=== PATIENT | male | born 1940 | race Caucasian/White ===

== ENCOUNTER 2016-10-09 11:42 | Emergency (ER) | payer MEDICARE, MEDICAID ==
[~2016-10-09] VITALS: Ht 182.9 cm; Wt 90.7 kg
--- NOTE | 2016-10-09 11:54 | ED Neurological Problem ---
General Stated Complaint: CONFUSED, WEAK Source: EMS Exam Limitations: no limitations History of Present Illness Time seen by provider: 11:50 Initial Comments To ER per EMS from [facility] with staff reports of increased confusion, weakness, incontinence. FSBS on arrival 64 so EMS gave amp or oral glucose but without improvement in mental status. However, he takes oral morphine daily for chornic pain and is on Exelon patch for dementia per baseline. Timing/Duration: 24 hours Severity: moderate Associated Symptoms: confusion Allergies and Home Medications Allergies Coded Allergies: No Known Drug Allergies (Unverified , 10/09/16) Home Medications Levofloxacin 250 Mg Tablet, 250 MG PO DAILY, #6 Prescribed by: LILA DAN on 10/09/16 1252 Constitutional: see HPI Eyes: No Symptoms Reported Ears, Nose, Mouth, Throat: no symptoms reported Respiratory: no symptoms reported Cardiovascular: no symptoms reported Genitourinary: no symptoms reported Musculoskeletal: no symptoms reported Skin: no symptoms reported Psychiatric/Neurological: See HPI Endocrine: No Symptoms Reported Hematologic/Lymphatic: No Symptoms Reported Past Qkpglns-Vutwrz-Ernodi Hx Patient Social History Recent Foreign Travel: No Contact w/Someone Who Travel: No Physical Exam Vital Signs Vital Sign - Last 12Hours 10/09/16 11:45 Temp 97.9 Pulse 66 Resp 18 B/P (MAP) 127/70 Pulse Ox 97 Capillary Refill : General Appearance: WD/WN, no apparent distress HEENT: PERRL/EOMI, normal ENT inspection Neck: non-tender, full range of motion Respiratory: no respiratory distress, no accessory muscle use Gastrointestinal: normal bowel sounds, non tender, soft Neurologic/Psychiatric: alert, normal mood/affect, other (oriented to person and place, not time or situation) Crainal Nerves: normal hearing, normal speech, PERRL Skin: normal color, warm/dry Progress/Results/Core Measures Results/Orders Lab Results Laboratory Tests Test 10/09/16 11:46 10/09/16 11:48 Range/Units Urine Color YELLOW Urine Clarity SLIGHTLY CLOUDY Urine pH 6 5-9 Urine Specific [place] 1.015 L 1.016-1.022 Urine Protein NEGATIVE NEGATIVE Urine Glucose (UA) NEGATIVE NEGATIVE Urine Ketones NEGATIVE NEGATIVE Urine Nitrite NEGATIVE NEGATIVE Urine Bilirubin NEGATIVE NEGATIVE Urine Urobilinogen 4 H NORMAL MG/DL Urine Leukocyte Esterase 1+ H NEGATIVE Urine RBC (Auto) NEGATIVE NEGATIVE Urine RBC NONE /HPF Urine WBC RARE /HPF Urine Squamous Epithelial Cells NONE /HPF Urine Crystals NONE /LPF Urine Bacteria NEGATIVE /HPF Urine Casts PRESENT /LPF Urine Hyaline Casts 0-2 H /LPF Urine Mucus NEGATIVE /LPF Urine Culture Indicated NO White Blood Count 5.9 4.3-11.0 10^3/uL Red Blood Count 4.32 L 4.35-5.85 10^6/uL Hemoglobin 12.2 L 13.3-17.7 G/DL Hematocrit 38 L 40-54 % Mean Corpuscular Volume 87 80-99 FL Mean Corpuscular Hemoglobin 28 25-34 PG Mean Corpuscular Hemoglobin Concent 32 32-36 G/DL Red Cell Distribution Width 13.4 10.0-14.5 % Platelet Count 261 130-400 10^3/uL Mean Platelet Volume 8.5 7.4-10.4 FL Neutrophils (%) (Auto) 45 42-75 % Lymphocytes (%) (Auto) 42 12-44 % Monocytes (%) (Auto) 10 0-12 % Eosinophils (%) (Auto) 3 0-10 % Basophils (%) (Auto) 0 0-10 % Neutrophils # (Auto) 2.7 1.8-7.8 X 10^3 Lymphocytes # (Auto) 2.5 1.0-4.0 X 10^3 Monocytes # (Auto) 0.6 0.0-1.0 X 10^3 Eosinophils # (Auto) 0.2 0.0-0.3 10^3/uL Basophils # (Auto) 0.0 0.0-0.1 10^3/uL Sodium Level 141 135-145 MMOL/L Potassium Level 3.9 3.6-5.0 MMOL/L Chloride Level 101 98-107 MMOL/L Carbon Dioxide Level 29 21-32 MMOL/L Anion Gap 11 5-14 MMOL/L Blood Urea Nitrogen 26 H 7-18 MG/DL Creatinine 1.44 H 0.60-1.30 MG/DL Estimat Glomerular Filtration Rate 48 BUN/Creatinine Ratio 18 Glucose Level 80 70-105 MG/DL Calcium Level 9.5 8.5-10.1 MG/DL Total Bilirubin 0.5 0.1-1.0 MG/DL Aspartate Amino Transf (AST/SGOT) 22 5-34 U/L Alanine Aminotransferase (ALT/SGPT) 11 0-55 U/L Alkaline Phosphatase 41 40-136 U/L Troponin I < 0.30 <0.30 NG/ML Total Protein 7.1 6.4-8.2 GM/DL Albumin 3.8 3.2-4.5 GM/DL Valproic Acid (Depakene) Level 44.9 L 50.0-100.0 UG/ML My Orders Orders - LILA DAN APRN Cbc With Automated Diff (10/09/16 11:46) Comprehensive Metabolic Panel (10/09/16 11:46) Troponin I (10/09/16 11:46) Ekg Tracing (10/09/16 11:46) Ua Culture If Indicated (10/09/16 11:46) Chest Pa/Lat (2 View) (10/09/16 11:46) Ct Head Wo (10/09/16 11:46) Valproic Acid (10/09/16 11:55) General/Regular (10/09/16 Lunch) Vital Signs/I&O Vital Sign - Last 12Hours 10/09/16 11:45 Temp 97.9 Pulse 66 Resp 18 B/P (MAP) 127/70 Pulse Ox 97 Diagnostic Imaging Diagonstic Imaging: Xray Plain Films/CT/US/NM/MRI: chest Comments NAME: ABBY CHO [employer] REC#: [id number] PT STATUS: REG ER : 1940 PHYSICIAN: LILA DAN APRN ADMIT DATE: 10/09/16/ER Draft Date of Exam:10/09/16 CHEST PA/LAT (2 VIEW) EXAM: CHEST PA/LAT (2 VIEW) INDICATION: Confusion. COMPARISON: None. FINDINGS: Normal heart size and pulmonary vascularity. Mild atelectasis or infiltrate in the right lung base medially. No pleural effusion or pneumothorax. No acute osseous findings. Surgical clips in the left upper quadrant. Suture anchor in the right shoulder. IMPRESSION: Mild atelectasis or infiltrate in the medial right lung base. Dictated on workstation # [id number] Dict: 10/09/16 1241 Trans: 10/09/16 1246 [id number] Interpreted by: JOURDAN MCNAMARA MD Electronically signed by: NAME: ABBY CHO [employer] REC#: [id number] PT STATUS: REG ER : 1940 PHYSICIAN: LILA DAN APRN ADMIT DATE: 10/09/16/ER Draft Date of Exam:10/09/16 CT HEAD WO PROCEDURE: CT head without contrast. TECHNIQUE: Multiple contiguous axial images were obtained through the brain without the use of intravenous contrast. INDICATION: Altered mental status. COMPARISON: None. FINDINGS: Moderate to advanced generalized cerebral and cerebellar parenchymal volume loss. Intracranial vascular calcifications. No intracranial hemorrhage, mass effect, hydrocephalus or extra-axial fluid collections. Moderate leukoaraiosis. Osseous structures are intact. The visualized paranasal sinuses and mastoids are clear. Orbits are unremarkable. IMPRESSION: No acute intracranial CT findings. Dictated on workstation # [id number] Dict: 10/09/16 1244 Trans: 10/09/16 1250 [facility] [id number] Interpreted by: JOURDAN MCNAMARA MD Electronically signed by: Departure Impression Impression: Primary Impression: Pneumonia Additional Impressions: Dementia Hypoglycemia Disposition: 01 HOME, SELF-CARE Condition: Stable Departure-Patient Inst. Decision time for Depature: 12:49 Patient Instructions: Community-Acquired Pneumonia in Adults, Dementia (DC) Add. Discharge Instructions: 1. Antibiotics as directed 2. Follow-up with his doctor later this week 3. Return if any concerns Scripts Levofloxacin (Levaquin) 250 Mg Tablet 250 MG PO DAILY, #6 TAB Prov: LILA DAN APRN 10/09/16 LILA DAN APRN Oct 09, 2016 11:54
[2016-10-09 12:03] LABS: BASOPHILS % (AUTO) 0 % (0-10); EOSINOPHILS # (AUTO) 0.2 10^3/uL (0.0-0.3); EOSINOPHILS % (AUTO) 3 % (0-10); LYMPHOCYTES # (AUTO) 2.5 X 10^3 (1.0-4.0); LYMPHOCYTES % (AUTO) 42 % (12-44); MEAN CORPUSCULAR HEMOGLOBIN 28 PG (25-34); MEAN CORPUSCULAR HGB CONC 32 G/DL (32-36); MEAN CORPUSCULAR VOLUME 87 FL (80-99); MEAN PLATELET VOLUME 8.5 FL (7.4-10.4); MONOCYTES # (AUTO) 0.6 X 10^3 (0.0-1.0); MONOCYTES % (AUTO) 10 % (0-12); NEUTROPHILS # (AUTO) 2.7 X 10^3 (1.8-7.8); NEUTROPHILS % (AUTO) 45 % (42-75); PLATELET COUNT 261 10^3/uL (130-400); RED BLOOD COUNT 4.32 10^6/uL (4.35-5.85); RED CELL DISTRIBUTION WIDTH 13.4 % (10.0-14.5); WHITE BLOOD COUNT 5.9 10^3/uL (4.3-11.0)
[2016-10-09 12:09] LABS: BILIRUBIN,URINE NEGATIVE (NEGATIVE); KETONES,URINE NEGATIVE (NEGATIVE); LEUKOCYTE ESTERASE ,URINE 1+ (NEGATIVE); NITRITE,URINE NEGATIVE (NEGATIVE); PH,URINE 6 (5-9); PROTEIN,URINE NEGATIVE (NEGATIVE); UROBILINOGEN,URINE 4 MG/DL (NORMAL)
[2016-10-09 12:19] LABS: ALANINE AMINOTRANSFERASE 11 U/L (0-55); ALBUMIN 3.8 GM/DL (3.2-4.5); ANION GAP 11 MMOL/L (5-14); ASPARTATE AMINO TRANSFERASE 22 U/L (5-34); BILIRUBIN,TOTAL 0.5 MG/DL (0.1-1.0); BLOOD UREA NITROGEN 26 MG/DL (7-18); BUN/CREATININE RATIO 18; CALCIUM 9.5 MG/DL (8.5-10.1); CARBON DIOXIDE 29 MMOL/L (21-32); CHLORIDE 101 MMOL/L (98-107); CREATININE SERUM 1.44 MG/DL (0.60-1.30); GFR ESTIMATED 48; GLUCOSE 80 MG/DL (70-105); POTASSIUM 3.9 MMOL/L (3.6-5.0); SODIUM 141 MMOL/L (135-145); TOTAL PROTEIN 7.1 GM/DL (6.4-8.2)
[2016-10-09 12:25] LABS: TROPONIN I < 0.30 NG/ML (<0.30); VALPROIC ACID 44.9 UG/ML (50.0-100.0)
[2016-10-09 12:29] LABS: HYALINE CASTS, URINE 0-2 /LPF; WBC,URINE RARE /HPF
--- NOTE | 2016-10-09 12:47 | Diagnostic Imaging Report ---
EXAM: CHEST PA/LAT (2 VIEW) INDICATION: Confusion. COMPARISON: None. FINDINGS: Normal heart size and pulmonary vascularity. Mild atelectasis or infiltrate in the right lung base medially. No pleural effusion or pneumothorax. No acute osseous findings. Surgical clips in the left upper quadrant. Suture anchor in the right shoulder. IMPRESSION: Mild atelectasis or infiltrate in the medial right lung base. Dictated by: Dictated on workstation # [id number]
--- NOTE | 2016-10-09 12:50 | Diagnostic Imaging Report ---
PROCEDURE: CT head without contrast. TECHNIQUE: Multiple contiguous axial images were obtained through the brain without the use of intravenous contrast. INDICATION: Altered mental status. COMPARISON: None. FINDINGS: Moderate to advanced generalized cerebral and cerebellar parenchymal volume loss. Intracranial vascular calcifications. No intracranial hemorrhage, mass effect, hydrocephalus or extra-axial fluid collections. Moderate leukoaraiosis. Osseous structures are intact. The visualized paranasal sinuses and mastoids are clear. Orbits are unremarkable. IMPRESSION: No acute intracranial CT findings. Dictated by: Dictated on workstation # [id number]
[2016-10-09] MEDS ORDERED: LEVO250T11 PO (12:52)
[2016-10-09] MEDS: LEVOFLOXACIN 500 MG TAB (LEVAQUIN) PO ONE (13:13)
[2016-10-09 13:31] VITALS: BP 127/70
--- OUTSIDE RECORDS SUMMARY | 2016-10-11 09:23 | XMS REPORT | Continuity of Care Document ---
Author Author [facility] Organization [facility] Address Unknown Phone Unavailable Care Team Providers Care Surgical Pathologist Name Role Phone Arash MUELLER MD PCP Insurance Providers Payer Name Policy Number Subscriber Name Relationship Wps Medicare [id number] Marquis Mora 18 Self / Same As Patient [facility] [id number] Marquis Mora 18 Self / Same As Patient Advance Directives Directive Response Recorded Date/Time Advance Directives Yes 06/11/14 10:42pm Health Care Power of Olive Knocker No 06/11/14 10:42pm Organ Donor No 06/11/14 10:42pm Resuscitation Status Full Code 06/11/14 10:42pm Problems Medical Problems Problem Onset Date Status Bronchitis Unknown Active Medications Medication Dose Route Sig Days/Qty Instructions Order Date Discontinued Date Status Acetaminophen/Hydrocodone Bitart 04/12/08 04/24/09 Discontinued [cefdinir] 04/12/08 01/03/09 Discontinued Gabapentin 04/12/08 01/03/09 Discontinued Lubiprostone 04/12/08 01/03/09 Discontinued Furosemide 04/12/08 01/03/09 Discontinued Simvastatin 04/12/08 01/03/09 Discontinued Orphenadrine Citrate 04/12/08 01/03/09 Discontinued Metolazone 04/12/08 01/03/09 Discontinued Metformin HCl 500 Mg PO DAILY 01/03/09 08/10/11 Discontinued Niacin 500 Mg PO DAILY PT TAKES IT IN THE MORNING 01/21/09 01/22/11 Discontinued Clopidogrel Bisulfate 01/21/09 04/24/09 Discontinued Atenolol 01/21/09 10/19/09 Discontinued Methotrexate 01/21/09 10/19/09 Discontinued Lisinopril 01/21/09 10/19/09 Discontinued Acetaminophen/Hydrocodone Bitart 20 - 650 Mg PO EVERY 6 HOURS 10/19/09 Discontinued [Plavix] 04/24/09 10/19/09 Discontinued Fentanyl 100 Mcg TD Q72 HRS 04/24/09 04/15/10 Discontinued Clopidogrel Bisulfate 75 Mg PO DAILY 10/19/09 06/11/14 Discontinued Acetaminophen/Hydrocodone Bitart 2 Ea PO Q6HR PRN 10/19/09 01/14/10 Discontinued Aspirin 325 Mg PO DAILY 10/19/09 01/22/11 Discontinued Acetaminophen/Hydrocodone Bitart 1 - 2 Ea PO Q6HR PRN 80 Qty 11/22/09 01/14/10 Discontinued Sucralfate 1 Gm PO THREE TIMES A DAY 12/01/09 06/11/14 Discontinued Acetaminophen/Hydrocodone Bitart ([place]) 1 - 2 Each PO Q6HR PRN 10 Qty 12/01/09 01/14/10 Discontinued Oxycodone Hcl 30 Mg PO TWICE A DAY 30 Days 12/23/09 01/14/10 Discontinued Clopidogrel Bisulfate 1 Each PO 01/14/10 01/14/10 Discontinued Aspirin 81 Mg PO DAILY 01/14/10 01/14/10 Discontinued Morphine Sulfate 30 Mg PO THREE TIMES A DAY PRN PAIN 01/21/10 Discontinued Oxycodone Hcl/Acetaminophen 1 Each EVERY 4HRS 01/21/10 09/20/10 Discontinued Oxycodone Hcl/Acetaminophen 1 - 2 Each PO EVERY 4HRS PRN 30 Qty 09/20/10 Discontinued Ondansetron 4 Mg PO EVERY 6 HOURS PRN 10 Qty 02/18/11 06/09/11 Discontinued Aspirin 81 Mg PO DAILY 06/09/11 06/11/14 Discontinued Fenofibrate (Lofibra) 134 Mg PO DAILY 06/09/11 06/09/11 Discontinued Lisinopril 2.5 Mg PO DAILY 06/09/11 06/11/14 Discontinued Lisinopril 5 Mg PO 06/09/11 06/09/11 Discontinued Metoprolol Succinate 25 Mg PO DAILY 06/09/11 06/11/14 Discontinued [place]-3/Dha/Epa/Fish Oil 1,000 Mg PO TWICE A DAY 06/09/11 06/11/14 Discontinued Fenofibrate 145 Mg PO BEDTIME 06/09/11 06/11/14 Discontinued Morphine Sulfate 30 Mg PO THREE TIMES A DAY 10 Qty 07/05/11 07/05/11 Discontinued Morphine Sulfate 30 Mg PO THREE TIMES A DAY 10 Days 07/05/11 08/10/11 Discontinued Pioglitazone Hcl/Metformin Hcl 1 Each PO DAILY 08/10/11 06/11/14 Discontinued Hydrocodone Bit/Acetaminophen 1 Each PO DAILY PRN 08/10/11 08/30/11 Discontinued Pioglitazone HCl 1 Tab PO DAILY 30 Qty 08/30/11 06/11/14 Discontinued Pregabalin 300 Mg PO THREE TIMES A DAY 08/30/11 06/11/14 Discontinued Amoxicillin/Clavulanate Potassium 1 Tab PO TWICE A DAY 7 Days 08/31/11 06/11/14 Discontinued Furosemide (Lasix) 90 Qty 06/11/14 Active Lisinopril (Zestril) 90 Qty 06/11/14 Active Clopidogrel Bisulfate 90 Qty 06/11/14 Active Pioglitazone Hcl 90 Qty 06/11/14 Active Metoprolol Succinate 90 Qty 06/11/14 Active Fenofibrate Nanocrystallized 90 Qty 06/11/14 Active Pregabalin 60 Qty 06/11/14 Active Morphine Sulfate 60 Qty 06/11/14 Active Metformin Hcl 180 Qty 06/11/14 Active Citalopram Hydrobromide 90 Qty 06/11/14 Active Lubiprostone 60 Qty 06/11/14 Active Azithromycin (Zpak) 1 Tab PO DAILY 4 Qty 06/12/14 Active Social History Social History Problem Response Recorded Date/Time Alcohol Use Denies Use 06/11/2014 10:42pm Recreational Drug Use No 06/11/2014 10:42pm Recent Foreign Travel No 06/11/2014 10:42pm Recent Infectious Disease Exposure No 06/11/2014 10:42pm Sexually Transmitted Disease No 06/11/2014 10:42pm Smoking Status Former Smoker 06/11/2014 10:42pm Query Response Start Date Stop Date Smoking Status Former Smoker 06/02/2004 Hospital Discharge Instructions No hospital discharge instructions. Plan of Care No plan of care. Functional Status No functional status results. Allergies, Adverse Reactions, Alerts Allergen Type Severity Reaction Status Last Updated No Known Drug Allergies Active 04/12/08 Immunizations No immunization records. Vital Signs Acute Vital Signs Vital Response Date/Time Temperature (Fahrenheit) 101.8 degrees F (97.6 - 99.5) Temperature (Calculated Celsius) 38.59981 degrees C (36.4 - 37.5) Pulse Rate (adult) 82 bpm (60 - 90) Respiratory Rate 20 bpm (12 - 24) O2 Sat by Pulse Oximetry 95 % (88 - 100) Blood Pressure 137/82 mm Hg Pain Pain Intensity 0 Height (Feet) 6 feet Height (Inches) 0 inches Height (Calculated Centimeters) 182.104814 cm Weight (Pounds) 220 pounds Weight (Calculated Kilograms) 99.297406 kilograms Calculated BMI 29.83 Results Laboratory Results Test Name Result Units Flags Reference Collection Date/Time Result Date/ Time Comments White Blood Count 8.6 10^3/uL 4.3-11.0 06/11/2014 10:46pm 06/11/2014 10 :59pm Red Blood Count 4.79 10^6/uL 4.35-5.85 06/11/2014 10:46pm 06/11/2014 10 :59pm Hemoglobin 13.7 G/DL 13.3-17.7 06/11/2014 10:46pm 06/11/2014 10:59pm Hematocrit 40 % 40-54 06/11/2014 10:pm 06/11/2014 10:59pm Mean Corpuscular Volume 84 FL 80-99 06/11/2014 10:46pm 06/11/2014 10: 59pm Mean Corpuscular Hemoglobin 29 PG 25-34 06/11/2014 10:46pm 06/11/2014 10:59pm Mean Corpuscular Hemoglobin Concent 34 G/DL 32-36 06/11/2014 10:46pm 10:59pm Red Cell Distribution Width 13.1 % 10.0-14.5 06/11/2014 10:46pm 2014 10:59pm Platelet Count 315 10^3/uL 130-400 06/11/2014 10:46pm 06/11/2014 10: 59pm Mean Platelet Volume 8.2 FL 7.4-10.4 06/11/2014 10:46pm 06/11/2014 10: 59pm Neutrophils (%) (Auto) 72 % 42-75 06/11/2014 10:46pm 06/11/2014 10: 59pm Lymphocytes (%) (Auto) 18 % 12-44 06/11/2014 10:46pm 06/11/2014 10: 59pm Monocytes (%) (Auto) 9 % 0-12 06/11/2014 10:46pm 06/11/2014 10:59pm Eosinophils (%) (Auto) 1 % 0-10 06/11/2014 10:46pm 06/11/2014 10:59pm Basophils (%) (Auto) 0 % 0-10 06/11/2014 10:46pm 06/11/2014 10:59pm Neutrophils # (Auto) 6.2 X 10^3 1.8-7.8 06/11/2014 10:46pm 06/11/2014 10:59pm Lymphocytes # (Auto) 1.6 X 10^3 1.0-4.0 06/11/2014 10:46pm 06/11/2014 10:59pm Monocytes # (Auto) 0.8 X 10^3 0.0-1.0 06/11/2014 10:46pm 06/11/2014 10: 59pm Eosinophils # (Auto) 0.1 10^3/uL 0.0-0.3 06/11/2014 10:46pm 06/11/2014 10:59pm Basophils # (Auto) 0.0 10^3/uL 0.0-0.1 06/11/2014 10:46pm 06/11/2014 10 :59pm Urine Color MARGIE * 06/11/2014 11:52pm 06/12/2014 12:16am Urine Clarity CLEAR 06/11/2014 11:52pm 06/12/2014 12:16am Urine pH 5 5-9 06/11/2014 11:52pm 06/12/2014 12:16am Urine Specific [place] 1.025 * 1.016-1.022 06/11/2014 11:52pm 2014 12:16am Urine Protein 1+ * NEGATIVE 06/11/2014 11:52pm 06/12/2014 12:16am Urine Glucose (UA) 3+ * NEGATIVE 06/11/2014 11:52pm 06/12/2014 12:16am Urine RBC (Auto) 2+ * NEGATIVE 06/11/2014 11:52pm 06/12/2014 12:16am Urine Ketones NEGATIVE NEGATIVE 06/11/2014 11:52pm 06/12/2014 12: 16am Urine Nitrite NEGATIVE NEGATIVE 06/11/2014 11:52pm 06/12/2014 12: 16am Urine Bilirubin NEGATIVE NEGATIVE 06/11/2014 11:52pm 06/12/2014 12: 16am Urine Urobilinogen 4 MG/DL * NORMAL 06/11/2014 11:52pm 06/12/2014 12: 16am Urine Leukocyte Esterase NEGATIVE NEGATIVE 06/11/2014 11:52pm 2014 12:16am Urine RBC 0-2 /HPF 06/11/2014 11:52pm 06/12/2014 12:16am Urine WBC NONE /HPF 06/11/2014 11:52pm 06/12/2014 12:16am Urine Bacteria NEGATIVE /HPF 06/11/2014 11:52pm 06/12/2014 12:16am Urine Squamous Epithelial Cells NONE /HPF 06/11/2014 11:52pm 2014 12:16am Urine Crystals NONE /LPF 06/11/2014 11:52pm 06/12/2014 12:16am Urine Casts NONE /LPF 06/11/2014 11:52pm 06/12/2014 12:16am Urine Mucus LARGE /LPF * 06/11/2014 11:52pm 06/12/2014 12:16am Urine Culture Indicated NO 06/11/2014 11:52pm 06/12/2014 12:16am Sodium Level 135 MMOL/L 135-145 06/11/2014 10:46pm 06/11/2014 11:18pm Potassium Level 4.2 MMOL/L 3.6-5.0 06/11/2014 10:46pm 06/11/2014 11: 18pm Chloride Level 102 MMOL/L 98-107 06/11/2014 10:46pm 06/11/2014 11:18pm Carbon Dioxide Level 22 MMOL/L 21-32 06/11/2014 10:46pm 06/11/2014 11: 18pm Blood Urea Nitrogen 22 MG/DL H 7-18 06/11/2014 10:4606/11/2014 11: 18pm Creatinine 1.23 MG/DL 0.60-1.30 06/11/2014 10:46pm 06/11/2014 11:18pm BUN/Creatinine Ratio 18 06/11/2014 10:4606/11/2014 11:18pm Estimat Glomerular Filtration Rate 58 06/11/2014 10:46pm 2014 11:18pm GFR INTERPRETIVE DATA UNITS FOR ESTIMATED GFR (eGFR): mL/min/1.73 M2 REFERENCE RANGE FOR ESTIMATED GFR (eGFR) eGFR NORMAL eGFR >60 MODERATELY DECREASED eGFR 30-59 SEVERLY DECREASED eGFR 15-29 KIDNEY FAILURE <15 (OR DIALYSIS) Glucose Level 132 MG/DL H 70-105 06/11/2014 10:46pm 06/11/2014 11:18pm Calcium Level 10.1 MG/DL 8.5-10.1 06/11/2014 10:4606/11/2014 11: 18pm Total Bilirubin 0.8 MG/DL 0.1-1.0 06/11/2014 10:06/11/2014 11: 18pm Alkaline Phosphatase 51 U/L 40-136 06/11/2014 10:06/11/2014 11: 18pm Aspartate Amino Transf (AST/SGOT) 19 U/L 5-34 06/11/2014 10:2014 11:18pm Alanine Aminotransferase (ALT/SGPT) 12 U/L 0-55 06/11/2014 10: 11:18pm Total Protein 8.3 G/DL H 6.4-8.2 06/11/2014 10:06/11/2014 11:18pm Albumin 4.2 G/DL 3.2-4.5 06/11/2014 10:06/11/2014 11:18pm Procedures No known history of procedures. Encounters Encounter Location Date/Time Departed Emergency Room [facility] 06/11/14 10:34pm Recent Diagnosis
--- OUTSIDE RECORDS SUMMARY | 2016-10-11 09:23 | XMS REPORT | Continuity of Care Document ---
Author Author [facility] Organization [facility] Address Unknown Phone Unavailable Care Team Providers Care Material Stockkeeper Yard Name Role Phone Arash MUELLER MD PCP Insurance Providers Payer Name Policy Number Subscriber Name Relationship s Medicare [id number] Marquis Mora 18 Self / Same As Patient [facility] [id number] Marquis Mora 18 Self / Same As Patient Advance Directives Directive Response Recorded Date/Time Advance Directives Yes 02/23/16 10:30am Health Care Power of Marketing Professor Yes 02/23/16 10:30am Organ Donor No 02/23/16 10:30am Resuscitation Status DNR-Pt Request 02/23/16 10:30am Chief Complaint and Reason for Visit Chief Complaint SYNCOPE Reason for Visit Impacted cerumen of right ear Lightheadedness Rib fractures Spleen laceration Problems Active Problems Medical Problem Onset Date Status Bronchitis Unknown Acute Fall on same level Unknown Acute Impacted cerumen of right ear Unknown Acute Lightheadedness Unknown Acute Rib fractures Unknown Acute Spleen laceration Unknown Acute Medications Current Home Medications Medication Dose Units Route Directions Days/Qty Instructions Start Date Lubiprostone 24 Mcg 24 Mcg Oral Twice A Day 06/11/14 Morphine Sulfate 60 Mg 60 Mg Oral Twice A Day 02/24/16 Morphine Sulfate 15 Mg 15 Mg Oral Every 6 Hours as needed for Pain 02/24/16 Past Home Medications Medication Directions Ordered Status Acetaminophen/Hydrocodone Bitart 1 Ea Tablet, 04/12/08 Discontinued [Cefdinir] , 04/12/08 Discontinued Gabapentin 300 Mg Cap, 04/12/08 Discontinued Lubiprostone 24 Mcg Cap, 04/12/08 Discontinued Furosemide 40 Mg Tablet, 04/12/08 Discontinued Simvastatin 40 Mg Tablet, 04/12/08 Discontinued Orphenadrine Citrate 60 Mg/2 Ml Amp, 04/12/08 Discontinued Metolazone 5 Mg Tab, 04/12/08 Discontinued Metformin Hcl 500 Mg Tab, 500 Mg Oral Daily 01/03/09 Discontinued Niacin 500 Mg Tablet.sa, 500 Mg Oral Daily 01/21/09 Discontinued Clopidogrel Bisulfate 75 Mg Tablet, 01/21/09 Discontinued Atenolol 25 Mg Tablet, 01/21/09 Discontinued Methotrexate 2.5 Mg Tab, 01/21/09 Discontinued Lisinopril 5 Mg Tablet, 01/21/09 Discontinued Acetaminophen/Hydrocodone Bitart 1 Ea Tab, 20 - 650 Mg Oral Every 6 Hours 12/24 Discontinued [Plavix] , 04/24/09 Discontinued Fentanyl 1 Ea Patch, 100 Mcg Transderm Q72 Hrs 04/24/09 Discontinued Clopidogrel Bisulfate 75 Mg Tablet, 75 Mg Oral Daily 10/19/09 Discontinued Acetaminophen/Hydrocodone Bitart 1 Ea Tab, 2 Ea Oral Q6hr Prn 10/19/09 Discontinued Aspirin 325 Mg Tabec, 325 Mg Oral Daily 10/19/09 Discontinued Acetaminophen/Hydrocodone Bitart 1 Ea Tab, 1 - 2 Ea Oral Q6hr Prn 11/22/09 Discontinued Sucralfate 1 G Tablet, 1 Gm Oral Three Times A Day 12/01/09 Discontinued Acetaminophen/Hydrocodone Bitart ([place]) 1 Each Tablet, 1 - 2 Each Oral Q6hr Prn 12/01/09 Discontinued Oxycodone Hcl 30 Mg Tab.sr.12h, 30 Mg Oral Twice A Day 12/23/09 Discontinued Clopidogrel Bisulfate 75 Mg Tablet, 1 Each Oral 01/14/10 Discontinued Aspirin 81 Mg Tabec, 81 Mg Oral Daily 01/14/10 Discontinued Morphine Sulfate 15 Mg Tablet, 30 Mg Oral Three Times A Day as needed Discontinued Oxycodone Hcl/Acetaminophen 1 Each Tablet, 1 Each Every 4HRS 01/21/10 Discontinued Oxycodone Hcl/Acetaminophen 1 Each Tablet, 1 - 2 Each Oral Every 4HRS as needed 04/15/10 Discontinued Ondansetron 4 Mg Tab.rapdis, 4 Mg Oral Every 6 Hours as needed 02/18/11 Discontinued Aspirin 81 Mg Tabec, 81 Mg Oral Daily 06/09/11 Discontinued Fenofibrate (Lofibra) 134 Mg Capsule, 134 Mg Oral Daily 06/09/11 Discontinued Lisinopril 2.5 Mg Tablet, 2.5 Mg Oral Daily 06/09/11 Discontinued Lisinopril 5 Mg Tablet, 5 Mg Oral 06/09/11 Discontinued Metoprolol Succinate 25 Mg Tab.sr.24h, 25 Mg Oral Daily 06/09/11 Discontinued [place]-3/Dha/Epa/Fish Oil 1 Each Capsule.dr, 1000 Mg Oral Twice A Day Discontinued Fenofibrate 145 Mg Tablet, 145 Mg Oral Bedtime 06/09/11 Discontinued Morphine Sulfate 15 Mg Tablet, 30 Mg Oral Three Times A Day 07/05/11 Discontinued Morphine Sulfate 15 Mg Tablet, 30 Mg Oral Three Times A Day 07/05/11 Discontinued Pioglitazone Hcl/Metformin Hcl 1 Each Tbmp.24hr, 1 Each Oral Daily 08/10/11 Discontinued Hydrocodone Bit/Acetaminophen 1 Each Tablet, 1 Each Oral Daily as needed 08/02 Discontinued Pioglitazone Hcl 30 Mg Tablet, 1 Tab Oral Daily 08/30/11 Discontinued Pregabalin 300 Mg Capsule, 300 Mg Oral Three Times A Day 08/30/11 Discontinued Amoxicillin/Clavulanate Potassium 1 Tab Tablet, 1 Tab Oral Twice A Day Discontinued Furosemide (Lasix) 20 Mg Tablet, 06/11/14 Discontinued Lisinopril (Zestril) 2.5 Mg Tablet, 06/11/14 Discontinued Clopidogrel Bisulfate 75 Mg Tablet, 06/11/14 Discontinued Pioglitazone Hcl 30 Mg Tab, 06/11/14 Discontinued Metoprolol Succinate 25 Mg Tab.sr.24h, 06/11/14 Discontinued Fenofibrate Nanocrystallized 145 Mg Tablet, 06/11/14 Discontinued Pregabalin 150 Mg Capsule, 06/11/14 Discontinued Morphine Sulfate 60 Mg Tablet.sa, 06/11/14 Discontinued Metformin Hcl 500 Mg Tablet, 06/11/14 Discontinued Citalopram Hydrobromide 10 Mg Tablet, 06/11/14 Discontinued Azithromycin (Zpak) 250 Mg Tab, 1 Tab Oral Daily 06/12/14 Discontinued Social History Social History Problem Response Recorded Date/Time Alcohol Use Denies Use 01/27/2015 4:42pm Recreational Drug Use No 01/27/2015 4:42pm Recent Foreign Travel No 02/23/2016 10:30am Recent Infectious Disease Exposure No 02/23/2016 10:30am Hospitalization with Isolation Denies 02/27/2016 10:22am Sexually Transmitted Disease No 02/23/2016 10:30am Smoking Status Former Smoker 02/23/2016 10:30am Do you dip or chew tobacco? No 01/27/2015 4:42pm Recent Hopitalizations No 02/23/2016 10:30am Sexually Transmitted Disease No 02/23/2016 10:30am Hospitalization with Isolation Denies 02/27/2016 10:22am Hx Sexually Transmitted Disorders No 01/27/2011 9:35am Query Response Start Date Stop Date Smoking Status Former Smoker 06/02/2004 Hospital Discharge Instructions No hospital discharge instructions. Plan of Care Discharge Date 02/27/16 10:16am Disposition 61 MEDICARE SWING BED Instructions/Education Provided Constipation, Adult (DC) Prescriptions See Medication Section Functional Status Query Response Date Recorded Patient Orientation Person Place February 26, 2016 12:07pm Patient Orientation Person Place Time Eyes Open February 27, 2016 10:22am Comprehension Ability Understands Concepts February 27, 2016 8:00am Allergies, Adverse Reactions, Alerts No known allergies. Immunizations No immunization records. Vital Signs Acute Vital Signs Vital Response Date/Time Temperature (Fahrenheit) 99.0 degrees F (97.6 - 99.5) 02/27/2016 8:00am Temperature (Calculated Celsius) 37.86858 degrees C (36.4 - 37.5) 02/27/2016 8:00am Temperature Source Tympanic 02/27/2016 8:00am Pulse Rate (adult) 86 bpm (60 - 90) 02/27/2016 8:00am Respiratory Rate 20 bpm (12 - 24) 02/27/2016 8:00am O2 Sat by Pulse Oximetry 97 % (88 - 100) 02/27/2016 8:00am Blood Pressure 131/77 mm Hg 02/27/2016 8:00am Blood Pressure Mean 95 mm Hg 02/27/2016 8:00am Pain Numeric Pain Scale 10-Worst Possible Pain 02/27/2016 8:00am Pain Numeric Pain Scale 0-No Pain 02/27/2016 8:00am Height (Feet) 6 feet 02/23/2016 10:30am Height (Inches) 0.00 inches 02/23/2016 10:30am Height (Calculated Centimeters) 182.097591 cm 02/23/2016 10:30am Weight (Pounds) 225 pounds 02/27/2016 6:00am Weight (Ounces) 4.8 oz 02/27/2016 6:00am Weight (Calculated Grams) 392517.362 gm 02/27/2016 6:00am Weight (Calculated Kilograms) 102.414525 kilograms 02/27/2016 6:00am Calculated BMI 31.6 02/23/2016 10:30am Capillary Refill Capillary Refill Less Than 3 Seconds 02/27/2016 8:00am Results Pending Laboratory Results Test Name Collection Date/Time Procedures Procedure Status Date Provider(s) Tracing only of electrocardiogram Completed 02/23/16 YEFRI HA MD Color Doppler echocardiography Active 02/24/16 PELON HARVEY MD Encounters Encounter Location Arrival/Admit Date Discharge/Depart Date Attending Provider Discharged Inpatient [facility] 02/23/16 10:50am 10:16am REINALDO MONTGOMERY DO Discharged Recurring [facility] 01/13/16 12:40pm 4:00pm AMY CANDELARIO APRN Recent Diagnosis Impacted cerumen of right ear Lightheadedness Rib fractures Spleen laceration
--- OUTSIDE RECORDS SUMMARY | 2016-10-11 09:24 | XMS REPORT | Continuity of Care Document ---
Author Author [facility] Organization [facility] Address Unknown Phone Unavailable Care Team Providers Care Funeral Location Manager Name Role Phone Arash MUELLER MD PCP Insurance Providers Payer Name Policy Number Subscriber Name Relationship s Medicare [id number] Marquis Mora 18 Self / Same As Patient [facility] [id number] Marquis Mora 18 Self / Same As Patient Advance Directives Directive Response Recorded Date/Time Advance Directives Yes 03/08/16 11:00pm Health Care Power of Outsole Cutter Machine Yes 03/08/16 11:00pm Organ Donor No 03/08/16 11:00pm Resuscitation Status DNR-Order Obtained 03/08/16 11:00pm Chief Complaint and Reason for Visit Chief Complaint L RIB FX 8-12, SPLEEN LAC,L PNEUMONIA Reason for Visit Gait instability Lightheadedness Problems Active Problems Medical Problem Onset Date Status Bronchitis Unknown Acute Fall on same level Unknown Acute Gait instability Unknown Acute Impacted cerumen of right ear Unknown Acute Lightheadedness Unknown Acute RESPIRATORY FAILURE, UNSP, UNSP W HYPOXIA OR HYPERCAPNIA Unknown Acute Rib fractures Unknown Acute Spleen laceration Unknown Acute Medications Current Home Medications Medication Dose Units Route Directions Days/Qty Instructions Start Date Pregabalin 225 Mg 225 Mg Oral Twice A Day 03/08/16 Citalopram Hydrobromide 10 Mg 10 Mg Oral Daily 03/08/16 Fenofibrate Nanocrystallized 145 Mg 145 Mg Oral Daily 03/08/16 Lubiprostone 24 Mcg 24 Mcg Oral Daily LAST FILLED 12/02/15 #85 Polyethylene Glycol 3350 17 Gm 17 Gm Oral Daily as needed for Constipation 03/09/16 Liraglutide 0.6 Mg/0.1 Ml 1.2 Mg Sub-Q Daily 03/09/16 Morphine Sulfate 60 Mg 60 Mg Oral Twice A Day 03/09/16 Morphine Sulfate 15 Mg 15 Mg Oral Every 6 Hours as needed for Pain 03/09/16 Past Home Medications Medication Directions Ordered Status [...] Times A Day 12/01/09 Discontinued Acetaminophen/Hydrocodone Bitart ([place]) 1 Each Tablet, 1 - 2 Each [...] Tab.sr.24h, 25 Mg Oral Daily 06/09/11 Discontinued [place]-3/Dha/Epa/Fish Oil 1 Each Capsule.dr, 1000 Mg Oral [...] Citalopram Hydrobromide 10 Mg Tablet, 06/11/14 Discontinued Lubiprostone 24 Mcg Capsule, 24 Mcg Oral Twice A Day 06/11/14 Discontinued Azithromycin (Zpak) 250 Mg Tab, 1 Tab Oral Daily 06/12/14 Discontinued Morphine Sulfate 60 Mg Tablet.er, 60 Mg Oral Twice A Day 02/24/16 Discontinued Morphine Sulfate 15 Mg Tablet, 15 Mg Oral Every 6 Hours as needed for Pain Discontinued Morphine Sulfate 60 Mg Tablet.er, 60 Mg Oral Twice A Day 03/02/16 Discontinued Morphine Sulfate 15 Mg Tablet, 15 Mg Oral Every 6 Hours as needed for Pain Discontinued Sucralfate 1 Gm Tablet, 1 Gm Oral Twice A Day 03/08/16 Discontinued Metformin Hcl 500 Mg Tablet, 500 Mg Oral Twice A Day 03/08/16 Discontinued Social History Social History Problem Response Recorded Date/Time Alcohol Use Denies Use 01/27/2015 4:42pm Recreational Drug Use No 01/27/2015 4:42pm Recent Foreign Travel No 03/08/2016 8:00pm Recent Infectious Disease Exposure No 03/08/2016 8:00pm Sexually Transmitted Disease No 03/08/2016 11:00pm Smoking Status Former Smoker 03/08/2016 11:00pm Do you dip or chew tobacco? No 01/27/2015 4:42pm Type Used Cigarettes 03/09/2016 6:48pm Recent Hopitalizations No 03/08/2016 11:00pm Sexually Transmitted Disease No 03/08/2016 11:00pm Hx Sexually Transmitted Disorders No 01/27/2011 9:35am Query Response Start Date Stop Date Smoking Status Former Smoker 06/02/2004 Hospital Discharge Instructions Patient Instructions Physician Instructions Patient Problems: Recent splenic laceration as a result of a fall at home Gait instability Constipation Anemia secondary to splenic laceration Goal: Nutrition for vigor and yazidi of hemoglobin Physical therapy and occupational therapy to restore ability to perform activities of daily living ligament breanaMilvia Fernández or: Certification (SNF) I certify that SNF services are required to be given on an inpatient basis because of the above named patient's need for half-way care on a continuing basis for the conditions(s) for which he/she was receiving inpatient hospital services prior to his/her transfer to the SNF. Retirement Facility Order: Nursing Services, Equal Opportunity Officer-Evaluate & Treat, Physical Therapy-Evaluate & Treat Discharge Diet: No Restrictions Daily Activity as Tolerated: Yes Tonia Cuadra Mar 09, 2016 13:05 Plan of Care Discharge Date 03/09/16 5:07pm Disposition 01 HOME, SELF-CARE Instructions/Education Provided Rib Fracture (DC) Community-Acquired Pneumonia in Adults Prescriptions See Medication Section Additional Instructions/Education ORDERS: NASAL CANNULA 2L PT/OT EVALUATE AND TREAT Care Plan and Goals See Discharge Instructions Section Functional Status Query Response Date Recorded Patient Orientation Person Place Time March 09, 2016 6:47pm Patient Orientation Person Place Time Situation March 09, 2016 6:47pm Comprehension Ability Understands Concepts March 09, 2016 8:00am Allergies, Adverse Reactions, Alerts No known allergies. Immunizations No immunization records. Vital Signs Acute Vital Signs Vital Response Date/Time Temperature (Fahrenheit) 99.6 degrees F (97.6 - 99.5) 03/09/2016 4:00pm Temperature (Calculated Celsius) 37.63447 degrees C (36.4 - 37.5) 03/09/2016 4:00pm Temperature Source Tympanic 03/09/2016 4:00pm Pulse Rate (adult) 74 bpm (60 - 90) 03/09/2016 4:00pm Respiratory Rate 16 bpm (12 - 24) 03/09/2016 4:00pm O2 Sat by Pulse Oximetry 97 % (88 - 100) 03/09/2016 4:00pm Blood Pressure 108/62 mm Hg 03/09/2016 4:00pm Blood Pressure Mean 77 mm Hg 03/09/2016 4:00pm Pain Numeric Pain Scale 0-No Pain 03/09/2016 4:00pm Pain Numeric Pain Scale 7 03/09/2016 4:00pm Height (Feet) 6 feet 03/08/2016 8:00pm Height (Inches) 0.00 inches 03/08/2016 8:00pm Height (Calculated Centimeters) 182.733645 cm 03/08/2016 8:00pm Weight (Pounds) 220 pounds 03/08/2016 8:00pm Weight (Ounces) 0.0 oz 03/08/2016 8:00pm Weight (Calculated Grams) 95628.32 gm 03/08/2016 8:00pm Weight (Calculated Kilograms) 99.505747 kilograms 03/08/2016 8:00pm Calculated BMI 29.8 03/08/2016 8:00pm Capillary Refill Capillary Refill Less Than 3 Seconds 03/09/2016 8:00am Results Laboratory Results Test Name Result Units Flags Reference Collection Date/Time Result Date/ Time Comments White Blood Count 8.2 10^3/uL 4.3-11.0 02/27/2016 4:3002/27/2016 5: 17am Red Blood Count 2.81 10^6/uL L 4.35-5.85 02/27/2016 4:3002/27/2016 5: 17am Hemoglobin 7.8 G/DL L 13.3-17.7 02/27/2016 4:3002/27/2016 5:17am Hematocrit 24 % L 40-54 02/27/2016 4:3002/27/2016 5:17am Mean Corpuscular Volume 85 FL 80-99 02/27/2016 4:02/27/2016 5: 17am Mean Corpuscular Hemoglobin 28 PG 25-34 02/27/2016 4:02/27/2016 5: 17am Mean Corpuscular Hemoglobin Concent 33 G/DL 32-36 02/27/2016 4:30 5:17am Red Cell Distribution Width 13.3 % 10.0-14.5 02/27/2016 4:302016 5:17am Platelet Count 267 10^3/uL 130-400 02/27/2016 4:3002/27/2016 5:17am Mean Platelet Volume 8.6 FL 7.4-10.4 02/27/2016 4:3002/27/2016 5: 17am Neutrophils (%) (Auto) 76 % H 42-75 02/27/2016 4:3002/27/2016 5:17am Lymphocytes (%) (Auto) 13 % 12-44 02/27/2016 4:30am 02/27/2016 5:17am Monocytes (%) (Auto) 9 % 0-12 02/27/2016 4:30am 02/27/2016 5:17am Eosinophils (%) (Auto) 2 % 0-10 02/27/2016 4:30am 02/27/2016 5:17am Basophils (%) (Auto) 0 % 0-10 02/27/2016 4:3002/27/2016 5:17am Neutrophils # (Auto) 6.2 X 10^3 1.8-7.8 02/27/2016 4:3002/27/2016 5: 17am Lymphocytes # (Auto) 1.1 X 10^3 1.0-4.0 02/27/2016 4:3002/27/2016 5: 17am Monocytes # (Auto) 0.7 X 10^3 0.0-1.0 02/27/2016 4:3002/27/2016 5: 17am Eosinophils # (Auto) 0.1 10^3/uL 0.0-0.3 02/27/2016 4:30am 02/27/2016 5 :17am Basophils # (Auto) 0.0 10^3/uL 0.0-0.1 02/27/2016 4:30am 02/27/2016 5: 17am Smear Scan YES 02/26/2016 3:25am 02/26/2016 4:14am VERIFIED BY SCAN OF SMEAR. Neutrophils % (Manual) 87 % 02/25/2016 3:55am 02/25/2016 4:26am Band Neutrophils 0 % 02/25/2016 3:55am 02/25/2016 4:26am Lymphocytes % (Manual) 6 % 02/25/2016 3:55am 02/25/2016 4:26am Monocytes % (Manual) 7 % 02/25/2016 3:55am 02/25/2016 4:26am Eosinophils % (Manual) 0 % 02/25/2016 3:55am 02/25/2016 4:26am Basophils % (Manual) 0 % 02/25/2016 3:55am 02/25/2016 4:26am Hypochromasia SLIGHT 02/25/2016 3:55am 02/25/2016 4:26am Poikilocytosis SLIGHT 02/25/2016 3:55am 02/25/2016 4:26am Urine Color YELLOW 02/25/2016 10:30pm 02/25/2016 11:07pm Urine Clarity CLEAR 02/25/2016 10:30pm 02/25/2016 11:07pm Urine pH 6.5 5-9 02/25/2016 10:30pm 02/25/2016 11:07pm Urine Specific [place] 1.015 * 1.016-1.022 02/25/2016 10:30pm 2016 11:07pm Urine Protein 1+ * NEGATIVE 02/25/2016 10:30pm 02/25/2016 11:07pm Urine Glucose (UA) 4+ * NEGATIVE 02/25/2016 10:30pm 02/25/2016 11:07pm Urine RBC (Auto) 1+ * NEGATIVE 02/25/2016 10:30pm 02/25/2016 11:07pm Urine Ketones NEGATIVE NEGATIVE 02/25/2016 10:30pm 02/25/2016 11: 07pm Urine Nitrite NEGATIVE NEGATIVE 02/25/2016 10:30pm 02/25/2016 11: 07pm Urine Bilirubin NEGATIVE NEGATIVE 02/25/2016 10:30pm 02/25/2016 11: 07pm Urine Urobilinogen NORMAL MG/DL NORMAL 02/25/2016 10:30pm 02/25/2016 11 :07pm Urine Leukocyte Esterase NEGATIVE NEGATIVE 02/25/2016 10:30pm 2016 11:07pm Urine RBC 0-2 /HPF 02/25/2016 10:30pm 02/25/2016 11:07pm Urine WBC 0-2 /HPF 02/25/2016 10:30pm 02/25/2016 11:07pm Urine Bacteria NONE /HPF 02/25/2016 10:30pm 02/25/2016 11:07pm Urine Squamous Epithelial Cells RARE /HPF 02/25/2016 10:30pm 2016 11:07pm Urine Crystals NONE /LPF 02/25/2016 10:30pm 02/25/2016 11:07pm Urine Casts NONE /LPF 02/25/2016 10:30pm 02/25/2016 11:07pm Urine Mucus NEGATIVE /LPF 02/25/2016 10:30pm 02/25/2016 11:07pm Urine Culture Indicated NO 02/25/2016 10:30pm 02/25/2016 11:07pm Sodium Level 134 MMOL/L L 135-145 02/27/2016 4:3002/27/2016 5:37am Potassium Level 3.2 MMOL/L L 3.6-5.0 02/27/2016 4:30am 02/27/2016 5:37am Chloride Level 105 MMOL/L 98-107 02/27/2016 4:3002/27/2016 5:37am Carbon Dioxide Level 20 MMOL/L L 21-32 02/27/2016 4:30am 02/27/2016 5: 37am Anion Gap 9 MMOL/L 5-14 02/27/2016 4:3002/27/2016 5:37am Blood Urea Nitrogen 19 MG/DL H 7-18 02/27/2016 4:30am 02/27/2016 5:37am Creatinine 0.71 MG/DL 0.60-1.30 02/27/2016 4:30am 02/27/2016 5:37am BUN/Creatinine Ratio 27 02/27/2016 4:30am 02/27/2016 5:37am Estimat Glomerular Filtration Rate > 60 02/27/2016 4:30am 2016 5:37am GFR INTERPRETIVE DATA UNITS FOR ESTIMATED GFR (eGFR): mL/min/1.73 M2 REFERENCE RANGE FOR ESTIMATED GFR (eGFR) eGFR NORMAL eGFR >60 MODERATELY DECREASED eGFR 30-59 SEVERLY DECREASED eGFR 15-29 KIDNEY FAILURE <15 (OR DIALYSIS) Glucose Level 128 MG/DL H 70-105 02/27/2016 4:30am 02/27/2016 5:37am Glucometer 210 MG/DL H 70-110 02/27/2016 12:07am 02/27/2016 12:14am Calcium Level 8.2 MG/DL L 8.5-10.1 02/27/2016 4:3002/27/2016 5:37am Phosphorus Level 2.2 MG/DL L 2.3-4.7 02/27/2016 4:30am 02/27/2016 5:37am Magnesium Level 1.9 MG/DL 1.8-2.4 02/27/2016 4:30am 02/27/2016 5:37am Total Bilirubin 0.4 MG/DL 0.1-1.0 02/23/2016 3:20am 02/23/2016 3:45am Alkaline Phosphatase 74 U/L 40-136 02/23/2016 3:20am 02/23/2016 3:45am Aspartate Amino Transf (AST/SGOT) 21 U/L 5-34 02/23/2016 3:20am 2016 3:45am Alanine Aminotransferase (ALT/SGPT) 20 U/L 0-55 02/23/2016 3:20am 02/22 3:45am Troponin I < 0.30 NG/ML <0.30 02/23/2016 3:20am 02/23/2016 3:49am Total Protein 7.1 G/DL 6.4-8.2 02/23/2016 3:20am 02/23/2016 3:45am Albumin 4.0 G/DL 3.2-4.5 02/23/2016 3:20am 02/23/2016 3:45am Arterial Blood pH 7.42 7.37-7.43 02/23/2016 9:45pm 02/23/2016 10: 05pm Arterial Blood Partial Pressure CO2 41 MMHG 35-45 02/23/2016 9:45pm 10/2016 10:05pm Arterial Blood Partial Pressure O2 69 MMHG L 79-93 02/23/2016 9:45pm 10/2016 10:05pm Arterial Blood HCO3 25 MMOL/L 23-27 02/23/2016 9:45pm 02/23/2016 10: 05pm Arterial Blood Total CO2 26.5 MMOL/L 21.0-31.0 02/23/2016 9:45pm 2016 10:05pm Arterial Blood Base Excess 1.0 MMOL/L -2.5-2.5 02/23/2016 9:45pm 2016 10:05pm Arterial Blood Oxygen Saturation 95 % 94-100 02/23/2016 9:45pm 2016 10:05pm Blood Gas Puncture Site RT RADIAL 02/23/2016 9:45pm 02/23/2016 10: 05pm Alexander Test YES-POS 02/23/2016 9:45pm 02/23/2016 10:05pm Blood Gas Inspired Oxygen ROOM AIR 02/23/2016 9:45pm 02/23/2016 10: 05pm Blood Gas Ventilator Setting NO 02/23/2016 9:45pm 02/23/2016 10: 05pm Blood Gas Patient Temperature 100.3 02/23/2016 9:45pm 02/23/2016 10 :05pm Pending Laboratory Results Test Name Collection Date/Time Procedures Procedure Status Date Provider(s) OCCLUSION OF SPLENIC ARTERY WITH INTRALUM DEV, PERC APPROACH Completed LUNA BOURNE MD FLUOROSCOPY OF SPLENIC ARTERIES USING LOW OSMOLAR CONTRAST Completed LUNA BOURNE MD FLUOROSCOPY OF HEPATIC ARTERY USING LOW OSMOLAR CONTRAST Completed 02/23/16 LUNA BOURNE MD FLUOROSCOPY OF PELVIC ARTERIES USING LOW OSMOLAR CONTRAST Completed 02/23/16 LUNA BOURNE MD Tracing only of electrocardiogram Completed 02/23/16 YEFRI HA MD Color Doppler echocardiography Active 02/24/16 PELON HARVEY MD Encounters Encounter Location Arrival/Admit Date Discharge/Depart Date Attending Provider Discharged Inpatient (obs) [facility] 03/08/16 7:15pm 5:07pm TONIA CUADRA MD Discharged Inpatient [facility] 02/27/16 10:44am 5:00pm KARLA DEWEY DO Discharged Inpatient [facility] 02/23/16 10:50am 10:16am REINALDO MONTGOMERY DO Recent Diagnosis Gait instability Lightheadedness
--- OUTSIDE RECORDS SUMMARY | 2016-10-11 09:24 | XMS REPORT | Continuity of Care Document ---
Author Author [facility] Organization [facility] Address Unknown Phone Unavailable Care Team Providers Care Station Gateman Name Role Phone Arash MUELLER MD PCP Insurance Providers Payer Name Policy Number Subscriber Name Relationship Wps Medicare [id number] Marquis Mora 18 Self / Same As Patient [facility] [id number] Marquis Mora 18 Self / Same As Patient Advance Directives Directive Response Recorded Date/Time Advance Directives Yes 02/27/16 11:22am Health Care Power of [place] Yes 02/27/16 11:22am Organ Donor No 02/27/16 11:22am Resuscitation Status Full Code 02/27/16 11:22am Chief Complaint and Reason for Visit Chief Complaint SWB Reason for Visit Rib fractures Spleen laceration Problems Active Problems [...] Mg 60 Mg Oral Twice A Day 60 03/02/16 Morphine Sulfate 15 Mg 15 Mg Oral Every 6 Hours as needed for Pain 60 03/02/16 Past Home Medications Medication Directions Ordered Status [...] Times A Day 12/01/09 Discontinued Acetaminophen/Hydrocodone Bitart ([place]) 1 Each Tablet, 1 - 2 Each [...] Tab.sr.24h, 25 Mg Oral Daily 06/09/11 Discontinued [place]-3/Dha/Epa/Fish Oil 1 Each Capsule.dr, 1000 Mg Oral [...] 6 Hours as needed for Pain Discontinued Social History Social History Problem Response Recorded Date/Time Alcohol Use Denies Use 01/27/2015 4:42pm Recreational Drug Use No 01/27/2015 4:42pm Sexually Transmitted Disease No 02/23/2016 10:30am Do you dip or chew tobacco? No 01/27/2015 4:42pm Recent Hopitalizations No 02/23/2016 10:30am Sexually Transmitted Disease No 02/23/2016 10:30am Hx Sexually Transmitted Disorders No 01/27/2011 9:35am Hospital Discharge Instructions Patient Instructions Physician Instructions Patient Instructions/FollowUp: Dr Munroe in 1 week Patient Problems: Falls Spleneic laceration Chronic pain [place], [place] DISCHARGE ORDERS Height (Feet): 6 Height (Inches): 0.00 Weight (Pounds): 225 Weight (Ounces): 4.8 Reason Pt Homebound weakness, fall risk I Have Seen Pt [id number]: Yes Date of Face to Face: Mar 02, 2016 Discharged To: Home Diagnosis/Conditions HH Order: med administration Fall prevention *I certify that based on my findings, the following services are medically necessary Home Health Services: Services: Nursing Services, Healthcare Applications Analyst-Evaluate & Treat, Physical Therapy-Evaluate & Treat, Speech Language-Evaluate & Treat My clinical findings support the need for the above services; see Diagnosis. Dicharge Diet: No Restrictions Daily Activity as Tolerated: Yes New, Converted, or Re-newed RX: RX on Chart I certify that this patient is under my care and that I, a nurse practitioner or a physician; a language assistant working with me, had a face to face encounter that - meets the physician face to face encounter requirements with this patient as dated. Care Plan Patient Instructions:: Dr Munroe in 1 week Patient Problems: FallsSpleneic lacerationChronic pain Plan of Care Discharge Date 03/02/16 5:00pm Disposition 06 HOME HEALTH SERVICE Instructions/Education Provided Preventing Falls Forms Provided PDI Medical Prescriptions See Medication Section Referrals (Unspecified) - Series Order Reason(s) for Referral: RESPIRATORY FAILURE, UNSP, UNSP W HYPOXIA OR HYPERCAPNIA (Unspecified) - Today Reason(s) for Referral: Gait instability Care Plan and Goals See Discharge Instructions Section Functional Status Query Response Date Recorded Patient Orientation Person Place Time Situation March 01, 2016 10:59am Patient Orientation Person Place Time Situation March 02, 2016 6:34pm Comprehension Ability Understands Concepts March 02, 2016 8:00am Allergies, Adverse Reactions, Alerts No known allergies. Immunizations No immunization records. Vital Signs Acute Vital Signs Vital Response Date/Time Temperature (Fahrenheit) 98.0 degrees F (97.6 - 99.5) 03/02/2016 5:00pm Temperature (Calculated Celsius) 36.51830 degrees C (36.4 - 37.5) 03/02/2016 8:00am Temperature Source Tympanic 03/02/2016 8:00am Pulse Rate (adult) 89 bpm (60 - 90) 03/02/2016 5:00pm Respiratory Rate 22 bpm (12 - 24) 03/02/2016 5:00pm O2 Sat by Pulse Oximetry 95 % (88 - 100) 03/02/2016 5:00pm Blood Pressure 158/88 mm Hg 03/02/2016 5:00pm Blood Pressure Mean 76 mm Hg 03/02/2016 8:00am Pain Numeric Pain Scale 0-No Pain 03/02/2016 4:00pm Height (Feet) 6 feet 02/23/2016 10:30am Height (Inches) 0.00 inches 02/23/2016 10:30am Height (Calculated Centimeters) 182.164960 cm 02/23/2016 10:30am Weight (Pounds) 225 pounds 02/27/2016 6:00am Weight (Ounces) 4.8 oz 02/27/2016 6:00am Weight (Calculated Grams) 652176.362 gm 02/27/2016 6:00am Weight (Calculated Kilograms) 102.652428 kilograms 02/27/2016 6:00am Calculated BMI 31.6 02/23/2016 10:30am Capillary Refill Capillary Refill Less Than 3 Seconds 02/27/2016 8:00am Results Pending Laboratory Results Test Name Collection Date/Time Procedures Procedure Status Date Provider(s) Tracing only of electrocardiogram Completed 02/23/16 YEFRI HA MD Color Doppler echocardiography Active 02/24/16 PELON HARVEY MD Encounters Encounter Location Arrival/Admit Date Discharge/Depart Date Attending Provider Discharged Inpatient [facility] 02/27/16 10:44am 5:00pm DEWEY, KARLA DO Discharged Inpatient [facility] 02/23/16 10:50am 10:16am REINALDO MONTGOMERY DO Discharged Recurring [facility] 01/13/16 12:40pm 4:00pm AMY CANDELARIO APRN Recent Diagnosis Rib fractures Spleen laceration
--- OUTSIDE RECORDS SUMMARY | 2016-10-11 09:25 | XMS REPORT | Continuity of Care Document ---
Author Author [facility] Organization [facility] Address Unknown Phone Unavailable Care Team Providers Care Education Nurse Name Role Phone Arash MUELLER MD PCP Insurance Providers Payer Name Policy Number Subscriber Name Relationship s Medicare [id number] Marquis Mora 18 Self / Same As Patient [facility] [id number] Marquis Mora 18 Self / Same As Patient Advance Directives Directive Response Recorded Date/Time Advance Directives Yes 04/01/16 3:27pm Health Care Power of Lens Edge Grinder Machine Yes 04/01/16 3:27pm Organ Donor No 04/01/16 3:27pm Resuscitation Status DNR-Pt Request 04/01/16 3:27pm Chief Complaint and Reason for Visit Chief Complaint Trauma-Non Activation Reason for Visit Feeling like committing suicide Recurrent falls Problems Active Problems Medical Problem Onset Date Status Bronchitis Unknown Acute Fall on same level Unknown Acute Feeling like committing suicide Unknown Acute Gait instability Unknown Acute Impacted cerumen of right ear Unknown Acute Lightheadedness Unknown Acute RESPIRATORY FAILURE, UNSP, UNSP W HYPOXIA OR HYPERCAPNIA Unknown Acute Recurrent falls Unknown Acute Rib fractures Unknown Acute Spleen [...] Times A Day 12/01/09 Discontinued Acetaminophen/Hydrocodone Bitart ([place]) 1 Each Tablet, 1 - 2 Each [...] Tab.sr.24h, 25 Mg Oral Daily 06/09/11 Discontinued [place]-3/Dha/Epa/Fish Oil 1 Each Capsule.dr, 1000 Mg [...] No 01/27/2015 4:42pm Recent Foreign Travel No 04/01/2016 3:22pm Recent Infectious Disease Exposure No 04/01/2016 3:22pm Sexually Transmitted Disease No 04/01/2016 3:27pm Smoking Status Former Smoker 04/01/2016 3:27pm Do you dip or chew tobacco? No 01/27/2015 4:42pm Type Used Cigarettes 04/01/2016 3:27pm Recent Hopitalizations [facility] 03/201604/01/2016 3:27pm Sexually Transmitted Disease No 04/01/2016 3:27pm Hx Sexually Transmitted Disorders No 01/27/2011 9:35am Query Response Start Date Stop Date Smoking Status Former Smoker 06/02/2004 Hospital Discharge Instructions No hospital discharge instructions. Plan of Care Discharge Date 04/01/16 7:00pm Disposition 65 XFER TO PSYCH HOSP/UNIT Condition at Discharge Stable Prescriptions See Medication Section Referrals Arash MUELLER MD - Primary Care Physician Functional Status No functional status results. Allergies, Adverse Reactions, Alerts No known allergies. Immunizations No immunization records. Vital Signs Acute Vital Signs Vital Response Date/Time Temperature (Fahrenheit) 98.3 degrees F (97.6 - 99.5) 04/01/2016 3:22pm Temperature (Calculated Celsius) 36.95230 degrees C (36.4 - 37.5) 04/01/2016 3:22pm Temperature Source Temporal 04/01/2016 3:22pm Pulse Rate (adult) 76 bpm (60 - 90) 04/01/2016 3:22pm Respiratory Rate 18 bpm (12 - 24) 04/01/2016 3:22pm O2 Sat by Pulse Oximetry 94 % (88 - 100) 04/01/2016 3:22pm Blood Pressure 108/69 mm Hg 04/01/2016 3:22pm Blood Pressure Mean 82 mm Hg 04/01/2016 3:22pm Pain Numeric Pain Scale 0-No Pain 04/01/2016 3:22pm Height (Feet) 6 feet 04/01/2016 3:22pm Height (Inches) 0.00 inches 04/01/2016 3:22pm Height (Calculated Centimeters) 182.619575 cm 04/01/2016 3:22pm Weight (Pounds) 220 pounds 04/01/2016 3:22pm Weight (Ounces) 0.0 oz 04/01/2016 3:22pm Weight (Calculated Grams) 04268.322 gm 04/01/2016 3:22pm Weight (Calculated Kilograms) 99.169110 kilograms 04/01/2016 3:22pm Calculated BMI 29.8 04/01/2016 3:22pm Capillary Refill Capillary Refill Less Than 3 Seconds 04/01/2016 3:22pm Results Laboratory Results Test Name Result Units Flags Reference Collection Date/Time Result Date/ Time Comments White Blood Count 7.4 10^3/uL 4.3-11.0 03/02/2016 4:30am 03/02/2016 4: 51am Red Blood Count 3.08 10^6/uL L 4.35-5.85 03/02/2016 4:30am 03/02/2016 4: 51am Hemoglobin 8.3 G/DL L 13.3-17.7 03/02/2016 4:03/02/2016 4:51am Hematocrit 27 % L 40-54 03/02/2016 4:03/02/2016 4:51am Mean Corpuscular Volume 86 FL 80-99 03/02/2016 4:03/02/2016 4: 51am Mean Corpuscular Hemoglobin 27 PG 25-34 03/02/2016 4:03/02/2016 4: 51am Mean Corpuscular Hemoglobin Concent 31 G/DL L 32-36 03/02/2016 4: 4:51am Red Cell Distribution Width 14.5 % 10.0-14.5 03/02/2016 4:2016 4:51am Platelet Count 440 10^3/uL H 130-400 03/02/2016 4:03/02/2016 4:51am Mean Platelet Volume 8.2 FL 7.4-10.4 03/02/2016 4:03/02/2016 4: 51am Neutrophils (%) (Auto) 72 % 42-75 03/02/2016 4:03/02/2016 4:51am Lymphocytes (%) (Auto) 15 % 12-44 03/02/2016 4:03/02/2016 4:51am Monocytes (%) (Auto) 9 % 0-12 03/02/2016 4:03/02/2016 4:51am Eosinophils (%) (Auto) 4 % 0-10 03/02/2016 4:03/02/2016 4:51am Basophils (%) (Auto) 1 % 0-10 03/02/2016 4:03/02/2016 4:51am Neutrophils # (Auto) 5.3 X 10^3 1.8-7.8 03/02/2016 4:03/02/2016 4: 51am Lymphocytes # (Auto) 1.1 X 10^3 1.0-4.0 03/02/2016 4:03/02/2016 4: 51am Monocytes # (Auto) 0.7 X 10^3 0.0-1.0 03/02/2016 4:03/02/2016 4: 51am Eosinophils # (Auto) 0.3 10^3/uL 0.0-0.3 03/02/2016 4:30am 03/02/2016 4 :51am Basophils # (Auto) 0.0 10^3/uL 0.0-0.1 03/02/2016 4:30am 03/02/2016 4: 51am Sodium Level 136 MMOL/L 135-145 03/02/2016 4:30am 03/02/2016 5:11am Potassium Level 3.5 MMOL/L L 3.6-5.0 03/02/2016 4:30am 03/02/2016 5:11am Chloride Level 105 MMOL/L 98-107 03/02/2016 4:30am 03/02/2016 5:11am Carbon Dioxide Level 22 MMOL/L 21-32 03/02/2016 4:30am 03/02/2016 5: 11am Anion Gap 9 MMOL/L 5-14 03/02/2016 4:30am 03/02/2016 5:11am Blood Urea Nitrogen 16 MG/DL 7-18 03/02/2016 4:30am 03/02/2016 5:11am Creatinine 0.79 MG/DL 0.60-1.30 03/02/2016 4:30am 03/02/2016 5:11am BUN/Creatinine Ratio 20 03/02/2016 4:30am 03/02/2016 5:11am Estimat Glomerular Filtration Rate > 60 03/02/2016 4:30am 2016 5:11am GFR INTERPRETIVE DATA UNITS FOR ESTIMATED GFR (eGFR): mL/min/1.73 M2 REFERENCE RANGE FOR ESTIMATED GFR (eGFR) eGFR NORMAL eGFR >60 MODERATELY DECREASED eGFR 30-59 SEVERLY DECREASED eGFR 15-29 KIDNEY FAILURE <15 (OR DIALYSIS) Glucose Level 121 MG/DL H 70-105 03/02/2016 4:3003/02/2016 5:11am Glucometer 119 MG/DL H 70-110 03/02/2016 2:24pm 03/02/2016 2:32pm Calcium Level 8.4 MG/DL L 8.5-10.1 03/02/2016 4:30am 03/02/2016 5:11am Total Bilirubin 0.7 MG/DL 0.1-1.0 03/02/2016 4:30am 03/02/2016 5:11am Alkaline Phosphatase 91 U/L 40-136 03/02/2016 4:30am 03/02/2016 5:11am Aspartate Amino Transf (AST/SGOT) 90 U/L H 5-34 03/02/2016 4:30am 2016 5:11am Alanine Aminotransferase (ALT/SGPT) 122 U/L H 0-55 03/02/2016 4:30am 5:11am Total Protein 6.0 G/DL L 6.4-8.2 03/02/2016 4:30am 03/02/2016 5:11am Albumin 3.0 G/DL L 3.2-4.5 03/02/2016 4:30am 03/02/2016 5:11am Iron Level 16 ug/dL L 40-180 03/01/2016 4:45am 03/01/2016 3:35pm Test performed at [facility], CLIA# [id number] [address] [place] [address] Pending Laboratory Results Test Name Collection Date/Time Procedures Procedure Status Date Provider(s) Tracing only of electrocardiogram Active 04/01/16 LILA DAN APRN Encounters Encounter Location Arrival/Admit Date Discharge/Depart Date Attending Provider Departed Emergency Room [facility] 04/01/16 3:13pm 04/01 7:00pm LILA DAN APRN Discharged Inpatient (obs) [facility] 03/08/16 7:15pm 1:04pm TONIA CUADRA MD Discharged Inpatient [facility] 02/27/16 10:44am 5:00pm KARLA DEWEY DO Recent Diagnosis
--- OUTSIDE RECORDS SUMMARY | 2016-10-11 09:25 | XMS REPORT | Continuity of Care Document ---
Author Author [facility] Organization [facility] Address Unknown Phone Unavailable Care Team Providers Care Health Advocate Name Role Phone Arash MUELLER MD PCP Insurance Providers Payer Name Policy Number Subscriber Name Relationship Wps Medicare [id number] Marquis Mora 18 Self / Same As Patient [facility] [id number] Marquis Mora 18 Self / Same As Patient Advance Directives Directive Response Recorded Date/Time Advance Directives Yes 01/27/15 4:42pm Health Care Power of Environmental Geologist No 01/27/15 4:42pm Organ Donor No 01/27/15 4:42pm Resuscitation Status Full Code 01/27/15 4:42pm Chief Complaint and Reason for Visit Chief Complaint General Problems/Pain Reason for Visit Impacted cerumen of right ear Problems Active Problems Medical Problem Onset Date Status Bronchitis Unknown Acute Impacted cerumen of right ear Unknown Acute Medications Current Home Medications Medication Dose Units Route Directions Days/Qty Instructions Start Date Furosemide (Lasix) 20 Mg 90 06/11/14 Lisinopril (Zestril) 2.5 Mg 90 06/11/14 Clopidogrel Bisulfate 75 Mg 90 06/11/14 Pioglitazone Hcl 30 Mg 90 06/11/14 Metoprolol Succinate 25 Mg 90 06/11/14 Fenofibrate Nanocrystallized 145 Mg 90 06/11/14 Pregabalin 150 Mg 60 06/11/14 Morphine Sulfate 60 Mg 60 06/11/14 Metformin Hcl 500 Mg 180 06/11/14 Citalopram Hydrobromide 10 Mg 90 06/11/14 Lubiprostone 24 Mcg 60 06/11/14 Azithromycin (Zpak) 250 Mg 1 Tab Oral Daily 4 06/12/14 Past Home Medications Medication Directions Ordered Status [...] Times A Day 12/01/09 Discontinued Acetaminophen/Hydrocodone Bitart ([place]) 1 Each Tablet, 1 - 2 Each Oral Q6hr Prn 12/01/09 Discontinued Oxycodone Hcl 30 Mg Tab.sr.12h, 30 Mg Oral Twice A Day 12/23/09 Discontinued Clopidogrel Bisulfate 75 Mg Tablet, 1 Each Oral 12/01/10 Discontinued Aspirin 81 Mg Tabec, 81 Mg [...] Tab.sr.24h, 25 Mg Oral Daily 06/09/11 Discontinued [place]-3/Dha/Epa/Fish Oil 1 Each Capsule.dr, 1000 Mg Oral [...] 1 Tab Oral Twice A Day Discontinued Social History Social History Problem Response Recorded Date/Time Alcohol Use Denies Use 01/27/2015 4:42pm Recreational Drug Use No 01/27/2015 4:42pm Recent Foreign Travel No 01/27/2015 4:39pm Recent Infectious Disease Exposure No 01/27/2015 4:39pm Hospitalization with Isolation Denies 01/27/2015 4:39pm Sexually Transmitted Disease No 01/27/2015 4:42pm Smoking Status Former Smoker 01/27/2015 4:42pm Do you dip or chew tobacco? No 01/27/2015 4:42pm Query Response Start Date Stop Date Smoking Status Former Smoker 06/02/2004 Hospital Discharge Instructions No hospital discharge instructions. Plan of Care Discharge Date 01/27/15 6:30pm Disposition 01 HOME, SELF-CARE Condition at Discharge Improved Instructions/Education Provided Cerumen Impaction (ED) Prescriptions See Medication Section Referrals Arash MUELLER MD - Primary Care Physician Additional Instructions/Education All discharge instructions reviewed with patient and/or family. Voiced understanding. D proximal or Cerumenex [id number] for impacted earwax. Continue usual medications. Follow-up with family physician for a recheck if needed. Return to the emergency department for worsened symptoms or concerns. Functional Status No functional status results. Allergies, Adverse Reactions, Alerts No known allergies. Immunizations Name Given Type Date of Pneumonia Vaccine 06/07/11 Historical Vital Signs Acute Vital Signs Vital Response Date/Time Temperature (Fahrenheit) 97.1 degrees F (97.6 - 99.5) 01/27/2015 4:39pm Temperature (Calculated Celsius) 36.25638 degrees C (36.4 - 37.5) 01/27/2015 4:39pm Pulse Rate (adult) 70 bpm (60 - 90) 01/27/2015 4:39pm Respiratory Rate 16 bpm (12 - 24) 01/27/2015 4:39pm O2 Sat by Pulse Oximetry 98 % (88 - 100) 01/27/2015 4:39pm Blood Pressure 149/83 mm Hg 01/27/2015 4:39pm Blood Pressure Mean 105 mm Hg 01/27/2015 4:39pm Pain Pain Intensity 0 01/27/2015 4:39pm Height (Feet) 6 feet 01/27/2015 4:39pm Height (Inches) 0 inches 01/27/2015 4:39pm Height (Calculated Centimeters) 182.841989 cm 01/27/2015 4:39pm Weight (Pounds) 200 pounds 01/27/2015 4:39pm Weight (Calculated Kilograms) 90.080641 kilograms 01/27/2015 4:39pm Calculated BMI 27.12 01/27/2015 4:39pm Results No known relevant diagnostic tests, laboratory data and/or discharge summary. Procedures No known history of procedures. Encounters Encounter Location Arrival/Admit Date Discharge/Depart Date Attending Provider Departed Emergency Room [facility] 01/27/15 4:20pm 01/27 6:30pm CHIDI RENEE Recent Diagnosis
--- OUTSIDE RECORDS SUMMARY | 2016-10-11 09:25 | XMS REPORT | Continuity of Care Document ---
Author Author [facility] Organization [facility] Address Unknown Phone Unavailable Care Team Providers Care Brazer Induction Name Role Phone Arash MUELLER MD PCP Insurance Providers Payer Name Policy Number Subscriber Name Relationship Wps Medicare [id number] Marquis Mora 18 Self / Same As Patient [facility] [id number] Marquis Mora 18 Self / Same As Patient Advance Directives Directive Response Recorded Date/Time Advance Directives Yes 01/27/15 4:42pm Health Care Power of Housing Manager No 01/27/15 4:42pm Organ Donor No 01/27/15 4:42pm Problems Active Problems Medical Problem Onset Date [...] Times A Day 12/01/09 Discontinued Acetaminophen/Hydrocodone Bitart ([place]) 1 Each Tablet, 1 - 2 Each [...] Tab.sr.24h, 25 Mg Oral Daily 06/09/11 Discontinued [place]-3/Dha/Epa/Fish Oil 1 Each Capsule.dr, 1000 Mg Oral [...] No 01/27/2015 4:42pm Recent Foreign Travel No 01/13/2016 12:39pm Sexually Transmitted Disease No 01/27/2015 4:42pm Do you dip or chew tobacco? No 01/27/2015 4:42pm Sexually Transmitted Disease No 01/27/2015 4:42pm Hx Sexually Transmitted Disorders No 01/27/2011 9:35am Hospital Discharge Instructions No hospital discharge instructions. Plan of Care Prescriptions See Medication Section Functional Status No functional status results. Allergies, Adverse Reactions, Alerts No known allergies. Immunizations No immunization records. Vital Signs No known vital signs results. Results No known relevant diagnostic tests, laboratory data and/or discharge summary. Procedures No known history of procedures. Encounters Encounter Location Arrival/Admit Date Discharge/Depart Date Attending Provider Discharged Recurring [facility] 02/03/16 1:13pm 4:00pm AMY CANDELARIO APRN
== END 2016-10-09 13:31 | disposition home or self-care (01) ==
LOC: ER 11:44
DX: J18.9 Pneumonia, unspecified organism (principal); F03.90 Unspecified dementia, unspecified severity, without behavioral disturbance, psychotic disturbance, mood disturbance, and anxiety; E16.2 Hypoglycemia, unspecified
CPT/HCPCS: 36415; 70450; 71020; 80053; 80164; 81000; 82962; 84484; 85025

== ENCOUNTER 2016-10-26 17:38 | Inpatient (IN) | payer MEDICARE, MEDICAID ==
[~2016-10-26] VITALS: Ht 182.9 cm; Wt 86.5 kg
[~2016-10-26 17:38] MED LIST: AGM875T PO; ASP81TEC PO; ASPI325T32 PO; ATEN25TA; AZIT-21 PO; CITA10TA; CITA10TA7 PO; CLOP75TA; CLOP75TA PO; CLOP75TA28; FENO134C PO; FENO145T2 PO; FENO145T20; FENO145T20 PO; FNT100TD TD; FRSM40T; FURO20TA4; GBPN300C; HYDR-2890 PO; HYDR-32; HYDR-3720 PO; LEVO250T11 PO; LIRA0.6P3 SQ; LISI-556; LISI2.5T PO; LISI2.5T56; LISI5TAB PO; LUBI24CA PO; LUBI24CA6 PO; METF500T4; METF500T4 PO; METO25TA; MORP15TA PO; MORP60TA; MORP60TA52 PO; MTF500T PO; MTL5T; MTP25TSR PO; MTX2.5T; NF-LUBIP24; NIA500ERT PO; OMEG-12 PO; ONDA4TAB11 PO; ORPH30AM2; OXYC-12; OXYC-12 PO; OXYC30TA76 PO; PGLT30T PO; PIOG1TBM PO; PIOG30TA25; PLAVIX; POLY17PO6 PO; PREG150C; PREG225C PO; PREG300C PO; SIMV40TA2; SIMV40TA4 PO; SUCR1TAB PO; cefdinir
--- OUTSIDE RECORDS SUMMARY | 2016-10-26 17:44 | XMS REPORT ---
Author Author MIKE ROGERS [facility] Address [address] [place] [address] Care Team Providers Care Fire Safety Inspector Name Role Phone MIKE ROGERS Unavailable PROBLEMS Type Condition ICD9-CM Code [id number] Code Onset Dates Condition Status SNOMED Code Problem Type 2 diabetes mellitus without complication, without long-term current use of insulin E11.9 Active 346962711 Problem Reactive depression F32.9 Active 84337904 Problem Neuropathy G62.9 Active 193922540 Problem Vascular dementia without behavioral disturbance F01.50 Active 095288280 Problem Other chronic pain G89.29 Active 91150185 Problem Neuropathic pain M79.2 Active 593238617 Problem Coronary artery disease involving [place] coronary artery of [place] heart without angina pectoris I25.10 Active 6595546059481 Problem PVD (peripheral vascular disease) I73.9 Active 781962536 Problem Essential hypertension I10 Active 00977223 ALLERGIES Unknown Allergies SOCIAL HISTORY No smoking Hx information available PLAN OF CARE VITAL SIGNS MEDICATIONS Unknown Medications RESULTS No Results PROCEDURES No Known procedures IMMUNIZATIONS No Known Immunizations
--- OUTSIDE RECORDS SUMMARY | 2016-10-26 17:45 | XMS REPORT ---
Author Author FROILAN CORTEZ [facility] Address [address] [place] [address] Care Team Providers Care Customer Solutions Teammate Name Role Phone FROILAN CORTEZ Unavailable PROBLEMS Type Condition ICD9-CM Code CKA39-PP Code Onset Dates Condition Status SNOMED Code Problem Type 2 diabetes mellitus without complication, without long-term current use of insulin E11.9 Active 572885614 Problem Reactive depression F32.9 Active 18226859 Problem Neuropathy G62.9 Active 767932515 Problem Vascular dementia without behavioral disturbance F01.50 Active 249562054 Problem Other chronic pain G89.29 Active 28773569 Problem Neuropathic pain M79.2 Active 174127944 Problem Coronary artery disease involving [place] coronary artery of [place] heart without angina pectoris I25.10 Active 2055139786311 Problem PVD (peripheral vascular disease) I73.9 Active 989105290 Problem Essential hypertension I10 Active 12559934 ALLERGIES Unknown Allergies SOCIAL HISTORY No smoking Hx information available PLAN OF CARE VITAL SIGNS MEDICATIONS Medication Instructions Dosage Frequency Start Date End Date Duration Status MS Contin 15 MG Orally every 6 hours as needed 1 tablet Feb, 07 days Active MS Contin 60 mg Orally 2 times a day 1 tablet 12h Feb, 07 days Active RESULTS No Results PROCEDURES No Known procedures IMMUNIZATIONS No Known Immunizations
--- OUTSIDE RECORDS SUMMARY | 2016-10-26 17:45 | XMS REPORT ---
Author Author MIKE ROGERS [facility] Address [address] [place] [address] Care Team Providers Care Sponge Maker Name Role Phone MIKE ROGERS Unavailable PROBLEMS Type Condition ICD9-CM Code WJL40-AW Code Onset Dates Condition Status SNOMED Code Problem Type 2 diabetes mellitus without complication, without long-term current use of insulin E11.9 Active 231501572 Problem Reactive depression F32.9 Active 96865689 Problem Neuropathy G62.9 Active 826858119 Problem Vascular dementia without behavioral disturbance F01.50 Active 238251986 Problem Other chronic pain G89.29 Active 20655409 Problem Neuropathic pain M79.2 Active 383915263 Problem Coronary artery disease involving [place] coronary artery of [place] heart without angina pectoris I25.10 Active 7607934278921 Problem PVD (peripheral vascular disease) I73.9 Active 527201520 Problem Essential hypertension I10 Active 96443499 ALLERGIES Unknown Allergies SOCIAL HISTORY No smoking Hx information available PLAN OF CARE VITAL SIGNS MEDICATIONS Medication Instructions Dosage Frequency Start Date End Date Duration Status Lyrica 225 MG Orally 2 times a day 1 capsule 12h Mar, 28 days Active RESULTS No Results PROCEDURES No Known procedures IMMUNIZATIONS No Known Immunizations
[2016-10-26 18:46] LABS: BASOPHILS % (AUTO) 0 % (0-10); EOSINOPHILS % (AUTO) 0 % (0-10); LYMPHOCYTES # (AUTO) 1.1 X 10^3 (1.0-4.0); LYMPHOCYTES % (AUTO) 11 % (12-44); MEAN CORPUSCULAR HEMOGLOBIN 28 PG (25-34); MEAN CORPUSCULAR HGB CONC 33 G/DL (32-36); MEAN CORPUSCULAR VOLUME 85 FL (80-99); MEAN PLATELET VOLUME 8.3 FL (7.4-10.4); MONOCYTES # (AUTO) 1.2 X 10^3 (0.0-1.0); MONOCYTES % (AUTO) 12 % (0-12); NEUTROPHILS # (AUTO) 7.7 X 10^3 (1.8-7.8); NEUTROPHILS % (AUTO) 77 % (42-75); PLATELET COUNT 449 10^3/uL (130-400); RED BLOOD COUNT 3.86 10^6/uL (4.35-5.85); RED CELL DISTRIBUTION WIDTH 12.8 % (10.0-14.5)
[2016-10-26 18:49] LABS: KETONES,URINE 2+ (NEGATIVE); LEUKOCYTE ESTERASE ,URINE 1+ (NEGATIVE); NITRITE,URINE NEGATIVE (NEGATIVE); PH,URINE 5 (5-9); PROTEIN,URINE 2+ (NEGATIVE); UROBILINOGEN,URINE 4 MG/DL (NORMAL)
--- NOTE | 2016-10-26 18:50 | ED General ---
General Chief Complaint: Altered Mental Status Stated Complaint: FALL Nursing Triage Note: PT TO RM 3 BY [facility] WITH CC OF A FALL, POSSIBLE SEIZURE, ABRASIONS ON FACE. Nursing Sepsis Screen: No Definite Risk Source of Information: Patient, EMS, Family, Usp Records Exam Limitations: Other (Clinical condition, dementia) History of Present Illness Time Seen by Provider: 18:03 Initial Comments This 76-year-old gentleman presents to the emergency room via [facility] from [facility] where he was found face down on the bathroom floor by staff around 16:45. He reportedly has had frequent falls recently. His last known well time per staff was around 14:00. He had some questionable seizure- like activity yesterday and Keppra has been ordered to start in the near future. Labs were also ordered including CBC, CMP, urine, and a Depakote level. However, he came to the emergency room because of the apparent fall. The seizure-like activity as described as a few minutes of acute decreased responsiveness. There is no convulsive activity. EMS reports some questionable right-sided weakness and some questionable left-sided facial droop. Vital signs were stable. Fingerstick blood sugar was 199. Patient was on antibiotics about 2 weeks ago for pneumonia. His granddaughter accompanies him and states he is on morphine and his dose was recently decreased because of his recent problems. Patient was also noted to have a temperature of 100.4 yesterday and a temperature of 101.0 today. His granddaughter reports he is supposed to ambulate with a walker but is noncompliant. alf paperwork notes that he is a DNR. Patient denies any pain anywhere. He does have some pain on the right knee with movement where he has an abrasion. He also has an abrasion on the right shoulder. He also appears to have some erythema and swelling at the bilateral brows. Neck is nontender and he has no pain with movement of the head. There was no known loss of consciousness. Allergies and Home Medications Allergies Coded Allergies: No Known Drug Allergies (Unverified , 10/09/16) Home Medications Citalopram Hydrobromide 10 Mg Tablet, 10 MG PO DAILY, (Reported) Fenofibrate Nanocrystallized 145 Mg Tablet, 145 MG PO DAILY, (Reported) Levofloxacin 250 Mg Tablet, 250 MG PO DAILY, #6 Prescribed by: LILA DAN on 10/09/16 1252 Liraglutide 0.6 Mg/0.1 Ml Pen.injctr, 1.2 MG SQ DAILY, (Reported) Lubiprostone 24 Mcg Capsule, 24 MCG PO DAILY, (Reported) LAST FILLED 12/02/15 #85 Morphine Sulfate 60 Mg Tablet.er, 60 MG PO BID, (Reported) Morphine Sulfate 15 Mg Tablet, 15 MG PO Q6H PRN for PAIN, (Reported) Polyethylene Glycol 3350 17 Gm Powd.pack, 17 GM PO DAILY PRN for CONSTIPATION, ( Reported) Pregabalin 225 Mg Capsule, 225 MG PO BID, (Reported) Constitutional: see HPI, fever, weakness EENTM: see HPI Respiratory: see HPI Cardiovascular: no symptoms reported Gastrointestinal: no symptoms reported Genitourinary: no symptoms reported Musculoskeletal: see HPI Skin: see HPI Psychiatric/Neurological: See HPI Hematologic/Lymphatic: No Symptoms Reported Past Uaclerg-Tmrtlt-Nwosxk Hx Patient Social History Alcohol Use: Denies Use Recreational Drug Use: No Smoking Status: Former Smoker Type Used: Cigarettes Former Smoker, Quit: Feb 14, 2003 Recent Foreign Travel: No Contact w/Someone Who Travel: No Recent Infectious Disease Expo: No Recent Hopitalizations: No Immunizations Up To Date Date of Pneumonia Vaccine: Jun 07, 2011 Date of Influenza Vaccine: Nov 15, 2015 Seasonal Allergies Seasonal Allergies: No Surgeries History of Surgeries: Yes Surgeries: Coronary Stent, Gallbladder, Orthopedic, Vascular Surgery Respiratory History of Respiratory Disorde: Yes Respiratory Disorders: Pneumonia Cardiovascular History of Cardiac Disorders: Yes (Heart failure) Cardiac Disorders: Coronary Artery Disease, Hypertension, Peripheral Vascular Neurological History of Neurological Disord: Yes Neurological Disorders: Dementia, Seizure Disorder Reproductive System Hx Reproductive Disorders: No Sexually Transmitted Disease: No Genitourinary History of Genitourinary Disor: Yes Genitourinary Disorders: Prostate Problems, UTI-Chronic Gastrointestinal History of Gastrointestinal Di: No Musculoskeletal History of Musculoskeletal Dis: Yes Musculoskeletal Disorders: Arthritis Endocrine History of Endocrine Disorders: Yes Endocrine Disorders: Diabetes, Non-Insulin dep HEENT History of HEENT Disorders: No Cancer History of Cancer: No Did You Recieve Any Treatments: No Psychosocial History of Psychiatric Problem: Yes Behavioral Health Disorders: Sleep Difficulties, Depression Integumentary History of Skin or Integumenta: No Blood Transfusions History of Blood Disorders: No Adverse Reaction to a Blood Tr: No Family Medical History Significant Family History: No Pertinent Family Hx, Cancer, Diabetes Family Medial History: Colon cancer G8 BROTHER, Onset:55 FHx: brain tumor G8 SISTER Physical Exam Vital Signs Vital Sign - Last 12Hours 10/26/16 10/26/16 17:45 18:45 Temp 98.8 Pulse 93 Resp 18 B/P (MAP) 130/71 Pulse Ox 97 O2 Delivery Room Air O2 Flow Rate 2.00 Capillary Refill : Less Than 3 Seconds General Appearance: No Apparent Distress, WD/WN HEENT: PERRL/EOMI, TMs Normal, Other (Mild erythema and edema of the brows bilaterally. Oropharynx dry.) Neck: Full Range of Motion, Normal Inspection, Non Tender, Supple Respiratory: No Accessory Muscle Use, No Respiratory Distress, Crackles, Decreased Breath Sounds, Wheezing, Other (Decreased respiratory effort) Cardiovascular: Regular Rate, Rhythm, No Edema, No Murmur Gastrointestinal: Normal Bowel Sounds, Non Tender, Soft Back: Normal Inspection Extremity: Normal Capillary Refill, Normal Inspection, No Pedal Edema, Other ( Abrasion to the right knee. Mild pain with palpation of the right knee and range of motion. Abrasion to the right shoulder) Neurologic/Psychiatric: Alert (But appears somnolent), repairing calibrator II-XII Norm as Tested, Other (Oriented to place and age. Disoriented to month which is unusual according to family. Generalized weakness, right side possibly slightly weaker than left. Depressed mood) Skin: Normal Color, Warm/Dry, Other (Abrasions to the right shoulder and right knee) Progress/Results/Core Measures Results/Orders Lab Results Laboratory Tests Test 10/26/16 18:00 10/26/16 18:05 10/26/16 18:45 Range/Units Urine Color MARGIE H Urine Clarity CLEAR Urine pH 5 5-9 Urine Specific [place] 1.020 1.016-1.022 Urine Protein 2+ H NEGATIVE Urine Glucose (UA) 3+ H NEGATIVE Urine Ketones 2+ H NEGATIVE Urine Nitrite NEGATIVE NEGATIVE Urine Bilirubin 1+ H NEGATIVE Urine Urobilinogen 4 H NORMAL MG/DL Urine Leukocyte Esterase 1+ H NEGATIVE Urine RBC (Auto) 2+ H NEGATIVE Urine RBC 5-10 H /HPF Urine WBC 2-5 /HPF Urine Crystals PRESENT H /LPF Urine Calcium Oxalate Crystals FEW H /LPF Urine Bacteria NEGATIVE /HPF Urine Casts NONE /LPF Urine Mucus LARGE H /LPF Urine Culture Indicated NO White Blood Count 10.0 4.3-11.0 10^3/uL Red Blood Count 3.86 L 4.35-5.85 10^6/uL Hemoglobin 10.8 L 13.3-17.7 G/DL Hematocrit 33 L 40-54 % Mean Corpuscular Volume 85 80-99 FL Mean Corpuscular Hemoglobin 28 25-34 PG Mean Corpuscular Hemoglobin Concent 33 32-36 G/DL Red Cell Distribution Width 12.8 10.0-14.5 % Platelet Count 449 H 130-400 10^3/uL Mean Platelet Volume 8.3 7.4-10.4 FL Neutrophils (%) (Auto) 77 H 42-75 % Lymphocytes (%) (Auto) 11 L 12-44 % Monocytes (%) (Auto) 12 0-12 % Eosinophils (%) (Auto) 0 0-10 % Basophils (%) (Auto) 0 0-10 % Neutrophils # (Auto) 7.7 1.8-7.8 X 10^3 Lymphocytes # (Auto) 1.1 1.0-4.0 X 10^3 Monocytes # (Auto) 1.2 H 0.0-1.0 X 10^3 Eosinophils # (Auto) 0.0 0.0-0.3 10^3/uL Basophils # (Auto) 0.0 0.0-0.1 10^3/uL Sodium Level 136 135-145 MMOL/L Potassium Level 4.2 3.6-5.0 MMOL/L Chloride Level 98 98-107 MMOL/L Carbon Dioxide Level 25 21-32 MMOL/L Anion Gap 13 5-14 MMOL/L Blood Urea Nitrogen 32 H 7-18 MG/DL Creatinine 1.25 0.60-1.30 MG/DL Estimat Glomerular Filtration Rate 56 BUN/Creatinine Ratio 26 Glucose Level 223 H 70-105 MG/DL Calcium Level 10.0 8.5-10.1 MG/DL Magnesium Level 2.0 1.8-2.4 MG/DL Total Bilirubin 0.6 0.1-1.0 MG/DL Aspartate Amino Transf (AST/SGOT) 56 H 5-34 U/L Alanine Aminotransferase (ALT/SGPT) 37 0-55 U/L Alkaline Phosphatase 54 40-136 U/L Troponin I < 0.30 <0.30 NG/ML C-Reactive Protein High Sensitivity 15.05 H 0.00-0.50 MG/DL B-Type Natriuretic Peptide 78.6 <100.0 PG/ML Total Protein 7.6 6.4-8.2 GM/DL Albumin 3.5 3.2-4.5 GM/DL TSH [place] Testing 0.47 0.35-4.94 UIU/ML Valproic Acid (Depakene) Level 42.5 L 50.0-100.0 UG/ML My Orders Orders - YEFRI HA MD BNP (10/26/16 18:32) Cbc With Automated Diff (10/26/16 18:32) Comprehensive Metabolic Panel (10/26/16 18:32) Hs C Reactive Protein (10/26/16 18:32) Magnesium (10/26/16 18:32) Thyroid Analyzer (10/26/16 18:32) Ua Culture If Indicated (10/26/16 18:32) Saline Lock/Iv-Start (10/26/16 18:32) O2 (10/26/16 18:32) Monitor-Rhythm Ecg Trace Only (10/26/16 18:32) Chest 1 View, Ap/Pa Only (10/26/16 18:32) Ct Head/Cervical Spine Wo (10/26/16 18:32) Knee, Right, 3 Views (10/26/16 18:32) Troponin I (10/26/16 18:35) Ekg Tracing (10/26/16 18:35) Valproic Acid (10/26/16 18:51) Blood Culture (10/26/16 19:38) Levofloxacin 750 Mg/150 Ml Iv (Levaquin (10/26/16 19:45) Medications Given in ED Current Medications Medications Dose Ordered Sig/Joellen Route Start Time Stop Time Status Last Admin Dose Admin Levofloxacin/ Dextrose 150 ml @ 100 mls/hr ONCE ONCE IV 10/26/16 19:45 10/26/16 21:14 DC 10/26/16 20:13 100 MLS/HR Vital Signs/I&O Vital Sign - Last 12Hours 10/26/16 10/26/16 10/26/16 10/26/16 17:45 18:45 20:27 20:45 Temp 98.8 98.2 Pulse 93 67 79 Resp 18 20 20 B/P (MAP) 130/71 130/72 Pulse Ox 97 97 100 100 O2 Delivery Room Air Nasal Cannula Nasal Cannula O2 Flow Rate 2.00 2.00 10/26/16 10/26/16 10/27/16 22:05 23:40 00:13 Temp 97.4 Pulse 79 72 Resp 18 B/P (MAP) 129/65 Pulse Ox 100 99 O2 Delivery Nasal Cannula Nasal Cannula O2 Flow Rate 2.00 2.00 Blood Pressure Mean: 90 Progress Note : Time: 19:42 Progress Note Source of infection was identified with presence of pneumonia in the right lower lung on chest x-ray as well as possible urinary tract infection on urinalysis. Case was reviewed with Dr. Sahu. She prefers to admit the patient under observation status to start antibiotic therapy and observe his progress. Patient does not meet sepsis criteria at this time as his fever seems to have resolved.. Blood cultures will be drawn and Levaquin will be initiated in the emergency room. ECG Initial ECG Impression Date: Oct 26, 2016 Initial ECG Impression Time: 19:05 Initial ECG Rate: 77 Initial ECG Rhythm: Normal Sinus Comment Sinus rhythm with chronic left bundle branch block. No acute ST elevation or depression. Similar to prior. Diagnostic Imaging Diagonstic Imaging: Xray Plain Films/CT/US/NM/MRI: knee Comments X-ray of the right knee viewed by me and report reviewed. See report below: NAME: MARQUIS MORA [facility] REC#: [id number] PT STATUS: REG ER : 1940 PHYSICIAN: YEFRI HA MD ADMIT DATE: 10/26/16/ER Signed Date of Exam: 10/26/16 KNEE, RIGHT, 3 VIEWS INDICATION: Fall. FINDINGS: Alignment of the right knee appears normal. There are tricompartmental osteoarthritic changes with the most significant joint space loss within the medial and patellofemoral compartments. There is no significant joint effusion evident. No acute fracture is evident. There are advanced vascular calcifications noted. IMPRESSION: 1. Tricompartmental right knee osteoarthritis, most significantly affecting the medial and patellofemoral compartments. No joint effusion, malalignment, or acute fracture demonstrated. Advanced vascular calcifications are noted. Dictated by: Dictated on workstation # [id number] Dict: 10/26/161901 Trans: 10/26/161911 Interpreted by: HUNTER LANG MD Electronically signed by: HUNTER LANG MD 10/26/161911 Diagonstic Imaging: Xray Plain Films/CT/US/NM/MRI: chest Comments Chest x-ray viewed by me and report reviewed. See report below: PT STATUS: REG ER : 1940 PHYSICIAN: YEFRI HA MD ADMIT DATE: 10/26/16/ER Signed Date of Exam: 10/26/16 CHEST 1 VIEW, AP/PA ONLY INDICATION: Fall. FINDINGS: There are chronic interstitial changes demonstrated within the lungs. There are more focal superimposed opacities demonstrated at the medial right lung base when compared to prior study from April 01, 2016. There is no large effusion. There is no evidence of pneumothorax. Heart size and mediastinal contours appear unchanged. There are degenerative features demonstrated within the shoulders and spine but no acute osseous abnormality evident. IMPRESSION: 1. Chronic interstitial lung disease with new opacities demonstrated at the medial right lung base which suggests superimposed atelectasis or infiltrate. There is no large effusion. There is enlargement of the cardiac silhouette but no findings to suggest failure. No acute osseous abnormalities are evident. Dictated by: Dictated on workstation # [id number] Dict: 10/26/161904 Trans: 10/26/161911 Interpreted by: HUNTER LANG MD Electronically signed by: HUNTER LANG MD 10/26/161911 Diagonstic Imaging: CT Plain Films/CT/US/NM/MRI: c-spine, head Comments CT head and C-spine viewed by me and report reviewed. See report below: NAME: MARQUIS MORA [facility] REC#: [id number] PT STATUS: REG ER : 1940 PHYSICIAN: YEFRI HA MD ADMIT DATE: 10/26/16/ER Signed Date of Exam: 10/26/16 CT HEAD/CERVICAL SPINE WO PROCEDURE: CT head and CT cervical spine without contrast. TECHNIQUE: Multiple contiguous axial images were obtained through the brain and cervical spine without the use of intravenous contrast. Sagittal and coronal reformations through the cervical spine were then performed. INDICATION: 76-year-old male injured in fall, presents with headache and neck pain. COMPARISON: 10/09/16. CT head without contrast: FINDINGS: Midline structures are not displaced. Senescent changes of the brain with involutional changes and generalized atrophy are seen. There is a frontal and temporal lobe predominance to the generalized atrophy. There is extensive background chronic microvascular ischemic change. Rivera-white differentiation is well maintained and there is no sulcal effacement. There are no abnormal extra-axial fluid collections or hemorrhage. Basilar cisterns appear normal. Sinuses, orbits and mastoid air cells are also normal. Bone windows show no calvarial changes. IMPRESSION: Senescent brain with involutional changes with generalized atrophy with a frontal and temporal lobe predominance. There is also extensive background chronic microvascular ischemic change but no acute findings identified by nonenhanced CT criteria. CT cervical spine with reconstructions: FINDINGS: Axial images and sagittal and coronal reconstructions of the cervical spine demonstrate moderate cervical spondylosis, age-appropriate. Cervical vertebral bodies appear well aligned, vertebral body heights appear well maintained. There is disc degeneration with disc bulging and endplate osteophytes at multiple levels. There are also age-appropriate mild multilevel hypertrophic facet changes. There is otherwise no evidence of acute fracture or subluxation seen. The prevertebral soft tissue as well as a relationship of the dens to the lateral mass of C1 is normal. Atlantoaxial DJD is seen. Visualized lung apices are clear. The superior mediastinum is unremarkable. Parapharyngeal and paraspinous soft tissues are grossly normal. IMPRESSION: Age-appropriate cervical spondylosis but no evidence of acute fracture or subluxation seen. Dictated by: Dictated on workstation # [id number] Dict: 10/26/161902 Trans: 10/26/161922 Interpreted by: VAZQUEZ BENSON MD Electronically signed by: VAZQUEZ BENSON MD 10/26/161922 Departure Communication (Admissions) Time/Spoke to Admitting Phy: 19:[address] Sahu Impression Impression: Primary Impression: Right lower lobe pneumonia Qualified Codes: J18.1 - Lobar pneumonia, unspecified organism Additional Impressions: Urinary tract infection Qualified Codes: N39.0 - Urinary tract infection, site not specified Frequent falls Multiple abrasions Altered mental status Qualified Codes: R41.82 - Altered mental status, unspecified Generalized weakness Renal insufficiency Disposition: 09 ADMITTED INPATIENT Condition: Improved Admissions Decision to Admit Reason: Admit from ER (General) Decision to Admit/Date: Oct 26, 2016 Time/Decision to Admit Time: 19:40 Departure-Patient Inst. Referrals: MIKE ROGERS MD (PCP/Family) Primary Care Physician YEFRI HA MD Oct 26, 2016 18:50
[2016-10-26 18:58] LABS: BILIRUBIN,URINE 1+ (NEGATIVE); CALCIUM OXALATE CRYSTALS,UR FEW /LPF
[2016-10-26 18:59] LABS: ALANINE AMINOTRANSFERASE 37 U/L (0-55); ALBUMIN 3.5 GM/DL (3.2-4.5); ANION GAP 13 MMOL/L (5-14); ASPARTATE AMINO TRANSFERASE 56 U/L (5-34); BILIRUBIN,TOTAL 0.6 MG/DL (0.1-1.0); BLOOD UREA NITROGEN 32 MG/DL (7-18); BUN/CREATININE RATIO 26; CARBON DIOXIDE 25 MMOL/L (21-32); CHLORIDE 98 MMOL/L (98-107); CREATININE SERUM 1.25 MG/DL (0.60-1.30); GFR ESTIMATED 56; GLUCOSE 223 MG/DL (70-105); POTASSIUM 4.2 MMOL/L (3.6-5.0); SODIUM 136 MMOL/L (135-145); TOTAL PROTEIN 7.6 GM/DL (6.4-8.2); hs C REACTIVE PROTEIN 15.05 MG/DL (0.00-0.50)
--- NOTE | 2016-10-26 19:11 | Diagnostic Imaging Report ---
INDICATION: Fall. FINDINGS: Alignment of the right knee appears normal. There are tricompartmental osteoarthritic changes with the most significant joint space loss within the medial and patellofemoral compartments. There is no significant joint effusion evident. No acute fracture is evident. There are advanced vascular calcifications noted. IMPRESSION: 1. Tricompartmental right knee osteoarthritis, most significantly affecting the medial and patellofemoral compartments. No joint effusion, malalignment, or acute fracture demonstrated. Advanced vascular calcifications are noted. Dictated by: Dictated on workstation # [id number]
--- NOTE | 2016-10-26 19:11 | Diagnostic Imaging Report ---
INDICATION: Fall. FINDINGS: There are chronic interstitial changes demonstrated within the lungs. There are more focal superimposed opacities demonstrated at the medial right lung base when compared to prior study from April 01, 2016. There is no large effusion. There is no evidence of pneumothorax. Heart size and mediastinal contours appear unchanged. There are degenerative features demonstrated within the shoulders and spine but no acute osseous abnormality evident. IMPRESSION: 1. Chronic interstitial lung disease with new opacities demonstrated at the medial right lung base which suggests superimposed atelectasis or infiltrate. There is no large effusion. There is enlargement of the cardiac silhouette but no findings to suggest failure. No acute osseous abnormalities are evident. Dictated by: Dictated on workstation # [id number]
--- NOTE | 2016-10-26 19:13 | Diagnostic Imaging Report ---
PROCEDURE: CT head and CT cervical spine without contrast. TECHNIQUE: Multiple contiguous axial images were obtained through the brain and cervical spine without the use of intravenous contrast. Sagittal and coronal reformations through the cervical spine were then performed. INDICATION: 76-year-old male injured in fall, presents with headache and neck pain. COMPARISON: 10/09/16. CT head without contrast: FINDINGS: Midline structures are not displaced. Senescent changes of the brain with involutional changes and generalized atrophy are seen. There is a frontal and temporal lobe predominance to the generalized atrophy. There is extensive background chronic microvascular ischemic change. Rivera-white differentiation is well maintained and there is no sulcal effacement. There are no abnormal extra-axial fluid collections or hemorrhage. Basilar cisterns appear normal. Sinuses, orbits and mastoid air cells are also normal. Bone windows show no calvarial changes. IMPRESSION: Senescent brain with involutional changes with generalized atrophy with a frontal and temporal lobe predominance. There is also extensive background chronic microvascular ischemic change but no acute findings identified by nonenhanced CT criteria. CT cervical spine with reconstructions: FINDINGS: Axial images and sagittal and coronal reconstructions of the cervical spine demonstrate moderate cervical spondylosis, age-appropriate. Cervical vertebral bodies appear well aligned, vertebral body heights appear well maintained. There is disc degeneration with disc bulging and endplate osteophytes at multiple levels. There are also age-appropriate mild multilevel hypertrophic facet changes. There is otherwise no evidence of acute fracture or subluxation seen. The prevertebral soft tissue as well as a relationship of the dens to the lateral mass of C1 is normal. Atlantoaxial DJD is seen. Visualized lung apices are clear. The superior mediastinum is unremarkable. Parapharyngeal and paraspinous soft tissues are grossly normal. IMPRESSION: Age-appropriate cervical spondylosis but no evidence of acute fracture or subluxation seen. Dictated by: Dictated on workstation # [id number]
[2016-10-26 19:19] LABS: TROPONIN I < 0.30 NG/ML (<0.30)
[2016-10-26] MEDS ORDERED: LEVOFLOXACIN 750 MG/150 ML IV 150 ML IV ONE (19:45)
[2016-10-26 20:45] VITALS: BP 130/72
[2016-10-26] MEDS ORDERED: NS IV 1000 ML 1,000 ML ONE (21:11)
[2016-10-26] MEDS ORDERED: CEFEPIME INJECTION 2,000 MG in NS (IVPB) 50 ML IV SCH (22:00)
[2016-10-26] MEDS ORDERED: NS IV 1000 ML 1,000 ML IV SCH (22:00)
[2016-10-26] MEDS: CEFEPIME INJECTION 2,000 MG in NS (IVPB) 50 ML IV SCH (22:23)
[2016-10-26 23:40] VITALS: BP 130/71
[2016-10-27 00:13] VITALS: BP 129/65
[2016-10-27] MEDS ORDERED: RT-ALBUTEROL/IPRATROPIUM 3 ML (DUONEB) VIAL INH PRN (01:00)
[2016-10-27 04:09] VITALS: BP 142/65
[2016-10-27 06:33] LABS: BASOPHILS % (AUTO) 0 % (0-10); EOSINOPHILS % (AUTO) 0 % (0-10); LYMPHOCYTES # (AUTO) 1.4 X 10^3 (1.0-4.0); LYMPHOCYTES % (AUTO) 21 % (12-44); MEAN CORPUSCULAR HEMOGLOBIN 28 PG (25-34); MEAN CORPUSCULAR HGB CONC 32 G/DL (32-36); MEAN CORPUSCULAR VOLUME 86 FL (80-99); MONOCYTES # (AUTO) 0.8 X 10^3 (0.0-1.0); MONOCYTES % (AUTO) 11 % (0-12); NEUTROPHILS # (AUTO) 4.7 X 10^3 (1.8-7.8); NEUTROPHILS % (AUTO) 68 % (42-75); PLATELET COUNT 409 10^3/uL (130-400); RED BLOOD COUNT 3.79 10^6/uL (4.35-5.85)
[2016-10-27 07:03] LABS: ANION GAP 9 MMOL/L (5-14); BLOOD UREA NITROGEN 26 MG/DL (7-18); BUN/CREATININE RATIO 31; CALCIUM 9.6 MG/DL (8.5-10.1); CARBON DIOXIDE 28 MMOL/L (21-32); CHLORIDE 100 MMOL/L (98-107); CREATININE SERUM 0.85 MG/DL (0.60-1.30); GFR ESTIMATED > 60; GLUCOSE 108 MG/DL (70-105); POTASSIUM 3.9 MMOL/L (3.6-5.0); SODIUM 137 MMOL/L (135-145)
[2016-10-27] MEDS: RT-ALBUTEROL/IPRATROPIUM 3 ML (DUONEB) VIAL INH SCH ×4 (07:23→22:22)
[2016-10-27 08:00] VITALS: BP 135/73
--- NOTE | 2016-10-27 09:18 | History & Physicial (CHS) ---
HPI History of Present Illness: Shortness of breath, increased falls The pt presented to ED yesterday via EMS after being found face down on the bathroom floor. Staff at [facility] where he lives reports that he has had frequent falls lately. He was found at ~1645 and prior to that was seen ambulating and well ~1400. There was some question of seizure-like activity and Keppra was ordered to start soon. He was actually brought to the ED because of the apparent fall. The report of his seizure like activity is described as a few minutes of decreased responsiveness. Patient was treated 2 weeks ago for PNA. His granddaughter was with him in the ED and reported that he had a temp of 101.0 earlier today. Also reports that he recently had his chronic pain medication - Morphine ER - decreased due to his increased falls. He was initially on 60 mg PO BID, but that was decreased to 30 mg PO BID and the patient did not feel that was a high enough dose to control his pain, so he is currently on 45 mg PO BID Morphine ER. While in the ED he was noted to have a right basilar patchy infiltrate. He was started on abx and admitted to the floor for further monitoring. This morning the patient reports that he has no complaints. He reports that he feels that his breathing feels better than yesterday. He does report that he can't really see without his glasses, and that someone is supposed to be bringing them to him today. Source: patient, family, old records Exam Limitations: other (dementia) Date seen by provider: Oct 27, 2016 Time Seen by Provider: 09:45 Attending Physician Rosa Sahu MD PCP Duran Hastings MD Consult Date of Admission Oct 26, 2016 at 20:12 Home Medications Home Medications Reviewed patient Home Medication Reconciliation Form Allergies Coded Allergies: No Known Drug Allergies (Unverified , 10/09/16) RPD-Vwlcey-Zzajsq Hx Patient Social History Marrital Status: single Living Status: Assisted Living Employed/Student: retired Alcohol Use: Denies Use Recreational Drug Use: No Smoking Status: Former Smoker Former smoker/When Quit: Jun 02, 2004 Type Used: Cigarettes Recent Foreign Travel: No Contact w/other who traveled: No Recent Hopitalizations: No Recent Infectious Disease Expo: No Physical Abuse Screen: No Sexual Abuse: No Immunizations Up To Date Tetanus Booster (TDap): Unknown Date of Pneumonia Vaccine: Jun 07, 2011 Date of Influenza Vaccine: Nov 15, 2015 Past Medical History Vision Problems - wears glasses Dentures Peripheral Neuropathy History of Heart Failure Myocardial Infarction x3 GERD COPD Osteoarthritis Type II Diabetes Hx of tobacco abuse Hx of splenic laceration - Feb 2016 Carotid artery stenosis - bilaterally (25 - 50%) Cardiac Catheterization Cardiac Stent Family Medical History Significant Family History: No Pertinent Family Hx, Cancer, Diabetes Family History: Colon cancer G8 BROTHER, Onset:55 FHx: brain tumor G8 SISTER Review of Systems (CHC) Constitutional: see HPI EENTM: blurred vision (waiting for someone to bring glasses), dental problems ( dentures), No ear pain, No eye pain, No epistaxis Respiratory: cough, dyspnea on exertion, short of breath, No wheezing Cardiovascular: No chest pain, No edema Gastrointestinal: no symptoms reported Genitourinary: no symptoms reported Musculoskeletal: other (chronic pain) Skin: no symptoms reported Psychiatric/Neurological: Depressed, Seizure, Other (dementia) Reviewed Test Results Reviewed Test Results Lab Laboratory Tests Test 10/26/16 18:00 10/26/16 18:05 10/26/16 18:45 10/27/16 06:15 Range/Units Urine Color MARGIE H Urine Clarity CLEAR Urine pH 5 5-9 Urine Specific [place] 1.020 1.016-1.022 Urine Protein 2+ H NEGATIVE Urine Glucose (UA) 3+ H NEGATIVE Urine Ketones 2+ H NEGATIVE Urine Nitrite NEGATIVE NEGATIVE Urine Bilirubin 1+ H NEGATIVE Urine Urobilinogen 4 H NORMAL MG/DL Urine Leukocyte Esterase 1+ H NEGATIVE Urine RBC (Auto) 2+ H NEGATIVE Urine RBC 5-10 H /HPF Urine WBC 2-5 /HPF Urine Crystals PRESENT H /LPF Urine Calcium Oxalate Crystals FEW H /LPF Urine Bacteria NEGATIVE /HPF Urine Casts NONE /LPF Urine Mucus LARGE H /LPF Urine Culture Indicated NO White Blood Count 10.0 4.3-11.0 10^3/uL Red Blood Count 3.86 L 4.35-5.85 10^6/uL Hemoglobin 10.8 L 13.3-17.7 G/DL Hematocrit 33 L 40-54 % Mean Corpuscular Volume 85 80-99 FL Mean Corpuscular Hemoglobin 28 25-34 PG Mean Corpuscular Hemoglobin Concent 33 32-36 G/DL Red Cell Distribution Width 12.8 10.0-14.5 % Platelet Count 449 H 130-400 10^3/uL Mean Platelet Volume 8.3 7.4-10.4 FL Neutrophils (%) (Auto) 77 H 42-75 % Lymphocytes (%) (Auto) 11 L 12-44 % Monocytes (%) (Auto) 12 0-12 % Eosinophils (%) (Auto) 0 0-10 % Basophils (%) (Auto) 0 0-10 % Neutrophils # (Auto) 7.7 1.8-7.8 X 10^3 Lymphocytes # (Auto) 1.1 1.0-4.0 X 10^3 Monocytes # (Auto) 1.2 H 0.0-1.0 X 10^3 Eosinophils # (Auto) 0.0 0.0-0.3 10^3/uL Basophils # (Auto) 0.0 0.0-0.1 10^3/uL Sodium Level 136 137 135-145 MMOL/L Potassium Level 4.2 3.9 3.6-5.0 MMOL/L Chloride Level 98 100 98-107 MMOL/L Carbon Dioxide Level 25 28 21-32 MMOL/L Anion Gap 13 9 5-14 MMOL/L Blood Urea Nitrogen 32 H 26 H 7-18 MG/DL Creatinine 1.25 0.85 0.60-1.30 MG/DL Estimat Glomerular Filtration Rate 56 > 60 BUN/Creatinine Ratio 26 31 Glucose Level 223 H 108 H 70-105 MG/DL Calcium Level 10.0 9.6 8.5-10.1 MG/DL Magnesium Level 2.0 1.8-2.4 MG/DL Total Bilirubin 0.6 0.1-1.0 MG/DL Aspartate Amino Transf (AST/SGOT) 56 H 5-34 U/L Alanine Aminotransferase (ALT/SGPT) 37 0-55 U/L Alkaline Phosphatase 54 40-136 U/L Troponin I < 0.30 <0.30 NG/ML C-Reactive Protein High Sensitivity 15.05 H 0.00-0.50 MG/DL B-Type Natriuretic Peptide 78.6 <100.0 PG/ML Total Protein 7.6 6.4-8.2 GM/DL Albumin 3.5 3.2-4.5 GM/DL TSH [place] Testing 0.47 0.35-4.94 UIU/ML Valproic Acid (Depakene) Level 42.5 L 50.0-100.0 UG/ML Test 10/27/16 06:25 Range/Units White Blood Count 7.0 4.3-11.0 10^3/uL Red Blood Count 3.79 L 4.35-5.85 10^6/uL Hemoglobin 10.5 L 13.3-17.7 G/DL Hematocrit 33 L 40-54 % Mean Corpuscular Volume 86 80-99 FL Mean Corpuscular Hemoglobin 28 25-34 PG Mean Corpuscular Hemoglobin Concent 32 32-36 G/DL Red Cell Distribution Width 13.0 10.0-14.5 % Platelet Count 409 H 130-400 10^3/uL Mean Platelet Volume 8.0 7.4-10.4 FL Neutrophils (%) (Auto) 68 42-75 % Lymphocytes (%) (Auto) 21 12-44 % Monocytes (%) (Auto) 11 0-12 % Eosinophils (%) (Auto) 0 0-10 % Basophils (%) (Auto) 0 0-10 % Neutrophils # (Auto) 4.7 1.8-7.8 X 10^3 Lymphocytes # (Auto) 1.4 1.0-4.0 X 10^3 Monocytes # (Auto) 0.8 0.0-1.0 X 10^3 Eosinophils # (Auto) 0.0 0.0-0.3 10^3/uL Basophils # (Auto) 0.0 0.0-0.1 10^3/uL Radiology CXR 10/27/16: IMPRESSION: Right basilar increased patchy infiltrate and small right effusion. Final radiology read is pending. Physical Exam-(CHC) Physical Exam Vital Signs VS - Last 72 Hours, by Label 10/26/16 10/26/16 10/26/16 10/26/16 17:45 18:45 20:27 20:45 Temp 98.8 98.2 Pulse 93 67 79 Resp 18 20 20 B/P (MAP) 130/71 130/72 Pulse Ox 97 97 100 100 O2 Delivery Room Air Nasal Cannula Nasal Cannula O2 Flow Rate 2.00 2.00 10/26/16 10/26/16 10/27/16 10/27/16 22:05 23:40 00:13 04:09 Temp 97.4 97.1 Pulse 79 72 77 Resp 18 16 B/P (MAP) 129/65 142/65 Pulse Ox 100 99 99 O2 Delivery Nasal Cannula Nasal Cannula Nasal Cannula O2 Flow Rate 2.00 2.00 2.00 10/27/16 10/27/16 10/27/16 07:26 08:00 08:00 Temp 97.2 Pulse 72 Resp 24 B/P (MAP) 135/73 Pulse Ox 98 99 99 O2 Delivery Nasal Cannula Nasal Cannula Nasal Cannula O2 Flow Rate 2.00 2.00 2.00 Capillary Refill : Less Than 3 Seconds General Appearance: WD/WN, no apparent distress HEENT: No scleral icterus (R), No scleral icterus (L) Neck: non-tender, full range of motion, supple, normal inspection Respiratory: chest non-tender, no accessory muscle use, decreased breath sounds (bilateral bases), No accessory muscle use Cardiovascular: normal peripheral pulses, regular rate, rhythm, no edema Gastrointestinal: normal bowel sounds, non tender, soft, no organomegaly Rectal: deferred Back: No CVA tenderness (R), No CVA tenderness (L), No vertebral tenderness Extremities: non-tender, no pedal edema, normal capillary refill Neurologic/Psychiatric: alert, normal mood/affect Skin: normal color, warm/dry Lymphatic: no adenopathy Assessment/Plan Assessment/Plan Admission Dx Right sided PNA Frequent Falls Questionable Seizures Type II Diabetes Coronary Artery Disease Plan Right sided PNA -cefepime and levaquin -nebulizers -will start steroid burst with plan for total of 5 days steroids -monitor respiratory status closely for decompensation Frequent Falls -pt to have glasses brought from home -will have PT work with pt for general strength building -if pt not able to ambulate safely, may need to consider placing in snf at [place] for further rehabilitation, will monitor and evaluate as discharge is closer Questionable Seizures -per report from staff at assisted living, 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 -per report from assisted living, patient was going to be started on keppra; will hold for now and recommend that pt have EEG and outpatient neurology review Type II Diabetes -heart healthy diabetic diet -non-insulin dependent, but expect sugars to rise with steroid burst -blood sugars AC and HS, will do low dose sliding scale insulin Coronary Artery Disease -hx of cardiac cath and stenting in the past, no current chest pain or palpitations -heart healthy diet Diet: Heart healthy diabetic diet Activity: To chair with assist, will have PT work with pt DVT Prophylaxis: Lovenox Condition: Stable Due to multiple comorbid conditions and severity of illness, patient requires inpatient hospitalization; anticipate pt to be here for 2-3 day for IV antibiotics Diagnosis/Problems: Clinical Quality Measures DVT/VTE Risk/Contraindication: Risk Factor Score Per Nursin RFS Level Per Nursing on Admit: 4+=Very High NOÉ LANDA DO Oct 27, 2016 09:18
[2016-10-27] MEDS: CEFEPIME INJECTION 2,000 MG in NS (IVPB) 50 ML IV SCH ×2 (09:40→21:18)
[2016-10-27] MEDS ORDERED: DULO30CA48 PO (09:46)
[2016-10-27] MEDS ORDERED: FENO160T12 PO (09:46)
[2016-10-27] MEDS ORDERED: RIVA1PAT TD (09:47)
--- NOTE | 2016-10-27 09:50 | Diagnostic Imaging Report ---
EXAMINATION: PA and lateral views of the chest. INDICATION: Fall. FINDINGS: There is right basilar patchy infiltrate, slightly increased from the 10/26/2016 comparison exam. The heart size is borderline enlarged. No pneumothorax. There is a small right pleural effusion. The mediastinum and jame appear unremarkable. IMPRESSION: Right basilar increased patchy infiltrate and small right effusion. Dictated by: Dictated on workstation # [id number]
[2016-10-27] MEDS ORDERED: FURO20TA4 PO (09:53)
[2016-10-27] MEDS ORDERED: MORP-33 PO (09:53)
[2016-10-27] MEDS ORDERED: DIVA125C10 PO (09:54)
[2016-10-27] MEDS ORDERED: LINA145C PO (09:54)
[2016-10-27] MEDS ORDERED: CITA20TA7 PO (09:55)
[2016-10-27] MEDS ORDERED: CYAN10006 PO (09:56)
[2016-10-27] MEDS ORDERED: CHOL2000 PO (09:56)
[2016-10-27] MEDS ORDERED: MELA3TAB PO (09:56)
[2016-10-27] MEDS ORDERED: MORP-34 PO (10:11)
[2016-10-27] MEDS: VITAMIN D3 1,000 UNITS (CHOLECALCIFEROL) TABLET PO SCH (11:22)
[2016-10-27] MEDS: CYANOCOBALAMIN 500 MCG TAB (VITAMIN B-12) PO SCH (11:22)
[2016-10-27] MEDS: ENOXAPARIN 40 MG/0.4 ML (LOVENOX) SYR SC SCH (11:24)
[2016-10-27 12:00] VITALS: BP 173/84
--- NOTE | 2016-10-27 12:03 | Physical Therapy Evaluation ---
PT Evaluation-General Medical Diagnosis Admission Date Oct 26, 2016 at 20:12 Medical Diagnosis: pneumonia/UTI/falls Onset Date: Oct 26, 2016 Therapy Diagnosis Therapy Diagnosis: debility Height/Weight Height (Feet): 6 Height (Inches): 0.00 Weight (Pounds): 190 Weight (Ounces): 12.8 Precautions Precautions/Isolations: Seizure, Fall Prevention, Standard Precautions Referral Physician: Young Reason for Referral: Evaluation/Treatment Medical History Pertinent Medical History: Arthritis, CAD, DM, Dementia, HTN, PA, Neuropathy, PVD Additional Medical History dementia Current History found in bathroom, face down, possible seizure like activity Reviewed History: Yes Social History Home: Assisted Living Prior/Core FIM Prior Level of Function Functional [place] Measure 0=Not Assessed/NA 4=Minimal Assistance 1=Total Assistance 5=Supervision or Setup 2=Maximal Assistance 6=Modified [place] 3=Moderate Assistance 7=Complete [place] Bed Mobility: 6 Transfers (B,C,W/C) (FIM): 6 Gait: 6 FWW use PT Evaluation-Current Subjective Patient agrees to PT. No c/o at this time. Pain Numeric Pain Scale: 3 Location: Right, Left Location Body Site: Thigh Pain Description: Ache Objective Patient Orientation: Person, Time, Situation Problem Solving: Fair ROM/Strength ROM Lower Extremities bilateral LE WNL Strenght Lower Extremities bilateral LE 4/5 grossly Integumentary/Posture Integumentary refer to nursing notes Bowel Incontinence: No Bladder Incontinence: No Posture slight kyphosis Neuromuscular (Tone, Coordination, Reflexes) grossly intact Sensory Vision: Wears Glasses Hearing: Impaired Sensation Right Lower Extremit: Impaired Sensation Left Lower Extremity: Impaired Transfers Functional [place] Measure 0=Not Assessed/NA 4=Minimal Assistance 1=Total Assistance 5=Supervision or Setup 2=Maximal Assistance 6=Modified [place] 3=Moderate Assistance 7=Complete [place] Transfers (B, C, W/C) (FIM): 5 Scootin Rollin Supine to/from Sit: 5 Sit to/from Stand: 5 Gait Mode of Locomotion: Walk Anticipated Mode of Locomotion: Walk Gait (FIM): 5 Distance (FIM): 3=150 ft Distance: 400' Gait Level of Assist: 5 Gait Assistive Device: FWW Comments/Gait Description slight shuffle gait sequence; functional with FWW Balance Sitting Static: Normal Sitting Dynamic: Normal Standing Static: Normal Standing Dynamic: Normal Assessment/Needs 76 y.o. male, will benefit from short term skilled PT to address functional mobility to safely return to [place] at maximum LOF. Rehab Potential: Good PT Penitentiary Goals Penitentiary Goals PT Glass Worker Goals Time Frame: Oct 29, 2016 Transfers (B,C,W/C) (FIM): 6 Gait (FIM): 6 Gait distance (FIM): 3=150 ft Gait Level of Assist: 6 Gait Assistive Device: FWW PT Plan Treatment/Plan Treatment Plan: Continue Plan of Care Treatment Plan: Education, Functional Activity Sandhya, Functional Strength, Gait , Safety, Therapeutic Exercise, Transfers Treatment Duration: Oct 29, 2016 Frequency: 3 times per week Estimated Hrs Per Day: .25 hour per day Patient and/or Family Agrees t: Yes Safety Risks/Education Patient Education: Safety Issues Teaching Recipient: Patient Teaching Methods: Discussion Response to Teaching: Verbalize Understanding Discharge Recommendations Therapy D/C Recommendations: Assisted Living Time/GCodes Time In: 1130 Time Out: 1150 Total Billed Treatment Time: 20 Total Billed Treatment 1 visit EVModC 20 min G Codes Necessary: Yes PT/OT Therapy GCodes Therapy Functional Limitation: Physical Therapy Test(s)/Tool used to determine: Level of Assistance Scale Functional Limitation-Current Charge Code: MOBCUR Modifier: CJ Functional Limitation-Goal Charge Code: MOBGOAL Modifier: ASHVIN RUSSELL PT Oct 27, 2016 12:03
[2016-10-27] MEDS: RIVASTIGMINE 4.6 MG PATCH (EXELON) TD SCH (12:12)
[2016-10-27] MEDS: DIVALPROX SPRINKLE 125 MG (DEPAKOTE) CAP PO SCH ×2 (12:12→20:58)
[2016-10-27] MEDS: DULoxetine 30 MG (CYMBALTA) CAP PO SCH ×2 (12:12→20:58)
[2016-10-27] MEDS: CATHETER FLUSH 10 ML SYR IV SCH ×2 (12:12→21:18)
[2016-10-27] MEDS: morphine ER 30 MG (MS CONTIN) TAB PO SCH ×2 (12:20→20:59)
[2016-10-27] MEDS: morphine ER 15 MG (MS CONTIN) TAB PO SCH ×2 (12:21→20:59)
[2016-10-27 16:28] VITALS: BP 136/77
[2016-10-27] MEDS: inSUlin ASPART (NovoLOG) 1 UNIT/0.01 ML (CHARGE PER UNIT) SC SCH ×2 (16:31→21:16)
[2016-10-27] MEDS ORDERED: ONDANSETRON 4 MG/2 ML (SDV) Z0FRAN IVP PRN (17:45)
[2016-10-27] MEDS ORDERED: LORazepam INJ 2 MG/ML (ATIVAN) VIAL IVP ONE (18:15)
[2016-10-27 20:00] VITALS: BP 127/75
[2016-10-27] MEDS ORDERED: LEVOFLOXACIN 750 MG/150 ML IV 150 ML IV SCH (20:00)
[2016-10-27] MEDS: LEVOFLOXACIN 750 MG TAB (LEVAQUIN) PO SCH (20:58)
[2016-10-27] MEDS: MELATONIN 3 MG TABLET PO SCH (20:58)
[2016-10-28 00:17] VITALS: BP 119/64
[2016-10-28] MEDS: inSUlin ASPART (NovoLOG) 1 UNIT/0.01 ML (CHARGE PER UNIT) SC SCH ×4 (05:55→20:52)
[2016-10-28] MEDS: CATHETER FLUSH 10 ML SYR IV SCH ×3 (05:56→21:02)
[2016-10-28 06:21] LABS: BASOPHILS % (AUTO) 0 % (0-10); EOSINOPHILS # (AUTO) 0.1 10^3/uL (0.0-0.3); EOSINOPHILS % (AUTO) 1 % (0-10); LYMPHOCYTES # (AUTO) 1.8 X 10^3 (1.0-4.0); LYMPHOCYTES % (AUTO) 26 % (12-44); MEAN CORPUSCULAR HEMOGLOBIN 28 PG (25-34); MEAN CORPUSCULAR HGB CONC 32 G/DL (32-36); MEAN CORPUSCULAR VOLUME 86 FL (80-99); MEAN PLATELET VOLUME 8.2 FL (7.4-10.4); MONOCYTES # (AUTO) 0.9 X 10^3 (0.0-1.0); MONOCYTES % (AUTO) 13 % (0-12); NEUTROPHILS # (AUTO) 4.1 X 10^3 (1.8-7.8); NEUTROPHILS % (AUTO) 60 % (42-75); PLATELET COUNT 419 10^3/uL (130-400); RED BLOOD COUNT 3.67 10^6/uL (4.35-5.85); RED CELL DISTRIBUTION WIDTH 13.1 % (10.0-14.5); WHITE BLOOD COUNT 6.8 10^3/uL (4.3-11.0)
[2016-10-28 06:39] LABS: ANION GAP 8 MMOL/L (5-14); BLOOD UREA NITROGEN 22 MG/DL (7-18); BUN/CREATININE RATIO 24; CALCIUM 9.6 MG/DL (8.5-10.1); CARBON DIOXIDE 26 MMOL/L (21-32); CHLORIDE 102 MMOL/L (98-107); CREATININE SERUM 0.92 MG/DL (0.60-1.30); GFR ESTIMATED > 60; GLUCOSE 93 MG/DL (70-105); MAGNESIUM 1.8 MG/DL (1.8-2.4); POTASSIUM 3.6 MMOL/L (3.6-5.0); SODIUM 136 MMOL/L (135-145); hs C REACTIVE PROTEIN 6.53 MG/DL (0.00-0.50)
[2016-10-28 06:50] LABS: VALPROIC ACID 26.6 UG/ML (50.0-100.0)
[2016-10-28] MEDS: RT-ALBUTEROL/IPRATROPIUM 3 ML (DUONEB) VIAL INH SCH ×4 (07:00→20:16)
[2016-10-28 08:30] VITALS: BP 128/81
[2016-10-28] MEDS ORDERED: NON-FORMULARY MEDICATION 1 EA EA (Linaclotide (Linzess) 145 MCG) PO SCH (09:00)
--- NOTE | 2016-10-28 09:17 | Progress Note (SOAP) ---
Subjective Subjective/Events-last exam this morning the patient has no specific complaints. He reports that he is generally feeling "okay". There've been no acute events overnight. The nursing staff is concerned about his ability to care for himself at an assisted living facility after discharge, due to his unsteady gait and his frequent falls. PT evaluated him yesterday and also noted that the patient would benefit from a short stay in a skilled facility for intensive physical therapy. Review of Systems Date Seen by Provider: Oct 28, 2016 Time Seen by Provider: 10:00 General: No Chills, No Night Sweats, No Malaise HEENT: No Head Aches, No Visual Changes, No Dysphasia Pulmonary: No Dyspnea, Cough, No Pleuritic Chest Pain Cardiovascular: No: Chest Pain, Palpitations, Edema Gastrointestinal: No: Nausea, Vomiting, Abdominal Pain Genitourinary: No Dysuria Musculoskeletal: No: neck pain, leg pain Neurological: No: Change in speech, Confusion Objective Exam Last Set of Vital Signs Vital Signs Date Time Temp Pulse Resp B/P (MAP) Pulse Ox O2 Delivery O2 Flow Rate FiO2 10/28/16 00:17 97.7 66 20 119/64 94 Nasal Cannula 2.00 Capillary Refill : Less Than 3 Seconds I&O Intake and Output 10/29/16 00:00 Intake Total 300 ml Balance 300 ml Intake Oral 300 ml # Voids 2 General: Alert, Oriented X3, Cooperative, No Acute Distress HEENT: Atraumatic, PERRLA, Mucous Memb Moist/[place] Neck: Supple, No Thyromegaly Lungs: Clear to Auscultation, Other (mildly decreased bilateral bases) Heart: Regular Rate, Normal S1, Normal S2 Abdomen: Normal Bowel Sounds, Soft, No Tenderness, No Hepatosplenomegaly Extremities: No Clubbing, No Cyanosis, No Edema, Normal Pulses Skin: No Rashes, No Breakdown, No Significant Lesion Neuro: Normal Speech, Normal Tone Psych/Mental Status: Mental Status NL, Mood NL Results/Procedures Lab Laboratory Tests 10/27/16 15:52: Glucometer 163H 10/27/16 20:33: Glucometer 240H 10/28/16 04:57: Glucometer 110 10/28/16 05:42: White Blood Count 6.8, Red Blood Count 3.67L, Hemoglobin 10.2L, Hematocrit 32L, Mean Corpuscular Volume 86, Mean Corpuscular Hemoglobin 28, Mean Corpuscular Hemoglobin Concent 32, Red Cell Distribution Width 13.1, Platelet Count 419H, Mean Platelet Volume 8.2, Neutrophils (%) (Auto) 60, Lymphocytes (%) (Auto) 26, Monocytes (%) (Auto) 13H, Eosinophils (%) (Auto) 1, Basophils (%) (Auto) 0, Neutrophils # (Auto) 4.1, Lymphocytes # (Auto) 1.8, Monocytes # (Auto) 0.9, Eosinophils # (Auto) 0.1, Basophils # (Auto) 0.0, Sodium Level 136, Potassium Level 3.6, Chloride Level 102, Carbon Dioxide Level 26, Anion Gap 8, Blood Urea Nitrogen 22H, Creatinine 0.92, Estimat Glomerular Filtration Rate > 60, BUN/ Creatinine Ratio 24, Glucose Level 93, Calcium Level 9.6, Magnesium Level 1.8, C -Reactive Protein High Sensitivity 6.53H, Valproic Acid (Depakene) Level 26.6L Microbiology 10/26/16 Blood Culture - Preliminary, Resulted No growth Radiology CXR 10/27/16: IMPRESSION: Right basilar increased patchy infiltrate and small right effusion. Final radiology read is pending. Assessment/Plan Assessment/Plan Admission Dx Right sided PNA Frequent Falls Questionable Seizures Type II Diabetes Coronary Artery Disease Plan Right sided PNA -cefepime and levaquin -nebulizers -will start steroid burst with plan for total of 5 days steroids -monitor respiratory status closely for decompensation Frequent Falls -pt to have glasses brought from home -will have PT work with pt for general strength building -if pt not able to ambulate safely, may need to consider placing in half-way at [place] for further rehabilitation, will monitor and evaluate as discharge is closer -PT has evaluated patient and recommends a short stay in a skilled facility for further PT, this was discussed with the patient today and child welfare social worker has been consulted to evaluate for possible placement at discharge Questionable Seizures -per report from staff at assisted living, 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 -per report from assisted living, patient was going to be started on keppra; will hold for now and recommend that pt have EEG and outpatient neurology review Type II Diabetes -heart healthy diabetic diet -non-insulin dependent, but expect sugars to rise with steroid burst -blood sugars AC and HS, will do low dose sliding scale insulin Coronary Artery Disease -hx of cardiac cath and stenting in the past, no current chest pain or palpitations -heart healthy diet Diet: Heart healthy diabetic diet Activity: To chair with assist, will have PT work with pt DVT Prophylaxis: Lovenox Condition: Stable Due to multiple comorbid conditions and severity of illness, patient requires inpatient hospitalization; anticipate pt will likely be ready for discharge in the next 24-48 hours and he would significantly benefit from a stay in a skilled facility for intensive physical therapy if at all possible Diagnosis/Problems: Clinical Quality Measures DVT/VTE Risk/Contraindication: Risk Factor Score Per Nursin RFS Level Per Nursing on Admit: 4+=Very High NOÉ LANDA DO Oct 28, 2016 09:17
[2016-10-28] MEDS: RIVASTIGMINE 4.6 MG PATCH (EXELON) TD SCH (09:25)
[2016-10-28] MEDS: VITAMIN D3 1,000 UNITS (CHOLECALCIFEROL) TABLET PO SCH (09:25)
[2016-10-28] MEDS: DIVALPROX SPRINKLE 125 MG (DEPAKOTE) CAP PO SCH ×3 (09:25→21:02)
[2016-10-28] MEDS: morphine ER 15 MG (MS CONTIN) TAB PO SCH ×2 (09:25→21:01)
[2016-10-28] MEDS: morphine ER 30 MG (MS CONTIN) TAB PO SCH ×2 (09:25→21:02)
[2016-10-28] MEDS: DULoxetine 30 MG (CYMBALTA) CAP PO SCH ×3 (09:26→21:02)
[2016-10-28] MEDS: CEFEPIME INJECTION 2,000 MG in NS (IVPB) 50 ML IV SCH ×2 (09:26→22:27)
[2016-10-28] MEDS: CYANOCOBALAMIN 500 MCG TAB (VITAMIN B-12) PO SCH (09:26)
--- NOTE | 2016-10-28 11:33 | Physical Therapy Daily Note ---
PT Daily Note-Current Subjective Patient is very agreeable to participate with PT. No c/o at this time. Pain Numeric Pain Scale: 0-No Pain Location: No Pain Reported Mental Status Patient Orientation: Person, Time, Situation Transfers Functional [place] Measure 0=Not Assessed/NA 4=Minimal Assistance 1=Total Assistance 5=Supervision or Setup 2=Maximal Assistance 6=Modified [place] 3=Moderate Assistance 7=Complete IndependenceIRFPAI Quality Coding Scale 6 Independent with activity with or without an assistive device 5 Patient requires set up or clean up by helper. Patient completes activity by themselves 4 Supervision or touching assist (CGA). [place] provide cues , steadying assist 3 The helper provides less than half the effort to complete the activity 2 The helper provides more than half the effort to complete the activity 1 Dependent. The helper does all the effort to complete an activity 7 Patient refused to complete or attempt activity 9 The patient did not perform the activity before the current illness or injury 88 Not attempted due to Medical conditions or safety concerns Transfers (B, C, W/C) (FIM): 5 Scootin Supine to/from Sit: 5 Sit to/from Stand: 5 Gait Training Gait (FIM): 5 Distance (FIM): 3=150 ft Distance: 400' Gait Level of Assist: 5 Gait Assistive Device: FWW NBOS; decreased gait sequence; functional with FWW Exercises Seated Therapy Exercises: Ankle pumps, Long arc quads, Hip flexion Seated Reps: 15 (2 sets to increase strength and improve functional mobility) Assessment Current Status: Good Progress PT Shelter Goals Shelter Goals PT Envelope Folder Goals Time Frame: Oct 29, 2016 Transfers (B,C,W/C) (FIM): 6 Gait (FIM): 6 Gait distance (FIM): 3=150 ft Gait Level of Assist: 6 Gait Assistive Device: FWW PT Plan Treatment/Plan Treatment Plan: Continue Plan of Care Treatment Plan: Education, Functional Activity Sandhya, Functional Strength, Gait , Safety, Therapeutic Exercise, Transfers Treatment Duration: Oct 29, 2016 Frequency: 3 times per week Estimated Hrs Per Day: .25 hour per day Patient and/or Family Agrees t: Yes Time/GCodes Time In: 1050 Time Out: 1114 Total Billed Treatment Time: 24 Total Billed Treatment 1 visit EX 10 min GT 14 min PT/OT Therapy GCodes Therapy Functional Limitation: Physical Therapy Test(s)/Tool used to determine: Level of Assistance Scale Functional Limitation-Current Charge Code: MOBCUR Modifier: CJ Functional Limitation-Goal Charge Code: MOBGOAL Modifier: ASHVIN RUSSELL PT Oct 28, 2016 11:33
[2016-10-28] MEDS: ENOXAPARIN 40 MG/0.4 ML (LOVENOX) SYR SC SCH (13:59)
[2016-10-28 16:25] VITALS: BP 116/74
[2016-10-28] MEDS: MELATONIN 3 MG TABLET PO SCH (21:02)
[2016-10-28] MEDS: FENOFIBRATE 134 MG (LOFIBRA) CAPSULE PO SCH (21:02)
[2016-10-28] MEDS: LEVOFLOXACIN 750 MG TAB (LEVAQUIN) PO SCH (21:02)
[2016-10-29 00:15] VITALS: BP 135/69
[2016-10-29] MEDS: inSUlin ASPART (NovoLOG) 1 UNIT/0.01 ML (CHARGE PER UNIT) SC SCH ×4 (05:35→20:55)
[2016-10-29] MEDS: CATHETER FLUSH 10 ML SYR IV SCH ×3 (06:08→21:15)
[2016-10-29] MEDS: RT-ALBUTEROL/IPRATROPIUM 3 ML (DUONEB) VIAL INH SCH ×4 (07:51→19:59)
[2016-10-29 08:00] VITALS: BP 110/69
[2016-10-29] MEDS: morphine ER 30 MG (MS CONTIN) TAB PO SCH ×2 (08:23→21:15)
[2016-10-29] MEDS: morphine ER 15 MG (MS CONTIN) TAB PO SCH ×2 (08:23→21:15)
[2016-10-29] MEDS: CYANOCOBALAMIN 500 MCG TAB (VITAMIN B-12) PO SCH (08:23)
[2016-10-29] MEDS: RIVASTIGMINE 4.6 MG PATCH (EXELON) TD SCH (08:23)
[2016-10-29] MEDS: DULoxetine 30 MG (CYMBALTA) CAP PO SCH ×3 (08:24→21:15)
[2016-10-29] MEDS: DIVALPROX SPRINKLE 125 MG (DEPAKOTE) CAP PO SCH (08:24)
[2016-10-29] MEDS: VITAMIN D3 1,000 UNITS (CHOLECALCIFEROL) TABLET PO SCH (08:24)
--- NOTE | 2016-10-29 09:14 | Discharge Summary ---
Diagnosis/Chief Complaint Date of Admission Oct 27, 2016 at 13:02 Date of Discharge 10/30/16 Admission Diagnosis Admission Diagnosis Right sided PNA Frequent Falls Questionable Seizures Type II Diabetes Coronary Artery Disease Discharge Diagnosis Pneumonia -Will discharge on levaquin to complete a total of 7 days abx, rx sent to pharmacy Frequent Falls -discharge to [facility] in [place], will have OT/PT rehab for strength building Seizure Disorder -DC depakote, start Keppra 500 mg PO BID Type II Diabetes -resume home meds CAD -heart healthy diet General Debility -PT/OT at [facility] Chief Complaint/HPI Chief Complaint/HPI Shortness of breath, increased falls The pt presented to ED yesterday via EMS after being found face down on the bathroom floor. Staff at [facility] where he lives reports that he has had frequent falls lately. He was found at ~1645 and prior to that was seen ambulating and well ~1400. There was some question of seizure-like activity and Keppra was ordered to start soon. He was actually brought to the ED because of the apparent fall. The report of his seizure like activity is described as a few minutes of decreased responsiveness. Patient was treated 2 weeks ago for PNA. His granddaughter was with him in the ED and reported that he had a temp of 101.0 earlier today. Also reports that he recently had his chronic pain medication - Morphine ER - decreased due to his increased falls. He was initially on 60 mg PO BID, but that was decreased to 30 mg PO BID and the patient did not feel that was a high enough dose to control his pain, so he is currently on 45 mg PO BID Morphine ER. While in the ED he was noted to have a right basilar patchy infiltrate. He was started on abx and admitted to the floor for further monitoring. This morning the patient reports that he has no complaints. He reports that he feels that his breathing feels better than yesterday. He does report that he can't really see without his glasses, and that someone is supposed to be bringing them to him today. Discharge Summary-Simple/Stand Consultations Discharge Physical Examination Allergies: Coded Allergies: No Known Drug Allergies (Unverified , 10/09/16) Vitals & I&Os Vital Sign - Last 12Hours Date Time Temp Pulse Resp B/P (MAP) Pulse Ox O2 Delivery O2 Flow Rate FiO2 10/29/16 08:33 Room Air 9/15/17 08:00 97.1 92 24 110/69 96 10/28/16 16:25 2.00 General Appearance: Alert, Oriented X3, Cooperative, No Acute Distress HEENT: Atraumatic, EOMI, Mucous Memb Moist/[place] Respiratory: Clear to Auscultation, Normal Air Movement Cardiovascular: Regular Rate, Normal S1, Normal S2 Abdominal: Normal Bowel Sounds, Soft, No Tenderness Extremities: No Clubbing, No Cyanosis Skin: No Rashes, No Significant Lesion Neuro: Normal Speech, Normal Tone Psych/Mental Status: Mood NL, Other (mildly demented) Hospital Course See final discharge diagnosis. Radiology Reviewed CXR 10/27/16: IMPRESSION: Right basilar increased patchy infiltrate and small right effusion. Final radiology read is pending. Discharge Instructions to patient/family Please see electronic discharge instructions given to patient. Discharge Medications Reviewed and agree with Discharge Medication list on patient's Discharge Instruction sheet Clinical Quality Measures DVT/VTE Risk/Contraindication: VTE Addressed: Yes VTE Present on Admission: No Risk Factor Score Per Nursin RFS Level Per Nursing on Admit: 4+=Very High NOÉ LANDA DO Oct 29, 2016 09:14
[2016-10-29] MEDS: CEFEPIME INJECTION 2,000 MG in NS (IVPB) 50 ML IV SCH ×2 (09:41→21:14)
--- NOTE | 2016-10-29 10:03 | Physical Therapy Daily Note ---
PT Daily Note-Current Subjective Patient is in bed and agrees to PT. No c/o at this time. Pain Numeric Pain Scale: 0-No Pain Location: No Pain Reported Mental Status Patient Orientation: Person, Place, Time, Situation Transfers Functional [place] Measure 0=Not Assessed/NA 4=Minimal Assistance 1=Total Assistance 5=Supervision or Setup 2=Maximal Assistance 6=Modified [place] 3=Moderate Assistance 7=Complete IndependenceIRFPAI Quality Coding Scale 6 Independent with activity with or without an assistive device 5 Patient requires set up or clean up by helper. Patient completes activity by themselves 4 Supervision or touching assist (CGA). [place] provide cues , steadying assist 3 The helper provides less than half the effort to complete the activity 2 The helper provides more than half the effort to complete the activity 1 Dependent. The helper does all the effort to complete an activity 7 Patient refused to complete or attempt activity 9 The patient did not perform the activity before the current illness or injury 88 Not attempted due to Medical conditions or safety concerns Transfers (B, C, W/C) (FIM): 4 Scootin Rollin Supine to/from Sit: 4 Sit to/from Stand: 5 Bed to/from Chair: 5 difficulty attaining sit from supine position in elevated position of HOB Gait Training Gait (FIM): 5 Distance (FIM): 3=150 ft Distance: 650' Gait Level of Assist: 5 Gait Assistive Device: FWW slow, NBOS, functional gait sequence Exercises Supine Ex: Ankle pumps, Quad Set, Heel Slides, Straight leg raise Supine Reps: 10 Seated Therapy Exercises: Long arc quads Seated Reps: 10 Assessment Patient tolerated treatment well. Exercises and ambulation to improve functional, safe mobility progressing well. Plan dismissal to [place] tomorrow per report. PT Short Term Goals Short Term Goals Time Frame: Oct 29, 2016 PT Storm Chaser Goals Storm Chaser Goals PT Longterm Goals Time Frame: Oct 29, 2016 Transfers (B,C,W/C) (FIM): 6 Gait (FIM): 6 Gait distance (FIM): 3=150 ft Gait Level of Assist: 6 Gait Assistive Device: FWW PT Plan Treatment/Plan Treatment Plan: Discontinue PT Treatment Plan: Education, Functional Activity Sandhya, Functional Strength, Gait , Safety, Therapeutic Exercise, Transfers Treatment Duration: Oct 29, 2016 Frequency: 3 times per week Estimated Hrs Per Day: .25 hour per day Patient and/or Family Agrees t: Yes Time/GCodes Time In: 910 Time Out: 935 Total Billed Treatment Time: 25 Total Billed Treatment 1 visit FA x 2 25 min PT/OT Therapy GCodes Therapy Functional Limitation: Physical Therapy Test(s)/Tool used to determine: Level of Assistance Scale Functional Limitation-Current Charge Code: MOBCUR Modifier: CJ Functional Limitation-Goal Charge Code: MOBGOAL Modifier: ASHVIN RUSSELL PT Oct 29, 2016 10:03
[2016-10-29] MEDS ORDERED: LEVO750T39 PO (11:20)
[2016-10-29] MEDS ORDERED: LEVE500T99 PO (11:20)
[2016-10-29] MEDS: ENOXAPARIN 40 MG/0.4 ML (LOVENOX) SYR SC SCH (12:36)
[2016-10-29] MEDS: LEVETIRACETAM 500 MG (KEPPRA) TAB PO SCH ×2 (14:01→21:15)
[2016-10-29 16:52] VITALS: BP 100/59
[2016-10-29] MEDS: FENOFIBRATE 134 MG (LOFIBRA) CAPSULE PO SCH (21:15)
[2016-10-29] MEDS: MELATONIN 3 MG TABLET PO SCH (21:15)
[2016-10-29] MEDS: LEVOFLOXACIN 750 MG TAB (LEVAQUIN) PO SCH (21:15)
[2016-10-30] VITALS: BP 123/60
[2016-10-30] MEDS: inSUlin ASPART (NovoLOG) 1 UNIT/0.01 ML (CHARGE PER UNIT) SC SCH (05:50)
[2016-10-30] MEDS: CATHETER FLUSH 10 ML SYR IV SCH (06:22)
[2016-10-30] MEDS: RT-ALBUTEROL/IPRATROPIUM 3 ML (DUONEB) VIAL INH SCH (07:52)
[2016-10-30 08:00] VITALS: BP 109/69
[2016-10-30] MEDS: DULoxetine 30 MG (CYMBALTA) CAP PO SCH (08:19)
[2016-10-30] MEDS: VITAMIN D3 1,000 UNITS (CHOLECALCIFEROL) TABLET PO SCH (08:19)
[2016-10-30] MEDS: LEVETIRACETAM 500 MG (KEPPRA) TAB PO SCH (08:19)
[2016-10-30] MEDS: morphine ER 15 MG (MS CONTIN) TAB PO SCH (08:20)
[2016-10-30] MEDS: morphine ER 30 MG (MS CONTIN) TAB PO SCH (08:20)
[2016-10-30] MEDS: CYANOCOBALAMIN 500 MCG TAB (VITAMIN B-12) PO SCH (08:20)
[2016-10-30] MEDS: RIVASTIGMINE 4.6 MG PATCH (EXELON) TD SCH (08:20)
[2016-10-30 10:20] VITALS: BP 109/69
== END 2016-10-30 10:20 | DRG 195 ==
LOC: EDUNIT# 17:38 → ER 17:39 → UNDOADMOB 20:12 → 4TH 20:12 → OBSVTOIN 10-27 13:02 → INTOOBSV 10-27 13:02 → UNDODISIN 10-30 10:20
PROVIDERS: ADMIT Family Medicine; ATTEND Family Medicine
DX: J18.9 Pneumonia, unspecified organism (principal); Z91.81 History of falling; G40.909 Epilepsy, unspecified, not intractable, without status epilepticus; E11.9 Type 2 diabetes mellitus without complications; I25.10 Atherosclerotic heart disease of native coronary artery without angina pectoris; Z95.5 Presence of coronary angioplasty implant and graft; Z66 Do not resuscitate; I10 Essential (primary) hypertension; Z87.891 Personal history of nicotine dependence; I73.9 Peripheral vascular disease, unspecified; F32.9 Major depressive disorder, single episode, unspecified; F03.90 Unspecified dementia, unspecified severity, without behavioral disturbance, psychotic disturbance, mood disturbance, and anxiety
CPT/HCPCS: 36415; 70450; 71010; 71020; 72125; 73562; 80048; 80053; 80164; 81000; 82962; 83735; 83880; 84443; 84484; 85025; 86141; 87040; 93005; 93041; 94640; 94760; 96365; G0378

== ENCOUNTER 2017-05-14 18:42 | Emergency (ER) | payer MEDICARE, MEDICAID ==
[~2017-05-14] VITALS: Ht 182.9 cm; Wt 90.7 kg
[~2017-05-14 18:42] MED LIST changes: +CHOL2000 PO; +CITA20TA7 PO; +CYAN10006 PO; +DIVA125C10 PO; +DULO30CA48 PO; +FENO160T12 PO; +FURO20TA4 PO; +LEVE500T99 PO; +LEVO750T39 PO; +LINA145C PO; +MELA3TAB PO; +MORP-33 PO; +MORP-34 PO; +RIVA1PAT TD
--- NOTE | 2017-05-14 20:30 | ED Abdominal Pain ---
General Chief Complaint: Abdominal/GI Problems Stated Complaint: ABD PAIN/CONSTIPATION Nursing Triage Note: PT TO ED 7 W/ C/O ABD PAIN/CONSTIPATION ONSET X7-8 DAYS. REPORTS "DRANK THAT SYRUP STUFF" BUT DENIES IMPROVEMENT. PT POOR HISTORIAN Sepsis Screen: No Definite Risk Source of Information: Patient Exam Limitations: No Limitations History of Present Illness Date Seen by Provider: May 14, 2017 Time Seen by Provider: 20:03 Initial Comments Here with report of constipation and no bowel movement for the last week. Has tried some [id number]-xcx-jqyczif the prescribed medications but that has not helped. He is a resident of a local assisted-living facility. Does take chronic narcotics. Denies nausea or vomiting. Is able to eat and drink. Timing/Duration: 1 Week, Getting Worse Severity/Quality: Moderate, Cramping Location: Generalized Abdomen Radiation: No Radiation Activities at Onset: None Modifying Factors: Improves With Resting Associated Symptoms: No Back Pain, No Chest Pain, No Fever/Chills, No Nausea/ Vomiting, No Shortness of Air, Swelling/Mass in Abdomen, No Weakness Allergies and Home Medications Allergies Coded Allergies: No Known Drug Allergies (Unverified , 10/09/16) Home Medications Cholecalciferol (Vitamin D3) 2,000 Unit Capsule, 2,000 UNIT PO DAILY, (Reported) Citalopram Hydrobromide 20 Mg Tablet, 20 MG PO DAILY, (Reported) Cyanocobalamin (Vitamin B-12) 1,000 Mcg Tablet, 1,000 MCG PO DAILY, (Reported) Duloxetine HCl 30 Mg Capsule.dr, 30 MG PO TID, (Reported) Fenofibrate 160 Mg Tablet, 160 MG PO DAILY, (Reported) Furosemide 20 Mg Tablet, 20 MG PO EVERY OTHER DAY, (Reported) Levetiracetam 500 Mg Tablet, 500 MG PO BID Prescribed by: NOÉ LANDA on 10/29/16 1120 Levofloxacin 750 Mg Tablet, 750 MG PO HS Prescribed by: NOÉ LANDA on 10/29/16 1120 Linaclotide 145 Mcg Capsule, 145 MCG PO DAILY, (Reported) Melatonin 3 Mg Tablet, 3 MG PO HS, (Reported) Morphine Sulfate 15 Mg Tablet.er, 15 MG PO BID, (Reported) Morphine Sulfate 30 Mg Tablet.er, 30 MG PO BID, (Reported) Rivastigmine 4.6 Mg Patch, 4.6 MG TD DAILY, (Reported) Patient Home Medication List Home Medication List Reviewed: Yes Review of Systems Constitutional: see HPI, No chills, No fever EENTM: No Symptoms Reported Respiratory: No Symptoms Reported Cardiovascular: Denies Chest Pain, Denies Edema Gastrointestinal: Abdominal Pain, Constipated, Denies Diarrhea, Denies Nausea, Denies Vomiting Genitourinary: No Symptoms Reported Musculoskeletal: no symptoms reported Skin: no symptoms reported Psychiatric/Neurological: No Symptoms Reported All Other Systems Reviewed Negative Unless Noted: Yes Past Tlfvizt-Oinccn-Nzcoyp Hx Patient Social History Alcohol Use: Denies Use Recreational Drug Use: No Smoking Status: Former Smoker Type Used: Cigarettes Former Smoker, Quit: Feb 14, 2003 Recent Foreign Travel: No Contact w/Someone Who Travel: No Recent Infectious Disease Expo: No Recent Hopitalizations: No Immunizations Up To Date Tetanus Booster (TDap): Unknown Date of Pneumonia Vaccine: Jun 07, 2011 Date of Influenza Vaccine: Nov 15, 2015 Seasonal Allergies Seasonal Allergies: No Surgeries History of Surgeries: Yes Surgeries: Coronary Stent, Gallbladder, Orthopedic, Vascular Surgery Respiratory History of Respiratory Disorde: Yes Respiratory Disorders: Pneumonia Cardiovascular History of Cardiac Disorders: Yes (Heart failure) Cardiac Disorders: Coronary Artery Disease, Hypertension, Peripheral Vascular Neurological History of Neurological Disord: Yes Neurological Disorders: Dementia, Seizure Disorder Reproductive System Hx Reproductive Disorders: No Sexually Transmitted Disease: No Genitourinary History of Genitourinary Disor: Yes Genitourinary Disorders: Prostate Problems, UTI-Chronic Gastrointestinal History of Gastrointestinal Di: No Musculoskeletal History of Musculoskeletal Dis: Yes Musculoskeletal Disorders: Arthritis Endocrine History of Endocrine Disorders: Yes Endocrine Disorders: Diabetes, Non-Insulin dep HEENT History of HEENT Disorders: No Cancer History of Cancer: No Did You Recieve Any Treatments: No Psychosocial History of Psychiatric Problem: Yes Behavioral Health Disorders: Sleep Difficulties, Depression Integumentary History of Skin or Integumenta: No Blood Transfusions History of Blood Disorders: No Adverse Reaction to a Blood Tr: No Reviewed Nursing Assessment Reviewed/Agree w Nursing PMH: Yes Family Medical History Significant Family History: No Pertinent Family Hx, Cancer, Diabetes Family Medial History: Colon cancer G8 BROTHER, Onset:55 FHx: brain tumor G8 SISTER Physical Exam Vital Signs VS - Last 72 Hours, by Label 05/14/17 18:54 Temp 97.6 Pulse 87 Resp 20 B/P (MAP) 138/92 (107) Pulse Ox 99 O2 Delivery Room Air Capillary Refill : Less Than 3 Seconds General Appearance: WD/WN, no apparent distress HEENT: PERRL/EOMI, pharynx normal Neck: full range of motion, supple Respiratory: lungs clear, normal breath sounds Cardiovascular: regular rate, rhythm, no murmur Gastrointestinal: normal bowel sounds, non tender, soft, no organomegaly, no pulsatile mass Extremities: non-tender, normal inspection Neurologic/Psychiatric: alert, oriented x 3 Skin: normal color, warm/dry Progress/Results/Core Measures Results/Orders My Orders Orders - GABE MAS MD Acute Abd Series (05/14/17 20:08) Methylnaltrexone Injection (Relistor Inj (05/14/17 20:45) Medications Given in ED Current Medications Medications Dose Ordered Sig/Joellen Route Start Time Stop Time Status Last Admin Dose Admin Methylnaltrexone [place] 12 mg ONCE ONCE SQ 05/14/17 20:45 05/14/17 20:46 DC 05/14/17 20:46 12 MG Vital Signs/I&O Vital Sign - Last 12Hours 05/14/17 18:54 Temp 97.6 Pulse 87 Resp 20 B/P (MAP) 138/92 (107) Pulse Ox 99 O2 Delivery Room Air Blood Pressure Mean: 107 Progress Note : Progress Note Seen and evaluated. Acute abdominal series ordered. Monitor patient. Noted moderate amount of stool. Relistor 12 milligrams subcutaneous ordered. Discharged home with return precautions. Patient and family verbalize understanding instructions and agreement with plan. Diagnostic Imaging Diagonstic Imaging: Xray Plain Films/CT/US/NM/MRI: chest Comments VIA [facility]. [place], [place] NAME: MARQUIS MORA [facility] REC#: [id number] PT STATUS: REG ER : 1940 PHYSICIAN: GABE MAS MD ADMIT DATE: 05/14/17/ER Draft Date of Exam:05/14/17 ACUTE ABD SERIES EXAM: Acute abdomen series. INDICATION: Abdominal distention. COMPARISON: CT abdomen and pelvis with IV contrast, 04/01/2016. FINDINGS: Normal heart size and pulmonary vascularity. Mild atelectasis or infiltrate in the right lung base. No pleural effusion or pneumothorax. No free intraperitoneal air. Nonspecific bowel gas pattern. Cholecystectomy. Vascular coil in the left upper quadrant. Suture anchor in the right humeral head. Right COURTNEY. No acute osseous findings. IMPRESSION: 1. No acute radiographic findings in the abdomen or pelvis. 2. Mild atelectasis or infiltrate in the right lung base. Dictated on workstation # [id number] Dict: 05/14/172040 Trans: 05/14/172042 [facility] [id number] Interpreted by: JOURDAN MCNAMARA MD Electronically signed by: Departure Impression Impression: Primary Impression: Constipation Qualified Codes: K59.00 - Constipation, unspecified Disposition: 01 HOME, SELF-CARE Condition: Improved Departure-Patient Inst. Decision time for Depature: 21:03 Referrals: MIKE ROGERS MD (PCP/Family) Primary Care Physician Patient Instructions: Constipation, Adult (DC) Scripts Polyethylene Glycol 3350 (Glycolax) 119 Gm Powder 17 GM PO DAILY for 30 Days, #[id number] GM Prov: GABE MAS MD 05/14/17 GABE MAS MD May 14, 2017 20:30
--- NOTE | 2017-05-14 20:44 | Diagnostic Imaging Report ---
EXAM: Acute abdomen series. INDICATION: Abdominal distention. COMPARISON: CT abdomen and pelvis with IV contrast, 04/01/2016. FINDINGS: Normal heart size and pulmonary vascularity. Mild atelectasis or infiltrate in the right lung base. No pleural effusion or pneumothorax. No free intraperitoneal air. Nonspecific bowel gas pattern. Cholecystectomy. Vascular coil in the left upper quadrant. Suture anchor in the right humeral head. Right COURTNEY. No acute osseous findings. IMPRESSION: 1. No acute radiographic findings in the abdomen or pelvis. 2. Mild atelectasis or infiltrate in the right lung base. Dictated by: Dictated on workstation # [id number]
[2017-05-14] MEDS ORDERED: METHYLNALTREXONE 12 MG/0.6 ML (RELISTOR) VIAL SQ ONE (20:45)
[2017-05-14] MEDS ORDERED: POLY119P12 PO (21:06)
[2017-05-14 21:10] VITALS: BP 0/0
--- OUTSIDE RECORDS SUMMARY | 2017-05-15 05:01 | XMS REPORT ---
Author Author FROILAN CORTEZ Organization [facility] Address [address] [place] [address] Care Team Providers Care Forms Designer Name Role Phone FROILAN CORTEZ Unavailable PROBLEMS Type Condition ICD9-CM Code FKE36-MW Code Onset Dates Condition Status SNOMED Code Problem Reactive depression F32.9 Active 03815021 Problem Neuropathy G62.9 Active 796283092 Problem Coronary artery disease involving [place] coronary artery of [place] heart without angina pectoris I25.10 Active 4061591796745 Problem Type 2 diabetes mellitus without complication, without long-term current use of insulin E11.9 Active 375567323 Problem Frequent falls R29.6 Active 625010627 Problem Vascular dementia without behavioral disturbance F01.50 Active 439839707 Problem Essential hypertension I10 Active 31645368 Problem Neuropathic pain M79.2 Active 607702677 Problem Other chronic pain G89.29 Active 41266000 Problem PVD (peripheral vascular disease) I73.9 Active 857454052 ALLERGIES No Information ENCOUNTERS Encounter Location Date Diagnosis [facility] [address] [facility] [id number] [address] Apr, Other chronic pain G89.29 [facility] [address] [id number] [id number] Mar, Other chronic pain G89.29 [facility] [address] [id number][place] [id number] Feb, Other chronic pain G89.29 [facility] [address] [place] [address] Feb, Other chronic pain G89.29 and Vascular dementia without behavioral disturbance F01.50 [facility] [address] [id number] [id number] Jan, Other chronic pain G89.29 [facility] [address] [id number], [place] [id number] Dec, Other chronic pain G89.29 [facility] [address], [place] [address] Nov, Weakness R53.1 and Frequent falls R29.6 [facility] [id number], [place] [id number] Nov, [facility] [address], [place] [address] Nov, [facility] [id number][place] [id number] Nov, Other chronic pain G89.29 [facility] [address] [id number] Oct, Pneumonia of upper lobe due to infectious organism, unspecified laterality J18.1 ; Vascular dementia without behavioral disturbance F01.50 ; Type 2 diabetes mellitus without complication, without long-term current use of insulin E11.9 and Essential hypertension I10 [facility] [address] [id number][place] [id number] Oct, Other chronic pain G89.29 [facility] [address] [id number], [place] [address] Oct, [facility] [address] [id number], [place] [address] Oct, [facility] [address] [address] Sep, Pneumonia of right lung due to infectious organism, unspecified part of lung J18.9 ; Type 2 diabetes mellitus without complication, without long -term current use of insulin E11.9 ; Vascular dementia without behavioral disturbance F01.50 and Other chronic pain G89.29 [facility] [address] [id number], [place] [id number] Sep, [facility] [address] [id number], [place] [id number] Aug, [facility] [id number], [place] [id number] Aug, [facility] [id number], [place] [id number] Jul, [facility] [address] [place] [address] Jul, Type 2 diabetes mellitus without complication, without long-term current use of insulin E11.9 [facility] [address], [place] [address] Jul, [facility] [id number], [place] [id number] June, [facility] [id number] [place] [id number] June, [facility] [address] [id number], [place] [address] May, [facility] [address] [place] [address] May, Encounter to establish care Z76.89 ; Neuropathic pain M79.2 ; Type 2 diabetes mellitus without complication, without long-term current use of insulin E11.9 ; Essential hypertension I10 ; Coronary artery disease involving [place] coronary artery of [place] heart without angina pectoris I25.10 and PVD ( peripheral vascular disease) I73.9 [facility] [address] [id number], [place] [id number] May, [facility] [address] [place] [id number] Apr, Neuropathic pain M79.2 and Reactive depression F32.9 [facility] [address] [id number], [place] [id number] Apr, [facility] [address]100[place], [place] [address] Apr, [facility] [address] [id number], [place] [address] Apr, [facility] [id number], [place] [id number] Apr, [facility] [address] [id number], [place] [address] Mar, [facility] [address], [place] [address] Mar, [facility] [address], [place] [address] Mar, [facility] [id number] [place] [address] Mar, [facility] [id number] [place] [address] Mar, [facility] [address] [place], [place] [id number] Mar, Acute blood loss anemia D62 and Type 2 diabetes mellitus without complication, without long-term current use of insulin E11.9 [facility] [address], [place] [address] Feb, [facility] [address], [place] [address] Feb, [facility] [address]65100[place], [place] [address] Feb, [facility] [address], [place] [address] Feb, [facility] [address], [place] [address] Feb, [facility] [address]100[place], [place] [address] May, [facility] [address], [place] [address] May, [facility] [address] [id number], [place] [address] Mar, [facility] [address], [place] [address] June, [facility] [address] [facility] [id number], [place] [address] June, [facility] [address] [facility] [id number], [place] [address] June, [facility] [address] [facility] [id number], [place] [address] May, IMMUNIZATIONS No Known Immunizations SOCIAL HISTORY Never Assessed REASON FOR VISIT Routine Visit PLAN OF CARE Activity Details Follow Up prn Reason: VITAL SIGNS MEDICATIONS Medication Instructions Dosage Frequency Start Date End Date Duration Status Fenofibrate 160 MG TAKE 1 TABLET BY MOUTH DAILY 30 Active Vitamin B-12 1000 MCG TAKE 1 TABLET BY MOUTH DAILY 30 Active Vitamin D 2000 UNIT TAKE 1 TABLET BY MOUTH DAILY 30 Active Divalproex Sodium 125 MG TAKE 2 CAPSULES BY MOUTH THREE TIMES DAILY 30 Active citalopram 20 mg by oral route Once a day take 1 tablet 24h Mar, Active Duloxetine HCl 30 MG TAKE 1 CAPSULE BY MOUTH THREE TIMES DAILY 30 Active Vitamin D3 2000 UNIT Orally Once a day 1 capsule 24h Active Cyanocobalamin 1000 MCG Orally Once a day 1 tablet 24h Active Furosemide 20 MG TAKE 1 TABLET BY MOUTH EVERY 2 DAYS 30 Active MS Contin 60 mg Orally every 12 hrs 1 tablet 12h Jul, 28 days Active Exelon 4.6 MG/24HR APPLY 1 PATCH TO SKIN ONE TIME DAILY -REMOVE OLD PATCH WHEN APPLYING NEW ONE 30 Active Linzess 145 MCG TAKE 1 CAPSULE BY MOUTH EVERY DAY 30 MINUTES PRIOR TO BREAKFAST ON EMPTY STOMACH-SWALLOW WHOLE 30 Active Lasix 20 mg Orally every 2 days 1 tablet Active Melatonin 3 MG TAKE 1 TABLET BY MOUTH DAILY 30 Active Citalopram Hydrobromide 20 MG TAKE 1 TABLET BY MOUTH DAILY 30 Active Depakote Sprinkles 125 MG Orally 3 times a day 2 capsules 8h Active Lactulose 20 GM/30ML Orally twice a day 30 ml 12h Active Cymbalta 30 MG Orally 3 times a day 1 capsule 8h Active RESULTS No Results PROCEDURES Procedure Date Ordered Result Body Site Stable Visit (10 minutes) August 03, 2016 INSTRUCTIONS MEDICATIONS ADMINISTERED No Known Medications MEDICAL (GENERAL) HISTORY Type Description Date Medical History Coronary Artery Disease Medical History Heart Attack Medical History Hypertension Medical History Peripheral Vascular Disease Medical History Neuropathy Medical History Chronic UTI Medical History Arthritis Medical History NIDDM Medical History Depression Medical History Vit B deficiency Medical History Mild cognitive impairment Medical History Dementia Medical History hyperlipidemia Medical History constipation Medical History History of falling Surgical History Coronary Stent Surgical History Galbladder Surgical History Peripheral Vascular stenting Surgical History right hip replacement after fx [place] [place] 03/2016 Hospitalization History [facility] 04/2016
--- OUTSIDE RECORDS SUMMARY | 2017-05-15 05:01 | XMS REPORT ---
Author Author MIKE ROGERS Organization [facility] Address [address] [place] [address] Care Team Providers Care Finish Mill Operator Name Role Phone MIKE ROGERS Unavailable PROBLEMS Type Condition ICD9-CM Code CUC12-EA Code Onset Dates Condition Status SNOMED Code Problem Type 2 diabetes mellitus without complication, without long-term current use of insulin E11.9 Active 201197700 Problem Reactive depression F32.9 Active 18617135 Problem Neuropathy G62.9 Active 559954748 Problem Vascular dementia without behavioral disturbance F01.50 Active 302317809 Problem Other chronic pain G89.29 Active 99534851 Problem Neuropathic pain M79.2 Active 841651452 Problem Coronary artery disease involving [place] coronary artery of [place] heart without angina pectoris I25.10 Active 1477484949438 Problem PVD (peripheral vascular disease) I73.9 Active 686232590 Problem Essential hypertension I10 Active 52568030 ALLERGIES No Information SOCIAL HISTORY Never Assessed PLAN OF CARE VITAL SIGNS MEDICATIONS No Known Medications RESULTS No Results PROCEDURES No Known procedures IMMUNIZATIONS No Known Immunizations MEDICAL (GENERAL) HISTORY Type Description Date Medical [...] right hip replacement after fx [place]ization [place] 03/2016 Hospitalization History [facility] 04/2016
--- OUTSIDE RECORDS SUMMARY | 2017-05-15 05:01 | XMS REPORT ---
Author Author FROILAN CORTEZ Organization [facility] Address [address] [place] [address] Care Team Providers Care Technical Sales Representative Name Role Phone FROILAN CORTEZ Unavailable PROBLEMS Type Condition ICD9-CM Code [id number] Code Onset Dates Condition Status SNOMED Code Problem Type 2 diabetes mellitus without complication, without long-term current use of insulin E11.9 Active 133290292 Problem Reactive depression F32.9 Active 95194723 Problem Neuropathy G62.9 Active 467771889 Problem Vascular dementia without behavioral disturbance F01.50 Active 510346614 Problem Other chronic pain G89.29 Active 01219676 Problem Neuropathic pain M79.2 Active 684023344 Problem Coronary artery disease involving [place] coronary artery of [place] heart without angina pectoris I25.10 Active 2628937337411 Problem PVD (peripheral vascular disease) I73.9 Active 561606414 Problem Essential hypertension I10 Active 70178469 ALLERGIES Substance Reaction Event Type Date Status No known Allergies Unknown Non Drug Allergy Feb, Active SOCIAL HISTORY No smoking Hx information available PLAN OF CARE VITAL SIGNS MEDICATIONS Medication Instructions Dosage Frequency Start Date End Date Duration Status Lyrica 225 MG Orally 2 times a day 1 capsule 12h Mar, Active MiraLax 17 gm/dose Orally Once a day as needed 17 grams mixed in 8 oz of water or juice Active citalopram 10 mg take 1 tablet (10 mg) by oral route once daily Mar Active MS Contin 60 mg Orally every 12 hrs 1 tablet 12h Mar, Active Liraglutide 18 MG/3ML Subcutaneous Once a day 1.2 ml 24h Active Amitiza 24 mcg Orally Once a day 1 capsule with food 24h Mar, Active Tricor 145 mg Orally Once a day take 1 tablet 24h June, Active RESULTS No Results PROCEDURES No Known procedures IMMUNIZATIONS No Known Immunizations
--- OUTSIDE RECORDS SUMMARY | 2017-05-15 05:01 | XMS REPORT ---
Author Author MIKE ROGERS Organization [facility] Address [address] [place] [address] Care Team Providers Care Route Sales Associate Name Role Phone MIKE ROGERS Unavailable PROBLEMS Type Condition ICD9-CM Code BAE82-CQ Code Onset Dates Condition Status SNOMED Code Problem Type 2 diabetes mellitus without complication, without long-term current use of insulin E11.9 Active 842032677 Problem Reactive depression F32.9 Active 93901973 Problem Neuropathy G62.9 Active 423654321 Problem Vascular dementia without behavioral disturbance F01.50 Active 723890637 Problem Other chronic pain G89.29 Active 47224312 Problem 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
--- OUTSIDE RECORDS SUMMARY | 2017-05-15 05:01 | XMS REPORT ---
Author Author FROILAN CORTEZ Organization [facility] Address [address] [place] [address] Care Team Providers Care Filling Machine Set Up Mechanic Name Role Phone FROILAN CORTEZ Unavailable PROBLEMS Type Condition ICD9-CM Code RSF40-EV Code Onset Dates Condition Status SNOMED Code Problem Reactive depression F32.9 Active 47095732 Problem Neuropathy G62.9 Active 302384107 Problem Coronary artery disease involving [place] coronary artery of [place] heart without angina pectoris I25.10 Active 2626975531637 Problem Type 2 diabetes mellitus without complication, without long-term current use of insulin E11.9 Active 452863988 Problem Frequent falls R29.6 Active 291441379 Problem Vascular dementia without behavioral disturbance F01.50 Active 198234141 Problem Essential hypertension I10 Active 93120245 Problem Neuropathic pain M79.2 Active 583365019 Problem Other chronic pain G89.29 Active 27555269 Problem PVD (peripheral vascular disease) I73.9 Active 148618764 ALLERGIES No Information SOCIAL HISTORY Never Assessed PLAN OF CARE VITAL SIGNS MEDICATIONS Medication Instructions Dosage Frequency Start Date End Date Duration Status MS Contin 60 mg Orally every 12 hrs 1 tablet 12h Jul, 28 days Active RESULTS No Results PROCEDURES [...] right hip replacement after fx Hospitalization [place] 03/2016 Hospitalization History [facility] 04/2016
--- OUTSIDE RECORDS SUMMARY | 2017-05-15 05:01 | XMS REPORT ---
Author Author MIKE ROGERS Organization [facility] Address [address] [place] [address] Care Team Providers Care Drier Unloader Name Role Phone MIKE ROGERS Unavailable PROBLEMS Type Condition ICD9-CM Code YNF31-WU Code Onset Dates Condition Status SNOMED Code Problem Type 2 diabetes mellitus without complication, without long-term current use of insulin E11.9 Active 236022919 Problem Reactive depression F32.9 Active 07955692 Problem Neuropathy G62.9 Active 237582753 Problem Vascular dementia without behavioral disturbance F01.50 Active 481462387 Problem Other chronic pain G89.29 Active 20636973 Problem Neuropathic pain M79.2 Active 720750753 Problem Coronary artery disease involving [place] coronary artery of [place] heart without angina pectoris I25.10 Active 3841342648290 Problem PVD (peripheral vascular disease) I73.9 Active 918154919 Problem Essential hypertension I10 Active 04264647 ALLERGIES No Information SOCIAL HISTORY Never Assessed [...] right hip replacement after fx Hospitalization [place] 03/2016 Hospitalization History [facility] 04/2016
--- OUTSIDE RECORDS SUMMARY | 2017-05-15 05:01 | XMS REPORT ---
Author Author FROILAN CORTEZ [facility] Address [address] [place] [address] Care Team Providers Care Bass Viol Repairer Name Role Phone FROILAN CORTEZ Unavailable PROBLEMS Type Condition ICD9-CM Code DCD27-CV Code Onset Dates Condition Status SNOMED Code Problem Type 2 diabetes mellitus without complication, without long-term current use of insulin E11.9 Active 793532444 Problem Reactive depression F32.9 Active 95343579 Problem Neuropathy G62.9 Active 036969261 Problem Vascular dementia without behavioral disturbance F01.50 Active 032164596 Problem Other chronic pain G89.29 Active 08660113 Problem Neuropathic pain M79.2 Active 645018383 Problem Coronary artery disease involving [place] coronary artery of [place] heart without angina pectoris I25.10 Active 5280267177392 Problem PVD (peripheral vascular disease) I73.9 Active 927857262 Problem Essential hypertension I10 Active 90384337 ALLERGIES Unknown Allergies SOCIAL HISTORY No smoking Hx information available PLAN OF CARE VITAL SIGNS MEDICATIONS Medication Instructions Dosage Frequency Start Date End Date Duration Status MS Contin 60 mg Orally every 12 hrs 1 tablet 12h Mar, 07 days Active RESULTS No Results PROCEDURES No Known procedures IMMUNIZATIONS No Known Immunizations
--- OUTSIDE RECORDS SUMMARY | 2017-05-15 05:01 | XMS REPORT ---
Author Author MIKE ROGERS Organization [facility] Address [address] [place] [address] Care Team Providers Care Water Meter Mechanic Name Role Phone MIKE ROGERS Unavailable PROBLEMS Type Condition ICD9-CM Code KGN44-CA Code Onset Dates Condition Status SNOMED Code Problem Type 2 diabetes mellitus without complication, without long-term current use of insulin E11.9 Active 318949062 Problem Reactive depression F32.9 Active 22187671 Problem Neuropathy G62.9 Active 940843967 Problem Vascular dementia without behavioral disturbance F01.50 Active 127309771 Problem Other chronic pain G89.29 Active 05775107 Problem Neuropathic pain M79.2 Active 584781481 Problem Coronary artery disease involving [place] coronary artery of [place] heart without angina pectoris I25.10 Active 8638896657740 Problem PVD (peripheral vascular disease) I73.9 Active 155217102 Problem Essential hypertension I10 Active 17430022 ALLERGIES No Information SOCIAL HISTORY Never Assessed [...] right hip replacement after fx Hospitalization [place] 03/2016 Hospitalization History [facility] 04/2016
--- OUTSIDE RECORDS SUMMARY | 2017-05-15 05:01 | XMS REPORT ---
Author Author MIKE ROGERS Organization [facility] Address [address] [place] [address] Care Team Providers Care Inspector Repairer Name Role Phone MKIE ROGERS Unavailable PROBLEMS Type Condition ICD9-CM Code PME93-DF Code Onset Dates Condition Status SNOMED Code Problem Type 2 diabetes mellitus without complication, without long-term current use of insulin E11.9 Active 221938869 Problem Reactive depression F32.9 Active 49000115 Problem Neuropathy G62.9 Active 937700223 Problem Vascular dementia without behavioral disturbance F01.50 Active 397361959 Problem Other chronic pain G89.29 Active 91402977 Problem 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
--- OUTSIDE RECORDS SUMMARY | 2017-05-15 05:02 | XMS REPORT ---
Author Author FROILAN CORTEZ Organization [facility] Address [address] [place] [address] Care Team Providers Care Judicial Registrar Name Role Phone FROILAN CORTEZ Unavailable PROBLEMS Type Condition ICD9-CM Code XOE88-BR Code Onset Dates Condition Status SNOMED Code Problem Reactive depression F32.9 Active 18770808 Problem Neuropathy G62.9 Active 370799892 Problem Coronary artery disease involving [place] coronary artery of [place] heart without angina pectoris I25.10 Active 8224576832027 Problem Type 2 diabetes mellitus without complication, without long-term current use of insulin E11.9 Active 344015467 Problem Frequent falls R29.6 Active 378801009 Problem Vascular dementia without behavioral disturbance F01.50 Active 071422330 Problem Essential hypertension I10 Active 77804440 Problem Neuropathic pain M79.2 Active 492676675 Problem Other chronic pain G89.29 Active 22053007 Problem PVD (peripheral vascular disease) I73.9 Active 495144764 ALLERGIES No Information SOCIAL HISTORY Never Assessed PLAN OF CARE VITAL SIGNS MEDICATIONS Medication Instructions Dosage Frequency Start Date End Date Duration Status MS Contin 60 mg Orally every 12 hrs 1 tablet 12h June, 28 days Active RESULTS No Results PROCEDURES [...] right hip replacement after fx Hospitalization [place] 03/2016 Hospitalization History [facility] 04/2016
--- OUTSIDE RECORDS SUMMARY | 2017-05-15 05:02 | XMS REPORT ---
Author Author MIKE ROGERS Organization [facility] Address [address] [place] [address] Care Team Providers Care Anchor Operator Name Role Phone MIKE ROGERS Unavailable PROBLEMS Type Condition ICD9-CM Code VYC81-FM Code Onset Dates Condition Status SNOMED Code Problem Type 2 diabetes mellitus without complication, without long-term current use of insulin E11.9 Active 710640533 Problem Reactive depression F32.9 Active 03976153 Problem Neuropathy G62.9 Active 481493989 Problem Vascular dementia without behavioral disturbance F01.50 Active 343989888 Problem Other chronic pain G89.29 Active 05747580 Problem Neuropathic pain M79.2 Active 445847123 Problem Coronary artery disease involving [place] coronary artery of [place] heart without angina pectoris I25.10 Active 1166825526443 Problem PVD (peripheral vascular disease) I73.9 Active 499596431 Problem Essential hypertension I10 Active 59415675 ALLERGIES No Information SOCIAL HISTORY Never Assessed PLAN OF CARE VITAL SIGNS MEDICATIONS Medication Instructions Dosage Frequency Start Date End Date Duration Status MS Contin 60 mg Orally every 12 hrs 1 tablet 12h 10 Apr, 2016 28 days Active RESULTS No Results PROCEDURES [...] right hip replacement after fx Hospitalization [place] 03/2016 Hospitalization History [facility] 04/2016
--- OUTSIDE RECORDS SUMMARY | 2017-05-15 05:02 | XMS REPORT ---
Author Author MIKE ROGERS Organization [facility] Address [address] [place] [address] Care Team Providers Care Hydro Plant Technician Name Role Phone MIKE ROGERS Unavailable PROBLEMS Type Condition ICD9-CM Code JIG11-TD Code Onset Dates Condition Status SNOMED Code Problem Type 2 diabetes mellitus without complication, without long-term current use of insulin E11.9 Active 304456606 Problem Reactive depression F32.9 Active 48143397 Problem Neuropathy G62.9 Active 037563247 Problem Vascular dementia without behavioral disturbance F01.50 Active 304514542 Problem Other chronic pain G89.29 Active 02867070 Problem Neuropathic pain M79.2 Active 671562375 Problem Coronary artery disease involving [place] coronary artery of [place] heart without angina pectoris I25.10 Active 7934281911906 Problem PVD (peripheral vascular disease) I73.9 Active 719008957 Problem Essential hypertension I10 Active 41583977 ALLERGIES No Information SOCIAL HISTORY Never Assessed PLAN OF CARE VITAL SIGNS MEDICATIONS Medication Instructions Dosage Frequency Start Date End Date Duration Status MS Contin 60 mg Orally every 12 hrs 1 tablet 12h 10 Mar, 2016 14 days Active RESULTS No Results PROCEDURES No [...] right hip replacement after fx [facility] [place] 03/2016 Hospitalization History [facility] 04/2016
--- OUTSIDE RECORDS SUMMARY | 2017-05-15 05:02 | XMS REPORT ---
Author Author MIKE ROGERS [facility] Address [address] [place] [address] Care Team Providers Care Telecommunication Systems Designer Name Role Phone MIKE ROGERS Unavailable PROBLEMS Type Condition ICD9-CM Code ADN69-XO Code Onset Dates Condition Status SNOMED Code Problem Type 2 diabetes mellitus without complication, without long-term current use of insulin E11.9 Active 240839184 Problem Reactive depression F32.9 Active 13562457 Problem Neuropathy G62.9 Active 700637703 Problem Vascular dementia without behavioral disturbance F01.50 Active 839527063 Problem Other chronic pain G89.29 Active 04025592 Problem Neuropathic pain M79.2 Active 393907238 Problem Coronary artery disease involving [place] coronary artery of [place] heart without angina pectoris I25.10 Active 4318505533099 Problem PVD (peripheral vascular disease) I73.9 Active 885798330 Problem Essential hypertension I10 Active 23418702 ALLERGIES No Information SOCIAL HISTORY Never Assessed PLAN OF CARE VITAL SIGNS MEDICATIONS Medication Instructions Dosage Frequency Start Date End Date Duration Status MS Contin 60 mg Orally every 12 hrs 1 tablet 12h Apr, 28 days Active citalopram 20 mg by oral route Once a day take 1 tablet 24h Mar, Active Amitiza 24 mcg Orally twice a day 1 capsule with food 12h Mar, Active Depakote Sprinkles 125 MG Orally 3 times a day 2 capsules 8h Active Cymbalta 30 MG Orally 3 times a day 1 capsule 8h Active Fenofibrate 160 MG Orally Once a day 1 tablet with a meal 24h Active Lactulose 20 GM/30ML Orally twice a day 30 ml 12h Active Vitamin D3 2000 UNIT Orally Once a day 1 capsule 24h Active Cyanocobalamin 1000 MCG Orally Once a day 1 tablet 24h Active Exelon 4.6 MG/24HR Transdermal Once a day 1 patch to skin 24h Active Lasix 20 mg Orally every 2 days 1 tablet Active Melatonin 3 MG Orally Once a day 1 tablet at bedtime 24h Active RESULTS No Results PROCEDURES No Known [...] right hip replacement after fx Hospitalization [facility] [place] 03/2016 Hospitalization History [facility] 04/2016
--- OUTSIDE RECORDS SUMMARY | 2017-05-15 05:02 | XMS REPORT ---
Author Author MIKE ROGERS Organization [facility] Address [address] [place] [address] Care Team Providers Care Escrow Secretary Name Role Phone MIKE ROGERS Unavailable PROBLEMS Type Condition ICD9-CM Code TCS51-HE Code Onset Dates Condition Status SNOMED Code Problem Type 2 diabetes mellitus without complication, without long-term current use of insulin E11.9 Active 415724143 Problem Reactive depression F32.9 Active 23451083 Problem Neuropathy G62.9 Active 815824508 Problem Vascular dementia without behavioral disturbance F01.50 Active 285253978 Problem Other chronic pain G89.29 Active 79117743 Problem Neuropathic pain M79.2 Active 696860739 Problem Coronary artery disease involving [place] coronary artery of [place] heart without angina pectoris I25.10 Active 8947064171978 Problem PVD (peripheral vascular disease) I73.9 Active 493775818 Problem Essential hypertension I10 Active 96435245 ALLERGIES No Information SOCIAL HISTORY Never Assessed PLAN OF CARE VITAL SIGNS MEDICATIONS Medication Instructions Dosage Frequency Start Date End Date Duration Status Linzess 145 MCG Orally Once a day 1 capsule 24h Apr, 30 day(s) Active RESULTS No Results PROCEDURES No Known [...] right hip replacement after fx [facility] [place] 03/2016 Hospitalization History [place] [facility] 04/2016
--- OUTSIDE RECORDS SUMMARY | 2017-05-15 05:03 | XMS REPORT ---
Author Author FROILAN CORTEZ Organization [facility] Address [address] [place] [address] Care Team Providers Care Practice Performance Manager Name Role Phone FROILAN CORTEZ Unavailable PROBLEMS Type Condition ICD9-CM Code LQD43-AL Code Onset Dates Condition Status SNOMED Code Problem Reactive depression F32.9 Active 16408898 Problem Neuropathy G62.9 Active 681203530 Problem Coronary artery disease involving [place] coronary artery of [place] heart without angina pectoris I25.10 Active 0022906984322 Problem Type 2 diabetes mellitus without complication, without long-term current use of insulin E11.9 Active 195413054 Problem Frequent falls R29.6 Active 326912938 Problem Vascular dementia without behavioral disturbance F01.50 Active 229854082 Problem Essential hypertension I10 Active 70897833 Problem Neuropathic pain M79.2 Active 184160325 Problem Other chronic pain G89.29 Active 91722621 Problem PVD (peripheral vascular disease) I73.9 Active 796924149 ALLERGIES No Information ENCOUNTERS Encounter Location Date Diagnosis [facility] [address] [facility] [id number] [address] Apr, Other chronic pain G89.29 [facility] [address] [id number] [id number] Mar, Other chronic pain G89.29 [facility] [address] [id number] [id number] Feb, Other chronic pain G89.29 [employer] [facility] [address] [place] [address] Feb, Other chronic pain G89.29 and Vascular dementia without behavioral disturbance F01.50 [facility] [address] [id number] [id number] Jan, Other chronic pain G89.29 [facility] [address] [id number] [id number] Dec, Other chronic pain G89.29 [facility] [address], [place] [address] Nov, Weakness R53.1 and Frequent falls R29.6 [facility] [id number] [id number] Nov, [facility] [address], [place] [address] Nov, [facility] [id number] [id number] Nov, Other chronic pain G89.29 [employer] [address] [place] [id number] Oct, Pneumonia of upper lobe due to infectious organism, unspecified laterality J18.1 ; Vascular dementia without behavioral disturbance F01.50 ; Type 2 diabetes mellitus without complication, without long-term current use of insulin E11.9 and Essential hypertension I10 [facility] [address] [id number] [id number] Oct, Other chronic pain G89.29 [facility] [address] [id number] [address] Oct, [facility] [address] [id number] [address] Oct, [facility] [employer] [address] [facility] [address] [place] [address] Sep, Pneumonia of right lung due to infectious organism, unspecified part of lung J18.9 ; Type 2 diabetes mellitus without complication, without long -term current use of insulin E11.9 ; Vascular dementia without behavioral disturbance F01.50 and Other chronic pain G89.29 [facility] [address] [id number] [id number] Sep, [facility] [address] [id number] [id number] Aug, [facility] [id number] [id number] Aug, [facility] [id number], [place] [id number] Jul, [employer] [address] [place] [address] Jul, Type 2 diabetes mellitus without complication, without long-term current use of insulin E11.9 [facility] [address], [place] [address] Jul, [facility] [id number] [id number] June, [facility] [id number] [place] [id number] June, [facility] [address] [id number] [address] May, [employer] [address] [place] [address] May, Encounter to establish care Z76.89 ; Neuropathic pain M79.2 ; Type 2 diabetes mellitus without complication, without long-term current use of insulin E11.9 ; Essential hypertension I10 ; Coronary artery disease involving [place] coronary artery of [place] heart without angina pectoris I25.10 and PVD ( peripheral vascular disease) I73.9 [facility] [address] [id number] [id number] May, [facility] [employer] [address] [place] [id number] Apr, Neuropathic pain M79.2 and Reactive depression F32.9 [facility] [address] [id number] [id number] Apr, [facility] [address], [place] [address] Apr, [facility] [address] [id number] [address] Apr, [facility] [id number], [place] [id number] Apr, [facility] [address] [id number] [address] Mar, [facility] [address], [place] [address] Mar, [facility] [address], [place] [address] Mar, [facility] [address] [place] [address] Mar, [facility] [address] [place] [address] Mar, [facility] [address] [place], [place] [id number] Mar, Acute blood loss anemia D62 and Type 2 diabetes mellitus without complication, without long-term current use of insulin E11.9 [facility] [address], [place] [address] Feb, [facility] [address], [place] [address] Feb, [facility] [address], [place] [address] Feb, [facility] [address], [place] [address] Feb, [facility] [address], [place] [address] Feb, [facility] [address], [place] [address] May, [facility] [address], [place] [address] May, [facility] [address] [id number], [place] [address] Mar, [facility] [address], [place] [address] June, [facility] [address] [facility] [id number] [place] [address] June, [facility] [address] [facility] [id number], [place] [address] June, [facility] [address] [facility] [id number] [place] [address] May, IMMUNIZATIONS No Known Immunizations SOCIAL HISTORY Never Assessed REASON FOR VISIT Controlled Med Refill PLAN OF CARE VITAL SIGNS MEDICATIONS Medication Instructions Dosage Frequency Start Date End Date Duration Status MS Contin 60 mg Orally every 12 hrs 1 tablet 12h Jul, 28 days Active RESULTS No Results PROCEDURES No Known procedures INSTRUCTIONS MEDICATIONS ADMINISTERED No Known Medications MEDICAL [...] right hip replacement after fx Hospitalization History [place] 03/2016 Hospitalization History [facility] 04/2016
--- OUTSIDE RECORDS SUMMARY | 2017-05-15 05:03 | XMS REPORT ---
Author Author MIKE ROGERS Organization [facility] Address [address] [place] [address] Care Team Providers Care Meter Calibrator Name Role Phone MIKE ROGERS Unavailable PROBLEMS Type Condition ICD9-CM Code JQU75-II Code Onset Dates Condition Status SNOMED Code Problem Type 2 diabetes mellitus without complication, without long-term current use of insulin E11.9 Active 594925607 Problem Reactive depression F32.9 Active 74357077 Problem Neuropathy G62.9 Active 320236287 Problem Vascular dementia without behavioral disturbance F01.50 Active 354977415 Problem Other chronic pain G89.29 Active 43831710 Problem Neuropathic pain M79.2 Active 042822391 Problem Coronary artery disease involving [place] coronary artery of [place] heart without angina pectoris I25.10 Active 6716488853221 Problem PVD (peripheral vascular disease) I73.9 Active 666779744 Problem Essential hypertension I10 Active 99236082 ALLERGIES No Information SOCIAL HISTORY Never Assessed [...] right hip replacement after fx Hospitalization History [place] 03/2016 Hospitalization History [facility] 04/2016
== END 2017-05-14 21:10 | disposition home or self-care (01) ==
LOC: EDUNIT# 18:42 → ER 18:44
DX: K59.00 Constipation, unspecified (principal); F32.9 Major depressive disorder, single episode, unspecified; G47.9 Sleep disorder, unspecified; E11.9 Type 2 diabetes mellitus without complications; G40.909 Epilepsy, unspecified, not intractable, without status epilepticus; F03.90 Unspecified dementia, unspecified severity, without behavioral disturbance, psychotic disturbance, mood disturbance, and anxiety; I25.10 Atherosclerotic heart disease of native coronary artery without angina pectoris; I50.9 Heart failure, unspecified; Z87.01 Personal history of pneumonia (recurrent); Z95.5 Presence of coronary angioplasty implant and graft; Z87.891 Personal history of nicotine dependence
CPT/HCPCS: 74022; 96372

== ENCOUNTER 2017-08-29 12:32 | Emergency (ER) | payer MEDICARE, MEDICAID ==
[~2017-08-29] VITALS: Ht 182.9 cm; Wt 86.2 kg
[~2017-08-29 12:32] MED LIST changes: -CITA20TA7 PO; +CITA20TA9 PO; -FENO145T20 PO; +FENO145T37 PO; -METF500T4 PO; +METF500T5 PO; +POLY119P12 PO
[2017-08-29] MEDS ORDERED: LIDOCAINE 4% INJ (XYLOCAINE) 5ML AMP ONE (12:33)
[2017-08-29] MEDS ORDERED: fentaNYL INJECTION 100 MCG/2 ML AMP ONE (12:38)
[2017-08-29] MEDS ORDERED: MIDAZOLAM 5 MG/5 ML (VERSED) VIAL ONE (12:38)
--- NOTE | 2017-08-29 12:46 | ED EENT ---
History of Present Illness General Chief Complaint: Oral/Throat Problems Stated Complaint: ASPIRATED Source: patient, EMS Exam Limitations: no limitations History of Present Illness Date Seen by Provider: Aug 29, 2017 Time Seen by Provider: 12:45 Initial Comments arrives to ER per EMS from [place] was with reports of aspiration/choking. He was eating a salad and either choked on bread or some meat from the salad. He was diaphoretic and cyanotic on arrival per EMS report. He arrives on nonrebreather but with persistent inspiratory stridor. Timing/Duration: abrupt Severity: moderate Location: throat Allergies and Home Medications Allergies Coded Allergies: No Known Drug Allergies (Unverified , 10/09/16) Home Medications Cholecalciferol (Vitamin D3) 2,000 Unit Capsule, 2,000 UNIT PO DAILY, (Reported) Citalopram Hydrobromide 20 Mg Tablet, 20 MG PO DAILY, (Reported) Cyanocobalamin (Vitamin B-12) 1,000 Mcg Tablet, 1,000 MCG PO DAILY, (Reported) Duloxetine HCl 30 Mg Capsule.dr, 30 MG PO TID, (Reported) Fenofibrate 160 Mg Tablet, 160 MG PO DAILY, (Reported) Furosemide 20 Mg Tablet, 20 MG PO EVERY OTHER DAY, (Reported) Levetiracetam 500 Mg Tablet, 500 MG PO BID Prescribed by: NOÉ LANDA on 10/29/16 1120 Levofloxacin 750 Mg Tablet, 750 MG PO HS Prescribed by: NOÉ LANDA on 10/29/16 1120 Linaclotide 145 Mcg Capsule, 145 MCG PO DAILY, (Reported) Melatonin 3 Mg Tablet, 3 MG PO HS, (Reported) Morphine Sulfate 15 Mg Tablet.er, 15 MG PO BID, (Reported) Morphine Sulfate 30 Mg Tablet.er, 30 MG PO BID, (Reported) Polyethylene Glycol 3350 119 Gm Powder, 17 GM PO DAILY Prescribed by: GABE MAS on 05/14/172105 Rivastigmine 4.6 Mg Patch, 4.6 MG TD DAILY, (Reported) Patient Home Medication List Home Medication List Reviewed: Yes Review of Systems Constitutional: see HPI Eyes: No Symptoms Reported Ears: No Symptoms Reported Nose: no symptoms reported Mouth: no symptoms reported Throat: see HPI Respiratory: no symptoms reported Cardiovascular: no symptoms reported Musculoskeletal: no symptoms reported Past Oezjymk-Irtzqz-Bdojkk Hx Patient Social History Alcohol Use: Denies Use Recreational Drug Use: No Type Used: Cigarettes Former Smoker, Quit: Feb 14, 2003 Recent Hopitalizations: No Immunizations Up To Date Tetanus Booster (TDap): Unknown Date of Pneumonia Vaccine: Jun 07, 2011 Date of Influenza Vaccine: Nov 15, 2015 Seasonal Allergies Seasonal Allergies: No Past Medical History Surgeries: Yes Coronary Stent, Gallbladder, Orthopedic, Vascular Surgery Respiratory: Yes Pneumonia Cardiac: Yes (Heart failure) Coronary Artery Disease, Hypertension, Peripheral Vascular Neurological: Yes Dementia, Seizure Disorder Reproductive Disorders: No Sexually Transmitted Disease: No Genitourinary: Yes Prostate Problems, UTI-Chronic Gastrointestinal: No Musculoskeletal: Yes Arthritis Endocrine: Yes Diabetes, Non-Insulin dep HEENT: No Cancer: No Did You Recieve Any Treatments: No Psychosocial: Yes Sleep Difficulties, Depression Integumentary: No Blood Disorders: No Adverse Reaction/Blood Tranf: No Family Medical History Colon cancer G8 BROTHER, Onset:55 FHx: brain tumor G8 SISTER No Pertinent Family Hx, Cancer, Diabetes Physical Exam Vital Signs Vital Signs - First Documented 08/29/17 08/29/17 12:32 12:39 Temp 98.0 Pulse 96 Resp 18 B/P (MAP) 159/85 (109) Pulse Ox 99 O2 Delivery Nasal Cannula O2 Flow Rate 2.00 Height, Weight, BMI Height: 6'0.00" Weight: 200lbs. 12.8oz. 90.805930xt; 25.9 BMI Method:Stated General Appearance: WD/WN, no apparent distress Eyes: bilateral eye normal inspection, bilateral eye PERRL, bilateral eye EOMI Ears: bilateral ear auricle normal, bilateral ear canal normal, bilateral ear TM normal Neck: non-tender, full range of motion Cardiovascular: regular rate, rhythm, no murmur Respiratory: no respiratory distress, no accessory muscle use, decreased breath sounds, other (inspiratory stridor.. I used tongue blades and was unable to visualize any foreign body in the oropharynx. Spoke with who happens to be in house. We'll set up for bronchoscopy in the ER.) Gastrointestinal: normal bowel sounds, non tender Neurologic/Psychiatric: alert, normal mood/affect, oriented x 3 Skin: normal color, warm/dry Progress/Results/Core Measures Results/Orders Lab Results My Orders Medications Given in ED Vital Signs/I&O Diagnostic Imaging Diagonstic Imaging: Xray Plain Films/CT/US/NM/MRI: chest Comments NAME: MARQUIS OMRA [facility] REC#: [id number] PT STATUS: REG ER : 1940 PHYSICIAN: LILA DAN APRN ADMIT DATE: 08/29/17/ER Draft Date of Exam:08/29/17 CHEST 1 VIEW, AP/PA ONLY INDICATION: Aspiration. COMPARISON: Comparison made with prior examination from 05/14/2017. FINDINGS: There is cardiomegaly. There are patchy bibasilar infiltrates, right greater than left. There is no pleural effusion or pneumothorax. Mediastinum is unremarkable. IMPRESSION: Patchy bibasilar infiltrates, right greater than left. Cardiomegaly. Dictated on workstation # [id number] Dict: 08/29/17 1321 Trans: 08/29/17 1325 [id number] Interpreted by: VICENTE MEREDITH MD Electronically signed by: Departure Communication (Admissions) 0399-Dr. Stallings has been here and on a bedside bronchoscopy area patient received 50 g of fentanyl and 3 mg of Versed. He tolerated the procedure well with no desaturation. He did cough up a chunk of something that appears to possibly be lettuce. He has no more stridor after this and feels better. No foreign bodies identified in the upper or lower airways. We will observe him until he is more alert. Dr. Stallings expects the postprocedural x-ray to show an increase in the question will infiltrate right lower lobe. He did receive 1 dose of Zosyn 3.375 g IV here and I'll discharge him to home on Augmentin. Impression Primary Impression: Aspiration into airway Additional Impression: Inspiratory stridor Disposition: HOME, SELF-CARE Condition: Improved Departure-Patient Inst. Decision time for Depature: 13:54 Referrals: MIKE ROGERS MD (PCP/Family) Primary Care Physician Patient Instructions: Aspiration Pneumonia Add. Discharge Instructions: 1. Antibiotics as directed 2. Return to ER for any worsening symptoms such as fevers, shortness of breath or any other trouble breathing.All discharge instructions reviewed with patient and/or family. Voiced understanding. LILA DAN APRN Aug 29, 2017 12:46
[2017-08-29 12:55] LABS: BASOPHILS # (AUTO) 0.1 10^3/uL (0.0-0.1); BASOPHILS % (AUTO) 1 % (0-10); EOSINOPHILS # (AUTO) 0.4 10^3/uL (0.0-0.3); EOSINOPHILS % (AUTO) 3 % (0-10); HEMATOCRIT 41 % (40-54); HEMOGLOBIN 13.6 G/DL (13.3-17.7); LYMPHOCYTES # (AUTO) 5.4 X 10^3 (1.0-4.0); LYMPHOCYTES % (AUTO) 48 % (12-44); MEAN CORPUSCULAR HEMOGLOBIN 28 PG (25-34); MEAN CORPUSCULAR HGB CONC 33 G/DL (32-36); MEAN CORPUSCULAR VOLUME 85 FL (80-99); MEAN PLATELET VOLUME 8.3 FL (7.4-10.4); MONOCYTES # (AUTO) 0.8 X 10^3 (0.0-1.0); MONOCYTES % (AUTO) 7 % (0-12); NEUTROPHILS # (AUTO) 4.7 X 10^3 (1.8-7.8); NEUTROPHILS % (AUTO) 41 % (42-75); PLATELET COUNT 428 10^3/uL (130-400); RED CELL DISTRIBUTION WIDTH 13.8 % (10.0-14.5); WHITE BLOOD COUNT 11.3 10^3/uL (4.3-11.0)
[2017-08-29] MEDS ORDERED: LIDOCAINE 4% INJ (XYLOCAINE) 5ML AMP INH ONE (13:00)
[2017-08-29 13:17] LABS: ALBUMIN 4.1 GM/DL (3.2-4.5); BILIRUBIN,TOTAL 0.3 MG/DL (0.1-1.0); CALCIUM 9.5 MG/DL (8.5-10.1); CREATININE SERUM 1.2 MG/DL (0.60-1.30); POTASSIUM 4.6 MMOL/L (3.6-5.0); TOTAL PROTEIN 8.3 GM/DL (6.4-8.2)
--- NOTE | 2017-08-29 13:25 | Diagnostic Imaging Report ---
INDICATION: Aspiration. COMPARISON: Comparison made with prior examination from 05/14/2017. FINDINGS: There is cardiomegaly. There are patchy bibasilar infiltrates, right greater than left. There is no pleural effusion or pneumothorax. Mediastinum is unremarkable. IMPRESSION: Patchy bibasilar infiltrates, right greater than left. Cardiomegaly. Dictated by: Dictated on workstation # [id number]
[2017-08-29] MEDS ORDERED: LIDOCAINE PF 1% 2 ML AMP ONE (13:30)
[2017-08-29] MEDS ORDERED: LIDOCAINE JELLY 2% (XYLOCAINE) 30 ML TUBE ONE (13:30)
[2017-08-29] MEDS ORDERED: PIPERACILLIN/TAZOBACTAM 3.375 GM in D5W 100 ML IVPB 100 ML IV ONE (13:45)
[2017-08-29] MEDS ORDERED: MIDAZOLAM 5 MG/5 ML (VERSED) VIAL IVP ONE (14:00)
[2017-08-29] MEDS ORDERED: fentaNYL INJECTION 100 MCG/2 ML AMP IVP ONE (14:00)
--- OUTSIDE RECORDS SUMMARY | 2017-08-29 14:14 | XMS REPORT ---
Author Author FROILAN CORTEZ [facility] Address [address] [place] [address] Care Team Providers Care Egg Trayer Name Role Phone FROILAN CORTEZ Unavailable PROBLEMS Type Condition ICD9-CM Code [id number] Code Onset Dates Condition Status SNOMED Code Problem Reactive depression F32.9 Active 43670215 Problem Neuropathy G62.9 Active 484241792 Problem Coronary artery disease involving [place] co[place] coronary artery of [place] heart without angina pectoris I25.10 Active 2801512123912 Problem Type 2 diabetes mellitus without complication, without long-term current use of insulin E11.9 Active 145097910 Problem Frequent falls R29.6 Active 863354012 Problem Vascular dementia without behavioral disturbance F01.50 Active 946054219 Problem Essential hypertension I10 Active 14470121 Problem Neuropathic pain M79.2 Active 227731525 Problem Other chronic pain G89.29 Active 43162177 Problem PVD (peripheral vascular disease) I73.9 Active 946413133 ALLERGIES No Information ENCOUNTERS Encounter Location Date Diagnosis [facility] [address] [id number] [address] May, Other chronic pain G89.29 [facility] [address] [place] [address] May, Other chronic pain G89.29 ; Type 2 diabetes mellitus without complication, without long-term current use of insulin E11.9 and Vascular dementia without behavioral disturbance F01.50 [facility] [address] [id number] [address] Apr, Other chronic pain G89.29 [facility] [id number] [id number] Mar, Other chronic pain G89.29 [facility] [id number] [place] [id number] Feb, Other chronic pain G89.29 [facility] [address] [place] [address] Feb, Other chronic pain G89.29 and Vascular dementia without behavioral disturbance F01.50 [facility] [address] [id number] [id number] Jan, Other chronic pain G89.29 [facility] [id number] [id number] Dec, Other chronic pain G89.29 [facility] [address] [facility] [id number], [place] [address] Nov, Weakness R53.1 and Frequent falls R29.6 [facility] [id number] [id number] Nov, [facility] [address] [id number] [address] Nov, [facility] [address] [id number] [id number] Nov, Other chronic pain G89.29 [employer] [address] [place] [id number] Oct, Pneumonia of upper lobe due to infectious organism, unspecified laterality J18.1 ; Vascular dementia without behavioral disturbance F01.50 ; Type 2 diabetes mellitus without complication, without long-term current use of insulin E11.9 and Essential hypertension I10 [facility] [address] [id number] [id number] 15 Oct, 2016 Other chronic pain G89.29 [facility] [address] [facility] [id number] [id number] Oct, [facility] [address] [id number], [place] [address] Oct, [employer] [address] [place] [address] Sep, Pneumonia of right lung due to infectious organism, unspecified part of lung J18.9 ; Type 2 diabetes mellitus without complication, without long -term current use of insulin E11.9 ; Vascular dementia without behavioral disturbance F01.50 and Other chronic pain G89.29 [facility] [address] [id number] [id number] Sep, [facility] [address] [id number] [id number] Aug, [facility] [id number] [id number] Aug, [facility] [id number] [id number] Jul, [facility] [address] [place] [address] Jul, Type 2 diabetes mellitus without complication, without long-term current use of insulin E11.9 [facility] [address] [facility] [id number], [place] [address] Jul, [facility] [address] [id number] [id number] June, [facility] [address] [id number] [id number] June, [facility] [address] [facility] [id number], [place] [address] May, [employer] [address] [place] [address] May, Encounter to establish care Z76.89 ; Neuropathic pain M79.2 ; Type 2 diabetes mellitus without complication, without long-term current use of insulin E11.9 ; Essential hypertension I10 ; Coronary artery disease involving [place] co[place] coronary artery of conf[place] co[place] heart without angina pectoris I25.10 and PVD ( peripheral vascular disease) I73.9 [facility] [address] [id number] [id number] May, [email or web address] [address] [place] [id number] Apr, Neuropathic pain M79.2 and Reactive depression F32.9 [facility] [id number] [id number] Apr, [facility] [address] [id number], [place] [address] Apr, [facility] [address]00565100[place], [place] [address] Apr, [facility] [place] [address] [id number] [id number] Apr, [facility] [address]00565100[place], [place] [address] Mar, [facility] [address] [place] [address] Mar, [facility] [address] [place] [address] Mar, [facility] [address] [place] [address] Mar, [facility] [address]00565100[place], [place] [address] Mar, [facility] [address] [place] [id number] Mar, Acute blood loss anemia D62 and Type 2 diabetes mellitus without complication, without long-term current use of insulin E11.9 [facility] [address]00565100[place], [place] [address] Feb, [facility] [address], [place] [address] Feb, [facility] [address] [id number], [place] [address] Feb, [facility] [address]00565100[place], [place] [address] Feb, [facility] [address] [id number], [place] [address] Feb, [facility] [address] [id number], [place] [address] 14 May, 2014 [facility] [address] [facility] [id number], [place] [address] May, [facility] [address] [id number], [place] [address] Mar, [facility] [address] [id number], [place] [address] June, [facility] [address] [id number], [place] [address] June, [facility] [address]00565100[place], [place] [address] June, [facility] [address] [id number], [place] [address] May, IMMUNIZATIONS No Known Immunizations SOCIAL HISTORY Never Assessed REASON FOR VISIT NH Admit/Hosp follow up PLAN OF CARE Activity Details Follow Up prn Reason: VITAL SIGNS MEDICATIONS Medication Instructions Dosage Frequency Start Date End Date Duration Status MS Contin 30 mg Orally every 12 hrs 1 tablet 12h Oct, 28 days Active Duloxetine HCl 30 MG TAKE 1 CAPSULE BY MOUTH THREE TIMES DAILY 30 Active Cymbalta 30 MG Orally 3 times a day 1 capsule 8h Active Cyanocobalamin 1000 MCG Orally Once a day 1 tablet 24h Active MS Contin 15 mg Orally every 12 hrs in addition to 30mg 1 tablet Oct, 28 days Active Divalproex Sodium 125 MG TAKE 2 CAPSULES BY MOUTH THREE TIMES DAILY 30 Active Fenofibrate 160 MG TAKE 1 TABLET BY MOUTH DAILY 30 Active Vitamin D 2000 UNIT TAKE 1 TABLET BY MOUTH DAILY 30 Active Citalopram Hydrobromide 20 MG TAKE 1 TABLET BY MOUTH DAILY 30 Active Depakote Sprinkles 125 MG Orally 3 times a day 2 capsules 8h Active Vitamin D3 2000 UNIT Orally Once a day 1 capsule 24h Active Lasix 20 mg Orally every 2 days 1 tablet Active Exelon 4.6 MG/24HR APPLY 1 PATCH TO SKIN ONE TIME DAILY -REMOVE OLD PATCH WHEN APPLYING NEW ONE 30 Active Vitamin B-12 1000 MCG TAKE 1 TABLET BY MOUTH DAILY 30 Active citalopram 20 mg by oral route Once a day take 1 tablet 24h Mar, Active Linzess 145 MCG TAKE 1 CAPSULE BY MOUTH EVERY DAY 30 MINUTES PRIOR TO BREAKFAST ON EMPTY STOMACH-SWALLOW WHOLE 30 Active Melatonin 3 MG TAKE 1 TABLET BY MOUTH DAILY 30 Active Furosemide 20 MG TAKE 1 TABLET BY MOUTH EVERY 2 DAYS 30 Active Lactulose 20 GM/30ML Orally every other day 30 ml Active RESULTS No Results PROCEDURES Procedure Date Ordered Result Body Site [facility] VISIT ESTABLISHED PATIENT Nov 04, 2016 INSTRUCTIONS MEDICATIONS ADMINISTERED No Known Medications [...] right hip replacement after fx [facility]ization History [facility] 03/2016 Hospitalization History [facility] 04/2016
--- OUTSIDE RECORDS SUMMARY | 2017-08-29 14:15 | XMS REPORT ---
Author Author FROILAN CORTEZ [facility] Address [address] [place] [address] Care Team Providers Care Cardiovascular Disease Specialist Name Role Phone FROILAN CORTEZ Unavailable PROBLEMS Type Condition ICD9-CM Code DNY38-BY Code Onset Dates Condition Status SNOMED Code Problem Reactive depression F32.9 Active 97336449 Problem Neuropathy G62.9 Active 549393040 Problem Coronary artery disease involving [place] coronary artery of [place] heart without angina pectoris I25.10 Active 7383521838466 Problem Type 2 diabetes mellitus without complication, without long-term current use of insulin E11.9 Active 948590486 Problem Frequent falls R29.6 Active 759391841 Problem Vascular dementia without behavioral disturbance F01.50 Active 694269323 Problem Essential hypertension I10 Active 71122425 Problem Neuropathic pain M79.2 Active 381436850 Problem Other chronic pain G89.29 Active 24412475 Problem PVD (peripheral vascular disease) I73.9 Active 177318142 ALLERGIES No Information ENCOUNTERS Encounter Location Date Diagnosis [address] [place] [address] [place] [address] 13 Jul, 2017 Other chronic pain G89.29 [address] [place] [id number] [place] [address] 12 Jul, 2017 [address] [place] [id number] [place] [address] June, Other chronic pain G89.29 [address] [place] [id number] [place] [address] May, Other chronic pain G89.29 [employer] [address] [place] [address] May, Other chronic pain G89.29 ; Type 2 diabetes mellitus without complication, without long-term current use of insulin E11.9 and Vascular dementia without behavioral disturbance F01.50 [facility] [address] [id number] [address] Apr, Other chronic pain G89.29 [facility] [address] [id number] [id number] Mar, Other chronic pain G89.29 [facility] [address] [id number] [id number] Feb, Other chronic pain G89.29 [facility] [address] [place] [address] Feb, Other chronic pain G89.29 and Vascular dementia without behavioral disturbance F01.50 [facility] [id number] [place] [id number] Jan, Other chronic pain G89.29 [facility] [id number] [place] [id number] Dec, Other chronic pain G89.29 [facility] [address] [place] [address] Nov, Weakness R53.1 and Frequent falls R29.6 [facility] [id number] [place] [id number] Nov, [facility] [address]65[address], [place] [address] Nov, [facility] [id number] [place] [address] [id number] Nov, Other chronic pain G89.29 [employer] [address] [place] [id number] Oct, Pneumonia of upper lobe due to infectious organism, unspecified laterality J18.1 ; Vascular dementia without behavioral disturbance F01.50 ; Type 2 diabetes mellitus without complication, without long-term current use of insulin E11.9 and Essential hypertension I10 [facility] [id number][place] [id number] 15 Oct, 2016 Other chronic pain G89.29 [place] [address] [facility] [id number], [place] [address] Oct, [facility] [address] [id number] [address] Oct, [employer] [facility] [address] [place] [address] Sep, Pneumonia of right lung due to infectious organism, unspecified part of lung J18.9 ; Type 2 diabetes mellitus without complication, without long -term current use of insulin E11.9 ; Vascular dementia without behavioral disturbance F01.50 and Other chronic pain G89.29 [facility] [address] [id number] [id number] Sep, [facility] [id number], [place] [id number] Aug, [facility] [id number], [place] [id number] Aug, [facility] [id number], [place] [id number] Jul, [employer] [address] [place] [address] Jul, Type 2 diabetes mellitus without complication, without long-term current use of insulin E11.9 [facility] [address] [facility] [id number], [place] [address] Jul, [facility] [address] [id number], [place] [id number] June, [facility] [address] [id number], [place] [id number] June, [facility] [address] [facility] [id number], [place] [address] May, [employer] [address] [place] [address] May, Encounter to establish care Z76.89 ; Neuropathic pain M79.2 ; Type 2 diabetes mellitus without complication, without long-term current use of insulin E11.9 ; Essential hypertension I10 ; Coronary artery disease involving [place] coronary artery of [place] heart without angina pectoris I25.10 and PVD ( peripheral vascular disease) I73.9 [facility] [id number] [place] [id number] May, Via [employer] [address] [place] [id number] Apr, Neuropathic pain M79.2 and Reactive depression F32.9 [facility] [address] [id number] Apr, [facility] [id number] [place] [address]- [address] Apr, [facility] [id number] [place] [address]21- 3936 Apr, [facility] [id number] [place] [address] [id number] Apr, [facility] [id number] [place] [address]- 8926 Mar, [facility] [id number] [place] [address]- [address] Mar, [facility] [id number] [place] [address] 516136- 3096 Mar, [facility] [address] [place] [address] [id number]- 2173 Mar, [facility] [id number] [place] [address] 674949- [address] Mar, [facility] [employer] [address] [place] [id number] Mar, Acute blood loss anemia D62 and Type 2 diabetes mellitus without complication, without long-term current use of insulin E11.9 [facility] [address] [place] [address]- 0966 Feb, [facility] [id number] [place] [address]61- 4858 Feb, [facility] [address] [id number], [place] [address] Feb, [facility] [address] [id number], [place] [address]- [address] Feb, [facility] [address] [id number], [place] [address]- 27[address] Feb, [facility] [address]00565100[place], [place] [address] May, [facility] [address] [id number], [place] [address]- [address] May, [facility] [address]00565100[place], [place] [address]- [address] Mar, [facility] [address], [place] [address] June, [facility] [address]65100[place], [place] [address]- [address] June, [facility] [address] [id number], [place] [address]- [address] June, [facility] [address] [id number], [place] [address] May, IMMUNIZATIONS No Known Immunizations SOCIAL HISTORY Never Assessed REASON FOR VISIT Controlled Med Refill PLAN OF CARE VITAL SIGNS MEDICATIONS Medication Instructions Dosage Frequency Start Date End Date Duration Status MS Contin 30 mg Orally every 12 hrs 1 tablet 12h Mar, 28 days Active MS Contin 15 mg Orally every 12 hrs in addition to 30mg 1 tablet Mar, 28 days Active RESULTS No Results [...] right hip replacement after fx [facility]/2016 Hospitalization History [facility] 04/2016
--- OUTSIDE RECORDS SUMMARY | 2017-08-29 14:15 | XMS REPORT ---
Author Author FROILAN CORTEZ Organization [facility] Address [address] [place] [address] Care Team Providers Care Hotel Desk Clerk Name Role Phone FROILAN CORTEZ Unavailable PROBLEMS Type Condition ICD9-CM Code YWE61-ON Code Onset Dates Condition Status SNOMED Code Problem Reactive depression F32.9 Active 82114353 Problem Neuropathy G62.9 Active 565905388 Problem Coronary artery disease involving [place] coronary artery of [place] heart without angina pectoris I25.10 Active 6332364256067 Problem Type 2 diabetes mellitus without complication, without long-term current use of insulin E11.9 Active 239990953 Problem Frequent falls R29.6 Active 560452731 Problem Vascular dementia without behavioral disturbance F01.50 Active 510752787 Problem Essential hypertension I10 Active 82964785 Problem Neuropathic pain M79.2 Active 400506866 Problem Other chronic pain G89.29 Active 97591805 Problem PVD (peripheral vascular disease) I73.9 Active 605853941 ALLERGIES No Information ENCOUNTERS Encounter Location Date Diagnosis [facility] [address] [facility] [id number] [address] Apr, Other chronic pain G89.29 [facility] [address] [id number] [id number] Mar, Other chronic pain G89.29 [facility] [address] [id number] [place] [id number] Feb, Other chronic pain G89.29 [facility] [address] [place] [address] Feb, Other chronic pain G89.29 and Vascular dementia without behavioral disturbance F01.50 [facility] [address] [id number] [place] [address] Jan, Other chronic pain G89.29 [facility] [address] [id number] [place] [id number] Dec, Other chronic pain G89.29 [facility] [address] [address] Nov, Weakness R53.1 and Frequent falls R29.6 [facility] [id number] [place] [id number] Nov, [facility] [address] [address] Nov, [facility] [id number] [place] [address] Nov, Other chronic pain G89.29 [employer] [address] [place] [id number] Oct, Pneumonia of upper lobe due to infectious organism, unspecified laterality J18.1 ; Vascular dementia without behavioral disturbance F01.50 ; Type 2 diabetes mellitus without complication, without long-term current use of insulin E11.9 and Essential hypertension I10 [facility] [address] [id number] [place] [id number] Oct, Other chronic pain G89.29 [facility] [address] [id number] [address] Oct, [facility] [address] [id number] [address] Oct, [facility] [employer] [address] [place] [address] Sep, Pneumonia of right lung due to infectious organism, unspecified part of lung J18.9 ; Type 2 diabetes mellitus without complication, without long -term current use of insulin E11.9 ; Vascular dementia without behavioral disturbance F01.50 and Other chronic pain G89.29 [facility] [address] [id number] [place] [address] Sep, [facility] [address] [id number] [place] [id number] Aug, [facility] [id number] [place] [address] Aug, [facility] [id number] [place] [id number] Jul, [employer] [address] [place] [address] Jul, Type 2 diabetes mellitus without complication, without long-term current use of insulin E11.9 [facility] [address] [address] Jul, [facility] [id number] [place] [id number] June, [facility] [id number] [place] [id number] June, [facility] [address] [id number] [address] May, [employer] [address] [place] [address] May, Encounter to establish care Z76.89 ; Neuropathic pain M79.2 ; Type 2 diabetes mellitus without complication, without long-term current use of insulin E11.9 ; Essential hypertension I10 ; Coronary artery disease involving [place] coronary artery of [place] heart without angina pectoris I25.10 and PVD ( peripheral vascular disease) I73.9 [facility] [address] [id number] [place] [id number] May, [facility] [employer] [address] [place] [id number] Apr, Neuropathic pain M79.2 and Reactive depression F32.9 [facility] [address] [id number] [place] [id number] Apr, [facility] [address]65100[place] [address] Apr, [facility] [address] [id number] [address] Apr, [facility] [id number] [place] [id number] Apr, [facility] [address] [id number] [address] Mar, [facility] [address]100[place] [address] Mar, [facility] [address]65100[place] [address] Mar, [facility] [id number] [place] [address] Mar, [facility] [id number] [place] [address] Mar, Via [facility] [address] [place] [id number] Mar, Acute blood loss anemia D62 and Type 2 diabetes mellitus without complication, without long-term current use of insulin E11.9 [facility] [address]65100[place] [address] Feb, [facility] [address]100[place] [address] Feb, [facility] [address]65100[place] [address] Feb, [facility] [address]65100[place] [address] Feb, [facility] [address] [address] Feb, [facility] [address]100[place] [address] May, [facility] [address] [address] May, [facility] [address] [id number] [address] Mar, [facility] [address]65100[place] [address] June, [facility] [address] [facility] [place] [id number] [place] [address] June, [facility] [address] [facility] [place] [id number] [address] June, [facility] [address] [facility] [place] [id number] [place] [address] May, IMMUNIZATIONS No Known Immunizations SOCIAL HISTORY Never Assessed REASON FOR VISIT Controlled Med Refill PLAN OF CARE VITAL SIGNS MEDICATIONS Medication Instructions Dosage Frequency Start Date End Date Duration Status MS Contin 60 mg Orally every 12 hrs 1 tablet 12h Aug, 28 days Active RESULTS No Results PROCEDURES [...] right hip replacement after fx Hospitalization History [facility] 03/2016 Hospitalization History [facility] 04/2016
--- OUTSIDE RECORDS SUMMARY | 2017-08-29 14:15 | XMS REPORT ---
Author Author FROILAN CORTEZ [facility] Address [address] [place] [address] Care Team Providers Care Industrial Paramedic Name Role Phone FROILAN CORTEZ Unavailable PROBLEMS Type Condition ICD9-CM Code ZDN17-KX Code Onset Dates Condition Status SNOMED Code Problem Reactive depression F32.9 Active 69854872 Problem Neuropathy G62.9 Active 305650868 Problem Coronary artery disease involving [place] coronary artery of [place] heart without angina pectoris I25.10 Active 8459047145741 Problem Type 2 diabetes mellitus without complication, without long-term current use of insulin E11.9 Active 913041027 Problem Frequent falls R29.6 Active 455152985 Problem Vascular dementia without behavioral disturbance F01.50 Active 456487660 Problem Essential hypertension I10 Active 75727426 Problem Neuropathic pain M79.2 Active 965255843 Problem Other chronic pain G89.29 Active 05706616 Problem PVD (peripheral vascular disease) I73.9 Active 418043606 ALLERGIES No Information ENCOUNTERS Encounter Location Date Diagnosis [place] [id number] [place] [address] June, Other chronic pain G89.29 [place] [address] [place] [address] May, Other chronic pain G89.29 [employer] [address] [place] [address] May, Other chronic pain G89.29 ; Type 2 diabetes mellitus without complication, without long-term current use of insulin E11.9 and Vascular dementia without behavioral disturbance F01.50 [facility] [address] [place] [address] Apr, Other chronic pain G89.29 [facility] [address] [id number] Mar, Other chronic pain G89.29 [facility] [id number] [id number] Feb, Other chronic pain G89.29 [employer] [address] [place] [address] Feb, Other chronic pain G89.29 and Vascular dementia without behavioral disturbance F01.50 [facility] [id number] [place] [id number] Jan, Other chronic pain G89.29 [facility] [address] [id number] [address] Dec, Other chronic pain G89.29 [facility] [address]100[place] [address] Nov, Weakness R53.1 and Frequent falls R29.6 [facility] [id number] [place] [id number] Nov, [facility] [address] [id number] [address] Nov, [facility] [id number] [place] [id number] Nov, Other chronic pain G89.29 [employer] [address] [place] [id number] Oct, Pneumonia of upper lobe due to infectious organism, unspecified laterality J18.1 ; Vascular dementia without behavioral disturbance F01.50 ; Type 2 diabetes mellitus without complication, without long-term current use of insulin E11.9 and Essential hypertension I10 [facility] [id number][place] [address] Oct, 2016 Other chronic pain G89.29 [facility] [address] [id number] [address] Oct, [facility] [address] [id number] [address] 05 Oct, 2016 [employer] [address] [place] [address] Sep, Pneumonia of right lung due to infectious organism, unspecified part of lung J18.9 ; Type 2 diabetes mellitus without complication, without long -term current use of insulin E11.9 ; Vascular dementia without behavioral disturbance F01.50 and Other chronic pain G89.29 [facility] [id number][place] [address] Sep, [facility] [id number], [place] [address] Aug, [facility] [id number][place] [id number] Aug, [facility] [address] [id number] [id number] Jul, [employer] [address] [place] [address] Jul, Type 2 diabetes mellitus without complication, without long-term current use of insulin E11.9 [facility] [address] [id number] [address] Jul, [facility] [id number][place] [id number] June, [facility] [id number][place] [id number] June, [facility] [address] [id number] [address] May, [employer] [address] [facility] [address] [place] [address] May, Encounter to establish care Z76.89 ; Neuropathic pain M79.2 ; Type 2 diabetes mellitus without complication, without long-term current use of insulin E11.9 ; Essential hypertension I10 ; Coronary artery disease involving [place] coronary artery of [place] heart without angina pectoris I25.10 and PVD ( peripheral vascular disease) I73.9 [facility] [address] [place] [id number] [id number] May, [facility] [employer] [address] [place] [id number] Apr, Neuropathic pain M79.2 and Reactive depression F32.9 [facility] [id number] [place] [id number] Apr, [facility] [address]100[place], [place] [address] Apr, [facility] [address]100[place], [place] [address] Apr, [facility] [id number] [place] [id number] Apr, [facility] [address] [place] [address]- 74[address] Mar, [facility] [address] [id number] [address] Mar, [facility] [id number] [place] [address]- [address] Mar, [facility] [address]00565100[place], [place] [address] Mar, [facility] [address]100[place], [place] [address] Mar, Via [facility] [address] [place] [id number] Mar, Acute blood loss anemia D62 and Type 2 diabetes mellitus without complication, without long-term current use of insulin E11.9 [facility] [address]65100[place], [place] [address] Feb, [facility] [address]100[place] [address] Feb, [facility] [address]100[place] [address] Feb, [facility] [address]100[place], [place] [address] Feb, [facility] [address] [id number], [place] [address] Feb, [facility] [address] [id number] [address] May, [facility] [address] [id number] [address] May, [facility] [address] [id number] [address]- [address] Mar, [facility] [address]100[place], [place] [address] June, [facility] [address]100[place], [place] [address] June, [facility] [address]100[place], [place] [address] June, [facility] [address], [place] [address] May, IMMUNIZATIONS No Known Immunizations SOCIAL HISTORY Never Assessed REASON FOR VISIT Return [place] [facility] [place] PLAN OF CARE Activity Details Follow Up prn Reason: VITAL SIGNS MEDICATIONS Unknown Medications RESULTS No Results PROCEDURES Procedure Date Ordered Result Body Site Minor complication (15 mins) Dec 07, 2016 INSTRUCTIONS MEDICATIONS ADMINISTERED No Known Medications [...] right hip replacement after fx Hospitalization History [facility] 03/2016 Hospitalization History [facility] 04/2016
--- OUTSIDE RECORDS SUMMARY | 2017-08-29 14:16 | XMS REPORT ---
Author Author FROILAN CORTEZ [facility] Address [address] [place] [address] Care Team Providers Care Crime Lab Technician Name Role Phone FROILAN CORTEZ Unavailable PROBLEMS Type Condition ICD9-CM Code UCE51-QL Code Onset Dates Condition Status SNOMED Code Problem Reactive depression F32.9 Active 94134230 Problem Neuropathy G62.9 Active 426242198 Problem Coronary artery disease involving [place] coronary artery of [place] heart without angina pectoris I25.10 Active 3912249930482 Problem Type 2 diabetes mellitus without complication, without long-term current use of insulin E11.9 Active 379948905 Problem Frequent falls R29.6 Active 328076954 Problem Vascular dementia without behavioral disturbance F01.50 Active 532490379 Problem Essential hypertension I10 Active 93423502 Problem Neuropathic pain M79.2 Active 412326254 Problem Other chronic pain G89.29 Active 99740482 Problem PVD (peripheral vascular disease) I73.9 Active 551172294 ALLERGIES No Information ENCOUNTERS Encounter Location Date Diagnosis [facility] [id number], [place] [address] May, Other chronic pain G89.29 [facility] [address] [place] [address] May, Other chronic pain G89.29 ; Type 2 diabetes mellitus without complication, without long-term current use of insulin E11.9 and Vascular dementia without behavioral disturbance F01.50 [facility] [id number], [place] [address] Apr, Other chronic pain G89.29 [facility] [id number] [id number] Mar, Other chronic pain G89.29 [facility] [id number] [place] [id number] Feb, Other chronic pain G89.29 [facility] [address] [place] [address] Feb, Other chronic pain G89.29 and Vascular dementia without behavioral disturbance F01.50 [facility] [address] [id number] [id number] Jan, Other chronic pain G89.29 [facility] [id number] [address] Dec, Other chronic pain G89.29 [facility] [address] [facility] [id number], [place] [address] Nov, Weakness R53.1 and Frequent falls R29.6 [facility] [id number], [place] [id number] Nov, [facility] [id number] [address] Nov, [facility] [address] [id number][place] [id number] Nov, Other chronic pain G89.29 [facility] [address] [id number] Oct, Pneumonia of upper lobe due to infectious organism, unspecified laterality J18.1 ; Vascular dementia without behavioral disturbance F01.50 ; Type 2 diabetes mellitus without complication, without long-term current use of insulin E11.9 and Essential hypertension I10 [facility] [address] [id number][place] [id number] 15 Oct, 2016 Other chronic pain G89.29 [facility] [address] [facility] [id number][place] [address] Oct, [facility] [id number], [place] [address] Oct, [facility] [address] [place] [address] Sep, Pneumonia of right lung due to infectious organism, unspecified part of lung J18.9 ; Type 2 diabetes mellitus without complication, without long -term current use of insulin E11.9 ; Vascular dementia without behavioral disturbance F01.50 and Other chronic pain G89.29 [facility] [address] [id number], [place] [address] Sep, [facility] [address] [id number][place] [id number] Aug, [facility] [id number] [id number] Aug, [facility] [id number][place] [id number] Jul, [facility] [address] [place] [address] Jul, Type 2 diabetes mellitus without complication, without long-term current use of insulin E11.9 [facility] [address] [facility] [id number], [place] [address] Jul, [facility] [address] [id number], [place] [id number] June, [facility] [address] [id number][place] [id number] June, [facility] [address] [facility] [id number], [place] [address] May, [facility] [address] [place] [address] May, Encounter to establish care Z76.89 ; Neuropathic pain M79.2 ; Type 2 diabetes mellitus without complication, without long-term current use of insulin E11.9 ; Essential hypertension I10 ; Coronary artery disease involving [place] coronary artery of [place] heart without angina pectoris I25.10 and PVD ( peripheral vascular disease) I73.9 [facility] [address] [id number][place] [id number] May, [facility] [address] [place] [id number] Apr, Neuropathic pain M79.2 and Reactive depression F32.9 [facility] [id number], [place] [id number] Apr, [facility] [id number], [place] [address] Apr, [facility] [address]00565100[place], [place] [address] Apr, [facility] [address] [id number] [id number] Apr, [facility] [address]00565100[place], [place] [address] Mar, [facility] [address] [place] [address] Mar, [facility] [address] [place] [address] Mar, [facility] [address] [place] [address] Mar, [facility] [address]100[place], [place] [address] Mar, [facility] [address] [place] [id number] Mar, Acute blood loss anemia D62 and Type 2 diabetes mellitus without complication, without long-term current use of insulin E11.9 [facility] [address]100[place], [place] [address] Feb, [facility] [address]005[address]100[place], [place] [address] Feb, [facility] [address] [id number], [place] [address] Feb, [facility] [address]100[place], [place] [address] Feb, [facility] [id number], [place] [address] Feb, [facility] [address] [id number], [place] [address] 14 May, 2014 [facility] [address] [facility] [id number], [place] [address] May, [facility] [id number], [place] [address] Mar, [facility] [address] [facility] [id number], [place] [address] June, [facility] [id number], [place] [address] June, [facility] [id number], [place] [address] June, [facility] [id number], [place] [address] May, IMMUNIZATIONS No Known Immunizations SOCIAL HISTORY Never Assessed REASON FOR VISIT Change in behavior PLAN OF CARE VITAL SIGNS MEDICATIONS Unknown [...] [facility] 03/2016 Hospitalization History [facility] 04/2016
--- OUTSIDE RECORDS SUMMARY | 2017-08-29 14:16 | XMS REPORT ---
Author Author FROILAN CORTEZ [facility] Address [address] [place] [address] Care Team Providers Care Chief Nurse Anesthetist Name Role Phone FROILAN CORTEZ Unavailable PROBLEMS Type Condition ICD9-CM Code VTW60-PM Code Onset Dates Condition Status SNOMED Code Problem Reactive depression F32.9 Active 26282033 Problem Neuropathy G62.9 Active 483600602 Problem Coronary artery disease involving [place] coronary artery of [place] heart without angina pectoris I25.10 Active 4683533543589 Problem Type 2 diabetes mellitus without complication, without long-term current use of insulin E11.9 Active 672405169 Problem Frequent falls R29.6 Active 326273625 Problem Vascular dementia without behavioral disturbance F01.50 Active 492521717 Problem Essential hypertension I10 Active 44807116 Problem Neuropathic pain M79.2 Active 400745654 Problem Other chronic pain G89.29 Active 23269766 Problem PVD (peripheral vascular disease) I73.9 Active 742033171 ALLERGIES No Information ENCOUNTERS Encounter Location Date Diagnosis [facility] [address] [id number], [place] [address] May, Other chronic pain G89.29 [facility] [address] [place] [address] May, Other chronic pain G89.29 ; Type 2 diabetes mellitus without complication, without long-term current use of insulin E11.9 and Vascular dementia without behavioral disturbance F01.50 [facility] [address] [id number], [place] [address] Apr, Other chronic pain G89.29 [facility] [id number], [place] [address] Mar, Other chronic pain G89.29 [facility] [id number] [place] [id number] Feb, Other chronic pain G89.29 [facility] [address] [place] [address] Feb, Other chronic pain G89.29 and Vascular dementia without behavioral disturbance F01.50 [facility] [address] [id number] [address] Jan, Other chronic pain G89.29 [facility] [id number], [place] [id number] Dec, Other chronic pain G89.29 [facility] [address] [facility] [id number], [place] [address] Nov, Weakness R53.1 and Frequent falls R29.6 [facility] [id number], [place] [address] Nov, [facility] [address] [id number] [address] Nov, [facility] [address] [id number][place] [address] Nov, Other chronic pain G89.29 [facility] [address] [place] [address] Oct, Pneumonia of upper lobe due to infectious organism, unspecified laterality J18.1 ; Vascular dementia without behavioral disturbance F01.50 ; Type 2 diabetes mellitus without complication, without long-term current use of insulin E11.9 and Essential hypertension I10 [facility] [address] [id number][place] [address] 15 Oct, 2016 Other chronic pain G89.29 [facility] [address] [facility] [id number][place] [address] Oct, [facility] [address] [id number], [place] [address] Oct, [facility] [address] [place] [address] Sep, Pneumonia of right lung due to infectious organism, unspecified part of lung J18.9 ; Type 2 diabetes mellitus without complication, without long -term current use of insulin E11.9 ; Vascular dementia without behavioral disturbance F01.50 and Other chronic pain G89.29 [facility] [address] [id number], [place] [address] Sep, [facility] [address] [id number], [place] [address] Aug, [facility] [id number], [place] [address] Aug, [facility] [id number], [place] [id number] Jul, [facility] [address] [place] [address] Jul, Type 2 diabetes mellitus without complication, without long-term current use of insulin E11.9 [facility] [address] [facility] [id number], [place] [address] Jul, [facility] [address] [id number], [place] [id number] June, [facility] [address] [id number], [place] [id number] June, [facility] [address] [facility] [id number], [place] [address] May, [facility] [address] [place] [address] May, Encounter to establish care Z76.89 ; Neuropathic pain M79.2 ; Type 2 diabetes mellitus without complication, without long-term current use of insulin E11.9 ; Essential hypertension I10 ; Coronary artery disease involving [place] coronary artery of [place] heart without angina pectoris I25.10 and PVD ( peripheral vascular disease) I73.9 [facility] [address] [id number], [place] [id number] May, [facility] [address] [place] [id number] Apr, Neuropathic pain M79.2 and Reactive depression F32.9 [facility] [id number], [place] [address] Apr, [facility] [address] [id number], [place] [address] Apr, [facility] [address]00565100[place], [place] [address] Apr, [facility] [address] [id number] [address] Apr, [facility] [address]00565100[place], [place] [address] Mar, [facility] [address] [place] [address] Mar, [facility] [address] [place] [address] Mar, [facility] [address] [place] [address] Mar, [facility] [address]00565100[place], [place] [address] Mar, [facility] [address] [facility] [address] [address] [place] [id number] Mar, Acute blood loss anemia D62 and Type 2 diabetes mellitus without complication, without long-term current use of insulin E11.9 [facility] [address]00565100[place], [place] [address] Feb, [facility] [address]00565100[place], [place] [address] Feb, [facility] [address] [id number], [place] [address] Feb, [facility] [address]65[address], [place] [address] Feb, [facility] [address] [id number], [place] [address] Feb, [facility] [address] [id number], [place] [address] 14 May, 2014 [facility] [address] [facility] [id number], [place] [address] May, [facility] [address] [id number], [place] [address] Mar, [facility] [address] [facility] [id number], [place] [address] June, [facility] [address] [id number], [place] [address] June, [facility] [address] [id number], [place] [address] June, [facility] [address] [id number], [place] [address] May, IMMUNIZATIONS No Known Immunizations SOCIAL HISTORY Never Assessed REASON FOR VISIT Refill request PLAN OF CARE VITAL SIGNS MEDICATIONS Unknown [...] right hip replacement after fx Hospitalization History [facility] 03/2016 Hospital[facility] 04/2016
--- OUTSIDE RECORDS SUMMARY | 2017-08-29 14:16 | XMS REPORT ---
Author Author FROILAN CORTEZ [facility] Address [address] [place] [address] Care Team Providers Care Preassembler Printed Circuit Board Name Role Phone FROILAN CORTEZ Unavailable PROBLEMS Type Condition ICD9-CM Code FAT38-VW Code Onset Dates Condition Status SNOMED Code Problem Reactive depression F32.9 Active 16317809 Problem Neuropathy G62.9 Active 420650145 Problem Coronary artery disease involving [place] coronary artery of [place] heart without angina pectoris I25.10 Active 0311820735863 Problem Type 2 diabetes mellitus without complication, without long-term current use of insulin E11.9 Active 312122861 Problem Frequent falls R29.6 Active 652841586 Problem Vascular dementia without behavioral disturbance F01.50 Active 501632273 Problem Essential hypertension I10 Active 27064350 Problem Neuropathic pain M79.2 Active 743206345 Problem Other chronic pain G89.29 Active 40588354 Problem PVD (peripheral vascular disease) I73.9 Active 111313209 ALLERGIES No Information ENCOUNTERS Encounter Location Date Diagnosis [place] [id number] [place] [address]272- 4885 13 Jul, 2017 Other chronic pain G89.29 [place] [address] [address] [id number] [place] [address] 84900- 0250 12 Jul, 2017 [place] [id number] [place] [address] 87115- 9931 June, Other chronic pain G89.29 [place] [id number] [place] [address] 76095- 3053 May, Other chronic pain G89.29 [employer] [address] [place] [address] May, Other chronic pain G89.29 ; Type 2 diabetes mellitus without complication, without long-term current use of insulin E11.9 and Vascular dementia without behavioral disturbance F01.50 [facility] [place] [id number] [address] Apr, Other chronic pain G89.29 [facility] [address] [id number] [id number] Mar, Other chronic pain G89.29 [facility] [address] [id number] [id number] Feb, Other chronic pain G89.29 [facility] [address] [place] [address] Feb, Other chronic pain G89.29 and Vascular dementia without behavioral disturbance F01.50 [facility] [id number] [place] [address] [id number] Jan, Other chronic pain G89.29 [facility] [address] [id number] [place] [address] [id number] Dec, Other chronic pain G89.29 [facility] [place] [address] [place] [address] 23477- 2873 Nov, Weakness R53.1 and Frequent falls R29.6 [facility] [id number] [place] [address] [id number] Nov, [facility] [place] [address] [address] Nov, [facility] [id number] [place] [address] [id number] Nov, Other chronic pain G89.29 [employer] [address] [place] [id number] Oct, Pneumonia of upper lobe due to infectious organism, unspecified laterality J18.1 ; Vascular dementia without behavioral disturbance F01.50 ; Type 2 diabetes mellitus without complication, without long-term current use of insulin E11.9 and Essential hypertension I10 [facility] [id number] [id number] 15 Oct, 2016 Other chronic pain G89.29 [place] [address] [facility] [id number] [address] Oct, [facility] [place] [id number] [address] Oct, [employer] [address] [place] [address] Sep, Pneumonia of right lung due to infectious organism, unspecified part of lung J18.9 ; Type 2 diabetes mellitus without complication, without long -term current use of insulin E11.9 ; Vascular dementia without behavioral disturbance F01.50 and Other chronic pain G89.29 [facility] [address] [id number] [id number] Sep, [facility] [id number] [id number] Aug, [facility] [id number] [id number] Aug, [facility] [id number] [id number] Jul, [employer] [address] [place] [address] Jul, Type 2 diabetes mellitus without complication, without long-term current use of insulin E11.9 [facility] [place] [address] [facility] [id number] [address] Jul, [facility] [address] [place] [id number] [id number] June, [facility] [address] [id number] [place] [id number] June, [facility] [place] [address] [facility] [id number] May, [employer] [address] [place] [address] May, Encounter to establish care Z76.89 ; Neuropathic pain M79.2 ; Type 2 diabetes mellitus without complication, without long-term current use of insulin E11.9 ; Essential hypertension I10 ; Coronary artery disease involving [place] coronary artery of [place] heart without angina pectoris I25.10 and PVD ( peripheral vascular disease) I73.9 [facility] [id number] [place] [id number] May, [employer] [address] [place] [id number] Apr, Neuropathic pain M79.2 and Reactive depression F32.9 [facility] [address] [id number] Apr, [facility] [place] [id number] [place] [address] 43278- 1468 Apr, [facility] [place] [id number] [place] [address] 77463- 8266 Apr, [facility] [id number] [place] [address] [id number] Apr, [facility] [place] [id number] [place] [address] 89385- 8336 Mar, [facility] [place] [id number] [place] [address] 69909- 9485 Mar, [facility] [place] [id number] [place] [address] 110227- 5326 Mar, [facility] [place] [id number] [place] [address] [id number]- 3772 Mar, [facility] [place] [id number] [place] [address] 467230- 9121 Mar, [employer] [address] [place] [id number] Mar, Acute blood loss anemia D62 and Type 2 diabetes mellitus without complication, without long-term current use of insulin E11.9 [facility] [place] [address] [place] [address] 13414- 6216 Feb, [facility] [place] [id number] [place] [address] 29381- 0743 Feb, [facility] [place] [id number] [address] 9992 Feb, [facility] [place] [id number] [address]- 1519 Feb, [facility] [place] [id number] [address]- 0802 Feb, [facility] [place] [address] [address]- 3024 May, [facility] [place] [id number] [address]- 3709 May, [facility] [place] [address] [address]- 4086 Mar, [facility] [place] [address] [address]- 4527 June, [facility] [place] [address] [address]- 9692 June, [facility] [place] [id number] [address]- 9222 June, [facility] [place] [id number] [address]- 1785 May, IMMUNIZATIONS No Known Immunizations SOCIAL HISTORY Never Assessed REASON FOR VISIT Controlled Med Refill PLAN OF CARE VITAL SIGNS MEDICATIONS Medication Instructions Dosage Frequency Start Date End Date Duration Status MS Contin 15 mg Orally every 12 hrs in addition to 30mg 1 tablet Feb, 28 days Active MS Contin 30 mg Orally every 12 hrs 1 tablet 12h Feb, 28 days Active RESULTS No Results PROCEDURES [...] right hip replacement after fx Hospitalization History [facility] 03/2016 Hospitalization History [facility] 04/2016
--- OUTSIDE RECORDS SUMMARY | 2017-08-29 14:17 | XMS REPORT ---
Author Author MIKE ROGERS [facility] Address [address] [place] [address] Care Team Providers Care Trim Stencil Maker Name Role Phone MIKE ROGERS Unavailable PROBLEMS Type Condition ICD9-CM Code WLS12-VC Code Onset Dates Condition Status SNOMED Code Problem Reactive depression F32.9 Active 24098682 Problem Neuropathy G62.9 Active 335074485 Problem Coronary artery disease involving [place] coronary artery of [place] heart without angina pectoris I25.10 Active 4545512385672 Problem Type 2 diabetes mellitus without complication, without long-term current use of insulin E11.9 Active 252254185 Problem Frequent falls R29.6 Active 885957717 Problem Vascular dementia without behavioral disturbance F01.50 Active 124187091 Problem Essential hypertension I10 Active 45331009 Problem Neuropathic pain M79.2 Active 217993452 Problem Other chronic pain G89.29 Active 87830011 Problem PVD (peripheral vascular disease) I73.9 Active 213770601 ALLERGIES No Information ENCOUNTERS Encounter Location Date Diagnosis [place] [id number] [place] [address] 92079- 8168 13 Jul, 2017 Other chronic pain G89.29 [place] [id number] [place] [address] 02385- 4504 12 Jul, 2017 [place] [address] [id number] [place] [address] 03941- 2428 June, Other chronic pain G89.29 [place] [address] [address]83- 6855 May, Other chronic pain G89.29 [employer] [address] [place] [address] May, Other chronic pain G89.29 ; Type 2 diabetes mellitus without complication, without long-term current use of insulin E11.9 and Vascular dementia without behavioral disturbance F01.50 [facility] [address] [id number] [address]01 Apr, Other chronic pain G89.29 [facility] [address] [place] [address] [id number] [id number] Mar, Other chronic pain G89.29 [facility] [id number] [place] [address] [id number] Feb, Other chronic pain G89.[address] [facility] [employer] [address] [place] [address] Feb, Other chronic pain G89.29 and Vascular dementia without behavioral disturbance F01.50 [facility] [address] [id number] [place] [address] [id number] Jan, Other chronic pain G89.29 [facility] [address] [place] [id number] [place] [address] [id number] Dec, Other chronic pain G89.29 [facility] [address] [place] [address] [id number]- 5925 Nov, Weakness R53.1 and Frequent falls R29.6 [facility] [address] [place] [id number] [place] [address] [id number] Nov, [facility] [address], [place] [address] 4757 Nov, [facility] [id number] [place] [address] [id number] 10 Nov, 2016 Other chronic pain G89.29 [employer] [address] [place] [id number] Oct, Pneumonia of upper lobe due to infectious organism, unspecified laterality J18.1 ; Vascular dementia without behavioral disturbance F01.50 ; Type 2 diabetes mellitus without complication, without long-term current use of insulin E11.9 and Essential hypertension I10 [facility] [id number] [id number] 15 Oct, 2016 Other chronic pain G89.29 [facility] [address] [facility] [id number]12[place]- 6630 Oct, [facility] [address] [id number] [address] 7312 Oct, [employer] [address] [place] [address] Sep, Pneumonia of right lung due to infectious organism, unspecified part of lung J18.9 ; Type 2 diabetes mellitus without complication, without long -term current use of insulin E11.9 ; Vascular dementia without behavioral disturbance F01.50 and Other chronic pain G89.29 [facility] [id number], [place] [id number] Sep, [facility] [id number], [place] [id number] Aug, [facility] [id number], [place] [id number] Aug, [facility] [id number], [place] [id number] Jul, [employer] [address] [place] [address] Jul, Type 2 diabetes mellitus without complication, without long-term current use of insulin E11.9 [facility] [address] [id number] [address]- 2986 Jul, [facility] [address] [id number] [id number] June, [facility] [address] [id number] [id number] June, [facility] [address] [facility] [id number], [place] 00[address]- 3988 May, [employer] [address] [place] [address] May, Encounter to establish care Z76.89 ; Neuropathic pain M79.2 ; Type 2 diabetes mellitus without complication, without long-term current use of insulin E11.9 ; Essential hypertension I10 ; Coronary artery disease involving [place] coronary artery of q[place] heart without angina pectoris I25.10 and PVD ( peripheral vascular disease) I73.9 [facility] [id number] [place] [address] [id number] May, [facility] [employer] [address] [place] [id number] Apr, Neuropathic pain M79.2 and Reactive depression F32.9 [facility] [id number] [place] [address] [id number] Apr, [facility] [address]005[address]100[place], [place] [address]- 5147 Apr, [facility] [id number] [place] [address] 05513- 5226 Apr, [facility] [id number] [place] [address] [id number] Apr, [facility] [address] [place] [address] [id number]- 8610 Mar, [facility] [address]005[address]100[place], [place] [address]- 8112 Mar, [facility] [address]005[address]100[place], [place] [address]- 7764 Mar, [facility] [address]005[address]100[place], [place] [address]- 0527 Mar, [facility] [address]005[address]100[place], [place] [address]67[address]- 8250 Mar, [facility] [employer] [address] [place] [id number] Mar, Acute blood loss anemia D62 and Type 2 diabetes mellitus without complication, without long-term current use of insulin E11.9 [facility] [address]100[place]- 0673 Feb, [facility] [address]100[place], [place] [address]- 3941 Feb, [facility] [address] [id number], [place] [address]- 7411 Feb, [facility] [address]100[place], [place] [address]- 4136 Feb, [facility] [address] [id number], [place] [address]- 6276 Feb, [facility] [address]100[place], [place] [address]- 6907 May, [facility] [address]100[place], [place] [address]- 0978 May, [facility] [address] [place] [address] 53355- 9759 Mar, [facility] [address]100[place], [place] [address]- 1704 June, [facility] [address]100[place], [place] [address]- 6481 June, [facility] [address] [id number], [place] [address]- 0433 June, [facility] [address]100[place], [place] [address]- 2924 May, IMMUNIZATIONS No Known Immunizations SOCIAL HISTORY Never Assessed REASON FOR VISIT Controlled Med Refill PLAN OF CARE VITAL SIGNS MEDICATIONS Medication Instructions Dosage Frequency Start Date End Date Duration Status MS Contin 15 mg Orally every 12 hrs in addition to 30mg 1 tablet Jan, 28 days Active MS Contin 30 mg Orally every 12 hrs 1 tablet 12h Jan, 28 days Active RESULTS No Results PROCEDURES [...] right hip replacement after fx Hospitalization History [facility] 03/2016 Hospitalization History [facility] [place] [facility]
--- OUTSIDE RECORDS SUMMARY | 2017-08-29 14:17 | XMS REPORT ---
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 Active 9469985130048 Problem Type 2 diabetes mellitus without complication, without long-term current use of insulin E11.9 Active 825147349 Problem Frequent falls R29.6 Active 700891026 Problem Vascular dementia without behavioral disturbance F01.50 Active 673328160 Problem Essential hypertension I10 Active 61553512 Problem Neuropathic pain M79.2 Active 458618053 Problem Other chronic pain G89.29 Active 37762038 Problem PVD (peripheral vascular disease) I73.9 Active 880242543 ALLERGIES No Information ENCOUNTERS Encounter Location Date Diagnosis [facility] [address], [place] [address] May, Other chronic pain G89.29 [facility] [address] [place] [address] May, Other chronic pain G89.29 ; Type 2 diabetes mellitus without complication, without long-term current use of insulin E11.9 and Vascular dementia without behavioral disturbance F01.50 [facility] [address], [place] [address] Apr, Other chronic pain G89.29 [facility] [id number] [address] Mar, Other chronic pain G89.29 [facility] [id number] [place] [address] [place] [id number] Feb, Other chronic pain G89.29 [facility] [address] [place] [address] Feb, Other chronic pain G89.29 and Vascular dementia without behavioral disturbance F01.50 [facility] [id number] [id number] Jan, Other chronic pain G89.29 [facility] [address] [id number] [address] Dec, Other chronic pain G89.29 [facility] [id number] [address] Nov, Weakness R53.1 and Frequent falls R29.6 [facility] [id number] [address] Nov, [facility] [address] [address] Nov, [facility] [id number], [place] [address] Nov, Other chronic pain G89.29 [facility] [address] [place] [address] Oct, Pneumonia of upper lobe due to infectious organism, unspecified laterality J18.1 ; Vascular dementia without behavioral disturbance F01.50 ; Type 2 diabetes mellitus without complication, without long-term current use of insulin E11.9 and Essential hypertension I10 [facility] [id number], [place] [id number] 15 Oct, 2016 Other chronic pain G89.29 [facility] [address] [id number], [place] [address] Oct, [facility] [address] [place] [address] Oct, [facility] [address] [place] [address] Sep, Pneumonia of right lung due to infectious organism, unspecified part of lung J18.9 ; Type 2 diabetes mellitus without complication, without long -term current use of insulin E11.9 ; Vascular dementia without behavioral disturbance F01.50 and Other chronic pain G89.29 [facility] [id number], [place] [address] Sep, [facility] [id number], [place] [address] Aug, [facility] [id number], [place] [address] Aug, [facility] [id number], [place] [address] Jul, [facility] [address] [place] [address] Jul, Type 2 diabetes mellitus without complication, without long-term current use of insulin E11.9 [facility] [address] [id number], [place] [address] Jul, [facility] [address] [id number], [place] [address] June, [facility] [address] [id number] [address] June, [facility] [address] [id number], [place] [address] May, [facility] [address] [place] [address] May, Encounter to establish care Z76.89 ; Neuropathic pain M79.2 ; Type 2 diabetes mellitus without complication, without long-term current use of insulin E11.9 ; Essential hypertension I10 ; 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 and PVD ( peripheral vascular disease) I73.9 [facility] [address] [place] [id number] [address] May, [facility] [employer] [address] [place] [id number] Apr, Neuropathic pain M79.2 and Reactive depression F32.9 [facility] [address] [id number], [place] [address] Apr, [facility] [address] [facility] [id number], [place] [address] Apr, [facility] [address] [facility] [id number], [place] [address] Apr, [facility] [address] [id number], [place] [address] Apr, [facility] [address] [facility] [id number], [place] [address] Mar, [facility] [address], [place] [address] Mar, [facility] [address], [place] [address] Mar, [facility] [address], [place] [address] Mar, [facility] [address] [id number], [place] [address] Mar, [facility] [address] [place] [id number] Mar, Acute blood loss anemia D62 and Type 2 diabetes mellitus without complication, without long-term current use of insulin E11.9 [facility] [address] [id number], [place] [address] Feb, [facility] [address] [id number], [place] [address] Feb, [facility] [address] [id number], [place] [address] Feb, [facility] [address] [id number], [place] [address] Feb, [facility] [address] [id number], [place] [address] Feb, [facility] [address] [facility] [id number] [place] [address] 14 May, 2014 [facility] [address] [id number], [place] [address] May, [facility] [address] [id number], [place] [address] Mar, [facility] [address] [id number], [place] [address] June, [facility] [address], [place] [address] June, [facility] [address] [id number], [place] [address] June, [facility] [address] [id number], [place] [address] May, IMMUNIZATIONS No Known Immunizations SOCIAL HISTORY Never Assessed REASON FOR VISIT Scripts for custodial PLAN OF CARE VITAL SIGNS MEDICATIONS Medication Instructions Dosage Frequency Start Date End Date Duration Status MS Contin 30 mg Orally every 12 hrs 1 tablet 12h 15 Oct, 2016 28 days Active MS Contin 15 mg Orally every 12 hrs in addition to 30mg 1 tablet Oct, 28 days Active RESULTS No Results PROCEDURES [...] right hip replacement after fx Hospitalization History [facility] 03/2016 Hospitalization History [facility] 04/2016
--- OUTSIDE RECORDS SUMMARY | 2017-08-29 14:18 | XMS REPORT ---
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 Name Role Phone FROILAN CORTEZ Unavailable PROBLEMS Type Condition ICD9-CM Code QNS47-IS Code Onset Dates Condition Status SNOMED Code Problem Reactive depression F32.9 Active 73305933 Problem Neuropathy G62.9 Active 265257207 Problem Coronary artery disease involving noorvik coronary artery of noorvik heart without angina pectoris I25.10 Active 2701995420852 Problem Type 2 diabetes mellitus without complication, without long-term current use of insulin E11.9 Active 812332193 Problem Frequent falls R29.6 Active 320891955 Problem Vascular dementia without behavioral disturbance F01.50 Active 348800421 Problem Essential hypertension I10 Active 02182204 Problem Neuropathic pain M79.2 Active 260327582 Problem Other chronic pain G89.29 Active 70718260 Problem PVD (peripheral vascular disease) I73.9 Active 994897103 ALLERGIES No Information ENCOUNTERS Encounter Location Date Diagnosis [facility] [address] [id number], [place] [address] May, Other chronic pain G89.29 [facility] [address] [place] [address] May, Other chronic pain G89.29 ; Type 2 diabetes mellitus without complication, without long-term current use of insulin E11.9 and Vascular dementia without behavioral disturbance F01.50 [facility] [address] [id number], [place] [address] Apr, Other chronic pain G89.29 [facility] [id number], [place] [address] Mar, Other chronic pain G89.29 [facility] [id number] [place] [id number] Feb, Other chronic pain G89.29 [employer] [address] [place] [address] Feb, Other chronic pain G89.29 and Vascular dementia without behavioral disturbance F01.50 [facility] [address] [id number], [place] [address] Jan, Other chronic pain G89.29 [facility] [id number], [place] [address] Dec, Other chronic pain G89.29 [facility] [address] [facility] [id number], [place] [address] Nov, Weakness R53.1 and Frequent falls R29.6 [facility] [id number], [place] [address] Nov, [facility] [id number] [address] Nov, [facility] [address] [id number], [place] [address] Nov, Other chronic pain G89.29 [facility] [address] [place] [address] Oct, Pneumonia of upper lobe due to infectious organism, unspecified laterality J18.1 ; Vascular dementia without behavioral disturbance F01.50 ; Type 2 diabetes mellitus without complication, without long-term current use of insulin E11.9 and Essential hypertension I10 [facility] [address] [id number], [place] [address] 15 Oct, 2016 Other chronic pain G89.29 [facility] [address] [facility] [id number], [place] [address] Oct, [facility] [address] [id number], [place] [address] Oct, [facility] [employer] [address] [place] [address] Sep, Pneumonia of right lung due to infectious organism, unspecified part of lung J18.9 ; Type 2 diabetes mellitus without complication, without long -term current use of insulin E11.9 ; Vascular dementia without behavioral disturbance F01.50 and Other chronic pain G89.29 [facility] [address] [id number], [place] [address] Sep, [facility] [address] [id number], [place] [address] Aug, [facility] [id number], [place] [id number] Aug, [facility] [id number], [place] [address] Jul, [facility] [employer] [address] [place] [address] Jul, Type 2 diabetes mellitus without complication, without long-term current use of insulin E11.9 [facility] [address] [facility] [id number], [place] [address] Jul, [facility] [address] [id number], [place] [address] June, [facility] [address] [id number], [place] [id number] June, [facility] [address] [facility] [id number], [place] [address] May, [facility] [employer] [address] [place] [address] May, Encounter to establish care Z76.89 ; Neuropathic pain M79.2 ; Type 2 diabetes mellitus without complication, without long-term current use of insulin E11.9 ; Essential hypertension I10 ; Coronary artery disease involving noorvik coronary artery of noorvik heart without angina pectoris I25.10 and PVD ( peripheral vascular disease) I73.9 [facility] [address] [id number][place] [id number] May, [facility] [address] [place] [id number] Apr, Neuropathic pain M79.2 and Reactive depression F32.9 [facility] [id number], [place] [id number] Apr, [facility] [address] [id number], [place] [address] Apr, [facility] [address]00565100[place], [place] [address] Apr, [facility] [address] [id number], [place] [id number] Apr, [facility] [address]00565[address], [place] [address] Mar, [facility] [id number] [place] [address] Mar, [facility] [id number] [place] [address] Mar, [facility] [id number] [place] [address] Mar, [facility] [address]00565[address], [place] [address] Mar, [facility] [address] [place] [id number] Mar, Acute blood loss anemia D62 and Type 2 diabetes mellitus without complication, without long-term current use of insulin E11.9 [facility] [address]005[address], [place] [address] Feb, [facility] [address], [place] [address] Feb, [facility] [address] [id number], [place] [address] Feb, [facility] [address], [place] [address] Feb, [facility] [address] [id number], [place] [address] Feb, [facility] [address] [id number], [place] [address] 14 May, 2014 [facility] [address] [facility] [id number], [place] [address] May, [facility] [address] [id number], [place] [address] Mar, [facility] [address] [id number], [place] [address] June, [facility] [address] [id number], [place] [address] June, [facility] [address] [id number], [place] [address] June, [facility] [address] [id number], [place] [address] May, IMMUNIZATIONS No Known Immunizations SOCIAL HISTORY Never Assessed REASON FOR VISIT MS Contin dose PLAN OF CARE VITAL SIGNS MEDICATIONS Medication Instructions Dosage Frequency Start Date End Date Duration Status MS Contin 15 mg Orally every 12 hrs in addition to 30mg 1 tablet Oct, 30 days Active RESULTS No Results PROCEDURES No [...] right hip replacement after fx Hospitalization History [facility] 03/2016 Hospitalization History [facility] 04/2016
--- NOTE | 2017-08-29 14:45 | Pulmonary Consultation ---
History of Present Illness History of Present Illness Date of Consultation 08/29/17 14:38 Time Seen by Provider: 14:38 Date of Admission History of Present Illness 77 yo patient presented via EMS from [place] secondary to aspiration/choking while eating salad. Upon ED admission he was diaphoretic and cyanotic. PT was requiring 100% high flow NRB and had inspiratory stridor. I was consulted for emergent bronchoscopy. CXR shows atelectasis. Upon my arrival pt was already improving however still SOB and requiring oxygen. While in the ED patient did cough up a chunk of food that appears to be lettuce. No known prior episodes like this. PT is sedate and unable to obtain full ROS. Allergies and Home Medications Allergies Coded Allergies: No Known Drug Allergies (Unverified , 10/09/16) Home Medications Cholecalciferol (Vitamin D3) 2,000 Unit Capsule, 2,000 UNIT PO DAILY, (Reported) Citalopram Hydrobromide 20 Mg Tablet, 20 MG PO DAILY, (Reported) Cyanocobalamin (Vitamin B-12) 1,000 Mcg Tablet, 1,000 MCG PO DAILY, (Reported) Duloxetine HCl 30 Mg Capsule.dr, 30 MG PO TID, (Reported) Fenofibrate 160 Mg Tablet, 160 MG PO DAILY, (Reported) Furosemide 20 Mg Tablet, 20 MG PO EVERY OTHER DAY, (Reported) Levetiracetam 500 Mg Tablet, 500 MG PO BID Prescribed by: NOÉ LANDA on 10/29/16 1120 Levofloxacin 750 Mg Tablet, 750 MG PO HS Prescribed by: NOÉ LANDA on 10/29/16 1120 Linaclotide 145 Mcg Capsule, 145 MCG PO DAILY, (Reported) Melatonin 3 Mg Tablet, 3 MG PO HS, (Reported) Morphine Sulfate 15 Mg Tablet.er, 15 MG PO BID, (Reported) Morphine Sulfate 30 Mg Tablet.er, 30 MG PO BID, (Reported) Polyethylene Glycol 3350 119 Gm Powder, 17 GM PO DAILY Prescribed by: GABE MAS on 05/14/172105 Rivastigmine 4.6 Mg Patch, 4.6 MG TD DAILY, (Reported) Past Toqkrrp-Mfycdr-Mrqtyb Hx Patient Social History Alcohol Use: Denies Use Recreational Drug Use: No Type Used: Cigarettes Former Smoker, Quit: Feb 14, 2003 Recent Foreign Travel: No Contact w/Someone Who Travel: No Recent Infectious Disease Expo: No Recent Hopitalizations: No Immunizations Up To Date Tetanus Booster (TDap): Unknown Date of Pneumonia Vaccine: Jun 07, 2011 Date of Influenza Vaccine: Nov 15, 2015 Seasonal Allergies Seasonal Allergies: No Past Medical History Surgeries: Yes Coronary Stent, Gallbladder, Orthopedic, Vascular Surgery Respiratory: Yes Pneumonia Cardiac: Yes (Heart failure) Coronary Artery Disease, Hypertension, Peripheral Vascular Neurological: Yes Dementia, Seizure Disorder Reproductive Disorders: No Sexually Transmitted Disease: No Genitourinary: Yes Prostate Problems, UTI-Chronic Gastrointestinal: No Musculoskeletal: Yes Arthritis Endocrine: Yes Diabetes, Non-Insulin dep HEENT: No Cancer: No Did You Recieve Any Treatments: No Psychosocial: Yes Sleep Difficulties, Depression Integumentary: No Blood Disorders: No Adverse Reaction/Blood Tranf: No Family Medical History Colon cancer G8 BROTHER, Onset:55 FHx: brain tumor G8 SISTER No Pertinent Family Hx, Cancer, Diabetes Review of Systems Time Seen by Provider: 14:42 Sepsis Event Evaluation Height, Weight, BMI Height: 6'0.00" Weight: 190lbs. 12.8oz. 86.837709ez; 25.9 BMI Method:Stated Exam Exam Vital Signs Date Time Temp Pulse Resp B/P (MAP) Pulse Ox O2 Delivery O2 Flow Rate FiO2 08/29/17 12:39 99 Nasal Cannula 2.00 08/29/17 12:32 98.0 96 18 159/85 (109) Height & Weight Height: 6'0.00" Weight: 190lbs. 12.8oz. 86.207681bc; 25.9 BMI Method:Stated General Appearance: Moderate Distress, Obese HEENT: Normal ENT Inspection, Pharynx Normal Neck: Full Range of Motion, Non Tender, Supple Respiratory: No Accessory Muscle Use, No Respiratory Distress, Decreased Breath Sounds Cardiovascular: Regular Rate, Rhythm, No Edema Capillary Refill: Less Than 3 Seconds Gastrointestinal: normal bowel sounds, non tender Extremity: Normal Capillary Refill, Normal Inspection Neurologic/Psychiatric: Alert, Oriented x3 Skin: Normal Color, Warm/Dry Lymphatic: No Adenopathy Results Lab Laboratory Tests 08/29/17 12:36 Assessment/Plan Assessment/Plan Acute respiratory distress secondary to aspiration -Will do emergent bronchoscopy for airway evaluation -Oxygen -SVN treatments. PT is now post bronchoscopy and appears to be doing much better c/w time of admission. Will obtain stat CXR post bronch if no PTX and patient continues to improve clinically he is ok for discharge from my standpoint. JOSE LUIS HASTINGS DO Aug 29, 2017 14:45
--- NOTE | 2017-08-29 14:48 | Pulmonary Procedures ---
Pulmonary Procedures Date of Procedure Date of Service: Aug 29, 2017 Bronch Bronchoscopy with transbronchial washes Preop DX aspiration Postop DX: same . No foreign bodies identified on bronchoscopy. Complications: none After informed consent obtained and formal time out pt was sedated using Fentanyl and Versed. Bronchoscope was advanced through the nare and vocal cords. 1% lidocaine was used to anesthetize vocal cords, epiglottis, yanely, and left/right main stem bronchus. An anatomical tour was undertaken down to the segmental bronchi bilaterally. No endobronchial lesions or foreign bodies noted. From the RML transbronchial washes. Pt tolerated procedure well. No complications noted. Stat CXR is pending. JOSE LUIS HASTINGS DO Aug 29, 2017 14:48
--- NOTE | 2017-08-29 14:51 | Diagnostic Imaging Report ---
INDICATION: Bronchoscopy. Comparison made with prior examination from 08/29/2017. FINDINGS: There is cardiomegaly. There is persistent right basilar infiltrate. There is no pleural effusion or pneumothorax. Mediastinum is unremarkable. IMPRESSION: Cardiomegaly and persistent right basilar infiltrate. Dictated by: Dictated on workstation # [id number]
[2017-08-29 15:15] VITALS: BP 159/85
== END 2017-08-29 15:15 | disposition home or self-care (01) ==
LOC: EDUNIT# 12:32 → ER 12:33
DX: T17.820A Food in other parts of respiratory tract causing asphyxiation, initial encounter (principal); R06.1 Stridor; I25.10 Atherosclerotic heart disease of native coronary artery without angina pectoris; I10 Essential (primary) hypertension; E11.51 Type 2 diabetes mellitus with diabetic peripheral angiopathy without gangrene; F03.90 Unspecified dementia, unspecified severity, without behavioral disturbance, psychotic disturbance, mood disturbance, and anxiety; G40.909 Epilepsy, unspecified, not intractable, without status epilepticus; F32.9 Major depressive disorder, single episode, unspecified; Z87.19 Personal history of other diseases of the digestive system; Z95.5 Presence of coronary angioplasty implant and graft
CPT/HCPCS: 36415; 71045; 80053; 85025; 87070; 87101; 87106; 87116; 87205; 94640; 96365

== ENCOUNTER 2017-12-13 09:47 | Emergency (ER) | payer MEDICARE, MEDICAID ==
[~2017-12-13] VITALS: Ht 182.9 cm; Wt 100.2 kg
[~2017-12-13 09:47] MED LIST changes: +METF-397 PO; -METF500T5 PO
--- OUTSIDE RECORDS SUMMARY | 2017-12-13 09:52 | XMS REPORT ---
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 Active 7870599297197 Problem Type 2 diabetes mellitus without complication, without long-term current use of insulin E11.9 Active 317150653 Problem Reactive depression F32.9 Active 99227332 Problem Seborrhea L21.9 Active 75080368 Problem Frequent falls R29.6 Active 281212210 Problem PVD (peripheral vascular disease) I73.9 Active 401793809 Problem Essential hypertension I10 Active 77183977 Problem Vascular dementia without behavioral disturbance F01.50 Active 563435302 Problem Other chronic pain G89.29 Active 34968838 ALLERGIES No Information ENCOUNTERS Encounter Location Date Diagnosis [facility] [address], [place] [address] Nov, [facility] [id number] [place] [address] 9300 Nov, Other chronic pain G89.29 [employer] [address] [place] [address] Oct, Seborrhea L21.9 [employer] [address] [place] [address] Oct, Seborrhea L21.9 [facility] [address] [place] [address] 88477- 9453 Oct, Other chronic pain G89.29 [facility] [id number] [place] [address] 8399 Sep, [facility] [address] [address] Sep, Dental examination Z01.20 [employer] [address] [place] [address] Sep, Type 2 diabetes mellitus without complication, without long-term current use of insulin E11.9 ; Vascular dementia without behavioral disturbance F01.50 ; Neuropathic pain M79.2 ; Weakness R53.1 ; 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 and PVD (peripheral vascular disease) I73.9 [facility] [id number] [place] [address] 4710 Sep, Other chronic pain G89.29 [facility] [id number] [place] [address]902- 9285 16 Aug, 2017 [facility] [id number] [place] [address]79- 8895 Aug, Other chronic pain G89.29 [facility] [id number] [place] [address] 85997- 7045 Jul, Other chronic pain G89.29 [facility] [id number] [place] [address] 91892- 2437 Jul, [facility] [id number] [place] [address] 67316- 9784 June, Other chronic pain G89.29 [facility] [address] [place] [address] 84603- 7488 May, Other chronic pain G89.29 [employer] [address] [place] [address] May, Other chronic pain G89.29 ; Type 2 diabetes mellitus without complication, without long-term current use of insulin E11.9 and Vascular dementia without behavioral disturbance F01.50 [facility] [id number] [place] [address] 63769- 5396 Apr, Other chronic pain G89.29 [facility] [address] [id number] [address] Mar, Other chronic pain G89.29 [facility] [id number] [id number] Feb, Other chronic pain G89.29 [facility] [address] [facility] [place] [address] Feb, Other chronic pain G89.29 and Vascular dementia without behavioral disturbance F01.50 [facility] [address] [id number] [id number] Jan, Other chronic pain G89.29 [facility] [id number] [id number] Dec, Other chronic pain G89.29 [facility] [address] [id number] [address] Nov, Weakness R53.1 and Frequent falls R29.6 [facility] [address] [id number] [id number] Nov, [facility] [address] [place] [id number]- 3970 Nov, [facility] [id number] [id number] Nov, Other chronic pain G89.29 [employer] [address] [place] [id number] Oct, Pneumonia of upper lobe due to infectious organism, unspecified laterality J18.1 ; Vascular dementia without behavioral disturbance F01.50 ; Type 2 diabetes mellitus without complication, without long-term current use of insulin E11.9 and Essential hypertension I10 [facility] [id number] [id number] 15 Oct, 2016 Other chronic pain G89.29 [facility] [address] [id number] [address] 12 Oct, 2016 [facility] [address] [facility] [id number], [place] [address] Oct, [employer] [address] [place] [address] Sep, Pneumonia of right lung due to infectious organism, unspecified part of lung J18.9 ; Type 2 diabetes mellitus without complication, without long -term current use of insulin E11.9 ; Vascular dementia without behavioral disturbance F01.50 and Other chronic pain G89.29 [facility] [id number] [address] Sep, [facility] [address] [id number] [address] Aug, [place] [facility] [id number] [address] Aug, [facility] [facility] [address] [id number] [address] Jul, [employer] [address] [place] [address] Jul, Type 2 diabetes mellitus without complication, without long-term current use of insulin E11.9 [facility] [address] [facility] [id number], [place] [address] Jul, [facility] [address] [id number] [address] June, [place] [facility] [address] [place] [id number] [address] June, [facility] [address] [facility] [id number], [place] [address] May, [employer] [address] [place] [address] May, Encounter to establish care Z76.89 ; Neuropathic pain M79.2 ; Type 2 diabetes mellitus without complication, without long-term current use of insulin E11.9 ; Essential hypertension I10 ; 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 and PVD ( peripheral vascular disease) I73.9 [facility] [id number] [id number] May, [employer] [address] [place] [id number] Apr, Neuropathic pain M79.2 and Reactive depression F32.9 [facility] [id number], [place] [address] Apr, [facility] [address]005[address]100[place], [place] [address] Apr, [facility] [address]005[address]100[place], [place] [address] Apr, [facility] [id number] [place] [id number] Apr, [facility] [address]005[address]100[place], [place] [address] 3[address] Mar, [facility] [address]100[place], [place] [address] 76[address] Mar, [facility] [address] [address] Mar, [facility] [address]100[place] [address] 2041 Mar, [facility] [address] [id number], [place] [address] Mar, [employer] [address] [place] [id number] Mar, Acute blood loss anemia D62 and Type 2 diabetes mellitus without complication, without long-term current use of insulin E11.9 [facility] [address]100[place], [place] [address] 3[address] Feb, [facility] [address], [place] [address] 4676 Feb, [facility] [address]100[place], [place] [address] 0826 Feb, [facility] [address] [id number], [place] [address] 1121 Feb, [facility] [address] [id number], [place] [address] 7[address] Feb, [facility] [address] [id number], [place] [address] 1691 May, [facility] [address], [place] [address] 8133 May, [facility] [address], [place] [address] 3212 Mar, [facility] [address], [place] [address] 4[address] June, [facility] [address]100[place], [place] [address] 3760 June, [facility] [address], [place] [address] 9740 June, [facility] [address] [id number], [place] [address] 8688 May, IMMUNIZATIONS No Known Immunizations SOCIAL HISTORY Never Assessed REASON FOR VISIT [facility] PLAN OF CARE VITAL SIGNS MEDICATIONS Unknown [...] right hip replacement after fx Hospitalization History [facility] 03/2016 Hospitalization History [facility] 04/2016
--- OUTSIDE RECORDS SUMMARY | 2017-12-13 09:53 | XMS REPORT ---
Author Author FROILAN CORTEZ [facility] Address [address] [place] [address] Care Team Providers Care Com Writer Name Role Phone FROILAN CORTEZ Unavailable PROBLEMS Type Condition ICD9-CM Code DQP65-WL Code Onset Dates Condition Status SNOMED Code Problem Neuropathy G62.9 Active 584596104 Problem Neuropathic pain M79.2 Active 825340856 Problem Coronary artery disease involving kobuk coronary artery of kobuk heart without angina pectoris I25.10 Active 6740459036784 Problem Type 2 diabetes mellitus without complication, without long-term current use of insulin E11.9 Active 876131171 Problem Reactive depression F32.9 Active 66011679 Problem Seborrhea L21.9 Active 48491286 Problem Frequent falls R29.6 Active 777173699 Problem PVD (peripheral vascular disease) I73.9 Active 160605795 Problem Essential hypertension I10 Active 90313237 Problem Vascular dementia without behavioral disturbance F01.50 Active 952443163 Problem Other chronic pain G89.29 Active 64347658 ALLERGIES No Information ENCOUNTERS Encounter Location Date Diagnosis [facility] [address] [place] [address] Oct, Seborrhea L21.9 [employer] [address] [place] [address] Oct, Seborrhea L21.9 [facility] [address]005[address]100[place], [place] [address] 8[address] Oct, Other chronic pain G89.29 [facility] [address] [facility] [id number], [place] [address]- 8158 Sep, [facility] [address] [facility] [id number] [id number] Sep, Dental examination Z01.20 [facility] [address] [place] [address] Sep, Type 2 diabetes mellitus without complication, without long-term current use of insulin E11.9 ; Vascular dementia without behavioral disturbance F01.50 ; Neuropathic pain M79.2 ; Weakness R53.1 ; Coronary artery disease involving kobuk coronary artery of kobuk heart without angina pectoris I25.10 and PVD (peripheral vascular disease) I73.9 [place] [facility] [id number] [place] [address]64[address]- 1865 Sep, Other chronic pain G89.29 [facility] [id number] [place] [address] 26746- 3613 16 Aug, 2017 [facility] [address] [address] Aug, Other chronic pain G89.29 [facility] [id number] [place] [address] 29767- 6806 13 Jul, 2017 Other chronic pain G89.29 [facility] [id number] [place] [address] 73294- 4418 Jul, [facility] [id number] [place] [address] 80419- 9910 June, Other chronic pain G89.29 [facility] [id number] [place] [address] 35697- 3913 May, Other chronic pain G89.29 [facility] [address] [place] [address] May, Other chronic pain G89.29 ; Type 2 diabetes mellitus without complication, without long-term current use of insulin E11.9 and Vascular dementia without behavioral disturbance F01.50 [facility] [id number] [place] [address] 21452- 5950 Apr, Other chronic pain G89.29 [facility] [id number] [place] [id number] Mar, Other chronic pain G89.29 [facility] [address] [id number] Feb, Other chronic pain G89.29 [facility] [address] [place] [address] Feb, Other chronic pain G89.29 and Vascular dementia without behavioral disturbance F01.50 [facility] [id number], [place] [address] Jan, Other chronic pain G89.29 [facility] [id number], [place] [address] Dec, Other chronic pain G89.29 [facility] [address] [id number] [address] 9528 Nov, Weakness R53.1 and Frequent falls R29.6 [facility] [id number], [place] [address] Nov, [facility] [address] [address]- 9[address] Nov, [facility] [id number], [place] [address] Nov, Other chronic pain G89.29 [facility] [address] [place] [id number] Oct, Pneumonia of upper lobe due to infectious organism, unspecified laterality J18.1 ; Vascular dementia without behavioral disturbance F01.50 ; Type 2 diabetes mellitus without complication, without long-term current use of insulin E11.9 and Essential hypertension I10 [facility] [address] [id number] [address] 15 Oct, 2016 Other chronic pain G89.29 [facility] [address] [id number], [place] [address] 6[address] Oct, [facility] [address] [place] [address] 69007598- 3167 Oct, [facility] [address] [place] [address] Sep, Pneumonia of right lung due to infectious organism, unspecified part of lung J18.9 ; Type 2 diabetes mellitus without complication, without long -term current use of insulin E11.9 ; Vascular dementia without behavioral disturbance F01.50 and Other chronic pain G89.29 [facility] [address] [id number], [place] [address] Sep, [facility] [address] [id number], [place] [id number] Aug, [facility] [id number], [place] [address] Aug, [facility] [address] [id number], [place] [address] Jul, [facility] [address] [place] [address] Jul, Type 2 diabetes mellitus without complication, without long-term current use of insulin E11.9 [facility] [address] [facility] [id number], [place] [address]- 2031 Jul, [facility] [address] [id number], [place] [id number] June, [facility] [address] [id number], [place] [id number] June, [facility] [address] [facility] [id number], [place] [address] 2546 May, [facility] [address] [place] [address] May, Encounter to establish care Z76.89 ; Neuropathic pain M79.2 ; Type 2 diabetes mellitus without complication, without long-term current use of insulin E11.9 ; Essential hypertension I10 ; Coronary artery disease involving kobuk coronary artery of kobuk heart without angina pectoris I25.10 and PVD ( peripheral vascular disease) I73.9 [facility] [address] [id number] [id number] May, [facility] [employer] [place] [facility] [address] [place] [id number] Apr, Neuropathic pain M79.2 and Reactive depression F32.9 [facility] [address] [id number], [place] [id number] Apr, [facility] [address] [facility] [id number][place] [address]- 6986 Apr, [facility] [address] [facility] [id number], [place] [address]- 8226 Apr, [facility] [address] [id number], [place] [id number] Apr, [facility] [address] [facility] [id number][place] [address]- 3616 Mar, [facility] [address] [id number], [place] [address]- 1629 Mar, [facility] [address] [id number], [place] [address]- 8446 Mar, [facility] [address], [place] [address]- 8597 Mar, [facility] [address] [id number] [address]- 6502 Mar, [facility] [address] [facility] [address] [place] [id number] Mar, Acute blood loss anemia D62 and Type 2 diabetes mellitus without complication, without long-term current use of insulin E11.9 [facility] [address] [id number] [address]- 0946 Feb, [facility] [address] [id number] [address]- 2062 Feb, [facility] [address] [id number], [place] [address]- 0680 Feb, [facility] [address] [id number], [place] [address]- 7822 Feb, [facility] [address] [id number] [address]- 7898 Feb, [facility] [address] [facility] [id number][place] [address]- 4113 14 May, 2014 [facility] [address] [facility] [id number], [place] [address]- 3295 May, [facility] [address] [id number], [place] [address]- 7289 Mar, [facility] [address] [id number] [address]- 7444 June, [facility] [address] [id number] [address]- 6247 June, [facility] [address]100[place], [place] [address]- 1627 June, [facility] [address] [id number], [place] [address]- 2472 May, IMMUNIZATIONS No Known Immunizations SOCIAL HISTORY Never Assessed REASON FOR VISIT Controlled Med Refill PLAN OF CARE VITAL SIGNS MEDICATIONS Medication Instructions Dosage Frequency Start Date End Date Duration Status MS Contin 30 mg Orally every 12 hrs 1 tablet 12h Oct, 28 days Active RESULTS No Results [...] right hip replacement after fx Hospitalization History [facility] 03/2016 Hospitalization History [facility] 04/2016
--- OUTSIDE RECORDS SUMMARY | 2017-12-13 09:53 | XMS REPORT ---
Author Author FROILAN CORTEZ [facility] Address [address] [place] [address] Care Team Providers Care Railroad Firer Name Role Phone FROILAN CORTEZ Unavailable PROBLEMS ALLERGIES No Information ENCOUNTERS IMMUNIZATIONS No Known Immunizations SOCIAL HISTORY No smoking Hx information available REASON FOR VISIT PLAN OF CARE VITAL SIGNS MEDICATIONS RESULTS No Results PROCEDURES INSTRUCTIONS MEDICATIONS ADMINISTERED No Known Medications MEDICAL (GENERAL) HISTORY
--- OUTSIDE RECORDS SUMMARY | 2017-12-13 09:53 | XMS REPORT ---
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 Active 0199874706898 Problem Type 2 diabetes mellitus without complication, without long-term current use of insulin E11.9 Active 312118135 Problem Reactive depression F32.9 Active 69232776 Problem Seborrhea L21.9 Active 06978511 Problem Frequent falls R29.6 Active 748944711 Problem PVD (peripheral vascular disease) I73.9 Active 727024471 Problem Essential hypertension I10 Active 45428159 Problem Vascular dementia without behavioral disturbance F01.50 Active 370676575 Problem Other chronic pain G89.29 Active 26453265 ALLERGIES Substance Reaction Event Type Date Status No known Allergies Unknown Non Drug Allergy Sep, Active ENCOUNTERS Encounter Location Date Diagnosis [facility] [address] [place] [address] Oct, Seborrhea L21.9 [facility] [address] [place] [address]7835- 5070 04 Oct, 2017 Other chronic pain G89.29 [facility] [address] [place] [address] 53601- 9464 Sep, [facility] [id number] [place] [address] [id number] Sep, Dental examination Z01.20 [facility] [address] [place] [address] Sep, Type 2 diabetes mellitus without complication, without long-term current use of insulin E11.9 ; Vascular dementia without behavioral disturbance F01.50 ; Neuropathic pain M79.2 ; Weakness R53.1 ; Coronary artery disease involving [place] cour[place] oreilles coronary artery of [place] cour[place] oreilles heart without angina pectoris I25.10 and PVD (peripheral vascular disease) I73.9 [facility] [address] [address] Sep, Other chronic pain G89.29 [place] [facility] [id number] [place] [address] 27060- 1753 16 Aug, 2017 [facility] [id number] [place] [address] 45400- 7627 Aug, Other chronic pain G89.29 [place] [id number] [place] [address] 99472- 6055 Jul, Other chronic pain G89.29 [facility] [id number] [place] [address] 56855- 3341 Jul, [facility] [id number] [place] [address] 63773- 6087 June, Other chronic pain G89.29 [place] [facility] [id number] [place] [address] 49108- 3907 May, Other chronic pain G89.29 [facility] [address] [place] [address] May, Other chronic pain G89.29 ; Type 2 diabetes mellitus without complication, without long-term current use of insulin E11.9 and Vascular dementia without behavioral disturbance F01.50 [facility] [address] [place] [address] 28595- 3056 Apr, Other chronic pain G89.29 [facility] [id number] [place] [address] [id number] Mar, Other chronic pain G89.29 [place] [facility] [id number] [place] [address] [id number] Feb, Other chronic pain G89.29 [facility] [address] [place] [address] Feb, Other chronic pain G89.29 and Vascular dementia without behavioral disturbance F01.50 [facility] [id number] [place] [address] [id number] Jan, Other chronic pain G89.29 [facility] [id number] [place] [address] [id number] Dec, Other chronic pain G89.29 [facility] [id number] [place] [address] [id number]- 2670 Nov, Weakness R53.1 and Frequent falls R29.6 [facility] [id number] [place] [address] [id number] Nov, [facility] [address] [place] [address] [phone] 8363 Nov, [facility] [id number] [place] [address] [id number] Nov, Other chronic pain G89.29 [facility] [address] [place] [id number] Oct, Pneumonia of upper lobe due to infectious organism, unspecified laterality J18.1 ; Vascular dementia without behavioral disturbance F01.50 ; Type 2 diabetes mellitus without complication, without long-term current use of insulin E11.9 and Essential hypertension I10 [facility] [id number] [place] [address] [id number] 15 Oct, 2016 Other chronic pain G89.29 [facility] [address] [place] [address] 66955- 2357 Oct, [facility] [id number] [place] [address] 80829- 4728 Oct, [facility] [address] [place] [address] Sep, Pneumonia of right lung due to infectious organism, unspecified part of lung J18.9 ; Type 2 diabetes mellitus without complication, without long -term current use of insulin E11.9 ; Vascular dementia without behavioral disturbance F01.50 and Other chronic pain G89.29 [facility] [address] [id number] [id number] Sep, [facility] [address] [id number] [id number] Aug, [facility] [address] [id number] [id number] Aug, [facility] [address] [id number] [id number] Jul, [facility] [address] [place] [address] Jul, Type 2 diabetes mellitus without complication, without long-term current use of insulin E11.9 [facility] [address] [facility] [id number], [place] [address] Jul, [facility] [id number] [id number] June, [facility] [id number] [id number] June, [facility] [address] [facility] [id number] May, [facility] [address] [place] [address] May, Encounter to establish care Z76.89 ; Neuropathic pain M79.2 ; Type 2 diabetes mellitus without complication, without long-term current use of insulin E11.9 ; Essential hypertension I10 ; Coronary artery disease involving lac courte oreilles coronary artery of lac courte oreilles heart without angina pectoris I25.10 and PVD ( peripheral vascular disease) I73.9 [facility] [address] [id number] [id number] May, [facility] [address] [place] [id number] Apr, Neuropathic pain M79.2 and Reactive depression F32.9 [facility] [address] [id number] [id number] Apr, [facility] [address], [place] [address] 0[address] Apr, [facility] [address], [place] [address] 8[address] Apr, [facility] [id number] [place] [address] [id number] Apr, [facility] [address], [place] [address] 0846 Mar, [facility] [address] [place] [address] 63593- 3623 Mar, [facility] [address] [place] [address] 27764- 4620 Mar, [facility] [address] [place] [address] 21296- 9352 Mar, [facility] [address] [place] [address] 08779- 1717 Mar, [facility] [place] [address] [facility] [id number] Mar, Acute blood loss anemia D62 and Type 2 diabetes mellitus without complication, without long-term current use of insulin E11.9 [facility] [address], [place] [address] Feb, [facility] [address], [place] [address] 0982 Feb, [facility] [address], [place] [address]- 7263 Feb, [facility] [address], [place] [address]- 4887 Feb, [facility] [address], [place] [address]- 1004 Feb, [facility] [address] [id number], [place] [address]- 0527 May, [facility] [address] [id number] [address]- 6202 May, [facility] [address] [facility] [id number], [place] [address]- 9190 Mar, [facility] [address] [id number], [place] [address]- 4589 June, [facility] [address] [facility] [id number], [place] [address]- 5569 June, [facility] [address] [facility] [id number], [place] [address] 1588 June, [facility] [address] [facility] [id number], [place] [address] May, IMMUNIZATIONS No Known Immunizations SOCIAL HISTORY Never Assessed REASON FOR VISIT ADULT OUTREACH [facility] PLAN OF CARE Activity Details Follow Up prn Reason:recall VITAL SIGNS MEDICATIONS Medication Instructions Dosage Frequency Start Date End Date Duration Status Furosemide 20 MG TAKE 1 TABLET BY MOUTH EVERY 2 DAYS 30 Active Fenofibrate 160 MG TAKE 1 TABLET BY MOUTH DAILY 30 Active Linzess 145 MCG TAKE 1 CAPSULE BY MOUTH EVERY DAY 30 MINUTES PRIOR TO BREAKFAST ON EMPTY STOMACH-SWALLOW WHOLE 30 Active Keppra 500 mg Orally Twice a day 1 tablet 12h 30 days Active Exelon 4.6 MG/24HR APPLY 1 PATCH TO SKIN ONE TIME DAILY -REMOVE OLD PATCH WHEN APPLYING NEW ONE 30 Active Cymbalta 30 MG Orally 3 times a day 1 capsule 8h Active Melatonin 3 MG TAKE 1 TABLET BY MOUTH DAILY 30 Active Citalopram Hydrobromide 20 MG TAKE 1 TABLET BY MOUTH DAILY 30 Active MS Contin 30 mg Orally every 12 hrs 1 tablet 12h Sep, 28 days Active Polyethylene Glycol 3350 - STIR 1 CAPFUL (17G) IN 4-8 [place] UNTIL COMPLETELY DISSOLVED AND DRINK 31 Active Lasix 20 mg Orally every 2 days 1 tablet Active Duloxetine HCl 30 MG TAKE 1 CAPSULE BY MOUTH THREE TIMES DAILY 30 Active Vitamin B-12 1000 MCG TAKE 1 TABLET BY MOUTH DAILY 30 Active Vitamin D 2000 UNIT TAKE 1 TABLET BY MOUTH DAILY 30 Active RESULTS No Results PROCEDURES Procedure Date Ordered Result Body Site SCREENING OF A PATIENT Oct 04, 2017 Billing Notes on claim Oct 04, 2017 INSTRUCTIONS MEDICATIONS ADMINISTERED No Known Medications MEDICAL [...] right hip replacement after fx Hospitalization History [facility] 03/2016 Hospitalization History [facility] 04/2016
--- OUTSIDE RECORDS SUMMARY | 2017-12-13 09:53 | XMS REPORT ---
Author Author FROILAN CORTEZ 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 Name Role Phone FROILAN CORTEZ Unavailable PROBLEMS Type Condition ICD9-CM Code TEA15-WZ Code Onset Dates Condition Status SNOMED Code Problem Neuropathy G62.9 Active 658042966 Problem Neuropathic pain M79.2 Active 213361373 Problem Coronary artery disease involving grand traverse coronary artery of grand traverse heart without angina pectoris I25.10 Active 9524304763581 Problem Type 2 diabetes mellitus without complication, without long-term current use of insulin E11.9 Active 732208525 Problem Reactive depression F32.9 Active 10352790 Problem Seborrhea L21.9 Active 97724261 Problem Frequent falls R29.6 Active 721391356 Problem PVD (peripheral vascular disease) I73.9 Active 672319019 Problem Essential hypertension I10 Active 12211291 Problem Vascular dementia without behavioral disturbance F01.50 Active 749469691 Problem Other chronic pain G89.29 Active 39382230 ALLERGIES No Information ENCOUNTERS Encounter Location Date Diagnosis [facility] [address], [place] [address] Nov, [facility] [id number] [place] [address] 00912- 3825 Nov, Other chronic pain G89.29 [facility] [address] [place] [address] Oct, Seborrhea L21.9 [facility] [address] [place] [address] Oct, Seborrhea L21.9 [facility] [address] [place] [address] 42179- 4487 Oct, Other chronic pain G89.29 [facility] [id number] [place] [address] 62415- 5339 Sep, [facility] [address] [id number] Sep, Dental examination Z01.20 [facility] [address] [place] [address] Sep, Type 2 diabetes mellitus without complication, without long-term current use of insulin E11.9 ; Vascular dementia without behavioral disturbance F01.50 ; Neuropathic pain M79.2 ; Weakness R53.1 ; Coronary artery disease involving grand traverse coronary artery of grand traverse heart without angina pectoris I25.10 and PVD (peripheral vascular disease) I73.9 [place] [facility] [id number] [place] [address] 17948- 0067 Sep, Other chronic pain G89.29 [place] [facility] [id number] [place] [address] 41326- 0955 16 Aug, 2017 [facility] [id number] [place] [address] 20723- 1902 Aug, Other chronic pain G89.29 [place] [facility] [id number] [place] [address] 55380- 1925 Jul, Other chronic pain G89.29 [facility] [id number] [place] [address] 99161- 4978 Jul, [place] [facility] [id number] [place] [address] 28074- 7285 June, Other chronic pain G89.29 [facility] [address] [place] [address] 55959- 6140 May, Other chronic pain G89.29 [facility] [address] [place] [address] May, Other chronic pain G89.29 ; Type 2 diabetes mellitus without complication, without long-term current use of insulin E11.9 and Vascular dementia without behavioral disturbance F01.50 [place] [facility] [id number] [place] [address] 27796- 4166 Apr, Other chronic pain G89.29 [facility] [address] [id number] [id number] Mar, Other chronic pain G89.29 [facility] [id number] [id number] Feb, Other chronic pain G89.29 [facility] [address] [facility] [place] [address] Feb, Other chronic pain G89.29 and Vascular dementia without behavioral disturbance F01.50 [facility] [address] [id number] [id number] Jan, Other chronic pain G89.29 [facility] [address] [id number] [id number] Dec, Other chronic pain G89.29 [facility] [address] [id number] [address] 0013 Nov, Weakness R53.1 and Frequent falls R29.6 [facility] [address] [id number][place] [id number] Nov, [facility] [address] [place] [address] [id number]- 9273 Nov, [facility] [id number] [id number] Nov, Other chronic pain G89.29 [facility] [address] [place] [id number] Oct, Pneumonia of upper lobe due to infectious organism, unspecified laterality J18.1 ; Vascular dementia without behavioral disturbance F01.50 ; Type 2 diabetes mellitus without complication, without long-term current use of insulin E11.9 and Essential hypertension I10 [facility] [id number], [place] [id number] 15 Oct, 2016 Other chronic pain G89.29 [facility] [address] [id number] 7556 12 Oct, 2016 [facility] [address] [facility] [id number] [address] 2546 Oct, [facility] [address] [place] [address] Sep, Pneumonia of right lung due to infectious organism, unspecified part of lung J18.9 ; Type 2 diabetes mellitus without complication, without long -term current use of insulin E11.9 ; Vascular dementia without behavioral disturbance F01.50 and Other chronic pain G89.29 [facility] [id number], [place] [id number] Sep, [facility] [address] [id number] [id number] Aug, [place] [id number], [place] [id number] Aug, [place] [facility] [address] [id number] [id number] Jul, [facility] [address] [place] [address] Jul, Type 2 diabetes mellitus without complication, without long-term current use of insulin E11.9 [facility] [address] [facility] [place] [place] [id number], [place] [address]- 0296 Jul, [facility] [address] [id number], [place] [id number] June, [place] [facility] [address] [id number] [id number] June, [facility] [address] [facility] [place] [place] [id number], [place] [address]- 4781 May, [facility] [address] [place] [address] May, Encounter to establish care Z76.89 ; Neuropathic pain M79.2 ; Type 2 diabetes mellitus without complication, without long-term current use of insulin E11.9 ; Essential hypertension I10 ; Coronary artery disease involving grand traverse coronary artery of grand traverse heart without angina pectoris I25.10 and PVD ( peripheral vascular disease) I73.9 [facility] [id number] [id number] May, [facility] [address] [place] [id number] Apr, Neuropathic pain M79.2 and Reactive depression F32.9 [facility] [id number], [place] [id number] Apr, [facility] [address]005[address]100[place], [place] [address]- 6925 Apr, [facility] [address]100[place], [place] [address]- 3306 Apr, [facility] [id number] [place] [address] [id number] Apr, [facility] [address], [place] [address]- 5646 Mar, [facility] [address]100[place], [place] [address]- 3526 Mar, [facility] [address]100[place] [address] 9156 Mar, [facility] [address]100[place], [place] [address]- 2213 Mar, [facility] [address] [id number], [place] [address]- 0806 Mar, [facility] [address] [place] [id number] Mar, Acute blood loss anemia D62 and Type 2 diabetes mellitus without complication, without long-term current use of insulin E11.9 [facility] [address]100[place], [place] [address]- 9686 Feb, [facility] [address], [place] [address]- 7656 Feb, [facility] [address]100[place], [place] [address]- 3726 Feb, [facility] [address] [id number], [place] [address]- 6054 Feb, [facility] [address] [id number], [place] [address]- 0866 Feb, [facility] [address] [id number], [place] [address]- 9504 May, [facility] [address]100[place], [place] [address]- 7689 May, [facility] [address], [place] [address]- 0648 Mar, [facility] [address]100[place], [place] [address]- 6824 June, [facility] [address]100[place], [place] [address]- 3648 June, [facility] [address]100[place], [place] [address]- 0053 June, [facility] [address] [id number], [place] [address]- 7159 May, IMMUNIZATIONS No Known Immunizations SOCIAL HISTORY Never Assessed REASON FOR VISIT Controlled Med Refill PLAN OF CARE VITAL SIGNS MEDICATIONS Medication Instructions Dosage Frequency Start Date End Date Duration Status MS Contin 30 mg Orally every 12 hrs 1 tablet 12h Nov, 28 days Active RESULTS No Results PROCEDURES [...] replacement after fx [facility]2016 Hospitalization History [facility] 04/2016
--- OUTSIDE RECORDS SUMMARY | 2017-12-13 09:53 | XMS REPORT ---
Author Author MIKE ROGERS [facility] Address [address] [place] [address] Care Team Providers Care Beck Operator Name Role Phone MIKE ROGERS Unavailable PROBLEMS Type Condition ICD9-CM Code [id number] Code Onset Dates Condition Status SNOMED Code Problem Neuropathy G62.9 Active 433824509 Problem Neuropathic pain M79.2 Active 581813338 Problem Coronary artery disease involving [place] coronary artery of [place] heart without angina pectoris I25.10 Active 8050381525533 Problem Type 2 diabetes mellitus without complication, without long-term current use of insulin E11.9 Active 391861644 Problem Reactive depression F32.9 Active 10725566 Problem Seborrhea L21.9 Active 25009614 Problem Frequent falls R29.6 Active 659544433 Problem PVD (peripheral vascular disease) I73.9 Active 711070980 Problem Essential hypertension I10 Active 17184726 Problem Vascular dementia without behavioral disturbance F01.50 Active 021343178 Problem Other chronic pain G89.29 Active 31915150 ALLERGIES No Information ENCOUNTERS Encounter Location Date Diagnosis [facility] [id number] [place] [address] 47454- 0602 Nov, Other chronic pain G89.29 [employer] [address] [place] [address] Oct, Seborrhea L21.9 [employer] [address] [place] [address] Oct, Seborrhea L21.9 [facility] [id number] [place] [address] 30991- 8652 Oct, Other chronic pain G89.29 [facility] [address] [place] [address] 88769- 8896 Sep, [facility] [id number] [address] Sep, Dental examination Z01.20 [facility] [address] [place] [address] 14 Sep, 2017 Type 2 diabetes mellitus without complication, without long-term current use of insulin E11.9 ; Vascular dementia without behavioral disturbance F01.50 ; Neuropathic pain M79.2 ; Weakness R53.1 ; Coronary artery disease involving [place] coronary artery of [place] heart without angina pectoris I25.10 and PVD (peripheral vascular disease) I73.9 [facility] [id number] [place] [address] 31035- 8227 Sep, Other chronic pain G89.29 [facility] [id number] [place] [address] 13798- 0572 Aug, [facility] [id number] [place] [address] 81252- 8382 Aug, Other chronic pain G89.29 [facility] [id number] [place] [address] 51979- 9128 Jul, Other chronic pain G89.29 [facility] [id number] [place] [address] 04159- 1175 Jul, [facility] [id number] [place] [address] 96348- 1946 June, Other chronic pain G89.29 [facility] [id number] [place] [address] 30104- 9894 May, Other chronic pain G89.29 [facility] [address] [place] [address] 17 May, 2017 Other chronic pain G89.29 ; Type 2 diabetes mellitus without complication, without long-term current use of insulin E11.9 and Vascular dementia without behavioral disturbance F01.50 [facility] [address] [place] [address] 96358- 2546 Apr, Other chronic pain G89.29 [facility] [place] [address] [id number] Mar, Other chronic pain G89.29 [facility] [place] [id number] [address] Feb, Other chronic pain G89.29 [facility] [address] [place] [address] Feb, Other chronic pain G89.29 and Vascular dementia without behavioral disturbance F01.50 [facility] [place] [id number] [place] [address] [id number] Jan, Other chronic pain G89.29 [facility] [place] [id number] [id number] Dec, Other chronic pain G89.29 [facility] [address] [address] Nov, Weakness R53.1 and Frequent falls R29.6 [facility] [place] [id number] [place] [address] [id number] Nov, [facility] [address] [id number] [address] 8449 Nov, [facility] [place] [id number] [place] [address] [id number] Nov, Other chronic pain G89.29 [employer] [address] [place] [id number] Oct, Pneumonia of upper lobe due to infectious organism, unspecified laterality J18.1 ; Vascular dementia without behavioral disturbance F01.50 ; Type 2 diabetes mellitus without complication, without long-term current use of insulin E11.9 and Essential hypertension I10 [facility] [place] [id number][place] [id number] 15 Oct, 2016 Other chronic pain G89.29 [facility] [address] [id number], [place] [address] 3[address] Oct, [facility] [address] [id number] [address] 05 Oct, 2016 [facility] [address] [place] [address] Sep, Pneumonia of right lung due to infectious organism, unspecified part of lung J18.9 ; Type 2 diabetes mellitus without complication, without long -term current use of insulin E11.9 ; Vascular dementia without behavioral disturbance F01.50 and Other chronic pain G89.29 [facility] [place] [id number], [place] [id number] Sep, [facility] [place] [id number][place] [id number] Aug, [facility] [place] [id number], [place] [address] Aug, [facility] [place] [id number] [id number] Jul, [facility] [address] [place] [address] Jul, Type 2 diabetes mellitus without complication, without long-term current use of insulin E11.9 [facility] [address] [id number], [place] [address] 2546 Jul, [facility] [place] [id number], [place] [address] June, [facility] [place] [id number], [place] [id number] June, [facility] [address] [id number], [place] [address] 35[address] May, [facility] [address] [place] [address] May, Encounter to establish care Z76.89 ; Neuropathic pain M79.2 ; Type 2 diabetes mellitus without complication, without long-term current use of insulin E11.9 ; Essential hypertension I10 ; Coronary artery disease involving [place] coronary artery of [place] heart without angina pectoris I25.10 and PVD ( peripheral vascular disease) I73.9 [facility] [place] [address] [id number] [id number] May, [facility] [address] [place] [id number] Apr, Neuropathic pain M79.2 and Reactive depression F32.9 [facility] [id number] [place] [id number] Apr, [facility] [address]00565100[place], [place] [address] 1173 Apr, [facility] [address], [place] [address] 1090 Apr, [facility] [id number] [place] [address] [id number] Apr, [facility] [address] [place] [address] 95739- 2487 Mar, [facility] [id number], [place] [address] 5742 Mar, [facility] [address] [place] [address] 11672- 3136 Mar, [facility] [address]00565100[place], [place] [address] 0727 Mar, [facility] [address], [place] [address] 88[address] Mar, Via [facility] [address] [place] [id number] Mar, Acute blood loss anemia D62 and Type 2 diabetes mellitus without complication, without long-term current use of insulin E11.9 [facility] [address]65100[place], [place] [address]- 9945 Feb, [facility] [address]100[place] [address] Feb, [facility] [address]100[place] [address]- 1309 Feb, [facility] [address]65100[place], [place] [address]- 4300 Feb, [facility] [address] [id number], [place] [address]- 8433 Feb, [facility] [address] [id number], [place] [address]- 4164 May, [facility] [address]100[place], [place] [address]- 9408 May, [facility] [address], [place] [address]- 9772 Mar, [facility] [address], [place] [address]- 4294 June, [facility] [address]65100[place], [place] [address]- 5205 June, [facility] [address], [place] [address]- 30[address] June, [facility] [address], [place] [address]- 0904 May, IMMUNIZATIONS No Known Immunizations SOCIAL HISTORY Never Assessed REASON FOR VISIT Rash PLAN OF CARE Activity Details Follow Up prn Reason: VITAL SIGNS MEDICATIONS Medication Instructions Dosage Frequency Start Date End Date Duration Status Lancets - test blood sugar Sep, Active Citalopram Hydrobromide 20 MG TAKE 1 TABLET BY MOUTH DAILY 30 Active Vitamin B-12 1000 MCG TAKE 1 TABLET BY MOUTH DAILY 30 Active MS Contin 30 mg Orally every 12 hrs 1 tablet 12h Oct, 28 days Active Blood Glucose Monitor Software - test blood sugar Sep, Active Vitamin D 2000 UNIT TAKE 1 TABLET BY MOUTH DAILY 30 Active Exelon 4.6 MG/24HR APPLY 1 PATCH TO SKIN ONE TIME DAILY -REMOVE OLD PATCH WHEN APPLYING NEW ONE 30 Active Duloxetine HCl 30 MG TAKE 1 CAPSULE BY MOUTH THREE TIMES DAILY 30 Active Fenofibrate 160 MG TAKE 1 TABLET BY MOUTH DAILY 30 Active Docusate Sodium 100 MG TAKE 1 CAPSULE BY MOUTH TWICE DAILY FOR CONSTIPATION 30 Active Lasix 20 mg Orally every 2 days 1 tablet Active Cymbalta 30 MG Orally 3 times a day 1 capsule 8h Active Polyethylene Glycol 3350 - STIR 1 CAPFUL (17G) IN 4-8 [place] UNTIL COMPLETELY DISSOLVED AND DRINK 31 Active Furosemide 20 MG TAKE 1 TABLET BY MOUTH EVERY 2 DAYS 30 Active Exelon 4.6 MG/24HR APPLY 1 PATCH TO SKIN ONE TIME DAILY -REMOVE OLD PATCH WHEN APPLYING NEW ONE 30 Active Linzess 145 MCG TAKE 1 CAPSULE BY MOUTH DAILY 30 MINUTES PRIOR TO BREAKFAST ON EMPTY STOMACHE, SWALLOW WHOLE 30 Active Keppra 500 mg Orally Twice a day 1 tablet 12h 30 days Active Test strips test blood sugar Sep, Active Melatonin 3 MG TAKE 1 TABLET BY MOUTH DAILY 30 Active RESULTS No Results PROCEDURES Procedure Date Ordered Result Body Site HC VISIT ESTABLISHED PATIENT Nov 03, 2017 DOMICIL/R-HOME VISIT EST PAT Nov 03, 2017 INSTRUCTIONS MEDICATIONS ADMINISTERED No Known Medications [...] History [facility] 03/2016 Hospitalization History [facility] 04/2016
--- OUTSIDE RECORDS SUMMARY | 2017-12-13 09:54 | XMS REPORT ---
Author Author FROILAN CORTEZ [facility] Address [address] [place] [address] Care Team Providers Care Automotive Designer Name Role Phone FROILAN CORTEZ Unavailable PROBLEMS Type Condition ICD9-CM Code KWU05-SA Code Onset Dates Condition Status SNOMED Code Problem Neuropathy G62.9 Active 052119433 Problem Neuropathic pain M79.2 Active 231659520 Problem Coronary artery disease involving tribal coronary artery of tribal heart without angina pectoris I25.10 Active 9935114644929 Problem Type 2 diabetes mellitus without complication, without long-term current use of insulin E11.9 Active 692947871 Problem Reactive depression F32.9 Active 17737987 Problem Seborrhea L21.9 Active 81658368 Problem Frequent falls R29.6 Active 678292619 Problem PVD (peripheral vascular disease) I73.9 Active 903518323 Problem Essential hypertension I10 Active 24553397 Problem Vascular dementia without behavioral disturbance F01.50 Active 110322843 Problem Other chronic pain G89.29 Active 47447637 ALLERGIES No Information ENCOUNTERS Encounter Location Date Diagnosis [employer] [address] [place] [address] Oct, Seborrhea L21.9 [facility] [id number] [address] 6[address] 04 Oct, 2017 Other chronic pain G89.29 [facility] [address] [id number] [address] 6628 Sep, [facility] [id number] [place] [address] [id number] Sep, Dental examination Z01.20 [employer] [address] [place] [address] Sep, Type 2 diabetes mellitus without complication, without long-term current use of insulin E11.9 ; Vascular dementia without behavioral disturbance F01.50 ; Neuropathic pain M79.2 ; Weakness R53.1 ; Coronary artery disease involving tribal coronary artery of tribal heart without angina pectoris I25.10 and PVD (peripheral vascular disease) I73.9 [facility] [address] [address]- 7294 Sep, Other chronic pain G89.29 [facility] [id number] [place] [address] 71259- 8690 16 Aug, 2017 [facility] [id number] [place] [address] 46957- 8501 Aug, Other chronic pain G89.29 [facility] [id number] [place] [address] 52252- 4465 Jul, Other chronic pain G89.29 [facility] [id number] [place] [address] 23503- 3939 Jul, [facility] [id number] [place] [address] 50420- 3724 June, Other chronic pain G89.29 [facility] [id number] [place] [address] 29391- 3040 May, Other chronic pain G89.29 [employer] [address] [place] [address] May, Other chronic pain G89.29 ; Type 2 diabetes mellitus without complication, without long-term current use of insulin E11.9 and Vascular dementia without behavioral disturbance F01.50 [facility] [address] [place] [address] 78191- 5888 Apr, Other chronic pain G89.29 [facility] [id number] [place] [address] [id number] Mar, Other chronic pain G89.29 [facility] [id number] [place] [address] [id number] Feb, Other chronic pain G89.29 [facility] [address] [place] [address] Feb, Other chronic pain G89.29 and Vascular dementia without behavioral disturbance F01.50 [facility] [id number] [place] [address] [id number] Jan, Other chronic pain G89.29 [facility] [id number] [place] [address] [id number] Dec, Other chronic pain G89.29 [facility] [address] [place] [address] [phone]- 0318 Nov, Weakness R53.1 and Frequent falls R29.6 [facility] [id number] [place] [address] [id number] Nov, [facility] [address] [place] [address] [id number]- 9212 Nov, [place] [facility] [id number] [place] [address] [id number] Nov, Other chronic pain G89.29 [employer] [address] [place] [address] Oct, Pneumonia of upper lobe due to infectious organism, unspecified laterality J18.1 ; Vascular dementia without behavioral disturbance F01.50 ; Type 2 diabetes mellitus without complication, without long-term current use of insulin E11.9 and Essential hypertension I10 [facility] [id number] [place] [address] [id number] 15 Oct, 2016 Other chronic pain G89.29 [facility] [address] [place] [address] [phone]- 9295 Oct, [facility] [id number] [place] [address] 88325- 7346 05 Oct, 2016 [facility] [employer] [address] [place] [address] Sep, Pneumonia of right lung due to infectious organism, unspecified part of lung J18.9 ; Type 2 diabetes mellitus without complication, without long -term current use of insulin E11.9 ; Vascular dementia without behavioral disturbance F01.50 and Other chronic pain G89.29 [facility] [address] [id number] [place] [id number] Sep, [facility] [address] [id number] [place] [id number] Aug, [facility] [address] [id number] [place] [id number] Aug, [facility] [address] [id number] [place] [id number] Jul, [employer] [address] [place] [address] Jul, Type 2 diabetes mellitus without complication, without long-term current use of insulin E11.9 [facility] [address] [facility] [id number] [place] [address]- 5356 Jul, [facility] [address] [id number] [place] [id number] June, [facility] [address] 85318221F94864077IIEL [place] [id number] June, [facility] [address] [facility] [id number] [place] May, [employer] [address] [place] [address] May, Encounter to establish care Z76.89 ; Neuropathic pain M79.2 ; Type 2 diabetes mellitus without complication, without long-term current use of insulin E11.9 ; Essential hypertension I10 ; Coronary artery disease involving tribal coronary artery of tribal heart without angina pectoris I25.10 and PVD ( peripheral vascular disease) I73.9 [facility] [address] [id number] [place] [id number] May, Via [facility] [address] [place] [id number] Apr, Neuropathic pain M79.2 and Reactive depression F32.9 [facility] [address] [id number] [place] [id number] Apr, [facility] [address] [place] [address]- 7147 Apr, [facility] [address] [address]- 0213 Apr, [facility] [place] [facility] [address] [id number] [id number] Apr, [facility] [address] [address]- 6057 Mar, [facility] [address]100[address] [place] [address]- 8110 Mar, [facility] [address]65[address] [place] [address]- 5682 Mar, [facility] [address] [place] [address]- 5088 Mar, [facility] [address]65[address] [address]- 5414 Mar, [facility] [address] [place] [id number] Mar, Acute blood loss anemia D62 and Type 2 diabetes mellitus without complication, without long-term current use of insulin E11.9 [facility] [address] [place] [address]- 9008 Feb, [facility] [address]65[address] [address]- 5422 Feb, [facility] [address] [address]- 3515 Feb, [facility] [address]005[address] [address]- 3104 Feb, [facility] [address] [address]- 8421 Feb, [facility] [address] [id number] [address]- 1805 May, [facility] [address] [address]- 9226 May, [facility] [address] [facility] [id number] [place] [address]- 6427 Mar, [facility] [address] [id number] [address] 1929 June, [facility] [address] [id number] [address]- 2790 June, [facility] [address] [id number] [address]- 5025 June, [facility] [address] [id number] [address]- 8897 May, IMMUNIZATIONS No Known Immunizations SOCIAL HISTORY Never Assessed REASON FOR VISIT Diabetic supplies PLAN OF CARE VITAL SIGNS MEDICATIONS Medication Instructions Dosage Frequency Start Date End Date Duration Status Test strips test blood sugar Sep, Active Blood Glucose Monitor Software - test blood sugar Sep, Active Lancets - test blood sugar Sep, Active RESULTS No Results PROCEDURES No Known [...] right hip replacement after fx Hospitalization [facility] 03/2016 Hospitalization History [facility] 04/2016
--- OUTSIDE RECORDS SUMMARY | 2017-12-13 09:54 | XMS REPORT ---
Author Author FROILAN CORTEZ Organization [facility] Address [address] [place] [address] Care Team Providers Care Patternator Name Role Phone FROILAN CORTEZ Unavailable PROBLEMS Type Condition ICD9-CM Code FQB44-SA Code Onset Dates Condition Status SNOMED Code Problem Reactive depression F32.9 Active 26788279 Problem Neuropathy G62.9 Active 288929022 Problem Coronary artery disease involving la jolla coronary artery of la jolla heart without angina pectoris I25.10 Active 3965336325665 Problem Type 2 diabetes mellitus without complication, without long-term current use of insulin E11.9 Active 261742797 Problem Frequent falls R29.6 Active 451751024 Problem Vascular dementia without behavioral disturbance F01.50 Active 471680309 Problem Essential hypertension I10 Active 46045786 Problem Neuropathic pain M79.2 Active 474386833 Problem Other chronic pain G89.29 Active 75877511 Problem PVD (peripheral vascular disease) I73.9 Active 038833589 ALLERGIES No Information ENCOUNTERS Encounter Location Date Diagnosis [facility] [id number] [place] [address] 34803- 1173 Oct, Other chronic pain G89.29 [facility] [id number] [place] [address] 85652- 1814 Sep, [facility] [id number] [place] [address] [id number] Sep, Dental examination Z01.20 [facility] [address] [place] [address] Sep, Type 2 diabetes mellitus without complication, without long-term current use of insulin E11.9 ; Vascular dementia without behavioral disturbance F01.50 ; Neuropathic pain M79.2 ; Weakness R53.1 ; Coronary artery disease involving la jolla coronary artery of la jolla heart without angina pectoris I25.10 and PVD (peripheral vascular disease) I73.9 [facility] [address] [address] Sep, Other chronic pain G89.29 [facility] [address], [place] [address] 285[address] Aug, [facility] [address] [place] [address] 19992- 6841 Aug, Other chronic pain G89.29 [facility] [address] [place] [address] 78168- 1826 Jul, Other chronic pain G89.29 [facility] [id number] [place] [address] 78933- 9425 Jul, [facility] [id number] [place] [address] 91852- 9139 June, Other chronic pain G89.29 [facility] [id number] [place] [address] 38099- 4087 May, Other chronic pain G89.29 [facility] [address] [place] [address] May, Other chronic pain G89.29 ; Type 2 diabetes mellitus without complication, without long-term current use of insulin E11.9 and Vascular dementia without behavioral disturbance F01.50 [facility] [address], [place] [address] Apr, Other chronic pain G89.29 [facility] [id number] [address] Mar, Other chronic pain G89.29 [facility] [id number] [place] [address] [id number] Feb, Other chronic pain G89.29 [employer] [address] [place] [address] Feb, Other chronic pain G89.29 and Vascular dementia without behavioral disturbance F01.50 [facility] [id number] [id number] Jan, Other chronic pain G89.29 [facility] [id number] [place] [address] [id number] Dec, Other chronic pain G89.29 [facility] [address] [address] Nov, Weakness R53.1 and Frequent falls R29.6 [facility] [id number] [place] [address] [id number] Nov, [facility] [address] [place] [address] [id number]- 6483 Nov, [facility] [id number] [place] [address] [id number] Nov, Other chronic pain G89.29 [facility] [address] [place] [id number] Oct, Pneumonia of upper lobe due to infectious organism, unspecified laterality J18.1 ; Vascular dementia without behavioral disturbance F01.50 ; Type 2 diabetes mellitus without complication, without long-term current use of insulin E11.9 and Essential hypertension I10 [facility] [id number] [place] [address] [id number] Oct, Other chronic pain G89.29 [facility] [address], [place] [address] 04[address] Oct, [facility] [address], [place] [address] Oct, [facility] [employer] [address] [place] [address] Sep, Pneumonia of right lung due to infectious organism, unspecified part of lung J18.9 ; Type 2 diabetes mellitus without complication, without long -term current use of insulin E11.9 ; Vascular dementia without behavioral disturbance F01.50 and Other chronic pain G89.29 [facility] [id number], [place] [id number] Sep, [facility] [address] [id number] [id number] Aug, [facility] [address] [id number][place] [id number] Aug, [facility] [id number], [place] [id number] Jul, [facility] [address] [place] [address] Jul, Type 2 diabetes mellitus without complication, without long-term current use of insulin E11.9 [facility] [address] [facility] [id number], [place] [address] 25[address] Jul, [facility] [id number], [place] [id number] June, [facility] [id number] [address] June, [facility] [address] [id number], [place] [address] 2546 May, [employer] [address] [place] [address] May, Encounter to establish care Z76.89 ; Neuropathic pain M79.2 ; Type 2 diabetes mellitus without complication, without long-term current use of insulin E11.9 ; Essential hypertension I10 ; Coronary artery disease involving la jolla coronary artery of la jolla heart without angina pectoris I25.10 and PVD ( peripheral vascular disease) I73.9 [facility] [address] [id number] [id number] May, [employer] [place] [employer] [address] [place] [id number] Apr, Neuropathic pain M79.2 and Reactive depression F32.9 [facility] [address] [id number][place] [id number] Apr, [facility] [address] [id number], [place] [address] Apr, [facility] [address] [id number], [place] [address] 6[address] Apr, [facility] [place] [facility] [id number], [place] [id number] Apr, [facility] [address], [place] [address] 5831 Mar, [facility] [address], [place] [address] 3190 Mar, [facility] [id number] [place] [address] 02958- 9806 Mar, [facility] [address] [place] [address] 68718- 3643 Mar, [facility] [address] [place] [address] 90687- 3159 Mar, [facility] [address] [place] [id number] Mar, Acute blood loss anemia D62 and Type 2 diabetes mellitus without complication, without long-term current use of insulin E11.9 [facility] [address], [place] [address]- 4639 Feb, [facility] [address] [place] [address] 63978- 1741 Feb, [facility] [address], [place] [address]- 8928 Feb, [facility] [address], [place] [address]- 4544 Feb, [facility] [address] [id number], [place] [address]- 2973 Feb, [facility] [address] [address] 6519 May, [facility] [address], [place] [address]- 7428 May, [facility] [address]005[address], [place] [address]- 5805 Mar, [facility] [address] [facility] [id number] [place] [address]- 8191 June, [facility] [address] [facility] [id number], [place] [address]- 6126 June, [facility] [address] [facility] [id number] [place] [address]- 9672 June, [facility] [address] [facility] [id number], [place] [address]- 3492 May, IMMUNIZATIONS No Known Immunizations SOCIAL HISTORY Never Assessed REASON FOR VISIT choked/aspiration PLAN OF CARE VITAL SIGNS MEDICATIONS Unknown [...] right hip replacement after fx Hospital[facility]2016 Hospitalization History [facility] 04/2016
--- OUTSIDE RECORDS SUMMARY | 2017-12-13 09:54 | XMS REPORT ---
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 Active 4541087498938 Problem Type 2 diabetes mellitus without complication, without long-term current use of insulin E11.9 Active 945103202 Problem Frequent falls R29.6 Active 403450825 Problem Vascular dementia without behavioral disturbance F01.50 Active 765555630 Problem Essential hypertension I10 Active 99442972 Problem Neuropathic pain M79.2 Active 854410931 Problem Other chronic pain G89.29 Active 18107046 Problem PVD (peripheral vascular disease) I73.9 Active 659810326 ALLERGIES No Information ENCOUNTERS Encounter Location Date Diagnosis [facility] [address] [place] [address] 03327- 4569 Oct, Other chronic pain G89.29 [facility] [id number] [place] [address] 91199- 3469 Sep, [facility] [id number] [place] [address] [id number] Sep, Dental examination Z01.[address] [address] [place] [address] Sep, Type 2 diabetes mellitus without complication, without long-term current use of insulin E11.9 ; Vascular dementia without behavioral disturbance F01.50 ; Neuropathic pain M79.2 ; Weakness R53.1 ; Coronary artery disease involving togi[place] coronary artery of togiak heart without angina pectoris I25.10 and PVD (peripheral vascular disease) I73.9 [facility] [address]100[place] [address]- 4393 Sep, Other chronic pain G89.29 [facility] [address]00565100[place], [place] [address]- 2598 Aug, [facility] [address] [place] [address] 77135- 2411 Aug, Other chronic pain G89.29 [facility] [address] [place] [address] 66700- 9767 Jul, Other chronic pain G89.29 [facility] [id number] [place] [address] 00806- 6261 Jul, [facility] [id number] [place] [address] 65669- 1163 June, Other chronic pain G89.29 [facility] [id number] [place] [address] 54194- 3164 May, Other chronic pain G89.29 [employer] [address] [place] [address] May, Other chronic pain G89.29 ; Type 2 diabetes mellitus without complication, without long-term current use of insulin E11.9 and Vascular dementia without behavioral disturbance F01.50 [facility] [address], [place] [address]- 2558 Apr, Other chronic pain G89.29 [facility] [id number] [address] Mar, Other chronic pain G89.29 [facility] [id number] [place] [address] [id number] Feb, Other chronic pain G89.29 [employer] [address] [place] [address] Feb, Other chronic pain G89.29 and Vascular dementia without behavioral disturbance F01.50 [facility] [address] [id number] [address] Jan, Other chronic pain G89.29 [facility] [id number] [place] [address] [id number] Dec, Other chronic pain G89.29 [facility] [address] [address]498 Nov, Weakness R53.1 and Frequent falls R29.6 [facility] [id number] [place] [address] [id number] Nov, [facility] [address] [place] [address] 81294194- 0711 Nov, [facility] [id number] [place] [address] [id number] Nov, Other chronic pain G89.29 [employer] [address] [place] [id number] Oct, Pneumonia of upper lobe due to infectious organism, unspecified laterality J18.1 ; Vascular dementia without behavioral disturbance F01.50 ; Type 2 diabetes mellitus without complication, without long-term current use of insulin E11.9 and Essential hypertension I10 [facility] [id number] [place] [address] [id number] Oct, Other chronic pain G89.29 [facility] [address]100[place], [place] [address]- 0509 Oct, [facility] [address]100[place], [place] [address]- 3786 Oct, [facility] [employer] [address] [place] [address] Sep, Pneumonia of right lung due to infectious organism, unspecified part of lung J18.9 ; Type 2 diabetes mellitus without complication, without long -term current use of insulin E11.9 ; Vascular dementia without behavioral disturbance F01.50 and Other chronic pain G89.29 [facility] [id number] [id number] Sep, [facility] [address] [id number] [id number] Aug, [facility] [address] [id number] [id number] Aug, [facility] [id number], [place] [id number] Jul, [employer] [address] [place] [address] Jul, Type 2 diabetes mellitus without complication, without long-term current use of insulin E11.9 [facility] [address] [facility] [id number], [place] [address]- 2546 Jul, [facility] [id number], [place] [id number] June, [facility] [id number], [place] [address] June, [facility] [address] [id number], [place] [address] 2546 May, [employer] [address] [place] [address] May, Encounter to establish care Z76.89 ; Neuropathic pain M79.2 ; Type 2 diabetes mellitus without complication, without long-term current use of insulin E11.9 ; Essential hypertension I10 ; Coronary artery disease involving togiak coronary artery of [place]giak heart without angina pectoris I25.10 and PVD ( peripheral vascular disease) I73.9 [facility] [address] [id number] [id number] May, [facility] [employer] [address] [place] [id number] Apr, Neuropathic pain M79.2 and Reactive depression F32.9 [facility] [address] [id number], [place] [id number] Apr, [facility] [address] [id number], [place] [address]- 7666 Apr, [facility] [address] [id number], [place] [address]- 9666 Apr, [facility] [place] [facility] [id number], [place] [id number] Apr, [facility] [address]100[place], [place] [address]- 8021 Mar, [facility] [address]65100[place], [place] [address]- 4876 Mar, [facility] [id number] [place] [address] 56779- 9364 Mar, [facility] [address] [place] [address] 28799- 9371 Mar, [facility] [address] [place] [address] 83304- 9282 Mar, [facility] [address] [place] [id number] Mar, Acute blood loss anemia D62 and Type 2 diabetes mellitus without complication, without long-term current use of insulin E11.9 [facility] [address], [place] [address]- 9408 Feb, [facility] [address] [place] [address] 65657- 4388 Feb, [facility] [address]65100[place], [place] [address]- 8230 Feb, [facility] [address]100[place], [place] [address]- 4984 Feb, [facility] [address] [id number], [place] [address]- 7754 Feb, [facility] [address]100[place] [address]- 9259 May, [facility] [address], [place] [address]- 8794 May, [facility] [address]100[place], [place] [address]- 7951 Mar, [facility] [address] [facility] [id number] [place] [address]- 7026 June, [facility] [address] [facility] [id number] [address]- 2546 June, [facility] [address] [facility] [id number] [place] [address]- 2546 June, [facility] [address] [facility] [id number], [place] [address]- 4316 May, IMMUNIZATIONS No Known Immunizations SOCIAL HISTORY Never Assessed REASON FOR VISIT Controlled Med Refill09/20/17 PLAN OF CARE VITAL SIGNS MEDICATIONS Medication Instructions Dosage Frequency Start Date End Date Duration Status MS Contin 15 mg Orally every 12 hrs in addition to 30mg 1 tablet Sep, 28 days Active MS Contin 30 mg Orally every 12 hrs 1 tablet 12h Sep, 28 days Active RESULTS No Results PROCEDURES [...] right hip replacement after fx [facility] Hospitalization History [facility] 04/2016
--- OUTSIDE RECORDS SUMMARY | 2017-12-13 09:54 | XMS REPORT ---
Author Author FROILAN CORTEZ Organization [facility] Address [address] [place] [address] Care Team Providers Care Pre K Special Education Teacher Name Role Phone FROILAN CORTEZ Unavailable PROBLEMS Type Condition ICD9-CM Code [id number] Code Onset Dates Condition Status SNOMED Code Problem Reactive depression F32.9 Active 97612418 Problem Neuropathy G62.9 Active 713254792 Problem Coronary artery disease involving [place] coronary artery of [place] heart without angina pectoris I25.10 Active 4690407494035 Problem Type 2 diabetes mellitus without complication, without long-term current use of insulin E11.9 Active 221739964 Problem Frequent falls R29.6 Active 777609265 Problem Vascular dementia without behavioral disturbance F01.50 Active 691588081 Problem Essential hypertension I10 Active 34185737 Problem Neuropathic pain M79.2 Active 250851082 Problem Other chronic pain G89.29 Active 46581370 Problem PVD (peripheral vascular disease) I73.9 Active 453912159 ALLERGIES No Information ENCOUNTERS Encounter Location Date Diagnosis [facility] [id number] [place] [address] 17731- 3705 Oct, Other chronic pain G89.29 [facility] [id number] [place] [address] 60246- 1506 Sep, [facility] [id number] [place] [address] [id number] Sep, Dental examination Z01.20 [facility] [address] [place] [address] Sep, Type 2 diabetes mellitus without complication, without long-term current use of insulin E11.9 ; Vascular dementia without behavioral disturbance F01.50 ; Neuropathic pain M79.2 ; Weakness R53.1 ; Coronary artery disease involving [place] coronary artery of [place] heart without angina pectoris I25.10 and PVD (peripheral vascular disease) I73.9 [facility] [address] [address] Sep, Other chronic pain G89.29 [facility] [address] [address] Aug, [facility] [address] [place] [address] 91060- 3961 Aug, Other chronic pain G89.29 [facility] [address] [place] [address] 68019- 6804 Jul, Other chronic pain G89.29 [facility] [id number] [place] [address] 81663- 4113 Jul, [facility] [id number] [place] [address] 50181- 3380 June, Other chronic pain G89.29 [facility] [id number] [place] [address] 90852- 8633 May, Other chronic pain G89.29 [employer] [address] [place] [address] May, Other chronic pain G89.29 ; Type 2 diabetes mellitus without complication, without long-term current use of insulin E11.9 and Vascular dementia without behavioral disturbance F01.50 [facility] [address] [address] Apr, Other chronic pain G89.29 [facility] [id number] [id number] Mar, Other chronic pain G89.29 [facility] [id number] [place] [address] [phone] Feb, Other chronic pain G89.29 [employer] [address] [place] [address] Feb, Other chronic pain G89.29 and Vascular dementia without behavioral disturbance F01.50 [facility] [id number] [id number] Jan, Other chronic pain G89.29 [facility] [id number] [place] [address] [id number] Dec, Other chronic pain G89.29 [facility] [address] [address] Nov, Weakness R53.1 and Frequent falls R29.6 [facility] [id number] [place] [address] [id number] Nov, [facility] [address] [place] [address] 15215569- 9584 Nov, [facility] [id number] [place] [address] [id number] Nov, Other chronic pain G89.29 [employer] [address] [place] [phone] Oct, Pneumonia of upper lobe due to infectious organism, unspecified laterality J18.1 ; Vascular dementia without behavioral disturbance F01.50 ; Type 2 diabetes mellitus without complication, without long-term current use of insulin E11.9 and Essential hypertension I10 [facility] [id number] [place] [address] [id number] Oct, Other chronic pain G89.29 [facility] [address] [address] 30[address] Oct, [facility] [address] [address] 00[address] Oct, [facility] [address] [place] [address] Sep, Pneumonia of right lung due to infectious organism, unspecified part of lung J18.9 ; Type 2 diabetes mellitus without complication, without long -term current use of insulin E11.9 ; Vascular dementia without behavioral disturbance F01.50 and Other chronic pain G89.29 [facility] [id number] [id number] Sep, [facility] [address] [id number] [id number] Aug, [facility] [address] [id number] [id number] Aug, [facility] [id number][place] [id number] Jul, [employer] [address] [place] [address] Jul, Type 2 diabetes mellitus without complication, without long-term current use of insulin E11.9 [facility] [address] [facility] [id number] [address] Jul, [facility] [id number][place] [id number] June, [facility] [id number], [place] [id number] June, [facility] [address] [id number] [address] 2546 May, [employer] [address] [place] [address] May, Encounter to establish care Z76.89 ; Neuropathic pain M79.2 ; Type 2 diabetes mellitus without complication, without long-term current use of insulin E11.9 ; Essential hypertension I10 ; Coronary artery disease involving crow [place] coronary artery of crow creek heart without angina pectoris I25.10 and PVD ( peripheral vascular disease) I73.9 [facility] [address] [id number] [phone] May, [facility] [employer] [address] [place] [id number] Apr, Neuropathic pain M79.2 and Reactive depression F32.9 [facility] [address] [id number][place] [id number] Apr, [facility] [address] [id number] [address] 2846 Apr, [facility] [address] [id number] [address] 8[address] Apr, [facility] [place] [facility] [id number], [place] [id number] Apr, [facility] [address], [place] [address] 6[address] Mar, [facility] [address]100[place] [address] 0878 Mar, [facility] [id number] [place] [address] 82585- 6549 Mar, [facility] [address] [place] [address] 43921- 2340 Mar, [facility] [id number] [place] [address] 31949- 4227 Mar, [facility] [address] [place] [id number] Mar, Acute blood loss anemia D62 and Type 2 diabetes mellitus without complication, without long-term current use of insulin E11.9 [facility] [address] [address] 9314 Feb, [facility] [address] [place] [address] 52126- 2735 Feb, [facility] [address] [address]- 7863 Feb, [facility] [address], [place] [address]- 3239 Feb, [facility] [address] [id number] [address]- 2189 Feb, [facility] [address] [address] 2490 May, [facility] [address]100[place], [place] [address]- 3073 May, [facility] [address] [address]- 0655 Mar, [facility] [address] [facility] [id number] [place] [address] 1252 June, [facility] [address] [facility] [id number] [address]- 4026 June, [facility] [address] [facility] [id number][place] [address] June, [facility] [address] [facility] [id number] [address]- 4923 May, IMMUNIZATIONS No Known Immunizations SOCIAL HISTORY Never Assessed REASON FOR VISIT Routine visit PLAN OF CARE Activity Details Follow Up prn Reason: VITAL SIGNS MEDICATIONS Medication Instructions Dosage Frequency Start Date End Date Duration Status Duloxetine HCl 30 MG TAKE 1 CAPSULE BY MOUTH THREE TIMES DAILY 30 Active Exelon 4.6 MG/24HR APPLY 1 PATCH TO SKIN ONE TIME DAILY -REMOVE OLD PATCH WHEN APPLYING NEW ONE 30 Active Linzess 145 MCG TAKE 1 CAPSULE BY MOUTH EVERY DAY 30 MINUTES PRIOR TO BREAKFAST ON EMPTY STOMACH-SWALLOW WHOLE 30 Active Furosemide 20 MG TAKE 1 TABLET BY MOUTH EVERY 2 DAYS 30 Active Polyethylene Glycol 3350 - STIR 1 CAPFUL (17G) IN 4-8 OUNCES WATER UNTIL COMPLETELY DISSOLVED AND DRINK 31 Active Lasix 20 mg Orally every 2 days 1 tablet Active Vitamin D 2000 UNIT TAKE 1 TABLET BY MOUTH DAILY 30 Active MS Contin 30 mg Orally every 12 hrs 1 tablet 12h 07 Sep, 2017 28 days Active Fenofibrate 160 MG TAKE 1 TABLET BY MOUTH DAILY 30 Active Citalopram Hydrobromide 20 MG TAKE 1 TABLET BY MOUTH DAILY 30 Active Melatonin 3 MG TAKE 1 TABLET BY MOUTH DAILY 30 Active Keppra 500 mg Orally Twice a day 1 tablet 12h 30 days Active Cymbalta 30 MG Orally 3 times a day 1 capsule 8h Active Vitamin B-12 1000 MCG TAKE 1 TABLET BY MOUTH DAILY 30 Active RESULTS No Results PROCEDURES Procedure Date Ordered Result Body Site Minor complication (15 mins) Sep 27, 2017 INSTRUCTIONS MEDICATIONS ADMINISTERED No Known Medications [...] right hip replacement after fx [facility] 04/[facility]
--- OUTSIDE RECORDS SUMMARY | 2017-12-13 09:54 | XMS REPORT ---
Author Author FROILAN CORTEZ Organization [facility] Address [address] [place] [address] Care Team Providers Care Chief Counsel Name Role Phone FROILAN CORTEZ Unavailable PROBLEMS Type Condition ICD9-CM Code [id number] Code Onset Dates Condition Status SNOMED Code Problem Reactive depression F32.9 Active 03052364 Problem Neuropathy G62.9 Active 521331062 Problem Coronary artery disease involving mcgrath coronary artery of mcgrath heart without angina pectoris I25.10 Active 4714041930911 Problem Type 2 diabetes mellitus without complication, without long-term current use of insulin E11.9 Active 613666849 Problem Frequent falls R29.6 Active 083453473 Problem Vascular dementia without behavioral disturbance F01.50 Active 590644721 Problem Essential hypertension I10 Active 36618197 Problem Neuropathic pain M79.2 Active 729989560 Problem Other chronic pain G89.29 Active 22644706 Problem PVD (peripheral vascular disease) I73.9 Active 684270708 ALLERGIES No Information ENCOUNTERS Encounter Location Date Diagnosis [facility] [id number] [place] [address] 21447- 1819 Sep, [facility] [id number] [place] [address] [id number] Sep, Dental examination Z01.20 [facility] [address] [place] [address] Sep, Type 2 diabetes mellitus without complication, without long-term current use of insulin E11.9 ; Vascular dementia without behavioral disturbance F01.50 ; Neuropathic pain M79.2 ; Weakness R53.1 ; Coronary artery disease involving mcgrath coronary artery of mcgrath heart without angina pectoris I25.10 and PVD (peripheral vascular disease) I73.9 [facility] [id number] [place] [address] 34424- 5463 Sep, Other chronic pain G89.29 [facility] [address] [id number], [place] [address]- 7462 Aug, [facility] [address]005[address]100[place], [place] [address]- 1398 Aug, Other chronic pain G89.29 [facility] [address]00565100[place], [place] [address]- 3944 Jul, Other chronic pain G89.29 [facility] [address]100[place], [place] [address]- 6148 Jul, [facility] [id number] [place] [address] 94753- 9390 June, Other chronic pain G89.29 [facility] [address]65100[place], [place] [address]- 9277 May, Other chronic pain G89.29 [facility] [address] [place] [address] May, Other chronic pain G89.29 ; Type 2 diabetes mellitus without complication, without long-term current use of insulin E11.9 and Vascular dementia without behavioral disturbance F01.50 [facility] [address], [place] [address]- 2241 Apr, Other chronic pain G89.29 [facility] [address] [id number][place] [id number] Mar, Other chronic pain G89.29 [facility] [id number], [place] [id number] Feb, Other chronic pain G89.29 [facility] [address] [place] [address] Feb, Other chronic pain G89.29 and Vascular dementia without behavioral disturbance F01.50 [facility] [id number], [place] [id number] Jan, Other chronic pain G89.29 [facility] [address] [id number] [id number] Dec, Other chronic pain G89.29 [facility] [address] [place] [address] 63949- 7547 Nov, Weakness R53.1 and Frequent falls R29.6 [facility] [id number], [place] [id number] Nov, [facility] [address] [place] [address] 54007- 0682 Nov, [facility] [id number] [place] [address] [id number] Nov, Other chronic pain G89.29 [employer] [address] [place] [id number] Oct, Pneumonia of upper lobe due to infectious organism, unspecified laterality J18.1 ; Vascular dementia without behavioral disturbance F01.50 ; Type 2 diabetes mellitus without complication, without long-term current use of insulin E11.9 and Essential hypertension I10 [facility] [id number] [place] [address] [id number] 15 Oct, 2016 Other chronic pain G89.29 [facility] [address] [place] [address] 50975- 5378 Oct, [facility] [address] [id number], [place] [address]- 4832 Oct, [facility] [address] [facility] [place] [address] Sep, Pneumonia of right lung due to infectious organism, unspecified part of lung J18.9 ; Type 2 diabetes mellitus without complication, without long -term current use of insulin E11.9 ; Vascular dementia without behavioral disturbance F01.50 and Other chronic pain G89.29 [facility] [id number], [place] [id number] Sep, [facility] [id number], [place] [id number] Aug, [facility] [id number] [place] [address] [id number] Aug, [facility] [address] [id number], [place] [id number] Jul, [employer] [address] [place] [address] Jul, Type 2 diabetes mellitus without complication, without long-term current use of insulin E11.9 [facility] [address] [facility] [id number], [place] [address] 2546 Jul, [facility] [id number], [place] [id number] June, [facility] [id number], [place] [id number] June, [facility] [address] [id number], [place] [address] 2546 May, [facility] [address] [place] [address] May, Encounter to establish care Z76.89 ; Neuropathic pain M79.2 ; Type 2 diabetes mellitus without complication, without long-term current use of insulin E11.9 ; Essential hypertension I10 ; Coronary artery disease involving mcgrath coronary artery of mcgrath heart without angina pectoris I25.10 and PVD ( peripheral vascular disease) I73.9 [facility] [address] [id number], [place] [id number] May, [facility] [employer] [address] [place] [id number] Apr, Neuropathic pain M79.2 and Reactive depression F32.9 [facility] [address] [id number], [place] [id number] Apr, [facility] [address] [facility] [id number], [place] [address]- 0416 Apr, [facility] [address] [facility] [id number], [place] [address]- 2546 Apr, [facility] [address] [id number], [place] [id number] Apr, [facility] [address]005[address]100[place], [place] [address]- 8216 Mar, [facility] [address]005[address]100[place], [place] [address]- 5996 Mar, [facility] [address]00565100[place], [place] [address]- 3546 Mar, [facility] [address]00565100[place], [place] [address]- 5227 Mar, [facility] [address]00565100[place], [place] [address]- 2977 Mar, Via [facility] [address] [place] [id number] Mar, Acute blood loss anemia D62 and Type 2 diabetes mellitus without complication, without long-term current use of insulin E11.9 [facility] [address]00565100[place], [place] [address]- 4256 Feb, [facility] [address]00565100[place], [place] [address]- 1916 Feb, [facility] [address]00565100[place], [place] [address]- 7531 Feb, [facility] [address]100[place], [place] [address]- 9499 Feb, [facility] [address]65100[place], [place] [address]- 3414 Feb, [facility] [address] [id number], [place] [address]- 0556 May, [facility] [address]65100[place], [place] [address]- 6899 May, [facility] [address] [id number], [place] [address]- 6136 Mar, [facility] [address] [id number], [place] [address]- 7014 June, [facility] [address] [facility] [id number] [place] [address] 9[address] June, [facility] [address] [facility] [id number] [place] [address]- 0156 June, [facility] [address] [facility] [id number] [place] [address]- 1016 May, IMMUNIZATIONS No Known Immunizations SOCIAL HISTORY Never Assessed REASON FOR VISIT Controlled Med Refill PLAN OF CARE VITAL SIGNS MEDICATIONS Medication Instructions Dosage Frequency Start Date End Date Duration Status MS Contin 15 mg Orally every 12 hrs in addition to 30mg 1 tablet Aug, 28 days Active MS Contin 30 mg [...] right hip replacement after fx Hospitalization [facility]2016 Hospitalization History [facility] 04/2016
--- OUTSIDE RECORDS SUMMARY | 2017-12-13 09:55 | XMS REPORT ---
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 Active 1075025504915 Problem Type 2 diabetes mellitus without complication, without long-term current use of insulin E11.9 Active 648340985 Problem Frequent falls R29.6 Active 091234316 Problem Vascular dementia without behavioral disturbance F01.50 Active 135867894 Problem Essential hypertension I10 Active 50423802 Problem Neuropathic pain M79.2 Active 370931440 Problem Other chronic pain G89.29 Active 16517970 Problem PVD (peripheral vascular disease) I73.9 Active 077319599 ALLERGIES No Information ENCOUNTERS Encounter Location Date Diagnosis [facility] [id number] [place] [address] Sep, [facility] [id number] [place] [id number] Sep, Dental examination Z01.20 [facility] [address] [place] [address] Sep, Type 2 diabetes mellitus without complication, without long-term current use of insulin E11.9 ; Vascular dementia without behavioral disturbance F01.50 ; Neuropathic pain M79.2 ; Weakness R53.1 ; 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 and PVD (peripheral vascular disease) I73.9 [facility] [id number] [place] [address]145- 5763 Sep, Other chronic pain G89.29 [facility] [address] [id number] [address] Aug, [facility] [address] [address] Aug, Other chronic pain G89.29 [facility] [address] [address] Jul, Other chronic pain G89.29 [facility] [address] [address] Jul, [facility] [id number] [place] [address] June, Other chronic pain G89.29 [facility] [address] [address] May, Other chronic pain G89.29 [facility] [address] [place] [address] May, Other chronic pain G89.29 ; Type 2 diabetes mellitus without complication, without long-term current use of insulin E11.9 and Vascular dementia without behavioral disturbance F01.50 [facility] [address] [address] Apr, Other chronic pain G89.29 [facility] [address] [id number] [place] [id number] Mar, Other chronic pain G89.29 [facility] [id number] [place] [id number] Feb, Other chronic pain G89.29 [facility] [address] [place] [address] Feb, Other chronic pain G89.29 and Vascular dementia without behavioral disturbance F01.50 [facility] [id number] [place] [address] Jan, Other chronic pain G89.29 [facility] [address] [id number] [id number] Dec, Other chronic pain G89.29 [facility] [id number] [place] [address] 6[address] Nov, Weakness R53.1 and Frequent falls R29.6 [facility] [id number] [place] [id number] Nov, [facility] [id number] [place] [address]89[address] 3895 Nov, [facility] [id number] [place] [id number] Nov, Other chronic pain G89.29 [facility] [address] [place] [id number] Oct, Pneumonia of upper lobe due to infectious organism, unspecified laterality J18.1 ; Vascular dementia without behavioral disturbance F01.50 ; Type 2 diabetes mellitus without complication, without long-term current use of insulin E11.9 and Essential hypertension I10 [facility] [id number] [place] [id number] 15 Oct, 2016 Other chronic pain G89.29 [facility] [id number] [place] [address] 27876- 5094 Oct, [facility] [address] [id number] [address] Oct, [facility] [address] [facility] [place] [address] Sep, Pneumonia of right lung due to infectious organism, unspecified part of lung J18.9 ; Type 2 diabetes mellitus without complication, without long -term current use of insulin E11.9 ; Vascular dementia without behavioral disturbance F01.50 and Other chronic pain G89.29 [facility] [id number] [place] [address] Sep, [facility] [id number] [place] [id number] Aug, [facility] [id number] [place] [id number] Aug, [facility] [address] [id number] [place] [id number] Jul, [facility] [address] [place] [address] Jul, Type 2 diabetes mellitus without complication, without long-term current use of insulin E11.9 [facility] [address] [facility] [id number] [place] [address] Jul, [facility] [id number] [place] [address] June, [facility] [id number] [place] [id number] June, [facility] [address] [id number] [address] May, [facility] [address] [place] [address] May, Encounter to establish care Z76.89 ; Neuropathic pain M79.2 ; Type 2 diabetes mellitus without complication, without long-term current use of insulin E11.9 ; Essential hypertension I10 ; 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 and PVD ( peripheral vascular disease) I73.9 [facility] [address] [id number] [place] [id number] May, [facility] [address] [place] [id number] Apr, Neuropathic pain M79.2 and Reactive depression F32.9 [facility] [address] [id number] [place] [id number] Apr, [facility] [address] [facility] [id number] [place] [address] Apr, [facility] [address] [facility] [id number] [place] [address] Apr, [facility] [address] [id number] [place] [id number] Apr, [facility] [address]00565100[place] [address] Mar, [facility] [address]00565100[place] [address] Mar, [facility] [address]00565100[place] [address] Mar, [facility] [address]00565100[place] [address] Mar, [facility] [address]00565100[place] [address] Mar, [facility] [address] [place] [id number] Mar, Acute blood loss anemia D62 and Type 2 diabetes mellitus without complication, without long-term current use of insulin E11.9 [facility] [address]00565100[place] [address] Feb, [facility] [address]00565100[place] [address] Feb, [facility] [address]005[address]100[place] [address] Feb, [facility] [address]00565100[place] [address] 79[address] Feb, [facility] [address]00565100[place] [address] Feb, [facility] [address] [id number] [address] May, [facility] [address]00565100[place] [address] May, [facility] [address] [id number] [address] 1666 Mar, [facility] [address] [id number] [address] June, [facility] [address] [facility] [id number] [place] [address] June, [facility] [address] [facility] [id number] [place] [address] June, [facility] [address] [facility] [id number] [place] [address] May, IMMUNIZATIONS No Known Immunizations SOCIAL HISTORY Never Assessed REASON FOR VISIT Medication refill request PLAN OF CARE VITAL SIGNS MEDICATIONS Medication Instructions Dosage Frequency Start Date End Date Duration Status Keppra 500 mg Orally Twice a day 1 tablet 12h 30 days Active RESULTS No Results PROCEDURES [...] hip replacement after fx [facility]2016 Hospitalization History [facility] 04/2016
--- OUTSIDE RECORDS SUMMARY | 2017-12-13 09:55 | XMS REPORT ---
Author Author FROILAN CORTEZ Organization [facility] Address [address] [place] [address] Care Team Providers Care Manager Engine Name Role Phone FROILAN CORTEZ Unavailable PROBLEMS Type Condition ICD9-CM Code FSF63-MC Code Onset Dates Condition Status SNOMED Code Problem Reactive depression F32.9 Active 78170527 Problem Neuropathy G62.9 Active 550424017 Problem Coronary artery disease involving kiowa tribe coronary artery of kiowa tribe heart without angina pectoris I25.10 Active 4295230071530 Problem Type 2 diabetes mellitus without complication, without long-term current use of insulin E11.9 Active 416501584 Problem Frequent falls R29.6 Active 169226751 Problem Vascular dementia without behavioral disturbance F01.50 Active 342571728 Problem Essential hypertension I10 Active 69921653 Problem Neuropathic pain M79.2 Active 911004666 Problem Other chronic pain G89.29 Active 45943337 Problem PVD (peripheral vascular disease) I73.9 Active 475024958 ALLERGIES No Information ENCOUNTERS Encounter Location Date Diagnosis [facility] [id number] [place] [address] Sep, [facility] [id number] [place] [id number] Sep, Dental examination Z01.20 [facility] [address] [place] [address] Sep, Type 2 diabetes mellitus without complication, without long-term current use of insulin E11.9 ; Vascular dementia without behavioral disturbance F01.50 ; Neuropathic pain M79.2 ; Weakness R53.1 ; Coronary artery disease involving kiowa tribe coronary artery of kiowa tribe heart without angina pectoris I25.10 and PVD (peripheral vascular disease) I73.9 [facility] [id number] [place] [address]16[address]137 Sep, Other chronic pain G89.29 [facility] [address] [id number], [place] [address] Aug, [facility] [address]005[address]100[place], [place] [address] Aug, Other chronic pain G89.29 [facility] [address], [place] [address] Jul, Other chronic pain G89.29 [facility] [address]005[address]100[place], [place] [address] Jul, [facility] [id number] [place] [address]- 1232 June, Other chronic pain G89.29 [facility] [address]100[place], [place] [address] May, Other chronic pain G89.29 [facility] [address] [place] [address] May, Other chronic pain G89.29 ; Type 2 diabetes mellitus without complication, without long-term current use of insulin E11.9 and Vascular dementia without behavioral disturbance F01.50 [facility] [address], [place] [address] Apr, Other chronic pain G89.29 [facility] [address] [id number][place] [id number] Mar, Other chronic pain G89.29 [facility] [id number], [place] [id number] Feb, Other chronic pain G89.29 [facility] [address] [place] [address] Feb, Other chronic pain G89.29 and Vascular dementia without behavioral disturbance F01.50 [facility] [id number], [place] [id number] Jan, Other chronic pain G89.29 [facility] [address] [id number] [address] Dec, Other chronic pain G89.29 [facility] [id number] [place] [address] 75582- 6070 Nov, Weakness R53.1 and Frequent falls R29.6 [facility] [id number], [place] [id number] Nov, [facility] [address] [place] [address] 92509- 7446 Nov, [facility] [id number] [place] [address] [id number] Nov, Other chronic pain G89.29 [facility] [address] [place] [id number] Oct, Pneumonia of upper lobe due to infectious organism, unspecified laterality J18.1 ; Vascular dementia without behavioral disturbance F01.50 ; Type 2 diabetes mellitus without complication, without long-term current use of insulin E11.9 and Essential hypertension I10 [facility] [id number] [place] [id number] 15 Oct, 2016 Other chronic pain G89.29 [facility] [address] [place] [address] 80064[address] 0555 Oct, [facility] [address] [id number], [place] [address] Oct, [facility] [address] [facility] [place] [address] Sep, Pneumonia of right lung due to infectious organism, unspecified part of lung J18.9 ; Type 2 diabetes mellitus without complication, without long -term current use of insulin E11.9 ; Vascular dementia without behavioral disturbance F01.50 and Other chronic pain G89.29 [facility] [id number], [place] [id number] Sep, [facility] [id number], [place] [id number] Aug, [facility] [id number] [place] [address] [id number] Aug, [facility] [address] [id number], [place] [id number] Jul, [facility] [address] [place] [address] Jul, Type 2 diabetes mellitus without complication, without long-term current use of insulin E11.9 [facility] [address] [facility] [id number], [place] [address]46 Jul, [facility] [id number], [place] [id number] June, [facility] [id number], [place] [id number] June, [facility] [address] [id number], [place] [address]46 May, [facility] [address] [place] [address] May, Encounter to establish care Z76.89 ; Neuropathic pain M79.2 ; Type 2 diabetes mellitus without complication, without long-term current use of insulin E11.9 ; Essential hypertension I10 ; Coronary artery disease involving kiowa tribe coronary artery of kiowa tribe heart without angina pectoris I25.10 and PVD ( peripheral vascular disease) I73.9 [facility] [address] [id number], [place] [id number] May, [facility] [address] [place] [id number] Apr, Neuropathic pain M79.2 and Reactive depression F32.9 [facility] [address] [id number], [place] [id number] Apr, [facility] [address] [facility] [id number], [place] [address] Apr, [facility] [address] [facility] [id number], [place] [address]- 2546 Apr, [facility] [address] [id number], [place] [id number] Apr, [facility] [address]100[place], [place] [address] Mar, [facility] [address]005[address]100[place], [place] [address]- 1106 Mar, [facility] [address]00565100[place], [place] [address]- 3926 Mar, [facility] [address]00565100[place], [place] [address]- 1156 Mar, [facility] [address]005[address]100[place], [place] [address]- [address]86 Mar, [facility] [address] [place] [id number] Mar, Acute blood loss anemia D62 and Type 2 diabetes mellitus without complication, without long-term current use of insulin E11.9 [facility] [address]00565100[place], [place] [address] Feb, [facility] [address], [place] [address]- 6216 Feb, [facility] [address]005[address]100[place], [place] [address]- 0[address] Feb, [facility] [address]005[address]100[place], [place] [address]- 4[address] Feb, [facility] [address]00565100[place], [place] [address]- 7269 Feb, [facility] [address] [id number], [place] [address] 3306 May, [facility] [address]100[place], [place] [address]1 May, [facility] [address] [id number], [place] [address]- 6566 Mar, [facility] [address] [id number], [place] [address]- 4045 June, [facility] [address] [facility] [id number] [place] [address] June, [facility] [address] [facility] [id number] [place] [address]- 1436 June, [facility] [address] [facility] [id number] [place] [address]- 53[address] May, IMMUNIZATIONS No Known Immunizations SOCIAL HISTORY Never Assessed REASON FOR VISIT Controlled Med Refill PLAN OF CARE VITAL SIGNS MEDICATIONS Medication Instructions Dosage Frequency Start Date End Date Duration Status MS Contin 15 mg Orally every 12 hrs in addition to 30mg 1 tablet Jul, 28 days Active MS Contin 30 mg [...] right hip replacement after fx Hospitalization [facility] 03[facility]2016 Hospitalization History [facility] 04/2016
--- OUTSIDE RECORDS SUMMARY | 2017-12-13 09:55 | XMS REPORT ---
Author Author FROILAN CORTEZ [facility] Address [address] [place] [address] Care Team Providers Care Junior Architect Name Role Phone FROILAN CORTEZ Unavailable PROBLEMS Type Condition ICD9-CM Code YIW10-EU Code Onset Dates Condition Status SNOMED Code Problem Reactive depression F32.9 Active 06772385 Problem Neuropathy G62.9 Active 528138319 Problem Coronary artery disease involving sycuan coronary artery of sycuan heart without angina pectoris I25.10 Active 2262089188159 Problem Type 2 diabetes mellitus without complication, without long-term current use of insulin E11.9 Active 236692007 Problem Frequent falls R29.6 Active 792638440 Problem Vascular dementia without behavioral disturbance F01.50 Active 156029595 Problem Essential hypertension I10 Active 31564477 Problem Neuropathic pain M79.2 Active 363747187 Problem Other chronic pain G89.29 Active 24908162 Problem PVD (peripheral vascular disease) I73.9 Active 716975941 ALLERGIES No Information ENCOUNTERS Encounter Location Date Diagnosis [facility] [address] [place] [address]83- 2408 Sep, Other chronic pain G89.29 [facility] [address], [place] [address] Aug, [facility] [address] [place] [address] 39410- 0499 Aug, Other chronic pain G89.29 [facility] [id number] [place] [address] 71229- 0522 Jul, Other chronic pain G89.29 [facility] [address], [place] [address] Jul, [facility] [id number] [place] [address] [id number]- 9727 June, Other chronic pain G89.29 [facility] [address] [id number] [address] May, Other chronic pain G89.29 [facility] [address] [facility] [address] May, Other chronic pain G89.29 ; Type 2 diabetes mellitus without complication, without long-term current use of insulin E11.9 and Vascular dementia without behavioral disturbance F01.50 [facility] [address] [address] Apr, Other chronic pain G89.29 [facility] [id number] [place] [address] [id number] Mar, Other chronic pain G89.29 [facility] [id number] [place] [address] [id number] Feb, Other chronic pain G89.29 [facility] [address] [facility] [address] Feb, Other chronic pain G89.29 and Vascular dementia without behavioral disturbance F01.50 [facility] [id number] [place] [address] [id number] Jan, Other chronic pain G89.29 [facility] [id number] [place] [address] [id number] Dec, Other chronic pain G89.29 [facility] [address] [address] Nov, Weakness R53.1 and Frequent falls R29.6 [facility] [id number] [place] [address] [id number] Nov, [facility] [address] [place] [address] 562448- 1494 Nov, [facility] [id number] [id number] Nov, Other chronic pain G89.29 [employer] [address] [place] [id number] Oct, Pneumonia of upper lobe due to infectious organism, unspecified laterality J18.1 ; Vascular dementia without behavioral disturbance F01.50 ; Type 2 diabetes mellitus without complication, without long-term current use of insulin E11.9 and Essential hypertension I10 [facility] [address] [id number] [id number] 15 Oct, 2016 Other chronic pain G89.29 [facility] [address] [facility] [id number], [place] [address] Oct, [facility] [address] [facility] [id number], [place] [address] Oct, [facility] [address] [place] [address] Sep, Pneumonia of right lung due to infectious organism, unspecified part of lung J18.9 ; Type 2 diabetes mellitus without complication, without long -term current use of insulin E11.9 ; Vascular dementia without behavioral disturbance F01.50 and Other chronic pain G89.29 [facility] [address] [id number] [id number] Sep, [facility] [address] [id number][place] [id number] Aug, [facility] [address] [id number][place] [id number] Aug, [facility] [address] [id number][place] [id number] Jul, [facility] [address] [place] [address] Jul, Type 2 diabetes mellitus without complication, without long-term current use of insulin E11.9 [facility] [address] [facility] [id number], [place] [address] Jul, [facility] [address] [id number] [id number] June, [facility] [address] [id number][place] [id number] June, [facility] [address] [id number], [place] [address] May, [facility] [address] [place] [address] May, Encounter to establish care Z76.89 ; Neuropathic pain M79.2 ; Type 2 diabetes mellitus without complication, without long-term current use of insulin E11.9 ; Essential hypertension I10 ; Coronary artery disease involving sycuan coronary artery of sycuan heart without angina pectoris I25.10 and PVD ( peripheral vascular disease) I73.9 [facility] [address] [id number] [id number] May, [employer] [address] [place] [id number] Apr, Neuropathic pain M79.2 and Reactive depression F32.9 [facility] [address] [id number] [id number] Apr, [facility] [address], [place] [address] Apr, [facility] [address], [place] [address] 9[address] Apr, [facility] [address] [id number] [id number] Apr, [facility] [address] [id number], [place] [address] 2546 Mar, [facility] [address], [place] [address] 25[address] Mar, [facility] [address], [place] [address] 2546 Mar, [facility] [address], [place] [address] 7[address] Mar, [facility] [address], [place] [address] 40[address] Mar, [employer] [address] [place] [id number] Mar, Acute blood loss anemia D62 and Type 2 diabetes mellitus without complication, without long-term current use of insulin E11.9 [facility] [address], [place] [address] 0[address] Feb, [facility] [address] [id number], [place] [address] 1483 Feb, [facility] [address] [id number], [place] [address] 287[address] Feb, [facility] [id number] [place] [address] 84365- 4815 Feb, [facility] [id number] [place] [address] 65288- 1585 Feb, [facility] [id number] [place] [address] 57897- 2760 May, [facility] [address], [place] [address] 6160 May, [facility] [id number] [place] [address] 30838- 7405 Mar, [facility] [address], [place] [address] June, [facility] [address], [place] [address] 8[address] June, [facility] [address], [place] [address] June, [facility] [address] [address] May, IMMUNIZATIONS No Known Immunizations SOCIAL HISTORY Never Assessed REASON FOR VISIT Controlled Med Refill PLAN OF CARE VITAL SIGNS MEDICATIONS Medication Instructions Dosage Frequency Start Date End Date Duration Status MS Contin 30 mg Orally every 12 hrs 1 tablet 12h June, 28 days Active MS Contin 15 mg Orally every 12 hrs in addition to 30mg 1 tablet June, 28 days Active RESULTS No Results [...] right hip replacement after fx Hospitalization History [facility] 03/2016 Hospitalization History [facility] 04/2016
--- OUTSIDE RECORDS SUMMARY | 2017-12-13 09:55 | XMS REPORT ---
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 Active 2237164090155 Problem Type 2 diabetes mellitus without complication, without long-term current use of insulin E11.9 Active 737172661 Problem Frequent falls R29.6 Active 764233277 Problem Vascular dementia without behavioral disturbance F01.50 Active 157625874 Problem Essential hypertension I10 Active 18174877 Problem Neuropathic pain M79.2 Active 004333906 Problem Other chronic pain G89.29 Active 21661945 Problem PVD (peripheral vascular disease) I73.9 Active 422192312 ALLERGIES No Information ENCOUNTERS Encounter Location Date Diagnosis [facility] [address] [place] [address] 91015- 4170 Sep, Other chronic pain G89.29 [facility] [address] [address] 0656 Aug, [facility] [address] [place] [address] 93750- 0226 Aug, Other chronic pain G89.29 [facility] [id number] [place] [address] 10400- 1620 Jul, Other chronic pain G89.29 [facility] [address], [place] [address]- 0906 Jul, [facility] [id number] [place] [address] [id number]- 5996 June, Other chronic pain G89.29 [facility] [address] [id number] 8088 May, Other chronic pain G89.29 [facility] [address] [place] [address] May, Other chronic pain G89.29 ; Type 2 diabetes mellitus without complication, without long-term current use of insulin E11.9 and Vascular dementia without behavioral disturbance F01.50 [facility] [address] [address] 1883 Apr, Other chronic pain G89.29 [facility] [id number] [place] [address] [id number] Mar, Other chronic pain G89.29 [facility] [id number] [place] [address] [id number] Feb, Other chronic pain G89.29 [facility] [address] [place] [address] Feb, Other chronic pain G89.29 and Vascular dementia without behavioral disturbance F01.50 [facility] [id number] [place] [address] [id number] Jan, Other chronic pain G89.29 [facility] [id number] [place] [address] [id number] Dec, Other chronic pain G89.29 [facility] [address] [address]- 9934 Nov, Weakness R53.1 and Frequent falls R29.6 [facility] [id number] [place] [address] [id number] Nov, [facility] [address] [place] [address] 559756- 4816 Nov, [facility] [id number] [id number] Nov, Other chronic pain G89.29 [employer] [address] [place] [id number] Oct, Pneumonia of upper lobe due to infectious organism, unspecified laterality J18.1 ; Vascular dementia without behavioral disturbance F01.50 ; Type 2 diabetes mellitus without complication, without long-term current use of insulin E11.9 and Essential hypertension I10 [facility] [address] [id number] [id number] 15 Oct, 2016 Other chronic pain G89.29 [facility] [address] [facility] [id number], [place] [address] 4[address] Oct, [facility] [address] [facility] [id number] [address] 2068 Oct, [facility] [address] [place] [address] Sep, Pneumonia of right lung due to infectious organism, unspecified part of lung J18.9 ; Type 2 diabetes mellitus without complication, without long -term current use of insulin E11.9 ; Vascular dementia without behavioral disturbance F01.50 and Other chronic pain G89.29 [facility] [address] [id number] [id number] Sep, [facility] [address] [id number] [id number] Aug, [facility] [address] [id number][place] [id number] Aug, [facility] [address] [id number] [id number] Jul, [facility] [address] [place] [address] Jul, Type 2 diabetes mellitus without complication, without long-term current use of insulin E11.9 [facility] [address] [facility] [id number], [place] [address] 2546 Jul, [facility] [address] [id number] [id number] June, [facility] [address] [id number][place] [id number] June, [facility] [address] [id number] [address]- 4026 May, [facility] [address] [place] [address] May, Encounter to establish care Z76.89 ; Neuropathic pain M79.2 ; Type 2 diabetes mellitus without complication, without long-term current use of insulin E11.9 ; Essential hypertension I10 ; 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 and PVD ( peripheral vascular disease) I73.9 [facility] [address] [id number] [id number] May, [facility] [employer] [address] [place] [id number] Apr, Neuropathic pain M79.2 and Reactive depression F32.9 [facility] [address] [id number] [id number] Apr, [facility] [address]00565100[place], [place] [address]- 2836 Apr, [facility] [address]100[place], [place] [address]- 4736 Apr, [facility] [address] [id number] [id number] Apr, [facility] [address] [id number], [place] [address] 2546 Mar, [facility] [address]65100[place], [place] [address]- 2546 Mar, [facility] [address]00565100[place], [place] [address] 2546 Mar, [facility] [address]00565100[place], [place] [address]- 1196 Mar, [facility] [address]100[place], [place] [address]- 4786 Mar, [facility] [employer] [address] [place] [id number] Mar, Acute blood loss anemia D62 and Type 2 diabetes mellitus without complication, without long-term current use of insulin E11.9 [facility] [address]00565100[place], [place] [address]- 0594 Feb, [facility] [address]100[place], [place] [address]- 1266 Feb, [facility] [address] 8125465100[place], [place] [address]- 0612 Feb, [facility] [id number] [place] [address] 97037- 9983 Feb, [facility] [id number] [place] [address] 95243- 6951 Feb, [facility] [address] [place] [address] 61211- 8736 May, [facility] [address], [place] [address]- 1859 May, [facility] [id number] [place] [address] 72098- 2365 Mar, [facility] [address]65100[place], [place] [address]- 5888 June, [facility] [address]100[place], [place] [address]- 8294 June, [facility] [address]100[place], [place] [address]- 7340 June, [facility] [address] 0503 May, IMMUNIZATIONS No Known Immunizations SOCIAL HISTORY Never Assessed REASON FOR VISIT Routine visit PLAN OF CARE Activity Details Follow Up prn Reason: VITAL SIGNS MEDICATIONS Medication Instructions Dosage Frequency Start Date End Date Duration Status Cymbalta 30 MG Orally 3 times a day 1 capsule 8h Active Exelon 4.6 MG/24HR APPLY 1 PATCH TO SKIN ONE TIME DAILY -REMOVE OLD PATCH WHEN APPLYING NEW ONE 30 Active Vitamin B-12 1000 MCG TAKE 1 TABLET BY MOUTH DAILY 30 Active Keppra 500 mg Orally Twice a day 1 tablet 12h 30 days Active Vitamin D 2000 UNIT TAKE 1 TABLET BY MOUTH DAILY 30 Active MS Contin 15 mg Orally every 12 hrs in addition to 30mg 1 tablet Apr, 28 days Active MS Contin 30 mg Orally every 12 hrs 1 tablet 12h Apr, 28 days Active Melatonin 3 MG TAKE 1 TABLET BY MOUTH DAILY 30 Active Furosemide 20 MG TAKE 1 TABLET BY MOUTH EVERY 2 DAYS 30 Active Duloxetine HCl 30 MG TAKE 1 CAPSULE BY MOUTH THREE TIMES DAILY 30 Active Linzess 145 MCG TAKE 1 CAPSULE BY MOUTH EVERY DAY 30 MINUTES PRIOR TO BREAKFAST ON EMPTY STOMACH-SWALLOW WHOLE 30 Active Lasix 20 mg Orally every 2 days 1 tablet Active Fenofibrate 160 MG TAKE 1 TABLET BY MOUTH DAILY 30 Active Citalopram Hydrobromide 20 MG TAKE 1 TABLET BY MOUTH DAILY 30 Active RESULTS No Results PROCEDURES Procedure Date Ordered Result Body Site Minor complication (15 mins) May 31, 2017 INSTRUCTIONS MEDICATIONS ADMINISTERED No Known Medications [...] right hip replacement after fx Hospitalization History [facility] 03/2016 Hospitalization History [facility] 04/2016
--- OUTSIDE RECORDS SUMMARY | 2017-12-13 09:55 | XMS REPORT ---
Author Author FROILAN CORTEZ [facility] Address [address] [place] [address] Care Team Providers Care Human Capital Analyst Name Role Phone FROILAN CORTEZ Unavailable PROBLEMS Type Condition ICD9-CM Code [id number] Code Onset Dates Condition Status SNOMED Code Problem Reactive depression F32.9 Active 55818608 Problem Neuropathy G62.9 Active 914149825 Problem Coronary artery disease involving [place] coronary artery of [place] heart without angina pectoris I25.10 Active 3831579445443 Problem Type 2 diabetes mellitus without complication, without long-term current use of insulin E11.9 Active 470765169 Problem Frequent falls R29.6 Active 855607670 Problem Vascular dementia without behavioral disturbance F01.50 Active 047760711 Problem Essential hypertension I10 Active 88317407 Problem Neuropathic pain M79.2 Active 316766048 Problem Other chronic pain G89.29 Active 88971752 Problem PVD (peripheral vascular disease) I73.9 Active 035865079 ALLERGIES No Information ENCOUNTERS Encounter Location Date Diagnosis [facility] [address] [place] [address]207- 9057 16 Aug, 2017 [facility] [address] [place] [address] 31392- 5118 Aug, Other chronic pain G89.29 [facility] [address] [place] [address] 35864- 2685 13 Jul, 2017 Other chronic pain G89.29 [facility] [id number] [place] [address] 54661- 5969 Jul, [facility] [address] [place] [address] 43866- 6299 June, Other chronic pain G89.29 [facility] [id number] [place] [address] [id number]- 5139 May, Other chronic pain G89.29 [facility] [address] [address] May, Other chronic pain G89.29 ; Type 2 diabetes mellitus without complication, without long-term current use of insulin E11.9 and Vascular dementia without behavioral disturbance F01.50 [facility] [address] [address] Apr, Other chronic pain G89.29 [facility] [id number] [place] [address] [id number] Mar, Other chronic pain G89.29 [facility] [id number] [place] [address] [id number] Feb, Other chronic pain G89.29 [facility] [address] [place] [address] Feb, Other chronic pain G89.29 and Vascular dementia without behavioral disturbance F01.50 [facility] [id number] [place] [address] [id number] Jan, Other chronic pain G89.29 [facility] [id number] [place] [address] [id number] Dec, Other chronic pain G89.29 [facility] [address] [id number] [address] Nov, Weakness R53.1 and Frequent falls R29.6 [facility] [id number] [id number] Nov, [facility] [address] [id number] [address] 9[address] Nov, [facility] [id number] [place] [address] [id number] Nov, Other chronic pain G89.29 [employer] [address] [place] [id number] Oct, Pneumonia of upper lobe due to infectious organism, unspecified laterality J18.1 ; Vascular dementia without behavioral disturbance F01.50 ; Type 2 diabetes mellitus without complication, without long-term current use of insulin E11.9 and Essential hypertension I10 [facility] [address] [id number] [place] [id number] 15 Oct, 2016 Other chronic pain G89.29 [facility] [address] [facility] [id number] [place] [address] [address] Oct, [facility] [address] [facility] [id number] [place] [address] Oct, [facility] [address] [place] [address] Sep, Pneumonia of right lung due to infectious organism, unspecified part of lung J18.9 ; Type 2 diabetes mellitus without complication, without long -term current use of insulin E11.9 ; Vascular dementia without behavioral disturbance F01.50 and Other chronic pain G89.29 [facility] [address] [id number] [place] [id number] Sep, [facility] [address] [id number] [place] [id number] Aug, [facility] [address] [id number] [id number] Aug, [facility] [address] [id number] [place] [id number] Jul, [facility] [address] [place] [address] Jul, Type 2 diabetes mellitus without complication, without long-term current use of insulin E11.9 [facility] [address] [facility] [id number] [place] [address] 2546 Jul, [facility] [address] [id number] [place] [id number] June, [facility] [address] [id number] [place] [id number] June, [facility] [address] [facility] [id number] [place] [address] May, [facility] [address] [place] [address] May, Encounter to establish care Z76.89 ; Neuropathic pain M79.2 ; Type 2 diabetes mellitus without complication, without long-term current use of insulin E11.9 ; Essential hypertension I10 ; Coronary artery disease involving [place] coronary artery of [place] heart without angina pectoris I25.10 and PVD ( peripheral vascular disease) I73.9 [facility] [id number] [place] [id number] May, [facility] [employer] [address] [place] [id number] Apr, Neuropathic pain M79.2 and Reactive depression F32.9 [facility] [id number] [place] [id number] Apr, [facility] [address]100[place] [address] Apr, [facility] [address]100[place] [address] 2546 Apr, [facility] [address] [id number] [id number] Apr, [facility] [address] [address] 6[address] Mar, [facility] [address]100[place] [address] 5[address] Mar, [facility] [address] [id number] [address] 2546 Mar, [facility] [address] [id number] [address] Mar, [facility] [address] [id number] [address] Mar, [facility] [employer] [address] [place] [id number] Mar, Acute blood loss anemia D62 and Type 2 diabetes mellitus without complication, without long-term current use of insulin E11.9 [facility] [address] [address] 5968 Feb, [facility] [address]100[place] [address] 3627 Feb, [facility] [address]100[place] [address] 6964 Feb, [facility] [address] [id number] [address] 2298 Feb, [facility] [address] [address] 1358 Feb, [facility] [address] [place] [address] 10484- 5618 May, [facility] [address] [address] 1454 May, [facility] [address]100[place] [address] 6915 Mar, [facility] [address]100[place] [address]31 June, [facility] [address]100[place] [address] 3313 June, [facility] [address]100[place] [address] 7[address] June, [facility] [address] [address]15 May, IMMUNIZATIONS No Known Immunizations SOCIAL HISTORY Never Assessed REASON FOR VISIT Controlled Med Refill PLAN OF CARE VITAL SIGNS MEDICATIONS Medication Instructions Dosage Frequency Start Date End Date Duration Status MS Contin 30 mg Orally every 12 hrs 1 tablet 12h May, 28 days Active MS Contin 15 mg Orally every 12 hrs in addition to 30mg 1 tablet May, 28 days Active RESULTS No Results PROCEDURES [...] hip replacement after fx [facility]/2016 Hospitalization History [facility] 04/2016
--- OUTSIDE RECORDS SUMMARY | 2017-12-13 09:56 | XMS REPORT ---
Author Author FROILAN CORTEZ [facility] Address [address] [place] [address] Care Team Providers Care Operations Research Analyst Name Role Phone FROILAN CORTEZ Unavailable PROBLEMS Type Condition ICD9-CM Code AEG90-NA Code Onset Dates Condition Status SNOMED Code Problem Reactive depression F32.9 Active 03649992 Problem Neuropathy G62.9 Active 313384035 Problem Coronary artery disease involving [place] coronary artery of [place] heart without angina pectoris I25.10 Active 7083668342303 Problem Type 2 diabetes mellitus without complication, without long-term current use of insulin E11.9 Active 333367830 Problem Frequent falls R29.6 Active 636698144 Problem Vascular dementia without behavioral disturbance F01.50 Active 400935263 Problem Essential hypertension I10 Active 28920308 Problem Neuropathic pain M79.2 Active 696853085 Problem Other chronic pain G89.29 Active 43344645 Problem PVD (peripheral vascular disease) I73.9 Active 251608616 ALLERGIES No Information ENCOUNTERS Encounter Location Date Diagnosis [facility] [address] [place] [address] 45086- 6798 16 Aug, 2017 [facility] [address] [place] [address] 34036- 8280 Aug, Other chronic pain G89.29 [facility] [address] [place] [address] 77602- 5439 13 Jul, 2017 Other chronic pain G89.29 [facility] [id number] [place] [address] 51185- 5509 Jul, [facility] [address] [place] [address] 29402- 7009 June, Other chronic pain G89.29 [facility] [id number] [place] [address] [id number]- 8604 May, Other chronic pain G89.29 [employer] [address] [place] [address] May, Other chronic pain G89.29 ; Type 2 diabetes mellitus without complication, without long-term current use of insulin E11.9 and Vascular dementia without behavioral disturbance F01.50 [facility] [address] [address]- 7727 Apr, Other chronic pain G89.29 [facility] [id number] [place] [address] [id number] Mar, Other chronic pain G89.29 [facility] [id number] [place] [address] [id number] Feb, Other chronic pain G89.29 [employer] [address] [place] [address] Feb, Other chronic pain G89.29 and Vascular dementia without behavioral disturbance F01.50 [facility] [id number] [place] [address] [id number] Jan, Other chronic pain G89.29 [facility] [id number] [place] [address] [id number] Dec, Other chronic pain G89.29 [facility] [address] [id number] [address]- [address]23 Nov, Weakness R53.1 and Frequent falls R29.6 [facility] [id number] [place] [address] Nov, [facility] [address] [id number] [address]- 0830 Nov, [facility] [id number] [place] [address] [id number] Nov, Other chronic pain G89.29 [employer] [address] [id number] Oct, Pneumonia of upper lobe due to infectious organism, unspecified laterality J18.1 ; Vascular dementia without behavioral disturbance F01.50 ; Type 2 diabetes mellitus without complication, without long-term current use of insulin E11.9 and Essential hypertension I10 [facility] [address] [id number] [place] [id number] 15 Oct, 2016 Other chronic pain G89.29 [facility] [address] [facility] [id number] [place] [address]708 Oct, [facility] [address] [facility] [id number] [place] [address] Oct, [employer] [address] [place] [address] Sep, Pneumonia of right lung due to infectious organism, unspecified part of lung J18.9 ; Type 2 diabetes mellitus without complication, without long -term current use of insulin E11.9 ; Vascular dementia without behavioral disturbance F01.50 and Other chronic pain G89.29 [facility] [address] [id number] [place] [id number] Sep, [facility] [address] [id number] [place] [id number] Aug, [facility] [address] [id number] [place] [id number] Aug, [facility] [address] [id number] [place] [id number] Jul, [employer] [address] [place] [address] Jul, Type 2 diabetes mellitus without complication, without long-term current use of insulin E11.9 [facility] [address] [facility] [id number] [place] [address] 2546 Jul, [facility] [address] [id number] [place] [id number] June, [facility] [address] [id number] [place] [id number] June, [facility] [address] [facility] [id number] [address] May, [employer] [address] [place] [address] May, Encounter to establish care Z76.89 ; Neuropathic pain M79.2 ; Type 2 diabetes mellitus without complication, without long-term current use of insulin E11.9 ; Essential hypertension I10 ; Coronary artery disease involving [place] coronary artery of [place] heart without angina pectoris I25.10 and PVD ( peripheral vascular disease) I73.9 [facility] [id number] [place] [id number] May, [facility] [employer] [address] [place] [id number] Apr, Neuropathic pain M79.2 and Reactive depression F32.9 [facility] [id number] [place] [id number] Apr, [facility] [address]005[address] [address] 4546 Apr, [facility] [address] [address] 2546 Apr, [facility] [address] [id number] [place] [id number] Apr, [facility] [address] [address] 9406 Mar, [facility] [address] [address]- 2536 Mar, [facility] [address] [id number] [address] 2546 Mar, [facility] [address] [id number] [address]- 9938 Mar, [facility] [address] [id number] [address]- 5636 Mar, [employer] [address] [place] [id number] Mar, Acute blood loss anemia D62 and Type 2 diabetes mellitus without complication, without long-term current use of insulin E11.9 [facility] [address] [address]- 2193 Feb, [facility] [address]005[address] [address]- 5146 Feb, [facility] [address] [address]- 4052 Feb, [facility] [address] [id number] [address]- 3597 Feb, [facility] [address] [address]- 9480 Feb, [facility] [address] [place] [address] 56725- 6987 May, [facility] [address]00565[address] [address]- 1808 May, [facility] [address]005[address] [address]- 8738 Mar, [facility] [address] [address]- 3877 June, [facility] [address] [address]- 4670 June, [facility] [address] [address] June, [facility] [address] [address]- 7717 May, IMMUNIZATIONS No Known Immunizations SOCIAL HISTORY Never Assessed REASON FOR VISIT Controlled Med Refill PLAN OF CARE VITAL SIGNS MEDICATIONS Medication Instructions Dosage Frequency Start Date End Date Duration Status MS Contin 30 mg Orally every 12 hrs 1 tablet 12h Apr, 28 days Active MS Contin 15 mg Orally every 12 hrs in addition to 30mg 1 tablet Apr, 28 days Active RESULTS No Results PROCEDURES [...] right hip replacement after fx Hospitalization History [facility] 03/2016 Hospitalization History [facility] 04/2016
[2017-12-13] MEDS ORDERED: IOHEXOL 350 MG/ML 100 ML (OMNIPAQUE 350) VIAL IV ONE (10:15)
[2017-12-13] MEDS ORDERED: NS 250 ML (IVPB) BAG IV ONE (10:15)
[2017-12-13 10:17] LABS: BASOPHILS % (AUTO) 0 % (0-10); EOSINOPHILS % (AUTO) 0 % (0-10); HEMATOCRIT 40 % (40-54); HEMOGLOBIN 13.4 G/DL (13.3-17.7); LYMPHOCYTES # (AUTO) 1.5 X 10^3 (1.0-4.0); LYMPHOCYTES % (AUTO) 14 % (12-44); MEAN CORPUSCULAR HEMOGLOBIN 28 PG (25-34); MEAN CORPUSCULAR HGB CONC 34 G/DL (32-36); MEAN CORPUSCULAR VOLUME 83 FL (80-99); MEAN PLATELET VOLUME 8.1 FL (7.4-10.4); MONOCYTES # (AUTO) 0.8 X 10^3 (0.0-1.0); MONOCYTES % (AUTO) 7 % (0-12); NEUTROPHILS # (AUTO) 8.6 X 10^3 (1.8-7.8); NEUTROPHILS % (AUTO) 79 % (42-75); PLATELET COUNT 416 10^3/uL (130-400); RED BLOOD COUNT 4.77 10^6/uL (4.35-5.85); WHITE BLOOD COUNT 10.9 10^3/uL (4.3-11.0)
--- NOTE | 2017-12-13 10:25 | ED Fall/Injury ---
General Chief Complaint: Trauma-Non Activation Stated Complaint: FALL Nursing Triage Note: PT ARRIVED PER EMS PT CO OF FALL THIS AM WHEN GETTING IN SHOWER, PT STATES HAD TO CRAWL FOR HELP. PT HAS REDNESS ON R SIDE OF FACE, R SHOULDER, DEFORMITY OF R UPPER ARM, REDNESS AND BLISTERS ON R RIBS, R HIP PAIN REDNESS ON R KNEE AND TOP OF TOES BILATERALLY ABRASIONS. PT HAS SL IN L FA, AND HAS HAD 10MG MS04 IV BY EMS. PT HAS C-COLLAR IN PLACE Source: patient Exam Limitations: no limitations (GABE MAS MD) History of Present Illness Date Seen by Provider: Dec 13, 2017 Time Seen by Provider: 09:52 Initial Comments Here by EMS with report of fall at the assisted living facility where the patient lives. Patient was getting into the shower when he fell. Reports falling on the right side hitting his head, right shoulder and chest. He was unable to take get contact with anybody and had to crawl down the hallway. Has abrasions to the right shoulder, right side of his chest and lower extremities to the knees and toes. Does report significant tenderness to the right shoulder /upper humerus region as well as the right lateral rib margin. He has abrasions in these areas. He has abrasions to the tips of his toes and knees. Does have abrasions to the right side of the face. Denies loss of consciousness. EMS did initiate IV and gave 5 mg of morphine IV twice for pain. Occurred: this morning (approximately one hour prior to arrival) Severity: moderate Injuries/Pain Location: head, face, neck, upper extremity, chest, abdomen Context: lost balance Loss of Consciousness: no loss of consciousness Modifying Factors: Worse With Movement; Improves With Pain Medication Associated Symptoms (Fall): No Abdominal Pain; Chest Pain, Headache; No Nausea/ Vomiting; Neck Pain; No Shortness of Air (GABE MAS MD) Allergies and Home Medications Allergies Coded Allergies: No Known Drug Allergies (Unverified , 10/09/16) Home Medications Cholecalciferol (Vitamin D3) 2,000 Unit Capsule, 2,000 UNIT PO DAILY, (Reported) Citalopram Hydrobromide 20 Mg Tablet, 20 MG PO DAILY, (Reported) Cyanocobalamin (Vitamin B-12) 1,000 Mcg Tablet, 1,000 MCG PO DAILY, (Reported) Duloxetine HCl 30 Mg Capsule.dr, 30 MG PO TID, (Reported) Fenofibrate 160 Mg Tablet, 160 MG PO DAILY, (Reported) Furosemide 20 Mg Tablet, 20 MG PO EVERY OTHER DAY, (Reported) Levetiracetam 500 Mg Tablet, 500 MG PO BID Prescribed by: NOÉ LANDA on 10/29/16 1120 Levofloxacin 750 Mg Tablet, 750 MG PO HS Prescribed by: NOÉ LANDA on 10/29/16 1120 Linaclotide 145 Mcg Capsule, 145 MCG PO DAILY, (Reported) Melatonin 3 Mg Tablet, 3 MG PO HS, (Reported) Morphine Sulfate 15 Mg Tablet.er, 15 MG PO BID, (Reported) Morphine Sulfate 30 Mg Tablet.er, 30 MG PO BID, (Reported) Polyethylene Glycol 3350 119 Gm Powder, 17 GM PO DAILY Prescribed by: GABE MAS on 05/14/172105 Rivastigmine 4.6 Mg Patch, 4.6 MG TD DAILY, (Reported) Patient Home Medication List Home Medication List Reviewed: Yes (GABE MAS MD) Review of Systems Review of Systems Constitutional: see HPI; No chills, No fever Eyes: No Symptoms Reported Ears, Nose, Mouth, Throat: no symptoms reported Respiratory: short of breath, other (pain with deep breathing) Cardiovascular: see HPI; No edema Gastrointestinal: abdominal pain; No nausea, No vomiting Genitourinary: no symptoms reported Musculoskeletal: see HPI, joint pain, joint swelling, muscle pain, neck pain ( mild) Skin: see HPI, change in color, lesions (abrasions to forehead, shoulder, chest and abdomen, knees bilateral and toes bilateral.) Psychiatric/Neurological: Denies Headache; Weakness (GABE MAS MD) Past Zuyyerc-Jdloyj-Ijcqpj Hx Past Med/Social Hx: Reviewed Nursing Past Med/Soc Hx (GABE MAS MD) Patient Social History Alcohol Use: Denies Use Recreational Drug Use: No Smoking Status: Current Everyday Smoker Type Used: Cigarettes Former Smoker, Quit: Feb 14, 2003 Recent Foreign Travel: No Contact w/Someone Who Travel: No Recent Infectious Disease Expo: No Recent Hopitalizations: No (GABE MAS MD) Immunizations Up To Date Tetanus Booster (TDap): Unknown Date of Pneumonia Vaccine: Jun 07, 2011 Date of Influenza Vaccine: Nov 15, 2015 (GABE MAS MD) Seasonal Allergies Seasonal Allergies: No (GABE MAS MD) Past Medical History Surgeries: Yes Coronary Stent, Gallbladder, Orthopedic, Vascular Surgery Respiratory: Yes Pneumonia Cardiac: Yes (Heart failure) Coronary Artery Disease, Hypertension, Peripheral Vascular Neurological: Yes Dementia, Seizure Disorder Reproductive Disorders: No Sexually Transmitted Disease: No Genitourinary: Yes Prostate Problems, UTI-Chronic Gastrointestinal: No Musculoskeletal: Yes Arthritis Endocrine: Yes Diabetes, Non-Insulin dep HEENT: No Cancer: No Did You Recieve Any Treatments: No Psychosocial: Yes Sleep Difficulties, Depression Integumentary: No Blood Disorders: No Adverse Reaction/Blood Tranf: No (GABE MAS MD) Family Medical History Reviewed Nursing Family Hx (GABE MAS MD) Colon cancer G8 BROTHER, Onset:55 FHx: brain tumor G8 SISTER No Pertinent Family Hx, Cancer, Diabetes (GABE MAS MD) Physical Exam Vital Signs Vital Signs - First Documented 12/13/17 09:50 Temp 97.1 Pulse 92 Resp 18 B/P (MAP) 152/81 (104) Pulse Ox 99 (NACHOGRACE Sow OPERATIONS TECHNICIAN) Vital Signs Capillary Refill : Less Than 3 Seconds (GABE MAS MD) Height, Weight, BMI Height: 6'0.00" Weight: 220lbs. 12.8oz. 100.014160ez; 25.9 BMI Method:Stated General Appearance: WD/WN, no apparent distress HEENT: PERRL/EOMI, pharynx normal Neck: full range of motion, supple Cardiovascular: regular rate, rhythm, no murmur Respiratory: lungs clear, normal breath sounds, other (tender along the right chest wall lower portion where there is abrasion, bruising and tenderness. Appears to have opened blisters) Gastrointestinal: soft; No guarding, No rebound; tenderness (right upper quadrant) Extremities: other (tenderness deformity to the right upper humerus area concerning for fracture. There are abrasions and bruising over this area and to the anterior shoulder) Neurologic/Psychiatric: alert, oriented x 3 Skin: warm/dry, ecchymosis, other (blister wound to right upper quadrant abdomen and right lower chest wall. Abrasions noted to the right side of the face and cheek as well as the right shoulder. There are abrasions to bilateral knees and toes. First 3 toes of both feet have blister/abrasion wounds.) ( GABE MAS MD) Ada Coma Score Best Eye Response: (4) Open Spontaneously Best Verbal Response: (5) Oriented Best Motor Response: (6) Obeys Commands (GABE MAS MD) Procedures/Interventions Splinting and Joint Reduction : Location: Right humerus Pre-Proc Neuro Vasc Exam: normal Post-Proc Neuro Vasc Exam: normal, unchanged from pre-exam (Full ROM to right wrist/fingers, cap refil < 3 sec, sensation to light tough intact. ) Progress Patient tolerated the procedure well. Sling applied. Arm Sling: Large Hand-Made Type: orthoglass (Soft roll applied to right upper arm, 4 inch orthoglass coaptation splint applied, secured with 4 and 6 inch Cody wraps.) (GRACE GRIFFITH) Progress/Results/Core Measures Results/Orders Lab Results Laboratory Tests Test 12/13/17 10:03 Range/Units White Blood Count 10.9 4.3-11.0 10^3/uL Red Blood Count 4.77 4.35-5.85 10^6/uL Hemoglobin 13.4 13.3-17.7 G/DL Hematocrit 40 40-54 % Mean Corpuscular Volume 83 80-99 FL Mean Corpuscular Hemoglobin 28 25-34 PG Mean Corpuscular Hemoglobin Concent 34 32-36 G/DL Red Cell Distribution Width 14.0 10.0-14.5 % Platelet Count 416 H 130-400 10^3/uL Mean Platelet Volume 8.1 7.4-10.4 FL Neutrophils (%) (Auto) 79 H 42-75 % Lymphocytes (%) (Auto) 14 12-44 % Monocytes (%) (Auto) 7 0-12 % Eosinophils (%) (Auto) 0 0-10 % Basophils (%) (Auto) 0 0-10 % Neutrophils # (Auto) 8.6 H 1.8-7.8 X 10^3 Lymphocytes # (Auto) 1.5 1.0-4.0 X 10^3 Monocytes # (Auto) 0.8 0.0-1.0 X 10^3 Eosinophils # (Auto) 0.0 0.0-0.3 10^3/uL Basophils # (Auto) 0.0 0.0-0.1 10^3/uL Sodium Level 137 135-145 MMOL/L Potassium Level 4.8 3.6-5.0 MMOL/L Chloride Level 101 98-107 MMOL/L Carbon Dioxide Level 24 21-32 MMOL/L Anion Gap 12 5-14 MMOL/L Blood Urea Nitrogen 23 H 7-18 MG/DL Creatinine 1.21 0.60-1.30 MG/DL Estimat Glomerular Filtration Rate 58 BUN/Creatinine Ratio 19 Glucose Level 190 H 70-105 MG/DL Calcium Level 10.0 8.5-10.1 MG/DL Corrected Calcium 9.8 8.5-10.1 MG/DL Total Bilirubin 0.6 0.1-1.0 MG/DL Aspartate Amino Transf (AST/SGOT) 28 5-34 U/L Alanine Aminotransferase (ALT/SGPT) 14 0-55 U/L Alkaline Phosphatase 44 40-136 U/L Total Protein 7.7 6.4-8.2 GM/DL Albumin 4.2 3.2-4.5 GM/DL Lipase 4 L 8-78 U/L (GRACE GRIFFITH) Medications Given in ED Current Medications Medications Dose Ordered Sig/Joellen Route Start Time Stop Time Status Last Admin Dose Admin Iohexol 100 ml ONCE ONCE IV 12/13/17 10:15 12/13/17 10:31 DC 12/13/17 10:39 100 ML Sodium Chloride 250 ml ONCE ONCE IV 12/13/17 10:15 12/13/17 10:31 DC 12/13/17 10:40 80 ML (GRACE GRIFFITH) Vital Signs/I&O 12/13/17 09:50 Temp 97.1 Pulse 92 Resp 18 B/P (MAP) 152/81 (104) Pulse Ox 99 (GRACE GRIFFITH) Blood Pressure Mean: 104 iStat Bedside Lab Testing Sodium (Na): 139.00 Potassium (K): 4.80 Chloride (CI): 99.00 TCO2: 29.00 Glucose (Glu): 191.00 Urea Nitrogen (BUN)/Urea: 25.00 Creatinine (Crea): 1.00 Anion Gap*: 18.00 (GABE MAS MD) Progress Progress Note : Progress Note Seen and evaluated. IV by EMS. I-STAT evaluation and creatinine 1.0. Okay for contrast study. Labs, CT head/neck without contrast, CT chest/abdomen/ pelvis with contrast ordered. We will get a chest x-ray, pelvic x-ray and right humerus x-ray. Monitor patient. 1218: I did discuss the case with Dr. Pierson as he has midshaft humerus fracture. We will put on coaptation splint and he will see the patient on . Pain is otherwise controlled. I did talk with the patient about the concerns about the basilar thickening on the right lung concerning for mass and the need for follow-up. The weblogic administrator for the facility is and will help facilitate passing information to his provider and I will send a copy of the chart to his provider. Discharge back to assisted living facility. Patient and family verbalize understanding instructions and agreement with plan. (GABE MAS MD) Diagnostic Imaging Diagonstic Imaging: Xray Plain Films/CT/US/NM/MRI: other Comments NAME: MARQUIS MORA [facility] REC#: [id number] PT STATUS: REG ER : 1940 PHYSICIAN: GABE MAS MD ADMIT DATE: 12/13/17/ER Signed Date of Exam: 12/13/17 HUMERUS, RIGHT, 2 VIEWS INDICATION: Fall. FINDINGS: There is a comminuted transverse fracture through the mid right humerus. Fracture fragments are offset by 2 cm. The shoulder and elbow are intact. IMPRESSION: Comminuted transverse fracture through the mid right humeral diaphysis. Dictated by: Dictated on workstation # [id number] Dict: 12/13/17 1045 Trans: 12/13/17 1115 Interpreted by: VICENTE MEREDITH MD Electronically signed by: VICENTE MEREDITH MD 12/13/17 1115 Reviewed: Reviewed by Me Diagonstic Imaging: Xray Plain Films/CT/US/NM/MRI: chest Comments NAME: MARQUIS MORA [facility] REC#: [id number] PT STATUS: REG ER : 1940 PHYSICIAN: GABE MAS MD ADMIT DATE: 12/13/17/ER Signed Date of Exam: 12/13/17 CHEST 1 VIEW, AP/PA ONLY Indication: Fall. Findings: There is cardiomegaly. There is some discoid atelectasis and/or pneumonitis. No pleural effusion or pneumothorax. Mediastinum unremarkable. Impression: Cardiomegaly and some minimal discoid atelectasis and/or pneumonitis in lung bases. Dictated by: Dictated on workstation # [id number] Dict: 12/13/17 1044 Trans: 12/13/17 1115 Interpreted by: VICENTE MEREDITH MD Electronically signed by: VICENTE MEREDITH MD 12/13/17 111 Reviewed: Reviewed by Nh Diagonstic Imaging: Xray Plain Films/CT/US/NM/MRI: pelvis Comments [place] NAME: MARQUIS MORA [facility] REC#: [id number] PT STATUS: REG ER : 1940 PHYSICIAN: GABE MAS MD ADMIT DATE: 12/13/17/ER Draft Date of Exam:12/13/17 PELVIS INDICATION: Status post fall with pelvic pain. TECHNIQUE: An AP pelvis was obtained at 1044 hours. FINDINGS: The right hip prosthesis appears in good alignment. There is degenerative change of the left hip. No definite acute fracture is seen. IMPRESSION: Degenerative changes of the left hip. Right hip prosthesis in good alignment. No acute appearing bony abnormality of the pelvis. Dictated on workstation # [id number] Dict: 12/13/17 1058 Trans: 12/13/17 1100 [id number] Interpreted by: SEBASTIÁN JOHNSON MD Electronically signed by: Reviewed: Reviewed by Nh Diagonstic Imaging: CT Plain Films/CT/US/NM/MRI: c-spine, head Comments [facility] [employer] [place] NAME: MARQUIS MORA [facility] REC#: [id number] PT STATUS: REG ER : 1940 PHYSICIAN: GABE MAS MD ADMIT DATE: 12/13/17/ER Draft Date of Exam:12/13/17 CT HEAD/CERVICAL SPINE WO INDICATION: Fall, trauma. CT brain findings: Noncontrast brain CT is performed. There are diffuse atrophic changes. There are low-density changes in the deep white matter compatible with chronic ischemic change. There is no acute hemorrhage or subdural or epidural collection. Ventricles are normal in size. Calvarial windows show no fractures. CT cervical spine findings: Axial slices were obtained with sagittal and coronal reconstructions without contrast. There is no definite acute fracture or acute bony abnormality. There is a calcification posterior to the dens process of C2 which appears to be chronic, and is unchanged from 10/26/2016. There is degenerative change at C1-2 junction. There is disc space narrowing and osteophyte formation at essentially all levels in the cervical spine. There is diffuse degenerative change throughout the facet joints. IMPRESSION: CT brain shows atrophic changes and chronic ischemic changes in deep white matter. There is no acute intracranial hemorrhage or acute intracranial abnormality. CT cervical spine demonstrates multilevel degenerative changes with no acute appearing fracture or subluxation. Dictated on workstation # [id number] Dict: 12/13/17 1114 Trans: 12/13/17 1129 ARACELY [id number] Interpreted by: SEBASTIÁN JOHNSON MD Electronically signed by: Doranszhane Imaging: CT Plain Films/CT/US/NM/MRI: chest, abdomen, pelvis Comments [facility]. [place], [place] NAME: MARQUIS MORA [facility] REC#: [id number] PT STATUS: REG ER : 1940 PHYSICIAN: GABE MAS MD ADMIT DATE: 12/13/17/ER Draft Date of Exam:12/13/17 CT CHEST/ABDOMEN/PELVIS W INDICATION: Fall, trauma. TECHNIQUE: CT of the chest, abdomen and pelvis obtained with IV contrast bolus. CT CHEST FINDINGS: There are no enlarged mediastinal or hilar nodes. There is no hematoma in the mediastinum or evidence of aortic injury. There is no pleural or pericardial fluid. There is a parenchymal area of thickening versus mass in the right lower lobe measuring about 3.2 x 2.0 cm. This is larger in size compared to the previous study of 02/23/2016. Remainder of the lung dillon are clear. CT ABDOMEN AND PELVIS FINDINGS: The liver shows no focal lesions. There is some scarring about the spleen, the previous perisplenic hematoma visualized on 03/04/2016 has resolved. Pancreas and adrenals and kidneys are unremarkable. There is no solid organ injury or free fluid. There is atherosclerotic change of the aorta and iliac vessels. There is no pelvic hematoma or fracture. There is a right hip prosthesis. IMPRESSION: 1. CT chest demonstrates no acute traumatic abnormality. There is an area of parenchymal thickening versus mass in the right lower lobe which is pleural-based and has increased in size compared to the previous study. Followup of this abnormality is recommended. Consider PET imaging if clinically warranted. There is no acute traumatic abnormality in the chest. 2. CT abdomen and pelvis demonstrates no evidence of solid organ injury or acute abnormality. There are chronic changes about the spleen which are likely residua of previous injury noted on 02/23/2016. There is no acute abnormality in the abdomen or pelvis. Dictated on workstation # [id number] Dict: 12/13/17 1121 Trans: 12/13/17 1133 [id number] Interpreted by: SEBASTIÁN JOHNSON MD Electronically signed by: (GABE MAS MD) Departure Impression Primary Impression: Fracture of humerus, right, closed Qualified Codes: S42.321A - Displaced transverse fracture of shaft of humerus , right arm, initial encounter for closed fracture Additional Impressions: Multiple abrasions Multiple contusions Head injury, acute, without loss of consciousness Qualified Codes: S09.90XA - Unspecified injury of head, initial encounter Disposition: HOME, SELF-CARE Condition: Stable Departure-Patient Inst. Decision time for Depature: 13:06 (GABE MAS MD) Referrals: MIKE ROGERS MD (PCP/Family) Primary Care Physician Patient Instructions: Contusion (DC), Minor Head Injury (DC), Skin Abrasions ( DC), Upper Arm Fracture Add. Discharge Instructions: All discharge instructions reviewed with patient and/or family. Voiced understanding. You may use antibiotic ointment and dressing over wounds. Follow-up with Dr. Pierson on . Call his office today for appointment time. Follow-up with your within one week for recheck and further evaluation related to the thickened area noted in the right lung that needs further evaluation to rule out cancer. Return for worse pain, fever, vomiting, weakness, breathing problems or other concerns as needed. Keep splint clean and dry. Use sling at all times until cleared by the orthopedic physician. Copy Copies To 1: PAULINA PIERSON MD Copies To 2: MIKE ROGERS MD, TIMOTHY D MD Dec 13, 2017 10:25 GRACE GRIFFITH Dec 13, 2017 13:03
[2017-12-13 10:38] LABS: ALBUMIN 4.2 GM/DL (3.2-4.5); BILIRUBIN,TOTAL 0.6 MG/DL (0.1-1.0); CREATININE SERUM 1.21 MG/DL (0.60-1.30); POTASSIUM 4.8 MMOL/L (3.6-5.0); TOTAL PROTEIN 7.7 GM/DL (6.4-8.2)
[2017-12-13] MEDS ORDERED: RECEIVED CONTRAST (Hold Metformin) IV SCH (10:45)
--- NOTE | 2017-12-13 10:49 | Diagnostic Imaging Report ---
Indication: Fall. Findings: There is cardiomegaly. There is some discoid atelectasis and/or pneumonitis. No pleural effusion or pneumothorax. Mediastinum unremarkable. Impression: Cardiomegaly and some minimal discoid atelectasis and/or pneumonitis in lung bases. Dictated by: Dictated on workstation # [id number]
--- NOTE | 2017-12-13 10:52 | Diagnostic Imaging Report ---
INDICATION: Fall. FINDINGS: There is a comminuted transverse fracture through the mid right humerus. Fracture fragments are offset by 2 cm. The shoulder and elbow are intact. IMPRESSION: Comminuted transverse fracture through the mid right humeral diaphysis. Dictated by: Dictated on workstation # [id number]
--- NOTE | 2017-12-13 11:00 | Diagnostic Imaging Report ---
INDICATION: Status post fall with pelvic pain. TECHNIQUE: An AP pelvis was obtained at 1044 hours. FINDINGS: The right hip prosthesis appears in good alignment. There is degenerative change of the left hip. No definite acute fracture is seen. IMPRESSION: Degenerative changes of the left hip. Right hip prosthesis in good alignment. No acute appearing bony abnormality of the pelvis. Dictated by: Dictated on workstation # [id number]
--- NOTE | 2017-12-13 11:30 | Diagnostic Imaging Report ---
INDICATION: Fall, trauma. CT brain findings: Noncontrast brain CT is performed. There are diffuse atrophic changes. There are low-density changes in the deep white matter compatible with chronic ischemic change. There is no acute hemorrhage or subdural or epidural collection. Ventricles are normal in size. Calvarial windows show no fractures. CT cervical spine findings: Axial slices were obtained with sagittal and coronal reconstructions without contrast. There is no definite acute fracture or acute bony abnormality. There is a calcification posterior to the dens process of C2 which appears to be chronic, and is unchanged from 10/26/2016. There is degenerative change at C1-2 junction. There is disc space narrowing and osteophyte formation at essentially all levels in the cervical spine. There is diffuse degenerative change throughout the facet joints. IMPRESSION: CT brain shows atrophic changes and chronic ischemic changes in deep white matter. There is no acute intracranial hemorrhage or acute intracranial abnormality. CT cervical spine demonstrates multilevel degenerative changes with no acute appearing fracture or subluxation. Dictated by: Dictated on workstation # [id number]
--- NOTE | 2017-12-13 11:33 | Diagnostic Imaging Report ---
INDICATION: Fall, trauma. TECHNIQUE: CT of the chest, abdomen and pelvis obtained with IV contrast bolus. CT CHEST FINDINGS: There are no enlarged mediastinal or hilar nodes. There is no hematoma in the mediastinum or evidence of aortic injury. There is no pleural or pericardial fluid. There is a parenchymal area of thickening versus mass in the right lower lobe measuring about 3.2 x 2.0 cm. This is larger in size compared to the previous study of 02/23/2016. Remainder of the lung dillon are clear. CT ABDOMEN AND PELVIS FINDINGS: The liver shows no focal lesions. There is some scarring about the spleen, the previous perisplenic hematoma visualized on 03/04/2016 has resolved. Pancreas and adrenals and kidneys are unremarkable. There is no solid organ injury or free fluid. There is atherosclerotic change of the aorta and iliac vessels. There is no pelvic hematoma or fracture. There is a right hip prosthesis. IMPRESSION: 1. CT chest demonstrates no acute traumatic abnormality. There is an area of parenchymal thickening versus mass in the right lower lobe which is pleural-based and has increased in size compared to the previous study. Followup of this abnormality is recommended. Consider PET imaging if clinically warranted. There is no acute traumatic abnormality in the chest. 2. CT abdomen and pelvis demonstrates no evidence of solid organ injury or acute abnormality. There are chronic changes about the spleen which are likely residua of previous injury noted on 02/23/2016. There is no acute abnormality in the abdomen or pelvis. Dictated by: Dictated on workstation # [id number]
[2017-12-13 13:35] VITALS: BP 105/69
== END 2017-12-13 13:35 | disposition home or self-care (01) ==
LOC: EDUNIT# 09:47 → ER 09:48
DX: S09.90XA Unspecified injury of head, initial encounter (principal); S42.351A Displaced comminuted fracture of shaft of humerus, right arm, initial encounter for closed fracture; S00.83XA Contusion of other part of head, initial encounter; S10.93XA Contusion of unspecified part of neck, initial encounter; S20.219A Contusion of unspecified front wall of thorax, initial encounter; S30.1XXA Contusion of abdominal wall, initial encounter; I25.2 Old myocardial infarction; I25.10 Atherosclerotic heart disease of native coronary artery without angina pectoris; I10 Essential (primary) hypertension; I73.9 Peripheral vascular disease, unspecified; F03.90 Unspecified dementia, unspecified severity, without behavioral disturbance, psychotic disturbance, mood disturbance, and anxiety; F32.9 Major depressive disorder, single episode, unspecified; G40.909 Epilepsy, unspecified, not intractable, without status epilepticus; R40.2142 Coma scale, eyes open, spontaneous, at arrival to emergency department; R40.2252 Coma scale, best verbal response, oriented, at arrival to emergency department; R40.2362 Coma scale, best motor response, obeys commands, at arrival to emergency department; Z87.891 Personal history of nicotine dependence; Z95.5 Presence of coronary angioplasty implant and graft; Z80.0 Family history of malignant neoplasm of digestive organs; Z87.440 Personal history of urinary (tract) infections; Z87.01 Personal history of pneumonia (recurrent); W01.198A Fall on same level from slipping, tripping and stumbling with subsequent striking against other object, initial encounter; Y92.099 Unspecified place in other non-institutional residence as the place of occurrence of the external cause
CPT/HCPCS: 29105; 36415; 70450; 71045; 71260; 72125; 72170; 73060; 74177; 80053; 83690; 85025

== ENCOUNTER 2018-01-11 19:49 | Emergency (ER) | payer MEDICARE, MEDICAID ==
[~2018-01-11] VITALS: Ht 182.9 cm; Wt 102.1 kg
--- OUTSIDE RECORDS SUMMARY | 2018-01-11 19:55 | XMS REPORT ---
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 Active 0226090186467 Problem Type 2 diabetes mellitus without complication, without long-term current use of insulin E11.9 Active 997640359 Problem Reactive depression F32.9 Active 14593182 Problem Seborrhea L21.9 Active 16722297 Problem Frequent falls R29.6 Active 750471666 Problem PVD (peripheral vascular disease) I73.9 Active 028587754 Problem Essential hypertension I10 Active 63810477 Problem Vascular dementia without behavioral disturbance F01.50 Active 940863531 Problem Other chronic pain G89.29 Active 20604991 ALLERGIES No Information ENCOUNTERS Encounter Location Date Diagnosis [place] [id number] [place] [address] 09306- 9361 Dec, Other chronic pain G89.29 [facility] [address] [place] [address] 39396- 9921 Dec, Other chronic pain G89.29 [facility] [address] [place] [address] 48756- 2131 Nov, Other chronic pain G89.29 [facility] [address] [place] [address] 30 Nov, 2017 Closed nondisplaced oblique fracture of shaft of right humerus with routine healing, subsequent encounter S42.334D [facility] [address] [place] [address] Nov, PVD (peripheral vascular disease) I73.9 and Other chronic pain G89.29 [facility] [address], [place] [address] Nov, [facility] [address] [place] [address] 38480- 1550 Nov, Other chronic pain G89.29 [facility] [address] [place] [address] Oct, Seborrhea L21.9 [facility] [address] [place] [address] Oct, Seborrhea L21.9 [place] [id number] [place] [address] 03965- 2615 Oct, Other chronic pain G89.29 [place] [id number] [place] [address] 57135- 8160 Sep, [facility] [id number] [place] [address] [id number] Sep, Dental examination Z01.20 [facility] [address] [place] [address] Sep, Type 2 diabetes mellitus without complication, without long-term current use of insulin E11.9 ; Vascular dementia without behavioral disturbance F01.50 ; Neuropathic pain M79.2 ; Weakness R53.1 ; 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 and PVD (peripheral vascular disease) I73.9 [facility] [address], [place] [address] Sep, Other chronic pain G89.29 [facility] [id number] [place] [address] 18860- 2743 Aug, [facility] [id number] [place] [address] 40258- 4834 Aug, Other chronic pain G89.29 [facility] [id number] [place] [address] 60427- 4797 Jul, Other chronic pain G89.29 [facility] [address], [place] [address] 6[address] Jul, [facility] [address] [place] [address] [id number]- 1062 June, Other chronic pain G89.29 [facility] [id number] [place] [address] 58757- 0649 May, Other chronic pain G89.29 [facility] [address] [place] [address] May, Other chronic pain G89.29 ; Type 2 diabetes mellitus without complication, without long-term current use of insulin E11.9 and Vascular dementia without behavioral disturbance F01.50 [facility] [address], [place] [address] 7[address] Apr, Other chronic pain G89.29 [facility] [id number] [place] [address] [id number] Mar, Other chronic pain G89.29 [facility] [id number] [place] [address] [id number] Feb, Other chronic pain G89.29 [facility] [address] [place] [address] Feb, Other chronic pain G89.29 and Vascular dementia without behavioral disturbance F01.50 [facility] [id number] [place] [address] [id number] Jan, Other chronic pain G89.29 [facility] [id number] [place] [address] [id number] Dec, Other chronic pain G89.29 [facility] [address] [place] [address] 26560- 4477 Nov, Weakness R53.1 and Frequent falls R29.6 [facility] [id number] [place] [address] [id number] Nov, [place] [address] [facility] [id number] Nov, [facility] [id number] [id number] Nov, Other chronic pain G89.29 [facility] [address] [place] [id number] Oct, Pneumonia of upper lobe due to infectious organism, unspecified laterality J18.1 ; Vascular dementia without behavioral disturbance F01.50 ; Type 2 diabetes mellitus without complication, without long-term current use of insulin E11.9 and Essential hypertension I10 [facility] [facility] [id number] [id number] Oct, Other chronic pain G89.29 [facility] [id number] Oct, [place] [address] [id number] 7180 Oct, [facility] [address] [place] [address] Sep, Pneumonia of right lung due to infectious organism, unspecified part of lung J18.9 ; Type 2 diabetes mellitus without complication, without long -term current use of insulin E11.9 ; Vascular dementia without behavioral disturbance F01.50 and Other chronic pain G89.29 [facility] [address] [place] [id number] [id number] Sep, [facility] [address] [place] [id number] [id number] Aug, [facility] [address] [id number] [id number] Aug, [facility] [id number] [id number] Jul, [facility] [address] [place] [address] Jul, Type 2 diabetes mellitus without complication, without long-term current use of insulin E11.9 [facility] [address], [place] [address] 2546 Jul, [facility] [address] [place] [id number] June, [facility] [address] [place] [id number] June, [facility] [address], [place] [address] 25[address] May, [facility] [employer] [address] [place] [address] May, Encounter to establish care Z76.89 ; Neuropathic pain M79.2 ; Type 2 diabetes mellitus without complication, without long-term current use of insulin E11.9 ; Essential hypertension I10 ; 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 and PVD ( peripheral vascular disease) I73.9 [facility] [id number] [place] [address] [id number] May, [facility] [address] [place] [id number] Apr, Neuropathic pain M79.2 and Reactive depression F32.9 [facility] [id number] [place] [address] [id number] Apr, [facility] [address], [place] [address] 2546 Apr, [facility] [address], [place] [address]- 0366 Apr, [facility] [id number] [id number] Apr, [facility] [address], [place] [address] 2546 Mar, [facility] [address], [place] [address]- 8496 Mar, [facility] [address] [id number], [place] [address]- 1086 Mar, [facility] [address] [facility] [id number], [place] [address] 7390 Mar, [facility] [address], [place] [address]- 5341 Mar, [facility] [address] [place] [id number] Mar, Acute blood loss anemia D62 and Type 2 diabetes mellitus without complication, without long-term current use of insulin E11.9 [facility] [address] [facility] [id number] [address] 1681 Feb, [facility] [address] [facility] [id number], [place] [address]- 7384 Feb, [facility] [address], [place] [address]- 8055 Feb, [facility] [address], [place] [address]- 4014 Feb, [facility] [address], [place] [address]- 5867 Feb, [facility] [address], [place] [address]- 7468 May, [facility] [address], [place] [address]- 1614 May, [facility] [address] [id number], [place] [address]- 6948 Mar, [facility] [address] [id number], [place] [address]- 8745 June, [facility] [address] [facility] [id number], [place] [address]- 6022 June, [facility] [address] [address]- 8845 June, [facility] [address] [id number], [place] [address]- 3684 May, IMMUNIZATIONS No Known Immunizations SOCIAL HISTORY Never Assessed REASON FOR VISIT Controlled Med Refill 01/11 PLAN OF CARE VITAL SIGNS MEDICATIONS Medication Instructions Dosage Frequency Start Date End Date Duration Status MS Contin 15 mg Orally every 12 hrs 1 tablet with the 30mg tablet 12h Dec, 28 days Active MS Contin 30 mg Orally every 12 hrs 1 tablet with a 15mg tab 12h Dec, 28 days Active RESULTS No Results PROCEDURES [...] [facility]2016 Hospitalization History [facility] 04/2016
--- OUTSIDE RECORDS SUMMARY | 2018-01-11 19:56 | XMS REPORT ---
Author Author FROILAN CORTEZ [facility] Address [address] [place] [address] Care Team Providers Care Test Engine Mechanic Name Role Phone FROILAN CORTEZ Unavailable PROBLEMS Type Condition ICD9-CM Code SRS86-TL Code Onset Dates Condition Status SNOMED Code Problem Neuropathy G62.9 Active 956586126 Problem Neuropathic pain M79.2 Active 833092977 Problem Coronary artery disease involving modoc coronary artery of modoc heart without angina pectoris I25.10 Active 6582458789503 Problem Type 2 diabetes mellitus without complication, without long-term current use of insulin E11.9 Active 821929484 Problem Reactive depression F32.9 Active 25122216 Problem Seborrhea L21.9 Active 20464410 Problem Frequent falls R29.6 Active 885362209 Problem PVD (peripheral vascular disease) I73.9 Active 892186996 Problem Essential hypertension I10 Active 41706801 Problem Vascular dementia without behavioral disturbance F01.50 Active 172301142 Problem Other chronic pain G89.29 Active 86295461 ALLERGIES No Information ENCOUNTERS Encounter Location Date Diagnosis [facility] [id number], [place] [address] Nov, Other chronic pain G89.29 [employer] [address] [place] [address] Nov, [employer] [address] [place] [address] Nov, PVD (peripheral vascular disease) I73.9 and Other chronic pain G89.29 [facility] [id number], [place] [address] 2015 Nov, [facility] [id number], [place] [address]- 4978 Nov, Other chronic pain G89.29 [facility] [address] [place] [address] Oct, Seborrhea L21.9 [facility] [address] [place] [address] Oct, Seborrhea L21.9 [facility] [id number] [place] [address] 99211- 1665 Oct, Other chronic pain G89.29 [facility] [id number] [place] [address] 17557- 6337 Sep, [facility] [address] [place] [address] [id number] Sep, Dental examination Z01.20 [facility] [address] [place] [address] Sep, Type 2 diabetes mellitus without complication, without long-term current use of insulin E11.9 ; Vascular dementia without behavioral disturbance F01.50 ; Neuropathic pain M79.2 ; Weakness R53.1 ; Coronary artery disease involving modoc coronary artery of modoc heart without angina pectoris I25.10 and PVD (peripheral vascular disease) I73.9 [facility] [address] [place] [address] 38773- 5870 Sep, Other chronic pain G89.29 [facility] [address], [place] [address]- 1445 16 Aug, 2017 [facility] [address] [place] [address] 54557- 2698 Aug, Other chronic pain G89.29 [facility] [id number] [place] [address] 06913- 5804 Jul, Other chronic pain G89.29 [facility] [id number] [place] [address] 33925- 1459 Jul, [facility] [id number] [place] [address] 34414- 6702 June, Other chronic pain G89.29 [facility] [address] [place] [place] [address] 7730 May, Other chronic pain G89.29 [facility] [address] [place] [address] May, Other chronic pain G89.29 ; Type 2 diabetes mellitus without complication, without long-term current use of insulin E11.9 and Vascular dementia without behavioral disturbance F01.50 [facility] [address] [place] [address] 16386- 6863 Apr, Other chronic pain G89.29 [facility] [id number] [place] [address] [id number] Mar, Other chronic pain G89.29 [facility] [id number] [place] [address] [id number] Feb, Other chronic pain G89.29 [facility] [address] [place] [address] Feb, Other chronic pain G89.29 and Vascular dementia without behavioral disturbance F01.50 [facility] [id number] [place] [address] [id number] Jan, Other chronic pain G89.29 [facility] [id number] [place] [address] [id number] Dec, Other chronic pain G89.29 [facility] [id number], [place] [address] 3794 Nov, Weakness R53.1 and Frequent falls R29.6 [facility] [id number] [id number] Nov, [facility] [address] [place] [address] 21699- 0441 Nov, [facility] [id number] [place] [address] [id number] Nov, Other chronic pain G89.29 [employer] [facility] [address] [place] [id number] Oct, Pneumonia of upper lobe due to infectious organism, unspecified laterality J18.1 ; Vascular dementia without behavioral disturbance F01.50 ; Type 2 diabetes mellitus without complication, without long-term current use of insulin E11.9 and Essential hypertension I10 [facility] [address] [place] [id number] [id number] 15 Oct, 2016 Other chronic pain G89.29 [facility] [address] [id number], [place]- 8703 Oct, [facility] [address] [id number], [place] [address]- 3681 Oct, [facility] [address] [place] [address] Sep, Pneumonia of right lung due to infectious organism, unspecified part of lung J18.9 ; Type 2 diabetes mellitus without complication, without long -term current use of insulin E11.9 ; Vascular dementia without behavioral disturbance F01.50 and Other chronic pain G89.29 [facility] [address] [id number] [id number] Sep, [facility] [address] [id number] [id number] Aug, [facility] [address] [id number], [place] [id number] Aug, [facility] [address] [id number] [id number] Jul, [facility] [address] [place] [address] Jul, Type 2 diabetes mellitus without complication, without long-term current use of insulin E11.9 [facility] [address] [id number], [place] [address] 2540 Jul, [facility] [address] [id number], [place] [id number] June, [facility] [address] [id number], [place] [id number] June, [facility] [address] [id number], [place] [address] 4617 May, [employer] [address] [place] [address] May, Encounter to establish care Z76.89 ; Neuropathic pain M79.2 ; Type 2 diabetes mellitus without complication, without long-term current use of insulin E11.9 ; Essential hypertension I10 ; Coronary artery disease involving modoc coronary artery of modoc heart without angina pectoris I25.10 and PVD ( peripheral vascular disease) I73.9 [facility] [address] [id number], [place] [id number] May, [facility] [employer] [address] [place] [id number] Apr, Neuropathic pain M79.2 and Reactive depression F32.9 [facility] [id number] [id number] Apr, [facility] [address], [place] [address]- 9951 Apr, [facility] [address]100[place], [place] [address] 2546 Apr, [facility] [id number] [place] [address] [id number] Apr, [facility] [address]100[place], [place] [address]- 9926 Mar, [facility] [address]100[place], [place] [address]- 0136 Mar, [facility] [address]100[place], [place] [address]- 9806 Mar, [facility] [address]100[place], [place] [address]- 1143 Mar, [facility] [address] [place] [address] 60576- 9036 Mar, [facility] [employer] [address] [place] [id number] Mar, Acute blood loss anemia D62 and Type 2 diabetes mellitus without complication, without long-term current use of insulin E11.9 [facility] [address], [place] [address]- 3340 Feb, [facility] [id number] [place] [address] 96887- 3799 Feb, [facility] [address] [id number], [place] [address]- 5486 Feb, [facility] [id number] [place] [address] 67750- 6422 Feb, [facility] [id number] [place] [address] 90016- 1616 Feb, [facility] [id number] [place] [address] 18311- 5845 May, [facility] [id number] [place] [address] 25621- 1185 May, [facility] [id number] [place] [address] 64664- 2084 Mar, [facility] [id number] [place] [address] 78894- 4004 June, [facility] [address] [id number], [place] [address]- 5109 June, [facility] [address], [place] [address]- 4405 June, [facility] [address], [place] [address]- 9211 May, IMMUNIZATIONS No Known Immunizations SOCIAL HISTORY Never Assessed REASON FOR VISIT Controlled Med Refill PLAN OF CARE VITAL SIGNS MEDICATIONS Medication Instructions Dosage Frequency Start Date End Date Duration Status MS Contin 15 mg Orally every 12 hrs 1 tablet with the 30mg tablet Nov, 28 days Active MS Contin 30 mg Orally every 12 hrs 1 tablet with a 15mg tab Nov, 28 days Active RESULTS No Results [...] right hip replacement after fx Hospitalization History [facility] 03/2016 Hospitalization History [facility] 04/2016
--- NOTE | 2018-01-11 20:04 | ED Fall/Injury ---
General Stated Complaint: FALL Source: patient, EMS Exam Limitations: no limitations History of Present Illness Date Seen by Provider: Jan 11, 2018 Time Seen by Provider: 19:59 Initial Comments To ER per EMS from local group home with reports of a fall. He falls quite frequently and in fact just last week had a right proximal humerus fracture. He is still in a sling and posterior long-arm splint. He does have dementia but he states that his pain currently is no worse than it has been at any point up until now. He arrives in a rigid cervical collar. Occurred: just prior to arrival Severity: moderate Injuries/Pain Location: other (unclear where the injury was, or if there was an injury) Loss of Consciousness: no loss of consciousness Associated Symptoms (Fall): Denies Symptoms Allergies and Home Medications Allergies Coded Allergies: No Known Drug Allergies (Unverified , 10/09/16) Home Medications Cholecalciferol (Vitamin D3) 2,000 Unit Capsule, 2,000 UNIT PO DAILY, (Reported) Citalopram Hydrobromide 20 Mg Tablet, 20 MG PO DAILY, (Reported) Cyanocobalamin (Vitamin B-12) 1,000 Mcg Tablet, 1,000 MCG PO DAILY, (Reported) Duloxetine HCl 30 Mg Capsule.dr, 30 MG PO TID, (Reported) Fenofibrate 160 Mg Tablet, 160 MG PO DAILY, (Reported) Furosemide 20 Mg Tablet, 20 MG PO EVERY OTHER DAY, (Reported) Levetiracetam 500 Mg Tablet, 500 MG PO BID Prescribed by: NOÉ LANDA on 10/29/16 1120 Levofloxacin 750 Mg Tablet, 750 MG PO HS Prescribed by: NOÉ LANDA on 10/29/16 1120 Linaclotide 145 Mcg Capsule, 145 MCG PO DAILY, (Reported) Melatonin 3 Mg Tablet, 3 MG PO HS, (Reported) Morphine Sulfate 15 Mg Tablet.er, 15 MG PO BID, (Reported) Morphine Sulfate 30 Mg Tablet.er, 30 MG PO BID, (Reported) Polyethylene Glycol 3350 119 Gm Powder, 17 GM PO DAILY Prescribed by: GABE MAS on 05/14/172105 Rivastigmine 4.6 Mg Patch, 4.6 MG TD DAILY, (Reported) Patient Home Medication List Home Medication List Reviewed: Yes Review of Systems Review of Systems Constitutional: see HPI Eyes: No Symptoms Reported Ears, Nose, Mouth, Throat: no symptoms reported Respiratory: no symptoms reported Musculoskeletal: see HPI Skin: no symptoms reported Psychiatric/Neurological: No Symptoms Reported Past Lohhxqh-Atewam-Qnholo Hx Patient Social History Type Used: Cigarettes Former Smoker, Quit: Feb 14, 2003 Recent Foreign Travel: No Contact w/Someone Who Travel: No Recent Hopitalizations: No Immunizations Up To Date Tetanus Booster (TDap): Unknown Date of Pneumonia Vaccine: Jun 07, 2011 Date of Influenza Vaccine: Nov 15, 2015 Seasonal Allergies Seasonal Allergies: No Past Medical History Surgeries: Yes Coronary Stent, Gallbladder, Orthopedic, Vascular Surgery Respiratory: Yes Pneumonia Cardiac: Yes (Heart failure) Coronary Artery Disease, Hypertension, Peripheral Vascular Neurological: Yes Dementia, Seizure Disorder Reproductive Disorders: No Sexually Transmitted Disease: No Genitourinary: Yes Prostate Problems, UTI-Chronic Gastrointestinal: No Musculoskeletal: Yes Arthritis Endocrine: Yes Diabetes, Non-Insulin dep HEENT: No Cancer: No Did You Recieve Any Treatments: No Psychosocial: Yes Sleep Difficulties, Depression Integumentary: No Blood Disorders: No Adverse Reaction/Blood Tranf: No Family Medical History Colon cancer G8 BROTHER, Onset:55 FHx: brain tumor G8 SISTER No Pertinent Family Hx, Cancer, Diabetes Physical Exam Vital Signs Vital Signs - First Documented 01/11/18 01/11/18 19:52 20:15 Temp 98.4 Pulse 93 Resp 18 B/P (MAP) 119/67 (84) Pulse Ox 96 O2 Delivery Room Air Capillary Refill : Height, Weight, BMI Height: 6'0.00" Weight: 220lbs. 12.8oz. [id number]; 25.9 BMI Method:Stated General Appearance: WD/WN, no apparent distress HEENT: PERRL/EOMI, normal ENT inspection Neck: non-tender, full range of motion Cardiovascular: regular rate, rhythm, no murmur Respiratory: normal breath sounds, no respiratory distress, no accessory muscle use Gastrointestinal: normal bowel sounds, non tender, soft Extremities: other Neurologic/Psychiatric: alert, normal mood/affect, oriented x 3 Skin: normal color, warm/dry [place] Coma Score Best Eye Response: (4) Open Spontaneously Best Verbal Response: (4) Confused Conversation Best Motor Response: (6) Obeys Commands Ada Total: 14 Progress/Results/Core Measures Results/Orders Lab Results Laboratory Tests Test 01/11/18 20:27 Range/Units White Blood Count 7.8 4.3-11.0 10^3/uL Red Blood Count 4.37 4.35-5.85 10^6/uL Hemoglobin 12.3 L 13.3-17.7 G/DL Hematocrit 37 L 40-54 % Mean Corpuscular Volume 85 80-99 FL Mean Corpuscular Hemoglobin 28 25-34 PG Mean Corpuscular Hemoglobin Concent 33 32-36 G/DL Red Cell Distribution Width 14.0 10.0-14.5 % Platelet Count 372 130-400 10^3/uL Mean Platelet Volume 8.0 7.4-10.4 FL Neutrophils (%) (Auto) 73 42-75 % Lymphocytes (%) (Auto) 16 12-44 % Monocytes (%) (Auto) 9 0-12 % Eosinophils (%) (Auto) 2 0-10 % Basophils (%) (Auto) 1 0-10 % Neutrophils # (Auto) 5.7 1.8-7.8 X 10^3 Lymphocytes # (Auto) 1.3 1.0-4.0 X 10^3 Monocytes # (Auto) 0.7 0.0-1.0 X 10^3 Eosinophils # (Auto) 0.1 0.0-0.3 10^3/uL Basophils # (Auto) 0.0 0.0-0.1 10^3/uL Sodium Level 137 135-145 MMOL/L Potassium Level 4.3 3.6-5.0 MMOL/L Chloride Level 102 98-107 MMOL/L Carbon Dioxide Level 23 21-32 MMOL/L Anion Gap 12 5-14 MMOL/L Blood Urea Nitrogen 22 H 7-18 MG/DL Creatinine 1.18 0.60-1.30 MG/DL Estimat Glomerular Filtration Rate 60 BUN/Creatinine Ratio 19 Glucose Level 208 H 70-105 MG/DL Calcium Level 9.9 8.5-10.1 MG/DL My Orders Orders - LILA DAN APRN Ct Head/Cervical Spine Wo (01/11/18 19:57) Shoulder, Right, 2 Views (01/11/18 19:57) Forearm, Right, 2 Views (01/11/18 19:57) Pelvis (01/11/18 19:57) Cbc With Automated Diff (01/11/18 19:57) Basic Metabolic Panel (01/11/18 19:57) Vital Signs/I&O 01/11/18 01/11/18 19:52 20:15 Temp 98.4 98.4 Pulse 93 93 Resp 18 18 B/P (MAP) 119/67 (84) 119/67 (84) Pulse Ox 96 96 O2 Delivery Room Air Departure Impression Primary Impression: Recurrent falls Disposition: 01 HOME, SELF-CARE Condition: Stable Departure-Patient Inst. Decision time for Depature: 21:30 Referrals: MIKE ROGERS MD (PCP/Family) Primary Care Physician Patient Instructions: Preventing Falls in the Older Adult Add. Discharge Instructions: 1. Continue to wear the splint to the right arm. Follow-up with primary care next week. LILA DAN APRN Jan 11, 2018 20:04
[2018-01-11 20:32] LABS: BASOPHILS % (AUTO) 1 % (0-10); EOSINOPHILS # (AUTO) 0.1 10^3/uL (0.0-0.3); EOSINOPHILS % (AUTO) 2 % (0-10); HEMATOCRIT 37 % (40-54); HEMOGLOBIN 12.3 G/DL (13.3-17.7); LYMPHOCYTES # (AUTO) 1.3 X 10^3 (1.0-4.0); LYMPHOCYTES % (AUTO) 16 % (12-44); MEAN CORPUSCULAR HEMOGLOBIN 28 PG (25-34); MEAN CORPUSCULAR HGB CONC 33 G/DL (32-36); MEAN CORPUSCULAR VOLUME 85 FL (80-99); MONOCYTES # (AUTO) 0.7 X 10^3 (0.0-1.0); MONOCYTES % (AUTO) 9 % (0-12); NEUTROPHILS # (AUTO) 5.7 X 10^3 (1.8-7.8); NEUTROPHILS % (AUTO) 73 % (42-75); PLATELET COUNT 372 10^3/uL (130-400); RED BLOOD COUNT 4.37 10^6/uL (4.35-5.85); WHITE BLOOD COUNT 7.8 10^3/uL (4.3-11.0)
[2018-01-11 20:51] LABS: CALCIUM 9.9 MG/DL (8.5-10.1); CREATININE SERUM 1.18 MG/DL (0.60-1.30); POTASSIUM 4.3 MMOL/L (3.6-5.0)
--- NOTE | 2018-01-11 21:13 | Diagnostic Imaging Report ---
PROCEDURE: CT head and CT cervical spine without contrast. TECHNIQUE: Multiple contiguous axial images were obtained through the brain and cervical spine without the use of intravenous contrast. Sagittal and coronal reformations through the cervical spine were then performed. INDICATION: Trauma, fall COMPARISON: 12/13/2017 CT head: Stable age-related cerebral volume loss and chronic small vessel ischemic changes are present. There is no midline shift or mass effect. There is no hemorrhage or evidence of acute ischemia. There is no visible skull fracture. Paranasal sinuses and mastoids are clear. IMPRESSION: No acute intracranial abnormalities. CT cervical spine: Alignment is normal. There is no subluxation or fracture. Degenerative disc disease and facet joint arthropathy are seen throughout. There is no paraspinous mass. IMPRESSION: No traumatic malalignment or fracture. Dictated by: Dictated on workstation # [id number]
--- NOTE | 2018-01-11 21:17 | Diagnostic Imaging Report ---
INDICATION: Fall COMPARISON: None FINDINGS: Single view of the pelvis demonstrates stable right hip arthroplasty. There is no acute fracture or dislocation. Left hip is intact. IMPRESSION: No fracture or dislocation Dictated by: Dictated on workstation # [id number]
--- NOTE | 2018-01-11 21:18 | Diagnostic Imaging Report ---
INDICATION: Right shoulder injury, pain. COMPARISON: 12/13/2017. EXAMINATION: Two views of the right shoulder were obtained. FINDINGS: Displaced fracture of the mid to proximal humerus. Alignment is unchanged from the prior exam. There is some callus formation indicating healing. There is a rotator cuff anchor in place. Degenerative changes are seen in the glenohumeral and AC joints. IMPRESSION: 1. Chronic stable humeral fracture. 2. No acute fracture or dislocation. Dictated by: Dictated on workstation # [id number]
--- NOTE | 2018-01-11 21:19 | Diagnostic Imaging Report ---
INDICATION: Fall, right forearm injury, pain COMPARISON: None FINDINGS: 3 views of the right forearm demonstrate no acute fracture or dislocation. Articular surfaces are age-appropriate. No foreign body seen. IMPRESSION: No acute fracture or dislocation. Dictated by: Dictated on workstation # [id number]
[2018-01-11 22:12] VITALS: BP 124/76
== END 2018-01-11 22:12 | disposition home or self-care (01) ==
LOC: EDUNIT# 19:49 → ER 19:51
DX: S42.301D Unspecified fracture of shaft of humerus, right arm, subsequent encounter for fracture with routine healing (principal); R29.6 Repeated falls; I25.10 Atherosclerotic heart disease of native coronary artery without angina pectoris; I10 Essential (primary) hypertension; I73.9 Peripheral vascular disease, unspecified; I25.2 Old myocardial infarction; E11.9 Type 2 diabetes mellitus without complications; R40.2142 Coma scale, eyes open, spontaneous, at arrival to emergency department; R40.2242 Coma scale, best verbal response, confused conversation, at arrival to emergency department; R40.2362 Coma scale, best motor response, obeys commands, at arrival to emergency department; F32.9 Major depressive disorder, single episode, unspecified; Z87.440 Personal history of urinary (tract) infections; Z87.01 Personal history of pneumonia (recurrent); Z80.0 Family history of malignant neoplasm of digestive organs; Z95.5 Presence of coronary angioplasty implant and graft; W19.XXXD Unspecified fall, subsequent encounter; Y92.129 Unspecified place in nursing home as the place of occurrence of the external cause
CPT/HCPCS: 36415; 70450; 72125; 72170; 73030; 73090; 80048; 85025

== ENCOUNTER → 2018-01-13 | Outpatient (CLI) | payer MEDICARE, MEDICAID | END | disposition home or self-care (01) | LOC: PREOP 07:52 | PROVIDERS: ATTEND Internal Medicine Critical Care Medicine | DX: Z01.818 Encounter for other preprocedural examination (principal) ==

== ENCOUNTER → 2018-02-16 | Outpatient (CLI) | payer MEDICARE, MEDICAID ==
[~2018-02-16] MED LIST changes: +CATHETER FLUSH 10 ML SYR IV PRN; +IOHEXOL 350 MG/ML 100 ML (OMNIPAQUE 350) VIAL IV ONE; +NS 100 ML (IVPB) BAG IV ONE; +RECEIVED CONTRAST (Hold Metformin) IV SCH
[2018-02-16 15:17] LABS: BUN/CREATININE RATIO 16; CREATININE SERUM 1.08 MG/DL (0.60-1.30); GFR ESTIMATED > 60
--- NOTE | 2018-02-16 16:39 | Diagnostic Imaging Report ---
PROCEDURE: CT chest with contrast only. TECHNIQUE: Multiple contiguous axial images were obtained through the chest after administration of intravenous contrast. INDICATION: Lung nodule. FINDINGS: The recent CT chest, abdomen, and pelvis exam of 12/13/2017 noted an area of parenchymal thickening versus a mass in the right lower lobe. That finding is again evident and does not seem to have changed significantly. The density of the lung adjacent to this area is perhaps slightly greater, and this appearance suggests that there is mild pneumonia/atelectasis now present in this area. The overall appearance of the chest has not changed significantly otherwise. There is a poorly defined 8 mm nodular density along the periphery of the right middle lobe (image 30/68). There is also a 4 mm noncalcified nodular density along the posterior aspect of the left mid lung at the same level. These findings were also present on the prior CT chest, abdomen, and pelvis exam of 02/23/2016 and have not changed significantly. The lungs are otherwise generally clear. The cardiomegaly and the coronary artery disease seen on the prior study are again evident and no different. The aorta is not abnormally dilated, and there is no sign of a dissection. The pulmonary arteries are not well opacified and consequently difficult to assess for a pulmonary embolus. There is no obvious defect to suggest a pulmonary embolus. There is no mediastinal or hilar adenopathy. The thyroid gland where visualized is unremarkable. The sections through the upper abdomen fail to show any sign of an acute abnormality. As noted on the prior exam, there is scar formation involving the lateral aspect of the spleen. The bone windows are unremarkable for an acute fracture or for a destructive lesion. The data coordinator film does show that there is healing callus formation about the displaced transverse fracture of the mid shaft of the right humerus seen on the previous exam. 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 IMPRESSION: 1. The abnormal density in the right lung base seen previously is again evident and does not appear to have changed significantly. There also now appears to be an element of mild acute pneumonia/atelectasis superimposed on this area. I suspect that the density in the right lung base is more likely due to chronic atelectasis/pneumonia than to neoplasm. If further imaging is desired, then PET/CT would be recommended. If the PET/CT exam is not performed, then a short-term (three-month) followup CT chest exam should be obtained. 2. The vague nodular density in the right middle lobe and the small nodular density in the left lung base seen previously appear stable. Most likely, they are benign. 3. There is cardiomegaly and coronary artery disease. 4. There is scar formation involving the lateral aspect of the spleen. 5. There is a considerable amount of healing callus formation about the displaced fracture of the mid shaft of the right humerus. Dictated by: Dictated on workstation # [id number]
== END ==
LOC: RAD 14:35
PROVIDERS: ATTEND Nurse Practitioner Family
DX: J44.9 Chronic obstructive pulmonary disease, unspecified (principal); J98.11 Atelectasis; E66.9 Obesity, unspecified; R91.1 Solitary pulmonary nodule; J98.4 Other disorders of lung; I51.7 Cardiomegaly; I25.10 Atherosclerotic heart disease of native coronary artery without angina pectoris; Z87.891 Personal history of nicotine dependence
CPT/HCPCS: 36415; 71260; 82565; 84520

== ENCOUNTER 2018-02-22 05:39 | Outpatient (CLI) | payer MEDICARE, MEDICAID ==
[~2018-02-22] VITALS: Ht 182.9 cm
[~2018-02-22 05:39] MED LIST changes: -CATHETER FLUSH 10 ML SYR IV PRN; -IOHEXOL 350 MG/ML 100 ML (OMNIPAQUE 350) VIAL IV ONE; -NS 100 ML (IVPB) BAG IV ONE; -RECEIVED CONTRAST (Hold Metformin) IV SCH
[2018-02-22] MEDS ORDERED: DOCU100C37 PO (11:22)
[2018-02-22] MEDS ORDERED: [UNRECOGNIZED DRUG - CODE] IM (11:22)
== END 2018-02-22 11:33 | disposition home or self-care (01) ==
LOC: PREOP 05:39
PROVIDERS: ATTEND Internal Medicine Critical Care Medicine
DX: Z01.818 Encounter for other preprocedural examination (principal)

== ENCOUNTER 2018-02-23 07:39 | Day surgery (SDC) | payer MEDICARE, MEDICAID ==
[~2018-02-23] VITALS: Ht 182.9 cm
[~2018-02-23 07:39] MED LIST changes: +DOCU100C37 PO; +[UNRECOGNIZED DRUG - CODE] IM
[2018-02-23] MEDS ORDERED: LIDOCAINE JELLY 2% (XYLOCAINE) 30 ML TUBE TOP ONE (07:40)
[2018-02-23] MEDS ORDERED: LIDOCAINE PF 2% 5 ML (XYLOCAINE) VIAL INJ ONE (07:40)
[2018-02-23] MEDS ORDERED: LIDOCAINE PF 1% 2 ML VIAL (OR ONLY) IJ ONE (07:40)
[2018-02-23] MEDS ORDERED: NS IV 500 ML 500 ML ONE (08:02)
[2018-02-23] MEDS ORDERED: NS IV 500 ML 500 ML IV PRN (08:23)
[2018-02-23 08:30] VITALS: BP 104/64
[2018-02-23] MEDS ORDERED: MIDAZOLAM 2 MG/2 ML (VERSED) VIAL IVP ONE (08:30)
[2018-02-23] MEDS ORDERED: fentaNYL INJECTION 100 MCG/2 ML AMP IVP ONE (08:30)
[2018-02-23] MEDS ORDERED: MIDAZOLAM 2 MG/2 ML (VERSED) VIAL ONE ×2 (08:45)
[2018-02-23] MEDS ORDERED: fentaNYL INJECTION 100 MCG/2 ML AMP ONE (08:45)
--- NOTE | 2018-02-23 08:46 | Progress Note-Pre Operative ---
Pre-Operative Progress Note H&P Reviewed The H&P was reviewed, patient examined and no changes noted. Time Seen by Provider: 08:46 Date H&P Reviewed: Feb 23, 2018 Time H&P Reviewed: 08:46 Pre-Operative Diagnosis: ILD JOSE LUIS HASTINGS DO Feb 23, 2018 08:46
--- NOTE | 2018-02-23 08:51 | Pulmonary Procedures ---
Pulmonary Procedures Date of Procedure Date of Service: Feb 23, 2018 Bronch Bronchoscopy with Fluoroscopy bronchoalveolar lavage (BAL), bronchial washes and , transbronchial brushes x2. Percepta brush of yanely x 2. Preop DX Lung mass, infiltration Postop DX: same Complications: none After informed consent obtained and formal time out pt was sedated using Fentanyl and Versed. Bronchoscope was advanced through the nare and vocal cords. 1% lidocaine was used to anesthetize vocal cords, epiglottis, yanely, and left/right main stem bronchus. An anatomical tour was undertaken down to the segmental bronchi bilaterally. No endobronchial lesions noted. From RLL with Fluoroscopy bronchoalveolar lavage (BAL), bronchial washes and, transbronchial brushes x2. Percepta brush of yanely x 2 were obtained. Pt tolerated procedure well. No complications noted. Stat CXR is pending. JOSE LUIS HASTINGS DO Feb 23, 2018 08:51
--- NOTE | 2018-02-23 08:51 | Pre-Op Note & Conscious Sedat ---
Pre-Operative Progress Note H&P Reviewed The H&P was reviewed, patient examined and no changes noted. Date H&P Reviewed: Feb 23, 2018 Time H&P Reviewed: 08:51 Conscious Sedation Pre-Proced Time 08:46 ASA Score 3 For ASA 3 and 4: Consider anesthesia and medical clearance. Also, for patients with a history of failed moderate sedation consider anesthesia. Airway Lungs Heart ASA score ASA 1: a normal healthy patient ASA 2: a patient with a mild systemic disease (mid diabetes, controlled hypertension, obesity ASA 3: a patient with a severe systemic disease that limits activity (angina , COPD, prior Myocardial infarction) ASA 4: a patient with an incapacitating disease that is a constant threat to life (CHF, renal failure) ASA 5: a moribund patient not expected to survive 24 hrs. (ruptured aneurysm) ASA 6: a declared brain patient whose organs are being harvested. For emergent operations, add the letter E after the classification Mallampati Classification Grade 3 Sedation Plan Analgesia, Amnesia, Plan communicated to team members, Discussed options with patient/fam, Discussed risks with patient/fam The patient is an appropriate candidate to undergo the planned procedure, sedation, and anesthesia. The patient immediately re-assessed prior to indication. JOSE LUIS HASTINGS DO Feb 23, 2018 08:51
[2018-02-23 10:45] VITALS: BP 109/58
[2018-02-23 11:20] VITALS: BP 118/85
--- NOTE | 2018-02-23 11:30 | Diagnostic Imaging Report ---
INDICATION: post bronchoscopy COMPARISON: 02/16/2018 FINDINGS: Single frontal view of the chest demonstrates normal heart size and pulmonary vascularity. The lungs show patchy airspace opacities in the right base. No large pleural effusion or pneumothorax is seen. The visualized osseous structures show no acute abnormalities. IMPRESSION: 1. Persistent patchy atelectasis and/or infiltrate in the right base. 2. No pneumothorax. Dictated by: Dictated on workstation # [id number]
[2018-02-23 11:31] VITALS: BP 118/85
--- NOTE | 2018-02-23 11:36 | Diagnostic Imaging Report ---
INDICATION: Bronchoscopy. COMPARISON: None FINDINGS: Multiple intraoperative image intensifier views of the chest were obtained during bronchoscopy. Bronchoscope is noted on the right. Evaluation for pneumothorax is suboptimal given the fluoroscopic modality. Please note, interpreting radiologist was not present during the procedure. Total fluoroscopy time is approximately 31 seconds. IMPRESSION: 1. Fluoroscopic guidance provided during bronchoscopy. Dictated by: Dictated on workstation # [id number]
[2018-02-23 13:05] LABS: BODY FLUID SOURCE BRONCHIAL LAVAGE
[2018-02-23 13:06] LABS: BF OTHER CELLS 36 %; BODY FLUID APPEARENCE SLT CLDY; BODY FLUID COLOR COLORLESS; LYMPHOCYTES,BODY FLUID 5 %
== END 2018-02-23 11:45 | disposition home or self-care (01) ==
LOC: ENDO 07:39
PROVIDERS: ATTEND Internal Medicine Critical Care Medicine
DX: R91.8 Other nonspecific abnormal finding of lung field (principal); J98.11 Atelectasis; J44.9 Chronic obstructive pulmonary disease, unspecified; Z87.891 Personal history of nicotine dependence; R13.10 Dysphagia, unspecified; Z79.899 Other long term (current) drug therapy
CPT/HCPCS: 71045; 87015; 87070; 87077; 87101; 87116; 87186; 87205; 87206; 89051; 94640